=== PATIENT | female | born 1975 | race Caucasian/White ===

== ENCOUNTER 2017-07-04 18:04 | Observation (INO) | payer OTHER ==
[2017-07-04] MEDS ORDERED: PROVENTIL 2.5 MG/3 ML NEB IH ONE (20:15)
[2017-07-04] MEDS: PROVENTIL 2.5 MG/3 ML NEB IH SCH ×2 (20:20→23:04)
[2017-07-04] MEDS ORDERED: PROVENTIL 2.5 MG/3 ML NEB IH PRN (20:22)
[2017-07-04] MEDS ORDERED: PROVENTIL COMMON CANISTER IH PRN (20:22)
[2017-07-04 20:28] LABS: BASOPHIL % 0.4 % (0.0-0.4); Eosinophil % 2.8 % (0.00-5.0); Granulocytes % 70.2 % (36.0-66.0); Mean Cell Volume 81.5 fl (78-100); Mean Platelet Volume 10.8 fl (6-9.5); Monocytes % 8.6 % (0.0-12.0); Platelet Count 205 K/mm3 (150-450); Red Blood Count 3.62 M/mm3 (4.1-5.4); Red Cell Distribution Width 15.2 % (11.5-14.0)
[2017-07-04 20:33] LABS: Mean Corpuscular Hemoglobin 24.8 pg (26-32)
[2017-07-04] MEDS ORDERED: Lasix 40 MG/4 ML ONE (21:06)
[2017-07-04 21:16] LABS: ALBUMIN 2.9 g/dL (3.4-5.0); ANION GAP 14.6 MEQ/L (5-15); BILIRUBIN,TOTAL 0.2 mg/dL (0.2-1.0); Carbon Dioxide 24.9 mEq/L (21-32); Potassium 4.5 mEq/L (3.5-5.1); Total Protein 7.3 gm/dL (6.4-8.2)
[2017-07-04 21:59] LABS: Bilirubin NEGATIVE (NEGATIVE); Blood 250 Ery/ul (0-5); Collection Type CLEAN CATCH; Glucose NEGATIVE (NEGATIVE); Leukocyte Esterase TRACE (NEGATIVE)
[2017-07-04 22:00] LABS: Bacteria MODERATE /HPF (NEGATIVE); COMPLETE URINE MICROSCOPIC? YES; Epithelial Cells MANY /HPF (FEW); Mucus SLIGHT /HPF (NEGATIVE)
[2017-07-04] MEDS ORDERED: NORCO 7.5/325 MG TAB PO PRN (23:13)
[2017-07-04] MEDS ORDERED: DESYREL 50 MG PO PRN (23:20)
[2017-07-04] MEDS ORDERED: Zestril 20 MG PO ONE (23:30)
[2017-07-04] MEDS ORDERED: Pepcid 20 MG PO ONE (23:30)
[2017-07-04] MEDS ORDERED: LYRICA 100MG PO ONE (23:30)
[2017-07-04] MEDS ORDERED: Singulair 10 MG PO ONE (23:30)
[2017-07-04] MEDS ORDERED: Zocor 10MG PO ONE (23:30)
[2017-07-04] MEDS: Lantus Insulin SQ SCH (23:57)
[2017-07-05] MEDS: PHENERGAN 25 MG PO PRN ×3 (00:02→18:56)
[2017-07-05] MEDS: PROVENTIL 2.5 MG/3 ML NEB IH SCH ×6 (02:52→23:15)
[2017-07-05] MEDS ORDERED: Sodium Chloride 0.9% 10 ML FLUSH Syringe IV PRN (07:28)
--- NOTE | 2017-07-05 07:56 | XRAY ---
Indication: Short of breath. Comparison: November 12, 2016. Portable chest demonstrates small focus of right base infiltrate/atelectasis/effusion. Heart is not enlarged for AP portable technique. Bony thorax intact.
[2017-07-05] MEDS ORDERED: Lantus Insulin SQ SCH (08:00)
[2017-07-05] MEDS: Furosemide 100mg/10 ml Vial IV SCH (08:27)
[2017-07-05] MEDS: Sodium Chloride 0.9% 10 ML FLUSH Syringe IV SCH ×2 (08:35→22:12)
[2017-07-05] MEDS: NovoLOG Insulin SQ PRN ×2 (12:36→22:13)
[2017-07-05] MEDS: NORCO 7.5/325 MG TAB PO PRN ×2 (13:03→19:00)
[2017-07-05] MEDS ORDERED: NON-FORMULARY ITEM (Ranitidine Hcl [Zantac] 150 MG) PO SCH (15:00)
[2017-07-05] MEDS: Zestril 20 MG PO SCH ×2 (15:26→22:12)
[2017-07-05] MEDS: COREG 12.5 MG PO SCH ×2 (15:27→22:10)
[2017-07-05] MEDS: NORVASC 5 MG PO SCH (15:27)
[2017-07-05] MEDS: Zocor 10MG PO SCH ×2 (15:27→22:12)
[2017-07-05] MEDS: LYRICA 100MG PO SCH ×2 (15:27→22:11)
[2017-07-05] MEDS: Pepcid 20 MG PO SCH ×2 (15:27→22:11)
[2017-07-05] MEDS: CLARITIN 10 MG PO SCH (15:28)
[2017-07-05] MEDS: Lantus Insulin SQ SCH ×2 (15:28→22:10)
--- NOTE | 2017-07-05 16:20 | HP ---
HISTORY OF PRESENT ILLNESS: This is a 41 year-old woman who presented to the clinic yesterday to see Dr. Brooks. She has had a 25 pound weight gain since June 19, 2017. She reports a history of congestive heart failure, had started feeling like she was feeling up. A week ago Dr. Brooks had increased her Lasix to 80 mg p.o. daily for the past week but the patient was still having dyspnea and unable to lay down to sleep at night. She was even dyspneic when she would get up to walk to the bathroom. She reports that after getting 80 mg of Lasix last night and this morning that she has had good urine output. They have recorded 1740 mL, and that she is feeling much better today and that she is not as dyspneic. She reports her top screw is Dr. Sellers in [place] and that she has had an echocardiogram, stress test there. She reports she is watching her diet and trying not to eat too much salt. REVIEW OF SYSTEMS: She denies cough, no rhinorrhea, no abdominal pain, no rashes, no headaches. She has had swelling in the abdomen and her lower legs, otherwise review of systems is negative. ALLERGIES: Codeine, diphenhydramine, morphine, Doxycycline, Benadryl. MEDICATIONS: Please see her home medication list. PAST MEDICAL HISTORY: The patient reports a history of myocardial infarction November 12, 2016, here at [facility] and then being transferred to [facility] where she had to stay for 3 weeks. She has a history of gastroesophageal reflux, arthritis, depression, diabetes type 2, congestive heart failure, hypertension, kidney problems, chronic pancreatitis, diverticulitis, gastritis, hypoxia requiring home oxygen at 2 liters. SURGICAL HISTORY: She had a bone taken out of her big toe because of a diabetic ulcer, a D&C. SOCIAL HISTORY: She quit smoking October 2016, no alcohol use. She is and lives with her . FAMILY HISTORY: Her mother is and had arthritis of her hip, coronary artery disease and congestive heart failure. Her father is and had a history of [place], COPD, and black lungs. PHYSICAL EXAMINATION: VITALS: T-Current 98.2, T-Max 98.6, heart rate 86 to 102, respiratory rate 18 to 21, oxygen saturation 94 to 97% on 2 L nasal cannula. Blood pressure 130 to 159 over 77 to 88. GENERAL: The patient is a pleasant lady lying in bed, no acute distress. CARDIOVASCULAR: She has regular rate and rhythm, no murmurs, gallops or rubs. CHEST: Clear to auscultation bilaterally, no crackles or wheezes. ABDOMEN: Soft, nontender, nondistended, with normal bowel sounds. EXTREMITIES: She has +2 pitting edema to her knees bilaterally. SKIN: Warm, dry and intact. LABS: Hemoglobin 9.0, creatinine 1.73, NT Pro BNP 271, UA with moderate bacteria. Hemoglobin A1c 14.1. ASSESSMENT AND PLAN Congestive heart failure exacerbation. Will continue with Lasix 80 mg IV daily. We will recheck her NT Pro BNP in the morning. Continue with accurate In's and Out's and daily weights. * Diabetes mellitus type 2, out of control. She reports Dr. Brooks recently adjusted her insulin, we will continue with accu-cheks q.a.m., q.h.s., as well as low dose sliding scale and restart the current doses of her insulin on her home medication list that were recently increased by Dr. Brooks.
[2017-07-05] MEDS: NovoLOG Insulin SQ SCH (16:47)
[2017-07-05] MEDS ORDERED: Lasix 40 MG/4 ML IV ONE (20:01)
[2017-07-05] MEDS ORDERED: NON-FORMULARY ITEM (Atorvastatin Calcium [Atorvastatin Calcium] 10 MG) PO SCH (22:00)
[2017-07-05] MEDS: Singulair 10 MG PO SCH (22:12)
[2017-07-06] MEDS: PROVENTIL 2.5 MG/3 ML NEB IH SCH ×6 (03:11→22:57)
[2017-07-06] MEDS: NORCO 7.5/325 MG TAB PO PRN ×4 (03:24→23:52)
[2017-07-06] MEDS: PHENERGAN 25 MG PO PRN ×4 (03:28→23:55)
[2017-07-06] MEDS: Sodium Chloride 0.9% 10 ML FLUSH Syringe IV SCH ×3 (04:07→21:33)
[2017-07-06 06:20] LABS: ANION GAP 12.1 MEQ/L (5-15); Carbon Dioxide 30.1 mEq/L (21-32); Potassium 4.3 mEq/L (3.5-5.1)
[2017-07-06] MEDS: NovoLOG Insulin SQ SCH ×3 (07:55→16:48)
[2017-07-06] MEDS: Lantus Insulin SQ SCH ×2 (07:56→21:33)
[2017-07-06] MEDS: COREG 12.5 MG PO SCH ×2 (09:34→21:22)
[2017-07-06] MEDS: Zestril 20 MG PO SCH ×2 (09:34→21:23)
[2017-07-06] MEDS: Zocor 10MG PO SCH ×2 (09:34→21:23)
[2017-07-06] MEDS: CLARITIN 10 MG PO SCH (09:35)
[2017-07-06] MEDS: LYRICA 100MG PO SCH ×3 (09:37→21:22)
[2017-07-06] MEDS: NORVASC 5 MG PO SCH (09:37)
[2017-07-06] MEDS: Furosemide 100mg/10 ml Vial IV SCH (09:38)
--- NOTE | 2017-07-06 09:47 | PCM.NOTE ---
Date and Time: 07/06/17937 Subjective Assessment: She reports that she continues to feel better with less swelling in her abdomen , hands and legs. She reports her hgb A1C was 16 so having it at 14.1 is an improvement for her. She reports she plans to see Dr. Newman about her diabetes but she has not heard when this appointment is yet. - Review of Systems Constitutional: No Symptoms Eyes: No Symptoms Ears, Nose, & Throat: No Symptoms Respiratory: No Symptoms Cardiac: No Symptoms Abdominal/Gastrointestinal: No Symptoms Genitourinary Symptoms: No Symptoms Musculoskeletal: No Symptoms Skin: Other (mild swelling of right hand (chronic) and lower extremities.) Objective Exam General Appearance: no apparent distress, alert, obese Neurologic Exam: alert, cooperative, normal mood/affect Skin Exam: normal color, warm, dry, No rash Respiratory Exam: normal breath sounds, lungs clear, No respiratory distress, No crackles/rales, No rhonchi, No wheezing Cardiovascular Exam: regular rate/rhythm, normal heart sounds, No murmur, No friction rub, No gallop Gastrointestinal/Abdomen Exam: soft, normal bowel sounds, No tenderness, No distention, No mass Extremity Exam: other (+1 edema to knees bilat, slight swelling in right hand) OBJECTIVE DATA Vital Signs: Vital Signs - 24 hr Temp Pulse Resp BP Pulse Ox 07/06/17 07:15 87 18 94 L 07/06/17 07:00 98.1 F 93 H 18 151/74 93 L 07/06/17 03:11 82 20 93 L 07/06/17 03:00 97.6 F 82 20 128/75 93 L 07/05/17 23:15 97 H 20 94 L 07/05/17 23:00 98.0 F 87 22 132/80 93 L 07/05/17 19:55 97.9 F 94 H 20 144/77 96 07/05/17 18:45 94 H 19 96 07/05/17 17:01 97.6 F 92 H 18 128/65 97 07/05/17 16:00 98.2 F 86 18 130/79 97 07/05/17 11:40 98.2 F 86 18 130/79 97 07/05/17 10:50 84 18 98 Oxygen-Last 24 hours O2 Percentage 2 Liters = 28% O2 Percentage 2 Liters = 28% O2 Percentage 2 Liters = 28% O2 Percentage 2 Liters = 28% O2 Percentage 2 Liters = 28% O2 Percentage 2 Liters = 28% O2 Percentage 2 Liters = 28% O2 Percentage 2 Liters = 28% Pain Assessment - Last Documented Pain Intensity 7 Pain Scale Used [facility] Intake and Output: Intake & Output 07/04/17 07/05/17 07/06/17 07/07/17 06:59 06:59 06:59 06:59 Intake Total 1020 2630 Output Total 1740 4250 Balance -720 -1620 Weight 148.189 kg 147.327 kg Lab Results: Accuchecks Date 07/06/17 Date 07/05/17 Date 07/05/17 Date 07/05/17 Time 08:00 Time 22:00 Time 16:54 Time 11:30 Accucheck Value: 253 Accucheck Value: 354 Lab Results-Last 24 Hours 07/06/17 Range/Units 05:40 Sodium 137 (136-145) mEq/L Potassium 4.3 (3.5-5.1) mEq/L Chloride 99 (98-107) mEq/L Carbon Dioxide 30.1 (21-32) mEq/L Anion Gap 12.1 (5-15) MEQ/L BUN 28 H (9-20) mg/dL Creatinine 1.73 H (0.55-1.30) mg/dl Estimated GFR 34 ML/MIN Glucose 267 H (70-110) MG/DL Calcium 8.7 (8.5-10.1) mg/dL Radiology Exams: Radiology Procedures Category Date Time Status CHEST 1 VIEW (PORTABLE) Stat Exams 07/04/17 20:10 Completed Assessment/Plan (1) Acute exacerbation of CHF (congestive heart failure) Current Visit: Yes Status: Acute Assessment & Plan: Continue lasix 80 mg IV daily. Her creatinine has been stable. Continue to monitor daily ins and outs and daily weights. Her weight is down to 147.3 kg from 148 kg yesterday. She had 4250 mL of urine out in the last 24 hours. Code(s): I50.9 - HEART FAILURE, UNSPECIFIED (2) Diabetes type 2, uncontrolled Current Visit: Yes Status: Chronic Qualifiers: Diabetes mellitus complication status: with hyperglycemia Diabetes mellitus alf insulin use: with mold changer use Qualified Code(s): E11.65 - Type 2 diabetes mellitus with hyperglycemia; Z79.4 - detention (current) use of insulin Assessment & Plan: Continue current dose of lantus (increased by Dr. Brooks in the clinic on ). Increase novolog form 15 units with meals to 25 units with meals. She received a total of 182 units of insulin yesterday (125 lantus and 57 units of short acting insulin with her meal sand sliding scale) and her glucoses still ran in the 200's or higher. She did not have any low blood glucoses. Code(s): E11.65 - TYPE 2 DIABETES MELLITUS WITH HYPERGLYCEMIA
[2017-07-06] MEDS ORDERED: INSULIN GLARGINE HUM REC ANLOG 50 UNIT SQ SCH (10:00)
[2017-07-06] MEDS ORDERED: NON-FORMULARY ITEM (Amlodipine Besylate 10 Mg [Norvasc 10 Mg] 10 MG) PO SCH (10:00)
[2017-07-06] MEDS: Pepcid 20 MG PO SCH ×3 (11:46→21:22)
[2017-07-06] MEDS: Singulair 10 MG PO SCH (21:22)
[2017-07-06] MEDS: NovoLOG Insulin SQ PRN (21:33)
[2017-07-07] MEDS: PROVENTIL 2.5 MG/3 ML NEB IH SCH ×3 (03:18→10:47)
[2017-07-07] MEDS: Sodium Chloride 0.9% 10 ML FLUSH Syringe IV SCH (06:37)
[2017-07-07 07:38] VITALS: BP 123/76
[2017-07-07] MEDS: NovoLOG Insulin SQ SCH ×2 (07:50→11:49)
[2017-07-07] MEDS: Lantus Insulin SQ SCH (07:50)
[2017-07-07] MEDS: NORCO 7.5/325 MG TAB PO PRN (08:07)
[2017-07-07] MEDS: PHENERGAN 25 MG PO PRN (08:07)
--- NOTE | 2017-07-07 09:07 | PCM.DS ---
Discharge Summary Date of Admission: 07/04/17 19:39 Admitting Physician: VILMA KEEN Primary Care Provider: VILMA KEEN Allergies Allergies codeine [Codeine] Allergy (Severe, Verified 02/06/16 06:18) swelling throat diphenhydramine HCl [From Benadryl] Allergy (Severe, Verified 02/06/16 06:18) swelling to eyes and throat morphine Allergy (Severe, Verified 02/06/16 06:18) swelling throat doxycycline calcium [From Vibramycin] Allergy (Mild, Verified 02/06/16 06:18) Rash doxycycline hyclate [From Vibramycin] Allergy (Mild, Verified 02/06/16 06:18) Rash doxycycline monohydrate [From Vibramycin] Allergy (Mild, Verified 02/06/16 06:18 ) Rash acetaminophen [From Darvocet-N] Allergy (Verified 02/06/16 06:18) Penicillins Allergy (Verified 02/06/16 06:18) propoxyphene napsylate [From Darvocet-N] Allergy (Verified 02/06/16 06:18) Sulfa (Sulfonamide Antibiotics) Allergy (Verified 02/06/16 06:18) Rash Hospital Summary - Hospital Course Hospital Course: Pt admitted with acute exacerbation of CHF and overall edema. She has had very good urine output on 80mg IV lasix daily. Tolerating po well. Feeling better, decreased edema. Her diabetes has been uncontrolled; she has slowly been increasing her lantus at home with BS over 400. She is to follow up with Dr. Newman. Her lantus here was increased to 50 units in a.m. (from 30 units) and 75 units in p.m. with lowest bs 118. - Vitals & Intake/Output Vital Signs: Vital Signs Temperature 98.1 F 07/07/17 07:37 Pulse Rate 88 07/07/17 07:37 Respiratory Rate 20 07/07/17 07:37 Blood Pressure 123/76 07/07/17 07:37 O2 Sat by Pulse Oximetry 95 07/07/17 07:37 Oxygen-Last Documented O2 Percentage 2 Liters = 28% Intake & Output: Intake & Output 07/04/17 07/05/17 07/06/17 07/07/17 11:59 11:59 11:59 11:59 Intake Total 1020 2630 730 Output Total 1740 4250 2250 Balance -097 -2510 -8728 Weight 148.189 kg 147.327 kg 148.381 kg - Lab Result Diagrams: 07/04/17 20:15 07/06/17 05:40 Lab Results-Last 24 Hrs: Accuchecks Date 07/07/17 Date 07/06/17 Date 07/06/17 Date 07/06/17 Time 07:30 Time 20:34 Time 16:30 Time 11:35 Accucheck Value: 167 Accucheck Value: 299 Micro Results-Entire Visit: Accuchecks Date 07/07/17 Date 07/06/17 Date 07/06/17 Date 07/06/17 Time 07:30 Time 20:34 Time 16:30 Time 11:35 Accucheck Value: 167 Accucheck Value: 299 - Procedures and Test Procedures and Tests throughout Hospitalization: Therapy Orders & Screens 07/04/17 19:00 Respiratory Nebulizer Q4H Comment: ALBUTEROL Q4 HOURS 07/04/17 20:20 Respiratory Therapy Consult ROUTINE Comment: Reason For Exam: 07/04/17 20:21 Oxygen NASAL CANNULA 2 lpm Comment: TO KEEP SPO2 >92% PER R.T. PROTOCOL Respiratory Nebulizer PRN Comment: ALBUTEROL Q2PRN FOR SOB/WHEEZING 07/04/17 20:22 Respiratory MDI PRN Comment: ALBUTEROL 2 PUFFS Q4HPRN FOR SOB/WHEEZING Discharge Exam General Appearance: no apparent distress Neurologic Exam: alert, oriented x 3, cooperative Skin Exam: normal color, warm, dry Respiratory Exam: normal breath sounds, lungs clear, No crackles/rales, No rhonchi, No wheezing Cardiovascular Exam: regular rate/rhythm, normal heart sounds, No murmur, No gallop Gastrointestinal/Abdomen Exam: soft, normal bowel sounds, No tenderness Extremity Exam: swelling (trace LE edema bilat) Final Diagnosis/Problem List - Final Discharge Diagnosis/Problem (1) Acute exacerbation of CHF (congestive heart failure) Current Visit: Yes Status: Acute Assessment & Plan: Much improved. Will check labs today, as long as she is stable ok to d/c home on home lasix dose. (2) Diabetes type 2, uncontrolled Current Visit: Yes Status: Chronic Assessment & Plan: Home on lantus 50 units in a.m., 75 units in p.m. She is supposed to get an appointemnt wicaleb Newman. I will have my office staff call in the larger dose of insulin to the pharmacy. - Discharge Disposition: Home, Self-Care Condition: Stable Prescriptions: Continue Lisinopril 20 mg [Zestril 20 MG] 20 mg PO BID Ranitidine HCl [Zantac] 150 mg PO TID Pregabalin [Lyrica 100Mg] 100 mg PO TID Ergocalciferol (Vitamin D2) [Vitamin D] 1.25 mg PO .TUES/TH Atorvastatin Calcium 10 mg PO BID Trazodone HCl 50 mg [Desyrel 50 mg] 1 - 2 tab PO HS PRN PRN PRN Reason: sleep Amlodipine Besylate 10 mg [Norvasc 10 MG] 10 mg PO DAILY Promethazine HCl 25 mg [Phenergan 25 mg] 12.5 mg PO Q6H PRN PRN #30 tablet PRN Reason: Nausea Insulin Aspart [NovoLOG Insulin] 15 unit SQ AC Loratadine 10 mg [Claritin 10 mg] 10 mg PO DAILY AMITRIPTYLINE HCL 50 mg Tab [AMITRIPTYLINE HCL 50 mg Tablet] 50 mg PO QID Albuterol Sulfate [Proventil Hfa] 6.7 gm IH QID PRN Albuterol 2.5 mg/3 ml Neb [Proventil 2.5 mg/3 ml Neb] 2.5 mg NEB Q4HPRN PRN PRN Reason: Shortness Of Breath Montelukast Sodium 10 mg [Singulair 10 MG] 10 mg PO HS Hydrocodone Bit/Acetaminophen [[place] 7.5-325 Tablet] 1 each PO Q6H PRN PRN PRN Reason: Pain Carvedilol 12.5 mg [Coreg 12.5 mg] 12.5 mg PO BID Insulin Glargine,Hum.rec.anlog [Basaglar Kwikpen U-100] 50 unit SQ QAM Insulin Glargine,Hum.rec.anlog [Basaglar Kwikpen U-100] 75 unit SQ QPM Furosemide 80 mg [Lasix 80 mg] 80 mg PO DAILY Follow up with: VILMA KEEN [Primary Care Provider] - 1 Week
[2017-07-07 09:51] LABS: Mean Cell Volume 82.6 fl (78-100); Mean Platelet Volume 10.4 fl (6-9.5); Platelet Count 259 K/mm3 (150-450); Red Blood Count 4.07 M/mm3 (4.1-5.4); Red Cell Distribution Width 15.7 % (11.5-14.0); White Blood Count 11.5 K/mm3 (4.0-10.5)
[2017-07-07 10:02] LABS: Mean Corpuscular Hemoglobin 24.5 pg (26-32)
[2017-07-07] MEDS: LYRICA 100MG PO SCH (10:21)
[2017-07-07] MEDS: Pepcid 20 MG PO SCH (10:21)
[2017-07-07] MEDS: Zestril 20 MG PO SCH (10:21)
[2017-07-07] MEDS: NORVASC 5 MG PO SCH (10:21)
[2017-07-07] MEDS: CLARITIN 10 MG PO SCH (10:21)
[2017-07-07] MEDS: COREG 12.5 MG PO SCH (10:21)
[2017-07-07] MEDS: Zocor 10MG PO SCH (10:22)
[2017-07-07] MEDS: Furosemide 100mg/10 ml Vial IV SCH (10:22)
[2017-07-07 10:23] LABS: ANION GAP 13.1 MEQ/L (5-15); Carbon Dioxide 29.1 mEq/L (21-32); Potassium 4.2 mEq/L (3.5-5.1)
[2017-07-07 10:50] VITALS: PULSE 97; O2SAT 96
[2017-07-08] MEDS ORDERED: VITAMIN D2 PO SCH (10:00)
== END 2017-07-07 12:45 | disposition home or self-care (01) ==
LOC: MED SURG 19:39
PROVIDERS: ADMIT Family Medicine; ATTEND Family Medicine
DX: I50.23 Acute on chronic systolic (congestive) heart failure (principal); E09.65 Drug or chemical induced diabetes mellitus with hyperglycemia; Z79.899 Other long term (current) drug therapy; I25.2 Old myocardial infarction; K21.9 Gastro-esophageal reflux disease without esophagitis; M19.90 Unspecified osteoarthritis, unspecified site; F32.9 Major depressive disorder, single episode, unspecified; I10 Essential (primary) hypertension; K86.1 Other chronic pancreatitis
CPT/HCPCS: 36415; 71010; 80048; 80053; 81000; 82962; 83036; 83880; 85025; 85027; 94640; 94760; G0378; J1940; A9270-GY

== ENCOUNTER 2017-07-29 11:58 | Emergency (ER) | payer OTHER ==
[2017-07-29 13:02] VITALS: O2SAT 96
[2017-07-29 13:08] LABS: BASOPHIL % 0.3 % (0.0-0.4); Eosinophil % 2.2 % (0.00-5.0); Granulocytes % 72.6 % (36.0-66.0); Lymphocytes % 16.3 % (24.0-44.0); Mean Cell Volume 77.4 fl (78-100); Mean Platelet Volume 11.5 fl (6-9.5); Monocytes % 8.6 % (0.0-12.0); Platelet Count 295 K/mm3 (150-450); Red Blood Count 4.52 M/mm3 (4.1-5.4); White Blood Count 11.6 K/mm3 (4.0-10.5)
[2017-07-29 13:09] LABS: Mean Corpuscular Hemoglobin 23.8 pg (26-32)
--- NOTE | 2017-07-29 13:11 | ERPHSYRPT ---
- History of Present Illness Time Seen by Provider: 07/29/17 12:31 Source: patient Exam Limitations: no limitations Patient Subjective Stated Complaint: has had abnormal labs on friday. unable to states whuich ones but she thinks kidney functions. was suppose to be admitted on Friday but was unable Triage Nursing Assessment: alert and oriented. states feeling tired. states the MD said she was dehydrated and wanted her to come into ER for repet labs.. Lips sry and states dry mouth. lungs clear. states cough but no worse that usual heavy feeling in legs but no swelling noted. low back pain and decreased urine output for the past few days. Physician History: 41 year old female who reports she was directed by Dr Brooks's staff to come to the emergency department today for lab evaluation. She states she was told she was dehydrated and had multiple lab abnormalities. She reports some dyspnea, denies chest pain, palpitations or syncope. No numbness, tingling, weakness or paresthesias are present. She reports a history of myocardial infarction in the past and recently congestive heart failure evaluation. Her desktop administrator is Dr Nolasco in [place]. Allergies/Adverse Reactions: codeine [Codeine] Allergy (Severe, Verified 02/06/16 06:18) swelling throat diphenhydramine HCl [From Benadryl] Allergy (Severe, Verified 02/06/16 06:18) swelling to eyes and throat morphine Allergy (Severe, Verified 02/06/16 06:18) swelling throat doxycycline calcium [From Vibramycin] Allergy (Mild, Verified 02/06/16 06:18) Rash doxycycline hyclate [From Vibramycin] Allergy (Mild, Verified 02/06/16 06:18) Rash doxycycline monohydrate [From Vibramycin] Allergy (Mild, Verified 02/06/16 06:18 ) Rash acetaminophen [From Darvocet-N] Allergy (Verified 02/06/16 06:18) Penicillins Allergy (Verified 02/06/16 06:18) propoxyphene napsylate [From Darvocet-N] Allergy (Verified 02/06/16 06:18) Sulfa (Sulfonamide Antibiotics) Allergy (Verified 02/06/16 06:18) Rash Home Medications: Lisinopril 20 mg [Zestril 20 MG] 20 mg PO BID 05/04/13 [History] Pregabalin [Lyrica 100Mg] 100 mg PO TID 10/19/13 [History] Ranitidine HCl [Zantac] 150 mg PO TID 10/19/13 [History] Amlodipine Besylate 10 mg [Norvasc 10 MG] 10 mg PO DAILY 01/05/16 [History] Atorvastatin Calcium 10 mg PO BID 01/05/16 [History] Ergocalciferol (Vitamin D2) [Vitamin D] 1.25 mg PO .TUES/THURS 01/05/16 [History ] Trazodone HCl 50 mg [Desyrel 50 mg] 1 - 2 tab PO HS PRN PRN 01/05/16 [ History] AMITRIPTYLINE HCL 50 mg Tab [AMITRIPTYLINE HCL 50 mg Tablet] 50 mg PO QID [History] Albuterol 2.5 mg/3 ml Neb [Proventil 2.5 mg/3 ml Neb] 2.5 mg NEB Q4HPRN PRN 11/08/16 [History] Albuterol Sulfate [Proventil Hfa] 6.7 gm IH QID PRN 11/08/16 [History] Insulin Aspart [NovoLOG Insulin] 15 unit SQ AC 11/08/16 [History] Loratadine 10 mg [Claritin 10 mg] 10 mg PO DAILY 11/08/16 [History] Hydrocodone Bit/Acetaminophen [[place] 7.5-325 Tablet] 1 each PO Q6H PRN PRN 07/04 [History] Montelukast Sodium 10 mg [Singulair 10 MG] 10 mg PO HS 07/04/17 [History] Carvedilol 12.5 mg [Coreg 12.5 mg] 12.5 mg PO BID 07/05/17 [History] Furosemide 80 mg [Lasix 80 mg] 80 mg PO DAILY 07/05/17 [History] Insulin Glargine,Hum.rec.anlog [Basaglar Kwikpen U-100] 50 unit SQ QAM 07/05/17 [History] Insulin Glargine,Hum.rec.anlog [Basaglar Kwikpen U-100] 75 unit SQ QPM 07/05/17 [History] Hx Tetanus, Diphtheria Vaccination/Date Given: Yes Hx Influenza Vaccination/Date Given: No Hx Pneumococcal Vaccination/Date Given: No - Review of Systems Constitutional: No Fever, No Chills Respiratory: Dyspnea, No Cough Cardiac: Edema (chronic), No Chest Pain, No Palpitations, No Syncope Abdominal/Gastrointestinal: No Abdominal Pain, No Nausea, No Vomiting, No Diarrhea Genitourinary Symptoms: No Dysuria Skin: No Rash All Other Systems: Reviewed and Negative - Past Medical History Pertinent Past Medical History: Yes Neurological History: Migraines, Peripheral Neuropathy ENT History: No Pertinent History Cardiac History: High Cholesterol, Hypertension Respiratory History: Asthma Endocrine Medical History: Diabetes Type II Musculoskeletal History: Fibromyalgia, Fractures, Osteoarthritis GI Medical History: Diverticulitis, GERD, Pancreatitis History: Other Psycho-Social History: Anxiety, Depression Female Reproductive Disorders: No Pertinent History Other Medical History: L knee deterioration. l1 fracture. hx kidney failure- L kidney not fully functioning - Past Surgical History Past Surgical History: Yes Neuro Surgical History: No Pertinent History Cardiac: No Pertinent History Respiratory: No Pertinent History Gastrointestinal: No Pertinent History Genitourinary: No Pertinent History Musculoskeletal: Other Female Surgical History: Tubal Ligation, Other Other Surgical History: D&C,childbirth x two; bone removed in left big toe - Social History Smoking Status: Never smoker How long have you smoked: 22 yrs Exposure to second hand smoke: No Drug Use: none Patient Lives Alone: No - Female History Hx Last Menstrual Period: july 04 - Nursing Vital Signs Nursing Vital Signs: Initial Vital Signs Temperature 98.5 F 07/29/17 12:08 Pulse Rate 96 H 07/29/17 12:08 Blood Pressure 133/102 07/29/17 12:08 O2 Sat by Pulse Oximetry 100 07/29/17 12:08 Pain Scale Pain Intensity 3 - Physical Exam General Appearance: no apparent distress, obese Eye Exam: PERRL/EOMI, eyes nml inspection Ears, Nose, Throat Exam: pharynx normal Neck Exam: normal inspection, non-tender, supple, full range of motion Respiratory Exam: normal breath sounds, lungs clear, No respiratory distress Cardiovascular Exam: regular rate/rhythm, normal heart sounds, normal peripheral pulses Gastrointestinal/Abdomen Exam: soft, normal bowel sounds, No tenderness, No mass Extremity Exam: pedal edema (trace) Skin Exam: normal color, warm, dry, No rash SpO2 Interpretation: normal SpO2: 96 Oxygen Delivery: Room Air - Course Nursing assessment & vital signs reviewed: Yes EKG Interpreted by Me: RATE (96), Sinus Rhythm, Left [place] Deviation, Left Bundle Branch Block (unchanged from prior comparison 11/12/16) Ordered Tests: Active Orders 24 hr Category Date Time Status Mandarin Speaking Nanny STAT Care 07/29/17 12:36 Active EKG-ER Only STAT Care 07/29/17 12:36 Active IV Insertion STAT Care 07/29/17 12:36 Active CHEST 1 VIEW (PORTABLE) Stat Exams 07/29/17 12:36 Completed CBC W DIFF Stat Lab 07/29/17 12:50 Completed CMP Stat Lab 07/29/17 12:50 Completed MAGNESIUM Stat Lab 07/29/17 12:50 Completed NT PRO BNP Stat Lab 07/29/17 12:50 Completed TROPONIN Q3H Lab 07/29/17 12:50 Completed TROPONIN Q3H Lab 07/29/17 15:45 Ordered TROPONIN Q3H Lab 07/29/17 18:45 Ordered TROPONIN Q3H Lab 07/29/17 21:45 Ordered TROPONIN Q3H Lab 07/30/17 00:45 Ordered Lab/Rad Data: Laboratory Result Diagrams 07/29/17 12:50 07/29/17 12:50 Laboratory Results 07/29/17 07/29/17 07/29/17 Range/Units 12:50 12:50 12:50 WBC 11.6 H (4.0-10.5) K/mm3 RBC 4.52 (4.1-5.4) M/mm3 Hgb 10.8 L (12.0-16.0) gm/dl Hct 35.0 (35-47) % MCV 77.4 L (78-100) fl MCH 23.8 L (26-32) pg MCHC 30.9 L (32-36) g/dl RDW 15.0 H (11.5-14.0) % Plt Count 295 (150-450) K/mm3 MPV 11.5 H (6-9.5) fl Gran % 72.6 H (36.0-66.0) % Lymphocytes % 16.3 L (24.0-44.0) % Monocytes % 8.6 (0.0-12.0) % Eosinophils % 2.2 (0.00-5.0) % Basophils % 0.3 (0.0-0.4) % Basophils # 0.04 (0-0.4) Sodium 132 L (136-145) mEq/L Potassium 5.2 H (3.5-5.1) mEq/L Chloride 97 L (98-107) mEq/L Carbon Dioxide 23.1 (21-32) mEq/L Anion Gap 17.2 H (5-15) MEQ/L BUN 49 H (9-20) mg/dL Creatinine 1.90 H (0.55-1.30) mg/dl Estimated GFR 31 ML/MIN Glucose 452 H (70-110) MG/DL Calcium 9.8 (8.5-10.1) mg/dL Magnesium 1.8 (1.8-2.4) mg/dL Total Bilirubin 0.20 (0.2-1.0) mg/dL AST 11 L (15-37) U/L ALT 17 (12-78) U/L Alkaline Phosphatase 163 H (46-116) U/L Troponin I < 0.017 (0.000-0.056) ng/ml NT-Pro-B Natriuret Pep 226 H (0-125) pg/ml Serum Total Protein 7.9 (6.4-8.2) gm/dL Albumin 3.2 L (3.4-5.0) g/dL - Progress Progress Note: 07/29/17 14:[address] Brooks about improvement in labs since 07/17, she would like for patient to be discharged to home with order for repeat labs and f/u in offcie with her on Friday. discussed with patient, she feels well at this time and would like to go home. of note she has her lasix on hold at this time, seeing Dr Lawson net programmer analyst and he stopped her lasix and started her on zaroxylyn recently. she will continue to hold lasix and we will repeat BMP on Friday per Dr Brooks's request. I discussed labs and xray findings with patient, all questions were answered and she agrees with my outlined plan of care at this time. - Departure Time of Disposition: 14:18 Departure Disposition: Home Clinical Impression: Chronic renal disease, Hyperglycemia due to type 2 diabetes mellitus Condition: Stable Critical Care Time: No Referrals: VILMA BROOKS [Primary Care Provider] - Additional Instructions: continue to hold your lasix as directed by Dr Lawson, increase clear fluid intake and rest. have BMP checked on Friday morning prior to appointment with Dr Brooks. you have a followup appointment scheduled with Dr Brooks on FridayAugust 04 at 11:15am, please have your bloodwork done early Friday before your appointment so Dr Brooks will have them to review when you are in the office.
--- NOTE | 2017-07-29 13:19 | XRAY ---
Exam: AP portable chest film from 1244 hrs. on 07/29/2017. Comparison: AP upright portable chest film from 07/04/2017. Indication: Shortness of breath, history of CHF. Findings: The heart size and contour are normal. The kanika and mediastinal structures appear unremarkable. Inflation of the lungs is average. Prior mild right basilar airspace disease has resolved as compared to 07/04/2017. Currently, the lung ortega appear essentially clear. No vascular congestion, pneumothorax, or pleural effusion is seen. I believe there is a tiny calcified granuloma at the medial right lung apex. No acute osseous process is seen. Impression: 1. Prior focal airspace disease at the right lung base has resolved representing improvement from 07/04/2017. 2. Currently, no acute cardiopulmonary disease is seen.
[2017-07-29 13:53] LABS: ALBUMIN 3.2 g/dL (3.4-5.0); ANION GAP 17.2 MEQ/L (5-15); BILIRUBIN,TOTAL 0.2 mg/dL (0.2-1.0); Carbon Dioxide 23.1 mEq/L (21-32); MAGNESIUM 1.8 mg/dL (1.8-2.4); Potassium 5.2 mEq/L (3.5-5.1); Total Protein 7.9 gm/dL (6.4-8.2)
[2017-07-29 14:20] VITALS: BP 115/88; PULSE 87
== END 2017-07-29 14:35 | disposition home or self-care (01) ==
LOC: ED 11:58
DX: N18.9 Chronic kidney disease, unspecified (principal); E11.65 Type 2 diabetes mellitus with hyperglycemia; R06.00 Dyspnea, unspecified; R60.9 Edema, unspecified; E78.00 Pure hypercholesterolemia, unspecified; I10 Essential (primary) hypertension; Z79.4 Long term (current) use of insulin; Z79.899 Other long term (current) drug therapy
CPT/HCPCS: 36000; 36415; 71010; 80053; 83036; 83735; 83880; 84484; 85025; 93005; 93041; 99284

== ENCOUNTER 2018-01-28 07:46 | Inpatient (IN) | payer OTHER ==
--- NOTE | 2018-01-28 14:47 | XRAY ---
Indication: Asthma. COPD. Comparison: September 26, 2017. PA/lateral chest demonstrates new subtle right lower lobe infiltrate versus atelectasis. Remaining heart, left lung, and bony thorax normal.
--- NOTE | 2018-01-28 14:49 | XRAY ---
Indication: Pain following fall. Comparison: None 3 views of the right shoulder obtained. No bony, articular, or soft tissue abnormalities. Chest reported separately.
--- NOTE | 2018-01-28 14:51 | XRAY ---
Indication: Pain following fall. Comparison: None 3 views of the left wrist obtained. No bony, articular, or soft tissue abnormalities.
--- NOTE | 2018-01-28 14:54 | XRAY ---
Indication: Low back pain following fall. Comparison: January 14, 2014. 5 views of the lumbar spine unchanged again demonstrating normal alignment with bilateral L4-S1 degenerative facet arthropathy, lower thoracic endplate spurring, old left L1 transverse process fracture, minimal vascular calcifications, and chronic pancreatitis calcifications. Again no acute fracture, subluxation, or pars interarticularis defect.
[2018-01-28 15:38] LABS: Lactic Acid 2.1 (0.4-2.0)
[2018-01-28 15:42] LABS: BASOPHIL % 0.5 % (0.0-0.4); Basophil (Absolute #) 0.05 (0-0.4); Eosinophil % 2.6 % (0.00-5.0); Eosinophil (Absolute #) 0.25 (0-0.5); Granulocyte Absolute (ANC) 7.03 (1.4-6.9); Granulocytes % 71.9 % (36.0-66.0); Hematocrit 34.2 % (35-47); Hemoglobin 10.8 gm/dl (12.0-16.0); Lymphocyte (Absolute #) 1.64 (1.0-4.6); Lymphocytes % 16.8 % (24.0-44.0); Mean Cell Volume 77.2 fl (78-100); Mean Corpuscular Hgb Concent. 31.6 g/dl (32-36); Mean Platelet Volume 11.1 fl (6-9.5); Monocytes % 8.2 % (0.0-12.0); Platelet Count 253 K/mm3 (150-450); Red Blood Count 4.43 M/mm3 (4.1-5.4); Red Cell Distribution Width 14.9 % (11.5-14.0); White Blood Count 9.8 K/mm3 (4.0-10.5)
[2018-01-28 15:52] LABS: Mean Corpuscular Hemoglobin 24.3 pg (26-32)
[2018-01-28 15:55] LABS: ALBUMIN 3.6 g/dl (3.5-5.0); ALKALINE PHOSPHATASE 152 U/L (38-126); ANION GAP 16.2 MEQ/L (5-15); BLOOD UREA NITROGEN 31 mg/dl (7-17); CHLORIDE 97 mEq/L (98-107); Calcium 8.7 mg/dL (8.4-10.2); Carbon Dioxide 25 mmol/L (22-30); Creatinine 1 1.62 mg/dl (0.52-1.04); Glucose 367 mg/dL (74-106); Potassium 4.1 mmol/L (3.5-5.1); SGOT/AST 15 U/L (14-36); SGPT/ALT 17 U/L (0-35); SODIUM 134 mmol/L (137-145); Total Protein 6.9 mg/dl (6.3-8.2)
[2018-01-28 16:07] LABS: TROPONIN < 0.012 ng/ml (0.000-0.034)
[2018-01-28 16:08] LABS: INFLUENZA A NEGATIVE (NEGATIVE); INFLUENZA B NEGATIVE (NEGATIVE); RESPIRATORY SYNCTIAL VIRUS NEGATIVE (Negative)
[2018-01-28] MEDS: Lactated Ringers 1,000 ML IV SCH (16:20)
[2018-01-28] MEDS: ROCEPHIN 1 Gm-D5w 50 ml Bag** 1 G/50 ML IVPB IV SCH (16:20)
[2018-01-28] MEDS: NovoLOG Insulin SQ PRN ×2 (16:21→21:48)
[2018-01-28] MEDS ORDERED: NON-FORMULARY ITEM (Cyclobenzaprine Hcl [Cyclobenzaprine Hcl] 5 MG) PO PRN (16:40)
[2018-01-28] MEDS ORDERED: INSULIN GLULISINE 10 UNIT SQ SCH (17:00)
[2018-01-28] MEDS: ENOXAPARIN SODIUM SQ SCH (17:27)
[2018-01-28] MEDS: NORCO 7.5/325 MG TAB PO PRN ×2 (17:28→23:27)
[2018-01-28] MEDS: NovoLOG Insulin SQ SCH (17:29)
[2018-01-28 17:49] LABS: Lactic Acid 2.1 (0.4-2.0)
[2018-01-28 18:21] LABS: Appearance HAZY (CLEAR)
[2018-01-28 18:22] LABS: Bacteria RARE /HPF (NEGATIVE); Bilirubin NEGATIVE (NEGATIVE); Blood 50 Ery/ul (0-5); Epithelial Cells FEW /HPF (FEW); Glucose 1000 mg/dL (NEGATIVE); Ketones NEGATIVE (NEGATIVE); Leukocyte Esterase NEGATIVE (NEGATIVE); Nitrite NEGATIVE (NEGATIVE); Protein,Urine Dip 500 (Negative); Urobilinogen NORMAL mg/dL (0-1); WBC 0-2 /HPF (0-5)
[2018-01-28] MEDS: PROVENTIL 2.5 MG/3 ML NEB IH PRN ×2 (19:24→23:36)
[2018-01-28] MEDS: Singulair 10 MG PO SCH (21:47)
[2018-01-28] MEDS: LYRICA 100MG PO SCH (21:47)
[2018-01-28] MEDS: COREG 12.5 MG PO SCH (21:47)
[2018-01-28] MEDS: Protonix 40MG Tablet PO SCH (21:47)
[2018-01-28] MEDS: Lantus Insulin SQ SCH (21:48)
[2018-01-28] MEDS: DESYREL 50 MG PO PRN ×2 (21:52→23:27)
[2018-01-28] MEDS: Cyclobenzaprine 10 MG PO PRN (21:52)
[2018-01-28] MEDS ORDERED: INSULIN GLARGINE HUM REC ANLOG 75 UNIT SQ SCH (22:00)
[2018-01-28] MEDS ORDERED: NON-FORMULARY ITEM (Omeprazole 20 Mg [Prilosec 20 Mg] 20 MG) PO SCH (22:00)
[2018-01-28] MEDS: KENALOG 0.1% CREAM 15 GM TP SCH (22:26)
[2018-01-28] MEDS: PHENERGAN 25 MG PO PRN (23:40)
[2018-01-29] MEDS: Lactated Ringers 1,000 ML IV SCH ×2 (05:30→20:43)
[2018-01-29] MEDS: NORCO 7.5/325 MG TAB PO PRN ×2 (05:31→16:55)
[2018-01-29] MEDS: PHENERGAN 25 MG PO PRN ×2 (05:38→16:55)
[2018-01-29] MEDS: PROVENTIL 2.5 MG/3 ML NEB IH PRN ×2 (06:55→13:57)
[2018-01-29] MEDS: NovoLOG Insulin SQ PRN ×4 (06:58→21:39)
[2018-01-29] MEDS: NovoLOG Insulin SQ SCH ×3 (06:59→16:56)
[2018-01-29 07:54] LABS: Lactic Acid 2.1 (0.4-2.0)
[2018-01-29 07:54] LABS: BASOPHIL % 0.7 % (0.0-0.4); Basophil (Absolute #) 0.06 (0-0.4); Eosinophil % 3.2 % (0.00-5.0); Eosinophil (Absolute #) 0.28 (0-0.5); Granulocyte Absolute (ANC) 6.36 (1.4-6.9); Granulocytes % 71.5 % (36.0-66.0); Hematocrit 35.4 % (35-47); Lymphocytes % 16.9 % (24.0-44.0); Mean Cell Volume 78.5 fl (78-100); Mean Corpuscular Hgb Concent. 31.1 g/dl (32-36); Mean Platelet Volume 10.6 fl (6-9.5); Monocyte (Absolute #) 0.68 (0.0-1.3); Monocytes % 7.7 % (0.0-12.0); Platelet Count 245 K/mm3 (150-450); Red Blood Count 4.51 M/mm3 (4.1-5.4); White Blood Count 8.9 K/mm3 (4.0-10.5)
--- NOTE | 2018-01-29 07:56 | PCM.NOTE ---
Date and Time: 01/29/18745 Subjective Assessment: She is c/o R ankle pain, anterior ankle. Was found to have PNA in the ER yesterday. Hard to get the phlegm up; she notes it's brown (was clear until a week ago). She is tolerating po. Had one soft BM this morning - was having diarrhea prior to admission. Objective Exam General Appearance: no apparent distress, alert, obese Neurologic Exam: oriented x 3, cooperative Skin Exam: normal color, warm, dry, No rash Ears, Nose, Throat Exam: moist mucous membranes Respiratory Exam: lungs clear, diminished breath sounds, No crackles/rales, No rhonchi, No wheezing Cardiovascular Exam: regular rate/rhythm, normal heart sounds, No murmur Extremity Exam: normal inspection, other (R ankle no edema, no lesions, mildly ttp anteriorly.), No pedal edema, No swelling OBJECTIVE DATA Vital Signs: Vital Signs - 24 hr Temp Pulse Resp BP Pulse Ox 01/29/18 07:11 90 18 95 01/29/18 07:01 98.4 F 87 20 127/69 95 01/29/18 04:20 98.8 F 94 H 20 116/57 96 01/29/18 00:03 98.0 F 92 H 20 127/60 94 L 01/28/18 23:36 90 22 96 01/28/18 20:10 98.2 F 96 H 22 142/79 96 01/28/18 19:25 94 H 18 96 01/28/18 16:00 98.4 F 90 18 123/65 98 01/28/18 14:32 93 H 20 94 L 01/28/18 13:40 98.2 F 90 20 121/63 96 01/28/18 13:33 98.2 F 90 20 121/63 96 Oxygen-Last 24 hours O2 Percentage 2 Liters = 28% O2 Percentage 2 Liters = 28% O2 Percentage 2 Liters = 28% O2 Percentage 2 Liters = 28% Pain Assessment - Last Documented Pain Intensity 9 Pain Scale Used 0-10 Pain Scale Intake and Output: Intake & Output 01/26/18 01/27/18 01/28/18 01/29/18 11:59 11:59 11:59 11:59 Intake Total 2826 Output Total 1600 Balance 1226 Weight 144.3 kg Lab Results: Accuchecks Date 01/28/18 Date 01/28/18 Time 21:40 Time 16:30 Accucheck Value: 480 Accucheck Value: 477 Lab Results-Last 24 Hours 01/28/18 01/28/18 01/28/18 Range/Units 15:11 15:11 15:11 WBC 9.8 (4.0-10.5) K/mm3 RBC 4.43 (4.1-5.4) M/mm3 Hgb 10.8 L (12.0-16.0) gm/dl Hct 34.2 L (35-47) % MCV 77.2 L (78-100) fl MCH 24.3 L (26-32) pg MCHC 31.6 L (32-36) g/dl RDW 14.9 H (11.5-14.0) % Plt Count 253 (150-450) K/mm3 MPV 11.1 H (6-9.5) fl Gran % 71.9 H (36.0-66.0) % Lymphocytes % 16.8 L (24.0-44.0) % Monocytes % 8.2 (0.0-12.0) % Eosinophils % 2.6 (0.00-5.0) % Basophils % 0.5 (0.0-0.4) % Basophils # 0.05 (0-0.4) Sodium 134 L (137-145) mmol/L Potassium 4.1 (3.5-5.1) mmol/L Chloride 97 L (98-107) mEq/L Carbon Dioxide 25 (22-30) mmol/L Anion Gap 16.2 H (5-15) MEQ/L BUN 31 H (7-17) mg/dl Creatinine 1.62 H (0.52-1.04) mg/dl Estimated GFR 37 ML/MIN Glucose 367 H (74-106) mg/dL Hemoglobin A1c (4.5-6.0) Lactic Acid (0.4-2.0) Calcium 8.7 (8.4-10.2) mg/dL Magnesium 2.0 (1.6-2.3) mg/dL Total Bilirubin 0.10 L (0.2-1.3) mg/d? AST 15 (14-36) U/L ALT 17 (0-35) U/L Alkaline Phosphatase 152 H (38-126) U/L Troponin I < 0.012 (0.000-0.034) ng/ml Serum Total Protein 6.9 (6.3-8.2) mg/dl Albumin 3.6 (3.5-5.0) g/dl Ur Collection Type Urine Color (YELLOW) Urine Appearance (CLEAR) Urine pH (5-6) Ur Specific [place] (1.005-1.025) Urine Protein (Negative) Urine Ketones (NEGATIVE) Urine Blood (0-5) Jaren/ul Urine Nitrite (NEGATIVE) Urine Bilirubin (NEGATIVE) Urine Urobilinogen (0-1) mg/dL Ur Leukocyte Esterase (NEGATIVE) Urine Microscopic WBC (0-5) /HPF Ur Epithelial Cells (FEW) /HPF Urine Bacteria (NEGATIVE) /HPF Urine Yeast (NEGATIVE) /HPF Urine Glucose (NEGATIVE) mg/dL Influenza Type A Ag NEGATIVE (NEGATIVE) Influenza Type B Ag NEGATIVE (NEGATIVE) RSV (PCR) NEGATIVE (Negative) Specimen Received 01/28/18 01/28/18 01/28/18 Range/Units 15:32 15:45 16:00 WBC (4.0-10.5) K/mm3 RBC (4.1-5.4) M/mm3 Hgb (12.0-16.0) gm/dl Hct (35-47) % MCV (78-100) fl MCH (26-32) pg MCHC (32-36) g/dl RDW (11.5-14.0) % Plt Count (150-450) K/mm3 MPV (6-9.5) fl Gran % (36.0-66.0) % Lymphocytes % (24.0-44.0) % Monocytes % (0.0-12.0) % Eosinophils % (0.00-5.0) % Basophils % (0.0-0.4) % Basophils # (0-0.4) Sodium (137-145) mmol/L Potassium (3.5-5.1) mmol/L Chloride (98-107) mEq/L Carbon Dioxide (22-30) mmol/L Anion Gap (5-15) MEQ/L BUN (7-17) mg/dl Creatinine (0.52-1.04) mg/dl Estimated GFR ML/MIN Glucose (74-106) mg/dL Hemoglobin A1c > 14.00 H (4.5-6.0) Lactic Acid 2.1 H (0.4-2.0) Calcium (8.4-10.2) mg/dL Magnesium (1.6-2.3) mg/dL Total Bilirubin (0.2-1.3) mg/d? AST (14-36) U/L ALT (0-35) U/L Alkaline Phosphatase (38-126) U/L Troponin I (0.000-0.034) ng/ml Serum Total Protein (6.3-8.2) mg/dl Albumin (3.5-5.0) g/dl Ur Collection Type CLEAN CATCH Urine Color YELLOW (YELLOW) Urine Appearance HAZY (CLEAR) Urine pH 5.0 (5-6) Ur Specific [place] 1.020 (1.005-1.025) Urine Protein 500 (Negative) Urine Ketones NEGATIVE (NEGATIVE) Urine Blood 50 (0-5) Jaren/ul Urine Nitrite NEGATIVE (NEGATIVE) Urine Bilirubin NEGATIVE (NEGATIVE) Urine Urobilinogen NORMAL (0-1) mg/dL Ur Leukocyte Esterase NEGATIVE (NEGATIVE) Urine Microscopic WBC 0-2 (0-5) /HPF Ur Epithelial Cells FEW (FEW) /HPF Urine Bacteria RARE (NEGATIVE) /HPF Urine Yeast FEW (NEGATIVE) /HPF Urine Glucose 1000 (NEGATIVE) mg/dL Influenza Type A Ag (NEGATIVE) Influenza Type B Ag (NEGATIVE) RSV (PCR) (Negative) Specimen Received 01/28/18 1545 01/28/18 Range/Units 17:46 WBC (4.0-10.5) K/mm3 RBC (4.1-5.4) M/mm3 Hgb (12.0-16.0) gm/dl Hct (35-47) % MCV (78-100) fl MCH (26-32) pg MCHC (32-36) g/dl RDW (11.5-14.0) % Plt Count (150-450) K/mm3 MPV (6-9.5) fl Gran % (36.0-66.0) % Lymphocytes % (24.0-44.0) % Monocytes % (0.0-12.0) % Eosinophils % (0.00-5.0) % Basophils % (0.0-0.4) % Basophils # (0-0.4) Sodium (137-145) mmol/L Potassium (3.5-5.1) mmol/L Chloride (98-107) mEq/L Carbon Dioxide (22-30) mmol/L Anion Gap (5-15) MEQ/L BUN (7-17) mg/dl Creatinine (0.52-1.04) mg/dl Estimated GFR ML/MIN Glucose (74-106) mg/dL Hemoglobin A1c (4.5-6.0) Lactic Acid 2.1 H (0.4-2.0) Calcium (8.4-10.2) mg/dL Magnesium (1.6-2.3) mg/dL Total Bilirubin (0.2-1.3) mg/d? AST (14-36) U/L ALT (0-35) U/L Alkaline Phosphatase (38-126) U/L Troponin I (0.000-0.034) ng/ml Serum Total Protein (6.3-8.2) mg/dl Albumin (3.5-5.0) g/dl Ur Collection Type Urine Color (YELLOW) Urine Appearance (CLEAR) Urine pH (5-6) Ur Specific [place] (1.005-1.025) Urine Protein (Negative) Urine Ketones (NEGATIVE) Urine Blood (0-5) Jaren/ul Urine Nitrite (NEGATIVE) Urine Bilirubin (NEGATIVE) Urine Urobilinogen (0-1) mg/dL Ur Leukocyte Esterase (NEGATIVE) Urine Microscopic WBC (0-5) /HPF Ur Epithelial Cells (FEW) /HPF Urine Bacteria (NEGATIVE) /HPF Urine Yeast (NEGATIVE) /HPF Urine Glucose (NEGATIVE) mg/dL Influenza Type A Ag (NEGATIVE) Influenza Type B Ag (NEGATIVE) RSV (PCR) (Negative) Specimen Received Radiology Exams: Radiology Procedures Category Date Time Status CHEST 2 VIEWS (PA AND LAT) Routine Exams 01/28/18 13:40 Completed LUMBAR COMPLETE (MIN 4 VIEWS) Routine Exams 01/28/18 13:40 Completed SHOULDER Routine Exams 01/28/18 13:40 Completed WRIST (MIN 3 VIEWS) Routine Exams 01/28/18 13:40 Completed Multi-Disciplinary Progress Notes: Multi-Disciplinary Progress Notes 01/28/18 16:03 Respiratory Note by Amber Umanzor MESSAGE LEFT WITH PHONE NURSE AT [facility] FOR DR. CHAPARRO (EMS MANAGER FOR DR. KEEN) REGARDING LACTIC ACID OF 2.1. Initialized on 01/28/18 16:03 - END OF NOTE Assessment/Plan (1) Pneumonia Current Visit: Yes Status: Acute Qualifiers: Pneumonia type: due to unspecified organism Laterality: unspecified laterality Lung location: unspecified part of lung Qualified Code(s): J18.9 - Pneumonia, unspecified organism Code(s): J18.9 - PNEUMONIA, UNSPECIFIED ORGANISM (2) COPD (chronic obstructive pulmonary disease) Current Visit: Yes Status: Acute Qualifiers: COPD type: chronic bronchitis Chronic bronchitis type: unspecified Qualified Code(s): J42 - Unspecified chronic bronchitis (3) Diarrhea Current Visit: Yes Status: Acute Qualifiers: Diarrhea type: unspecified type Qualified Code(s): R19.7 - Diarrhea, unspecified Assessment & Plan: improving Code(s): R19.7 - DIARRHEA, UNSPECIFIED (4) Ankle pain Current Visit: Yes Status: Acute Qualifiers: Chronicity: acute Laterality: right Qualified Code(s): M25.571 - Pain in right ankle and joints of right foot Assessment & Plan: xr Code(s): M25.579 - PAIN IN UNSPECIFIED ANKLE AND JOINTS OF UNSPECIFIED FOOT (5) Diabetes type 2, uncontrolled Current Visit: No Status: Chronic Qualifiers: Diabetes mellitus complication status: with neurologic complications Diabetes mellitus complication detail: with polyneuropathy Diabetes mellitus correction insulin use: with marine oil terminal superintendent use Qualified Code(s): E11.42 - Type 2 diabetes mellitus with diabetic polyneuropathy; E11.65 - Type 2 diabetes mellitus with hyperglycemia; E11.65 - Type 2 diabetes mellitus with hyperglycemia; E11.65 - Type 2 diabetes mellitus with hyperglycemia; E11.65 - Type 2 diabetes mellitus with hyperglycemia; Z79.4 - MCFP (current) use of insulin; Z79.4 - petroleum terminal plant operator (current) use of insulin; Z79.4 - [facility]FP (current ) use of insulin; Z79.4 - MCFP (current) use of insulin Assessment & Plan: A1c > 14. She is supposed to be seeing an pre k teacher, unsure if she is seeing them. Code(s): E11.65 - TYPE 2 DIABETES MELLITUS WITH HYPERGLYCEMIA
[2018-01-29 08:03] LABS: Mean Corpuscular Hemoglobin 24.3 pg (26-32)
[2018-01-29 08:14] LABS: 027 TOX PROD PRESUMPTIVE NEGATIVE (NEGATIVE); TOXIGENIC C. DIFF ORG NEGATIVE (NEGATIVE)
--- NOTE | 2018-01-29 08:31 | XRAY ---
Indication: Pain following fall. Comparison: None 3 views of the right ankle demonstrates minimal anterior lateral soft tissue swelling. No other bony, articular, or soft tissue abnormalities.
[2018-01-29] MEDS: ENOXAPARIN SODIUM SQ SCH (09:53)
[2018-01-29] MEDS: Lantus Insulin SQ SCH ×2 (09:54→21:39)
[2018-01-29] MEDS: ROCEPHIN 1 Gm-D5w 50 ml Bag** 1 G/50 ML IVPB IV SCH (09:55)
[2018-01-29] MEDS: KENALOG 0.1% CREAM 15 GM TP SCH ×2 (09:58→21:40)
[2018-01-29] MEDS: Lasix 40 MG PO SCH (10:00)
[2018-01-29] MEDS: LYRICA 100MG PO SCH ×3 (10:00→21:39)
[2018-01-29] MEDS: CLARITIN 10 MG PO SCH (10:00)
[2018-01-29] MEDS: NORVASC 5 MG PO SCH (10:00)
[2018-01-29] MEDS: COREG 12.5 MG PO SCH ×2 (10:00→21:38)
[2018-01-29] MEDS: Mucinex 600MG ER Tabs PO SCH ×2 (10:00→21:39)
[2018-01-29] MEDS ORDERED: NON-FORMULARY ITEM (Amlodipine Besylate 10 Mg [Norvasc 10 Mg] 10 MG) PO SCH (10:00)
[2018-01-29] MEDS ORDERED: INSULIN GLARGINE HUM REC ANLOG 50 UNIT SQ SCH (10:00)
[2018-01-29] MEDS: Protonix 40MG Tablet PO SCH ×2 (10:01→21:38)
[2018-01-29 10:41] LABS: ANION GAP 16.8 MEQ/L (5-15); Calcium 8.8 mg/dL (8.4-10.2); Creatinine 1 1.63 mg/dl (0.52-1.04); Potassium 4.5 mmol/L (3.5-5.1)
[2018-01-29] MEDS: Zithromax 500 MG/ 250 ML NaCl Premix 500 MG/250 ML IVPB IV SCH (16:52)
[2018-01-29] MEDS: Singulair 10 MG PO SCH (21:38)
[2018-01-29] MEDS: Cyclobenzaprine 10 MG PO PRN (21:38)
[2018-01-29] MEDS: DESYREL 50 MG PO PRN (21:39)
[2018-01-30] MEDS: PROVENTIL 2.5 MG/3 ML NEB IH PRN ×3 (04:50→17:47)
[2018-01-30] MEDS: NovoLOG Insulin SQ PRN ×4 (07:01→21:23)
[2018-01-30] MEDS: NovoLOG Insulin SQ SCH ×3 (07:01→17:06)
[2018-01-30] MEDS: NORCO 7.5/325 MG TAB PO PRN ×3 (07:04→21:19)
[2018-01-30] MEDS: PHENERGAN 25 MG PO PRN ×3 (07:07→21:19)
--- NOTE | 2018-01-30 08:42 | PCM.NOTE ---
Date and Time: 01/30/18 0837 Subjective Assessment: Still having cough. Was up and walked last night and O2 sat decreased into the mid 80s, and increased the oxygen. No more diarrhea. Deshawn po well. Objective Exam General Appearance: no apparent distress, obese, other Neurologic Exam: oriented x 3, cooperative, normal mood/affect Skin Exam: normal color, warm, dry, No rash Respiratory Exam: diminished breath sounds, wheezing (scattered), No crackles/ rales, No rhonchi Cardiovascular Exam: regular rate/rhythm, normal heart sounds, No murmur Gastrointestinal/Abdomen Exam: soft, normal bowel sounds, No tenderness Extremity Exam: No pedal edema, No swelling OBJECTIVE DATA Vital Signs: Vital Signs - 24 hr Temp Pulse Resp BP Pulse Ox 01/30/18 07:36 88 20 94 L 01/30/18 07:24 97.9 F 95 H 20 123/65 93 L 01/30/18 04:52 94 H 22 93 L 01/30/18 04:00 97.8 F 92 H 24 122/62 90 L 01/30/18 00:16 98.0 F 104 H 22 137/67 93 L 01/29/18 22:30 99 H 20 93 L 01/29/18 19:51 98.4 F 101 H 20 117/63 94 L 01/29/18 16:03 97.8 F 98 H 22 151/56 96 01/29/18 13:58 90 20 94 L 01/29/18 11:07 97.3 F 93 H 20 116/59 95 Oxygen-Last 24 hours O2 Percentage 3 Liters = 32% O2 Percentage 2 Liters = 28% O2 Percentage 2 Liters = 28% O2 Percentage 2 Liters = 28% O2 Percentage 2 Liters = 28% Pain Assessment - Last Documented Pain Intensity 0 Pain Scale Used 0-10 Pain Scale Intake and Output: Intake & Output 01/27/18 01/28/18 01/29/18 01/30/18 11:59 11:59 11:59 11:59 Intake Total 3186 4809 Output Total 1600 3515 Balance 1586 2284 Weight 144.3 kg 144.8 kg Lab Results: Accuchecks Date 01/29/18 Date 01/29/18 Date 01/29/18 Time 16:30 Time 11:30 Accucheck Value: 283 Accucheck Value: 398 Accucheck Value: 351 Lab Results-Last 24 Hours 01/29/18 Range/Units 07:52 Sodium 133 L (137-145) mmol/L Potassium 4.5 (3.5-5.1) mmol/L Chloride 96 L (98-107) mEq/L Carbon Dioxide 24 (22-30) mmol/L Anion Gap 16.8 H (5-15) MEQ/L BUN 36 H (7-17) mg/dl Creatinine 1.63 H (0.52-1.04) mg/dl Estimated GFR 37 ML/MIN Glucose 332 H (74-106) mg/dL Calcium 8.8 (8.4-10.2) mg/dL Radiology Exams: Radiology Procedures Category Date Time Status ANKLE (3 VIEWS) Routine Exams 01/29/18 08:20 Completed CHEST 2 VIEWS (PA AND LAT) Routine Exams 01/28/18 13:40 Completed LUMBAR COMPLETE (MIN 4 VIEWS) Routine Exams 01/28/18 13:40 Completed SHOULDER Routine Exams 01/28/18 13:40 Completed WRIST (MIN 3 VIEWS) Routine Exams 01/28/18 13:40 Completed Assessment/Plan (1) Pneumonia Current Visit: Yes Status: Acute Qualifiers: Pneumonia type: due to unspecified organism Laterality: unspecified laterality Lung location: unspecified part of lung Qualified Code(s): J18.9 - Pneumonia, unspecified organism Assessment & Plan: On Day #3 of Rocephin and zithromax, IV. Has improved somewhat; she still had a desaturation while walking, which is likely due to the pneumonia. She has a history of severe respiratory distress (on ventilator, transferred emergently) with a pneumonia episode about a year ago. Code(s): J18.9 - PNEUMONIA, UNSPECIFIED ORGANISM (2) Fall Current Visit: Yes Status: Acute Qualifiers: Encounter type: subsequent encounter Qualified Code(s): W19.XXXD - Unspecified fall, subsequent encounter Assessment & Plan: She fell just prior to admission; XR have been negative. Uses a walker at baseline due to peripheral diabetic neuropathy. Code(s): W19.XXXA - UNSPECIFIED FALL, INITIAL ENCOUNTER (3) COPD (chronic obstructive pulmonary disease) Current Visit: Yes Status: Chronic Qualifiers: COPD type: chronic bronchitis Chronic bronchitis type: unspecified Qualified Code(s): J42 - Unspecified chronic bronchitis (4) Diarrhea Current Visit: Yes Status: Resolved Qualifiers: Diarrhea type: unspecified type Qualified Code(s): R19.7 - Diarrhea, unspecified Code(s): R19.7 - DIARRHEA, UNSPECIFIED (5) Ankle pain Current Visit: Yes Status: Resolved Qualifiers: Chronicity: acute Laterality: right Qualified Code(s): M25.571 - Pain in right ankle and joints of right foot Assessment & Plan: Just hurts when she crosses her ankles. XR negative. Code(s): M25.579 - PAIN IN UNSPECIFIED ANKLE AND JOINTS OF UNSPECIFIED FOOT (6) Diabetes type 2, uncontrolled Current Visit: No Status: Chronic Qualifiers: Diabetes mellitus complication status: with neurologic complications Diabetes mellitus complication detail: with polyneuropathy Diabetes mellitus intermediate insulin use: with lobsterman use Qualified Code(s): E11.42 - Type 2 diabetes mellitus with diabetic polyneuropathy; E11.65 - Type 2 diabetes mellitus with hyperglycemia; E11.65 - Type 2 diabetes mellitus with hyperglycemia; E11.65 - Type 2 diabetes mellitus with hyperglycemia; E11.65 - Type 2 diabetes mellitus with hyperglycemia; Z79.4 - halfway (current) use of insulin; Z79.4 - halfway (current) use of insulin; Z79.4 - lobsterman (current ) use of insulin; Z79.4 - lobsterman (current) use of insulin Assessment & Plan: A1c > 14. Code(s): E11.65 - TYPE 2 DIABETES MELLITUS WITH HYPERGLYCEMIA (7) Peripheral neuropathy Current Visit: Yes Status: Chronic Code(s): G62.9 - POLYNEUROPATHY, UNSPECIFIED
[2018-01-30] MEDS: Lactated Ringers 1,000 ML IV SCH (09:17)
[2018-01-30] MEDS: Lasix 40 MG PO SCH (09:50)
[2018-01-30] MEDS: COREG 12.5 MG PO SCH ×2 (09:51→21:21)
[2018-01-30] MEDS: Mucinex 600MG ER Tabs PO SCH ×2 (09:51→21:22)
[2018-01-30] MEDS: Protonix 40MG Tablet PO SCH ×2 (09:51→21:22)
[2018-01-30] MEDS: NORVASC 5 MG PO SCH (09:51)
[2018-01-30] MEDS: CLARITIN 10 MG PO SCH (09:52)
[2018-01-30] MEDS: LYRICA 100MG PO SCH ×3 (09:52→21:22)
[2018-01-30] MEDS: Lantus Insulin SQ SCH ×2 (09:54→21:21)
[2018-01-30] MEDS: ENOXAPARIN SODIUM SQ SCH (09:56)
[2018-01-30] MEDS: KENALOG 0.1% CREAM 15 GM TP SCH ×2 (09:57→21:21)
[2018-01-30] MEDS ORDERED: Zaroxolyn 2.5 MG PO SCH (10:00)
[2018-01-30] MEDS: ROCEPHIN 1 Gm-D5w 50 ml Bag** 1 G/50 ML IVPB IV SCH (10:00)
[2018-01-30] MEDS: Zithromax 500 MG/ 250 ML NaCl Premix 500 MG/250 ML IVPB IV SCH (11:18)
[2018-01-30] MEDS: Singulair 10 MG PO SCH (21:23)
[2018-01-30] MEDS: Cyclobenzaprine 10 MG PO PRN (21:30)
[2018-01-30] MEDS: DESYREL 50 MG PO PRN (21:30)
[2018-01-31] MEDS: Lactated Ringers 1,000 ML IV SCH (00:02)
[2018-01-31] MEDS: NORCO 7.5/325 MG TAB PO PRN (06:48)
[2018-01-31] MEDS: PROVENTIL 2.5 MG/3 ML NEB IH PRN ×2 (06:48→11:47)
[2018-01-31] MEDS: PHENERGAN 25 MG PO PRN (06:48)
--- NOTE | 2018-01-31 08:29 | PCM.DS ---
Discharge Summary Date of Admission: 01/29/18 07:46 Admitting Physician: VILMA BROOKS Primary Care Provider: VILMA BROOKS Allergies Allergies codeine [Codeine] Allergy (Severe, Verified 09/26/17 10:38) swelling throat diphenhydramine HCl [From Benadryl] Allergy (Severe, Verified 09/26/17 10:38) swelling to eyes and throat morphine Allergy (Severe, Verified 09/26/17 10:38) swelling throat doxycycline calcium [From Vibramycin] Allergy (Mild, Verified 09/26/17 10:38) Rash doxycycline hyclate [From Vibramycin] Allergy (Mild, Verified 09/26/17 10:38) Rash doxycycline monohydrate [From Vibramycin] Allergy (Mild, Verified 09/26/17 10:38 ) Rash acetaminophen [From Darvocet-N] Allergy (Verified 09/26/17 10:38) Penicillins Allergy (Verified 09/26/17 10:38) propoxyphene napsylate [From Darvocet-N] Allergy (Verified 09/26/17 10:38) Sulfa (Sulfonamide Antibiotics) Allergy (Verified 09/26/17 10:38) Rash Hospital Summary - Hospital Course Hospital Course: patient was admitted and cared for by Dr Brooks, hx of recurrent pneumonia. on oxygen at home 2L continuous, she is maintaining her saturation on 2L and feels well today. no fever, wants to go home. - Vitals & Intake/Output Vital Signs: Vital Signs Temperature 97.6 F 01/31/18 07:18 Pulse Rate 96 H 01/31/18 07:18 Respiratory Rate 20 01/31/18 07:18 Blood Pressure 134/91 01/31/18 07:18 O2 Sat by Pulse Oximetry 94 L 01/31/18 07:18 Oxygen-Last Documented O2 Percentage 2 Liters = 28% Intake & Output: Intake & Output 01/28/18 01/29/18 01/30/18 01/31/18 11:59 11:59 11:59 11:59 Intake Total 3186 5277 5353 Output Total 1600 7065 Balance 1586 3691 5353 Weight 144.3 kg 144.8 kg 151.6 kg - Lab Result Diagrams: 01/29/18 07:52 01/29/18 07:52 Lab Results-Last 24 Hrs: Accuchecks Date 01/30/18 Time 22:00 Accucheck Value: 259 Accucheck Value: 332 Accucheck Value: 385 Micro Results-Entire Visit: Microbiology 01/28/18 15:45 Urine Culture - Final Urine, Void MIXED KAYLENE; 3 OR MORE TYPES. NO PREDOMINANT ORGANISM. NO FURTHER WORKUP. PLEASE RESUBMIT IF CLINICALLY INDICATED. Accuchecks Date 01/30/18 Time 22:00 Accucheck Value: 259 Accucheck Value: 332 Accucheck Value: 385 - Radiology Exams Ordered Rad Exams-Entire Visit: Radiology Procedures Category Date Time Status ANKLE (3 VIEWS) Routine Exams 01/29/18 08:20 Completed - Procedures and Test Procedures and Tests throughout Hospitalization: Therapy Orders & Screens 01/28/18 13:40 PT Eval & Treat (MD Order) ROUTINE Reason for Eval:: frequent falls Diagnosis: frequent falls,wrist pain,shoulder pain le edema,dm,diarrhea EKG ROUTINE Comment: Diagnosis: le edema,frequent falls,dm,diarrhea ST Eval & Treat (MD Order) .as ordered Comment: Physician Instructions: Reason For Exam: Evaluate: Yes Treat: Yes Reason for Eval: bedside swallow eval Diagnosis: frequent falls,diarrhea,wrist pain,shoulder pain,dm,le edema 01/28/18 13:58 OT Screen per Nursing Assess Comment: Protocol Order Physician Instructions: Greater than 3 points order OT Admission Screening Reason For Exam: Triggered on Admission Diagnosis: Frequent Falls Open Wound/Cellutlitis/Pressure Ulcers: No Acute Fx/ORIF/Change in wt bearing status: No Severe MUSCULOSKELETAL pain: Yes ADL Dysfunction: No Acute CVA w/Hemiparesis/Hemiplegia: No Decreased Functional Mobility/Strength: Yes Sprain/Strain: No Acute Post-op Mobility Dysfunction: No Total Points: 6 PT Screen per Nursing Assess ONCE Comment: Protocol Order Physician Instructions: Greater than 3 points order PT Admission Screenin Reason For Exam: Triggered on Admission Diagnosis: Frequent Falls Open Wound/Cellutlitis/Pressure Ulcers: No Acute Fx/ORIF/Change in wt bearing status: No Severe MUSCULOSKELETAL pain: Yes ADL Dysfunction: No Acute CVA w/Hemiparesis/Hemiplegia: No Decreased Functional Mobility/Strength: Yes Sprain/Strain: No Acute Post-op Mobility Dysfunction: No Total Points: 6 RT Screen per Nursing Assess ONCE Comment: Protocol Order Physician Instructions: Greater than 3 points order RT Admission Screen Reason For Exam: Triggered on Admission Diagnosis: Frequent Falls Diagnosis: Frequent Falls Pneumonia: No Home O2: Yes Asthma: No CHF: No Home CPAP/BIPAP: No Home Nebs/MDI: Yes Total Points: 10 01/28/18 14:29 Oxygen NASAL CANNULA 2 lpm Comment: Diagnosis: Frequent Falls Respiratory Nebulizer UD Comment: ALBUTEROL QIDPRN Diagnosis: Frequent Falls 01/30/18 13:17 Flutter Therapy UD Comment: Diagnosis: PNEUMONIA, FAILED OUTPATIENT, EXACERBATION COPD Discharge Exam General Appearance: no apparent distress, alert, obese Skin Exam: normal color, warm, dry Respiratory Exam: normal breath sounds, lungs clear, No respiratory distress Cardiovascular Exam: regular rate/rhythm, normal heart sounds Gastrointestinal/Abdomen Exam: soft, No tenderness, No mass Extremity Exam: normal inspection, normal range of motion Final Diagnosis/Problem List - Final Discharge Diagnosis/Problem (1) Pneumonia Current Visit: Yes Status: Acute (2) Fall Current Visit: Yes Status: Acute (3) COPD (chronic obstructive pulmonary disease) Current Visit: Yes Status: Chronic (4) Diabetes type 2, uncontrolled Current Visit: No Status: Chronic - Discharge Disposition: Home, Self-Care Condition: Stable Prescriptions: New Levofloxacin [Levaquin] 500 mg PO DAILY #5 tablet Continue Pregabalin [Lyrica 100Mg] 100 mg PO TID Ergocalciferol (Vitamin D2) [Vitamin D] 1.25 mg PO .TUES/THURS Trazodone HCl 50 mg [Desyrel 50 mg] 1 - 2 tab PO HS PRN PRN PRN Reason: sleep Amlodipine Besylate 10 mg [Norvasc 10 MG] 10 mg PO DAILY Promethazine HCl 25 mg [Phenergan 25 mg] 12.5 mg PO Q6H PRN PRN #30 tablet PRN Reason: Nausea Loratadine 10 mg [Claritin 10 mg] 10 mg PO DAILY AMITRIPTYLINE HCL 50 mg Tab [AMITRIPTYLINE HCL 50 mg Tablet] 50 mg PO QID Albuterol Sulfate [Proventil Hfa] 6.7 gm IH QID PRN Albuterol 2.5 mg/3 ml Neb [Proventil 2.5 mg/3 ml Neb] 2.5 mg NEB Q4HPRN PRN PRN Reason: Shortness Of Breath Montelukast Sodium 10 mg [Singulair 10 MG] 10 mg PO HS Hydrocodone Bit/Acetaminophen [[place] 7.5-325 Tablet] 1 each PO Q6H PRN PRN PRN Reason: Pain Carvedilol 12.5 mg [Coreg 12.5 mg] 12.5 mg PO BID Insulin Glargine,Hum.rec.anlog [Basaglar Kwikpen U-100] 50 unit SQ QAM Insulin Glargine,Hum.rec.anlog [Basaglar Kwikpen U-100] 75 unit SQ QPM Omeprazole 20 MG [Prilosec 20 mg] 20 mg PO BID Furosemide 40 mg [Lasix 40 MG] 40 mg PO DAILY Metolazone 2.5 mg [Zaroxolyn 2.5 MG] 2.5 mg PO UD Cyclobenzaprine HCl 5 mg PO BID PRN #15 tablet PRN Reason: Pain Insulin Glulisine [Apidra Solostar] 10 unit SQ TIDWMEALS Triamcinolone 0.1% Cream [Kenalog 0.1% Cream 15 gm] 0.1 gm TP BID Follow up with: VILMA BROOKS [Primary Care Provider] - 1 Week
[2018-01-31] MEDS: NovoLOG Insulin SQ SCH ×2 (08:56→11:22)
[2018-01-31] MEDS: NovoLOG Insulin SQ PRN (08:57)
[2018-01-31] MEDS: ROCEPHIN 1 Gm-D5w 50 ml Bag** 1 G/50 ML IVPB IV SCH (09:02)
[2018-01-31] MEDS: ENOXAPARIN SODIUM SQ SCH (09:07)
[2018-01-31] MEDS: COREG 12.5 MG PO SCH (09:07)
[2018-01-31] MEDS: CLARITIN 10 MG PO SCH (09:07)
[2018-01-31] MEDS: KENALOG 0.1% CREAM 15 GM TP SCH (09:07)
[2018-01-31] MEDS: Lasix 40 MG PO SCH (09:08)
[2018-01-31] MEDS: Lantus Insulin SQ SCH (09:08)
[2018-01-31] MEDS: LYRICA 100MG PO SCH (09:09)
[2018-01-31] MEDS: NORVASC 5 MG PO SCH (09:09)
[2018-01-31] MEDS: Mucinex 600MG ER Tabs PO SCH (09:09)
[2018-01-31] MEDS: Protonix 40MG Tablet PO SCH (09:10)
[2018-01-31] MEDS: Zithromax 500 MG/ 250 ML NaCl Premix 500 MG/250 ML IVPB IV SCH (10:23)
[2018-01-31 11:19] VITALS: BP 122/58; O2SAT 96
[2018-01-31 11:51] VITALS: PULSE 89
== END 2018-01-31 13:00 | disposition home or self-care (01) | DRG 195 ==
LOC: MED SURG 07:46 → OBSVTOIN 01-29 07:46
PROVIDERS: ADMIT Family Medicine; ATTEND Family Medicine
DX: J18.9 Pneumonia, unspecified organism (principal); J44.9 Chronic obstructive pulmonary disease, unspecified; E11.42 Type 2 diabetes mellitus with diabetic polyneuropathy; E11.65 Type 2 diabetes mellitus with hyperglycemia; Z79.4 Long term (current) use of insulin; Z99.81 Dependence on supplemental oxygen; M25.571 Pain in right ankle and joints of right foot; W19.XXXD Unspecified fall, subsequent encounter; R19.7 Diarrhea, unspecified; Z79.899 Other long term (current) drug therapy
CPT/HCPCS: 36415; 71046; 72110; 73030; 73110; 73610; 80048; 80053; 81000; 82962; 83036; 83605; 83735; 84484; 85025; 87086; 87493; 87631; 93005; 94150; 94640; 94760; G0378; J0456; J0696; J1650; A9270-GY

== ENCOUNTER 2018-02-28 21:40 | Emergency (ER) | payer OTHER ==
[2018-02-28] MEDS ORDERED: Vancomycin 1GM/ Ns 250ML*** 1 GM/250 ML IVPB IV ONE (22:00)
[2018-02-28] MEDS ORDERED: Hydromorphone 1 mg/ml Ampule IV ONE (22:06)
--- NOTE | 2018-02-28 22:06 | ERPHSYRPT ---
- History of Present Illness Time Seen by Provider: 02/28/18 21:50 Source: patient Exam Limitations: no limitations Patient Subjective Stated Complaint: Right 4th toe wound x2 weeks. Seen by PCP for complaint. Triage Nursing Assessment: Pt presents to the ED with complaints of right 4th toe wound. Pt states onset x2+ weeks, seen by PCP for complaint and prescribed Keflex. Pt states wound began to worsen tonight and states she saw a black on the medial portion of toe. Pt states she contacted PCP who told her to come to ED. No distress noted. Physician History: 42 y/o female comes to the ER with complaints of right 2nd toe pain, swelling and drainage for the past 2 weeks. 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 Pt says the wound started as a blister and it popped. Pt has been having blood glucose in the 200-300 range. Pt describes the pain as sharp, constant, 6/10, and not relieved by norco. Method of Injury: unknown Occurred: days ago Quality: constant, sharpness Severity of Pain-Max: severe Severity of Pain-Current: moderate Lower Extremities Pain: foot: right, 2nd toe: right Modifying Factors: Improves With: nothing Allergies/Adverse Reactions: codeine [Codeine] Allergy (Severe, Verified 09/26/17 10:38) swelling throat diphenhydramine HCl [From Benadryl] Allergy (Severe, Verified 09/26/17 10:38) swelling to eyes and throat morphine Allergy (Severe, Verified 09/26/17 10:38) swelling throat doxycycline calcium [From Vibramycin] Allergy (Mild, Verified 09/26/17 10:38) Rash doxycycline hyclate [From Vibramycin] Allergy (Mild, Verified 09/26/17 10:38) Rash doxycycline monohydrate [From Vibramycin] Allergy (Mild, Verified 09/26/17 10:38 ) Rash acetaminophen [From Darvocet-N] Allergy (Verified 09/26/17 10:38) Penicillins Allergy (Verified 09/26/17 10:38) propoxyphene napsylate [From Darvocet-N] Allergy (Verified 09/26/17 10:38) Sulfa (Sulfonamide Antibiotics) Allergy (Verified 09/26/17 10:38) Rash Home Medications: Pregabalin [Lyrica 100Mg] 100 mg PO TID 10/19/13 [History] Amlodipine Besylate 10 mg [Norvasc 10 MG] 10 mg PO DAILY 01/05/16 [History] Ergocalciferol (Vitamin D2) [Vitamin D] 1.25 mg PO .TUES/THURS 01/05/16 [History ] Trazodone HCl 50 mg [Desyrel 50 mg] 1 - 2 tab PO HS PRN PRN 01/05/16 [ History] AMITRIPTYLINE HCL 50 mg Tab [AMITRIPTYLINE HCL 50 mg Tablet] 50 mg PO QID [History] Albuterol 2.5 mg/3 ml Neb [Proventil 2.5 mg/3 ml Neb] 2.5 mg NEB Q4HPRN PRN 11/08/16 [History] Albuterol Sulfate [Proventil Hfa] 6.7 gm IH QID PRN 11/08/16 [History] Loratadine 10 mg [Claritin 10 mg] 10 mg PO DAILY 11/08/16 [History] Hydrocodone Bit/Acetaminophen [[place] 7.5-325 Tablet] 1 each PO Q6H PRN PRN 07/04 [History] Montelukast Sodium 10 mg [Singulair 10 MG] 10 mg PO HS 07/04/17 [History] Carvedilol 12.5 mg [Coreg 12.5 mg] 12.5 mg PO BID 07/05/17 [History] Insulin Glargine,Hum.rec.anlog [Basaglar Kwikpen U-100] 50 unit SQ QAM 07/05/17 [History] Insulin Glargine,Hum.rec.anlog [Basaglar Kwikpen U-100] 75 unit SQ QPM 07/05/17 [History] Furosemide 40 mg [Lasix 40 MG] 40 mg PO DAILY 09/26/17 [History] Metolazone 2.5 mg [Zaroxolyn 2.5 MG] 2.5 mg PO UD 09/26/17 [History] Omeprazole 20 MG [Prilosec 20 mg] 20 mg PO BID 09/26/17 [History] Insulin Glulisine [Apidra Solostar] 10 unit SQ TIDWMEALS 01/28/18 [History] Triamcinolone 0.1% Cream [Kenalog 0.1% Cream 15 gm] 0.1 gm TP BID [History] Clindamycin HCl [Clindamycin HCl] 300 mg PO QID 02/28/18 [History] Hx Tetanus, Diphtheria Vaccination/Date Given: Yes Hx Influenza Vaccination/Date Given: Yes Hx Pneumococcal Vaccination/Date Given: Yes Immunizations Up to Date: Yes - Review of Systems Constitutional: No Fever, No Chills Eyes: No Symptoms Ears, Nose, & Throat: No Symptoms Respiratory: No Cough, No Dyspnea Cardiac: No Chest Pain, No Edema, No Syncope Abdominal/Gastrointestinal: No Abdominal Pain, No Nausea, No Vomiting, No Diarrhea Genitourinary Symptoms: No Dysuria Musculoskeletal: Joint Redness, Joint Pain, Joint Swelling, No Back Pain, No Neck Pain Skin: Cellulitis, No Rash Neurological: No Dizziness, No Focal Weakness, No Sensory Changes Psychological: No Symptoms Endocrine: No Symptoms All Other Systems: Reviewed and Negative - Past Medical History Pertinent Past Medical History: Yes Neurological History: Migraines, Peripheral Neuropathy, Seizures ENT History: No Pertinent History Cardiac History: Angina, Congestive Heart Failure, Hypertension, Peripheral Vascular Disease Respiratory History: Bronchitis, CHF, COPD Endocrine Medical History: Diabetes Type II Musculoskeletal History: Arthritis, Fractures, Other GI Medical History: Diverticulitis, GERD, Pancreatitis History: Other Psycho-Social History: Anxiety, Depression Female Reproductive Disorders: No Pertinent History Other Medical History: OSTEOMYELITIS. CHRONIC KIDNEY DISEASE. RESPIRATORY FAILURE. SKIN WOUNDS. GOUT. GERD - Past Surgical History Past Surgical History: Yes Neuro Surgical History: No Pertinent History Cardiac: No Pertinent History Respiratory: No Pertinent History Gastrointestinal: No Pertinent History Genitourinary: No Pertinent History Musculoskeletal: Other Female Surgical History: Tubal Ligation, Other Other Surgical History: D&C,childbirth x two; bone removed in left big toe - Social History Smoking Status: Former smoker How long have you smoked: 22 yrs Exposure to second hand smoke: Yes Drug Use: none Patient Lives Alone: No - Female History Hx Now: No - Nursing Vital Signs Nursing Vital Signs: Initial Vital Signs Temperature 98.4 F 02/28/18 21:47 Pulse Rate 110 H 02/28/18 21:47 Respiratory Rate 16 04/07/18 21:47 Blood Pressure 144/96 02/28/18 21:47 O2 Sat by Pulse Oximetry 97 02/28/18 21:47 Pain Scale Pain Intensity 4 - Physical Exam General Appearance: alert Eyes, Ears, Nose, Throat Exam: moist mucous membranes Neck Exam: non-tender, supple Cardiovascular/Respiratory Exam: chest non-tender, normal breath sounds, regular rate/rhythm, no respiratory distress Gastrointestinal/Abdominal Exam: non-tender, guarding Back Exam: normal inspection, No vertebral tenderness Hips Exam: bilateral: non-tender, normal inspection, normal range of motion Legs Exam: bilateral leg: non-tender, normal inspection, normal range of motion Knees Exam: bilateral knee: non-tender, normal inspection, normal range of motion Ankle Exam: bilateral ankle: non-tender, normal inspection, normal range of motion Foot Exam: right foot: ecchymosis, infection, pain, soft tissue tenderness, swelling Neuro/Tendon Exam: normal motor functions, sensory deficit, no response to pain Mental Status Exam: alert, oriented x 3, cooperative Skin Exam: normal color, warm, dry SpO2: 97 Oxygen Delivery: Room Air - Course Nursing assessment & vital signs reviewed: Yes Ordered Tests: Active Orders 24 hr Category Date Time Status ACCUCHECK [Accucheck] STAT Care 03/01/18 00:54 Active IV Insertion STAT Care 02/28/18 22:00 Active BLOOD CULTURE Stat Lab 02/28/18 22:42 Received CBC W DIFF Stat Lab 02/28/18 22:41 Completed CMP Stat Lab 02/28/18 22:41 Completed ESR [Erythrocyte Sedimentation Rate] Stat Lab 02/28/18 22:41 Completed Lactic Acid Stat Lab 02/28/18 22:10 Completed Lactic Acid Stat Lab 03/01/18 00:15 Ordered Medication Summary Discontinued Medications Generic Name Dose Route Start Last Admin Trade Name Freq PRN Reason Stop Dose Admin Hydromorphone HCl 1 mg 02/28/18 22:06 02/28/18 22:17 Hydromorphone 1 Mg/Ml Ampule IV 02/28/18 22:07 1 mg STAT ONE Administration Hydromorphone HCl Confirm 02/28/18 22:14 Dilaudid 2 Mg Injection Administered 02/28/18 22:15 Dose 2 mg .ROUTE .STK-MED ONE Vancomycin HCl 1 gm in 250 mls @ 167 mls/hr 02/28/18 22:00 02/28/18 22:17 Vancomycin 1gm/ Ns 250ml IV 02/28/18 23:29 167 mls/hr STAT ONE Administration Vancomycin HCl Confirm 02/28/18 22:15 Vancomycin 1gm/ Ns 250ml Administered 02/28/18 22:16 Dose 250 mls @ ud IV .STK-MED ONE Sodium Chloride 1,000 mls @ 999 mls/hr 02/28/18 23:10 02/28/18 23:20 Sodium Chloride 0.9% 1000 Ml IV 03/01/18 00:10 999 mls/hr .Q1H1M STA Administration Sodium Chloride Confirm 02/28/18 23:12 Sodium Chloride 0.9% 1000 Ml Administered 02/28/18 23:13 Dose 1,000 mls @ ud .ROUTE .STK-MED ONE Insulin Human Regular 10 unit 02/28/18 23:10 02/28/18 23:29 Novolin R IV 02/28/18 23:11 10 unit STAT ONE Administration Insulin Human Regular Confirm 02/28/18 23:30 Novolin R Administered 02/28/18 23:31 Dose 10 unit .ROUTE .STK-MED ONE Insulin Human Regular 5 unit 03/01/18 01:03 Novolin R IV 03/01/18 01:04 STAT ONE Ondansetron HCl 4 mg 02/28/18 22:23 02/28/18 22:27 Zofran 4 Mg/2 Ml Vial IV 02/28/18 22:24 4 mg STAT ONE Administration Ondansetron HCl Confirm 02/28/18 22:25 Zofran 4 Mg/2 Ml Vial Administered 02/28/18 22:26 Dose 4 mg .ROUTE .STK-MED ONE Lab/Rad Data: Laboratory Result Diagrams 02/28/18 22:41 02/28/18 22:41 Laboratory Results 02/28/18 02/28/18 02/28/18 Range/Units 22:41 22:41 22:41 WBC 9.5 (4.0-10.5) K/mm3 RBC 5.10 (4.1-5.4) M/mm3 Hgb 12.4 (12.0-16.0) gm/dl Hct 38.9 (35-47) % MCV 76.3 L (78-100) fl MCH 24.3 L (26-32) pg MCHC 31.9 L (32-36) g/dl RDW 14.8 H (11.5-14.0) % Plt Count 272 (150-450) K/mm3 MPV 11.4 H (6-9.5) fl Gran % 67.7 H (36.0-66.0) % Eos # (Auto) 0.33 (0-0.5) Absolute Lymphs (auto) 1.93 (1.0-4.6) Absolute Monos (auto) 0.75 (0.0-1.3) Lymphocytes % 20.4 L (24.0-44.0) % Monocytes % 7.9 (0.0-12.0) % Eosinophils % 3.5 (0.00-5.0) % Basophils % 0.5 (0.0-0.4) % Absolute Granulocytes 6.40 (1.4-6.9) Basophils # 0.05 (0-0.4) ESR 15 (0-20) mm/hr Sodium 129 L (137-145) mmol/L Potassium 4.8 (3.5-5.1) mmol/L Chloride 93 L (98-107) mmol/L Carbon Dioxide 20 L (22-30) mmol/L Anion Gap 20.1 H (5-15) MEQ/L BUN 38 H (7-17) mg/dL Creatinine 1.67 H (0.52-1.04) mg/dL Estimated GFR 35.8 ML/MIN Glucose 592 H* (74-106) mg/dL Lactic Acid (0.4-2.0) Calcium 9.0 (8.4-10.2) mg/dL Total Bilirubin 0.30 (0.2-1.3) mg/dL AST 20 (14-36) U/L ALT 16 (0-35) U/L Alkaline Phosphatase 219 H (38-126) U/L Serum Total Protein 8.1 (6.3-8.2) g/dL Albumin 4.2 (3.5-5.0) g/dL 02/28/18 Range/Units 22:10 WBC (4.0-10.5) K/mm3 RBC (4.1-5.4) M/mm3 Hgb (12.0-16.0) gm/dl Hct (35-47) % MCV (78-100) fl MCH (26-32) pg MCHC (32-36) g/dl RDW (11.5-14.0) % Plt Count (150-450) K/mm3 MPV (6-9.5) fl Gran % (36.0-66.0) % Eos # (Auto) (0-0.5) Absolute Lymphs (auto) (1.0-4.6) Absolute Monos (auto) (0.0-1.3) Lymphocytes % (24.0-44.0) % Monocytes % (0.0-12.0) % Eosinophils % (0.00-5.0) % Basophils % (0.0-0.4) % Absolute Granulocytes (1.4-6.9) Basophils # (0-0.4) ESR (0-20) mm/hr Sodium (137-145) mmol/L Potassium (3.5-5.1) mmol/L Chloride (98-107) mmol/L Carbon Dioxide (22-30) mmol/L Anion Gap (5-15) MEQ/L BUN (7-17) mg/dL Creatinine (0.52-1.04) mg/dL Estimated GFR ML/MIN Glucose (74-106) mg/dL Lactic Acid 2.5 H (0.4-2.0) Calcium (8.4-10.2) mg/dL Total Bilirubin (0.2-1.3) mg/dL AST (14-36) U/L ALT (0-35) U/L Alkaline Phosphatase (38-126) U/L Serum Total Protein (6.3-8.2) g/dL Albumin (3.5-5.0) g/dL - Progress Progress: improved Progress Note: 03/01/18 01:15 The x ray of the foot does not show any acute abnormality. The blood glucose is 592 but no anion gap. The patient was given a dose of 10 units of regular insulin and 1 liter of NS fluids. Repeat FS is in the 300's. Pt states that she usually has blood glucose in the 200-300 range. The patient will be given an additional dose of insulin 5 units. The patient has F/U with Dr Brooks on Friday for further evaluation of foot pain. The patient was advised to continue on clindamycin. 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 insulin use: with sulfonator operator use Diabetes mellitus complication status: with hyperglycemia Qualified Code(s): E11.65 - Type 2 diabetes mellitus with hyperglycemia; Z79.4 - shoulder pad molder (current) use of insulin; Z79.4 - MCC (current) use of insulin ; Z79.4 - shoulder pad molder (current) use of insulin; Z79.4 - MCC (current) use of insulin Foot pain Qualifiers: Laterality: right Qualified Code(s): M79.671 - Pain in right foot Condition: Stable Critical Care Time: No Referrals: VILMA BROOKS [Primary Care Provider] - Instructions: Cellulitis (Skin Infection), Adult (DC), Hyperglycemia, Adult (DC ) Additional Instructions: Follow up with Dr Brooks on Friday for further evaluation of foot pain. Continue on Clindamycin as instructed.
[2018-02-28] MEDS ORDERED: DILAUDID 2 MG INJECTION ONE (22:14)
[2018-02-28] MEDS ORDERED: Vancomycin 1GM/ Ns 250ML*** 250 ML IV ONE (22:15)
[2018-02-28 22:16] LABS: Lactic Acid 2.5 (0.4-2.0)
[2018-02-28] MEDS ORDERED: Zofran 4 MG/2 ML VIAL IV ONE (22:23)
[2018-02-28] MEDS ORDERED: Zofran 4 MG/2 ML VIAL ONE (22:25)
[2018-02-28 22:46] LABS: BASOPHIL % 0.5 % (0.0-0.4); Basophil (Absolute #) 0.05 (0-0.4); Eosinophil % 3.5 % (0.00-5.0); Eosinophil (Absolute #) 0.33 (0-0.5); Granulocytes % 67.7 % (36.0-66.0); Hematocrit 38.9 % (35-47); Hemoglobin 12.4 gm/dl (12.0-16.0); Lymphocyte (Absolute #) 1.93 (1.0-4.6); Lymphocytes % 20.4 % (24.0-44.0); Mean Cell Volume 76.3 fl (78-100); Mean Corpuscular Hemoglobin 24.3 pg (26-32); Mean Corpuscular Hgb Concent. 31.9 g/dl (32-36); Mean Platelet Volume 11.4 fl (6-9.5); Monocyte (Absolute #) 0.75 (0.0-1.3); Monocytes % 7.9 % (0.0-12.0); Platelet Count 272 K/mm3 (150-450); Red Cell Distribution Width 14.8 % (11.5-14.0); White Blood Count 9.5 K/mm3 (4.0-10.5)
[2018-02-28 23:05] LABS: ALBUMIN 4.2 g/dL (3.5-5.0); ANION GAP 20.1 MEQ/L (5-15); BILIRUBIN,TOTAL 0.3 mg/dL (0.2-1.3); Creatinine 1 1.67 mg/dL (0.52-1.04); Potassium 4.8 mmol/L (3.5-5.1); Total Protein 8.1 g/dL (6.3-8.2)
[2018-02-28] MEDS ORDERED: NovoLIN R IV ONE (23:10)
[2018-02-28] MEDS ORDERED: Sodium Chloride 0.9% 1000 ML 1,000 ML IV STA (23:10)
[2018-02-28] MEDS ORDERED: Sodium Chloride 0.9% 1000 ML 1,000 ML ONE (23:12)
[2018-02-28] MEDS ORDERED: NovoLIN R ONE (23:30)
[2018-03-01 00:56] VITALS: BP 150/61; PULSE 100
[2018-03-01] MEDS ORDERED: NovoLIN R IV ONE (01:03)
[2018-03-01 01:20] VITALS: O2SAT 97
[2018-03-01] MEDS ORDERED: NovoLIN R ONE (01:24)
--- NOTE | 2018-03-01 08:36 | XRAY ---
Indication: Second toe osteomyelitis. Comparison: None 3 nonweightbearing views of the right foot demonstrates tiny metallic wire foreign body in the mid plantar soft tissues. No other bony, articular, or soft tissue abnormalities. Comment: Preliminary interpretation was made by [facility]. Foreign body not reported.
== END 2018-03-01 01:36 | disposition home or self-care (01) ==
LOC: ED 21:40
DX: E11.65 Type 2 diabetes mellitus with hyperglycemia (principal); Z79.4 Long term (current) use of insulin; M79.671 Pain in right foot; S91.104A Unspecified open wound of right lesser toe(s) without damage to nail, initial encounter; G62.9 Polyneuropathy, unspecified; I12.9 Hypertensive chronic kidney disease with stage 1 through stage 4 chronic kidney disease, or unspecified chronic kidney disease; N18.9 Chronic kidney disease, unspecified; I50.9 Heart failure, unspecified; G40.909 Epilepsy, unspecified, not intractable, without status epilepticus; I73.9 Peripheral vascular disease, unspecified; J44.9 Chronic obstructive pulmonary disease, unspecified; K21.9 Gastro-esophageal reflux disease without esophagitis; F41.8 Other specified anxiety disorders; M10.9 Gout, unspecified; Z87.891 Personal history of nicotine dependence; Z79.899 Other long term (current) drug therapy
CPT/HCPCS: 36000; 36415; 73630; 80053; 82962; 83605; 85025; 85652; 87040; 96360; 96365; 96374; 96375; 96376; 99283; 99284; J1170; J2405; J3370; A9270-GY

== ENCOUNTER 2018-05-19 18:30 | Observation (INO) | payer OTHER ==
[2018-05-19] MEDS ORDERED: Sodium Chloride 0.9% 500 ML 500 ML IV ONE ×2 (19:13→19:15)
--- NOTE | 2018-05-19 19:18 | ERPHSYRPT ---
- History of Present Illness Time Seen by Provider: 05/19/18 19:06 Source: patient Exam Limitations: no limitations Patient Subjective Stated Complaint: pt here for high blood sugar over 600 today , pt had blood work today, she is a known diabetic, has recent edwards to both feet Triage Nursing Assessment: pt arrived per ambulance, resp easy, skin w/d/p, has dressing,and post op shoes to both feet, she states it is 1st and second degree edwards that are healing, bs here read high Physician History: Pt was sent by her doctor from home, she underwent routine blood work this morning, her blood sugar returned very high (> 600), she was called, ambulance was sent and taken here. She denies any complaints. She sustained 2 nd degree edwards to her feet 3 weeks ago, and currently under the care of a wound clinic, she denies fever, chills, chest pain, cough, SOB, nausea, other complaints, denies recent changes on her diabetic medications or recent diet changes. Timing/Duration: today Severity: mild, moderate Modifying Factors: Improves With: nothing Associated Symptoms: denies symptoms Allergies/Adverse Reactions: codeine [Codeine] Allergy (Severe, Verified 05/19/18 18:48) swelling throat diphenhydramine HCl [From Benadryl] Allergy (Severe, Verified 05/19/18 18:48) swelling to eyes and throat morphine Allergy (Severe, Verified 05/19/18 18:48) swelling throat doxycycline calcium [From Vibramycin] Allergy (Mild, Verified 05/19/18 18:48) Rash doxycycline hyclate [From Vibramycin] Allergy (Mild, Verified 05/19/18 18:48) Rash doxycycline monohydrate [From Vibramycin] Allergy (Mild, Verified 05/19/18 18:48 ) Rash acetaminophen [From Darvocet-N] Allergy (Verified 05/19/18 18:48) Penicillins Allergy (Verified 05/19/18 18:48) propoxyphene napsylate [From Darvocet-N] Allergy (Verified 05/19/18 18:48) Sulfa (Sulfonamide Antibiotics) Allergy (Verified 05/19/18 18:48) Rash Home Medications: Pregabalin [Lyrica 100Mg] 100 mg PO TID 10/19/13 [History] Amlodipine Besylate 10 mg [Norvasc 10 MG] 10 mg PO DAILY 01/05/16 [History] Ergocalciferol (Vitamin D2) [Vitamin D] 1.25 mg PO .TUES/THURS 01/05/16 [History ] Trazodone HCl 50 mg [Desyrel 50 mg] 1 - 2 tab PO HS PRN PRN 01/05/16 [ History] AMITRIPTYLINE HCL 50 mg Tab [AMITRIPTYLINE HCL 50 mg Tablet] 50 mg PO QID [History] Albuterol 2.5 mg/3 ml Neb [Proventil 2.5 mg/3 ml Neb] 2.5 mg NEB Q4HPRN PRN 11/08/16 [History] Albuterol Sulfate [Proventil Hfa] 6.7 gm IH QID PRN 11/08/16 [History] Loratadine 10 mg [Claritin 10 mg] 10 mg PO DAILY 11/08/16 [History] Hydrocodone Bit/Acetaminophen [[place] 7.5-325 Tablet] 1 each PO Q6H PRN PRN 07/04 [History] Montelukast Sodium 10 mg [Singulair 10 MG] 10 mg PO HS 07/04/17 [History] Carvedilol 12.5 mg [Coreg 12.5 mg] 12.5 mg PO BID 07/05/17 [History] Insulin Glargine,Hum.rec.anlog [Basaglar Kwikpen U-100] 50 unit SQ QAM 07/05/17 [History] Insulin Glargine,Hum.rec.anlog [Basaglar Kwikpen U-100] 75 unit SQ QPM 07/05/17 [History] Furosemide 40 mg [Lasix 40 MG] 40 mg PO DAILY 09/26/17 [History] Metolazone 2.5 mg [Zaroxolyn 2.5 MG] 2.5 mg PO UD 09/26/17 [History] Omeprazole 20 MG [Prilosec 20 mg] 20 mg PO BID 09/26/17 [History] Insulin Glulisine [Apidra Solostar] 10 unit SQ TIDWMEALS 01/28/18 [History] Triamcinolone 0.1% Cream [Kenalog 0.1% Cream 15 gm] 0.1 gm TP BID [History] Hx Tetanus, Diphtheria Vaccination/Date Given: Yes Hx Influenza Vaccination/Date Given: No Hx Pneumococcal Vaccination/Date Given: Yes Immunizations Up to Date: Yes - Review of Systems Constitutional: No Symptoms All Other Systems: Reviewed and Negative - Past Medical History Pertinent Past Medical History: Yes Neurological History: Peripheral Neuropathy ENT History: No Pertinent History Cardiac History: Congestive Heart Failure, Peripheral Vascular Disease Respiratory History: CHF, COPD Endocrine Medical History: Diabetes Type II Musculoskeletal History: Degenerative Disk Disease GI Medical History: Diverticulitis, GERD, Pancreatitis History: Other Psycho-Social History: Anxiety, Depression Female Reproductive Disorders: No Pertinent History Other Medical History: LONG STANDING DM WITH MULTIPLE SECONDARY COMPLICATIONS;. HX OF FOOT WOUNDS AND OM. - Past Surgical History Past Surgical History: Yes Neuro Surgical History: No Pertinent History Cardiac: No Pertinent History Respiratory: No Pertinent History Gastrointestinal: No Pertinent History Genitourinary: No Pertinent History Musculoskeletal: Other Female Surgical History: Tubal Ligation, Other Other Surgical History: D&C,childbirth x two; bone removed in left big toe - Social History Smoking Status: Former smoker How long have you smoked: 22 yrs Exposure to second hand smoke: Yes Drug Use: none Patient Lives Alone: No - Female History Hx Last Menstrual Period: april Hx Now: No - Nursing Vital Signs Nursing Vital Signs: Initial Vital Signs Temperature 98.3 F 05/19/18 18:43 Pulse Rate 101 H 05/19/18 18:43 Respiratory Rate 18 05/19/18 18:43 Blood Pressure 130/98 05/19/18 18:43 O2 Sat by Pulse Oximetry 94 L 05/19/18 18:43 Pain Scale Pain Intensity 7 - Physical Exam General Appearance: no apparent distress Eye Exam: eyes nml inspection Ears, Nose, Throat Exam: normal ENT inspection, pharynx normal, moist mucous membranes Neck Exam: normal inspection, non-tender, supple, No JVD Respiratory Exam: normal breath sounds, lungs clear, airway intact Cardiovascular Exam: regular rate/rhythm, normal heart sounds, normal peripheral pulses, No murmur Gastrointestinal/Abdomen Exam: soft, normal bowel sounds, No tenderness Back Exam: normal inspection, No CVA tenderness Extremity Exam: other (both feet in dressing due to 2nd degree edwards, she was seen at the wound clinic today.) Neurologic Exam: alert, oriented x 3, normal mood/affect, No motor deficits Skin Exam: normal color, warm, dry, No rash Lymphatic Exam: No adenopathy SpO2 Interpretation: normal SpO2: 94 Oxygen Delivery: Room Air - Course Nursing assessment & vital signs reviewed: Yes EKG Interpreted by Me: RATE (100/min), Left Alzada Deviation, Left Bundle Branch Block, Non-specific ST Changes, Other (unchanged since 01/28/18) Ordered Tests: Active Orders 24 hr Category Date Time Status Chalker Soles STAT Care 05/19/18 19:12 Active EKG-ER Only STAT Care 05/19/18 19:11 Active IV Insertion STAT Care 05/19/18 19:11 Active ARTERIAL BLOOD GASES Stat Lab 05/19/18 19:35 Completed CBC W DIFF Stat Lab 05/19/18 19:00 Completed CMP Stat Lab 05/19/18 19:00 Completed Glucose,Critical Care Stat Lab 05/19/18 19:35 Completed Lactic Acid Urgent Lab 05/19/18 19:35 Completed MAGNESIUM Stat Lab 05/19/18 19:00 Completed NT PRO BNP Stat Lab 05/19/18 19:00 Completed TROPONIN Q3H Lab 05/19/18 19:15 Completed TROPONIN Q3H Lab 05/19/18 22:15 Ordered TROPONIN Q3H Lab 05/20/18 01:15 Ordered TROPONIN Q3H Lab 05/20/18 04:15 Ordered TROPONIN Q3H Lab 05/20/18 07:15 Ordered UA W/ MICROSCOPIC Stat Lab 05/19/18 19:48 Completed Medication Summary Discontinued Medications Generic Name Dose Route Start Last Admin Trade Name Freq PRN Reason Stop Dose Admin Hydrocodone Bitart/Acetaminophen 1 tab 05/19/18 19:55 05/19/18 20:15 [place] 7.5/325 Mg Tab PO 05/19/18 19:56 1 tab STAT ONE Administration Sodium Chloride 500 mls @ 500 mls/hr 05/19/18 19:13 05/19/18 20:55 Sodium Chloride 0.9% 500 Ml IV 05/19/18 20:12 Infused .Q1H ONE Infusion Sodium Chloride Confirm 05/19/18 19:15 Sodium Chloride 0.9% 500 Ml Administered 05/19/18 19:16 Dose 500 mls @ ud IV .STK-MED ONE Insulin Human Regular 10 unit 05/19/18 20:28 05/19/18 20:48 Novolin R IV 05/19/18 20:29 10 unit STAT ONE Administration Insulin Human Regular Confirm 05/19/18 20:44 Novolin R Administered 05/19/18 20:45 Dose 10 unit .ROUTE .STK-MED ONE Promethazine HCl 25 mg 05/19/18 19:56 05/19/18 20:15 Phenergan 25 Mg PO 05/19/18 19:57 25 mg STAT ONE Administration Promethazine HCl Confirm 05/19/18 19:58 Phenergan 25 Mg Administered 05/19/18 19:59 Dose 25 mg .ROUTE .STK-MED ONE Lab/Rad Data: Laboratory Result Diagrams 05/19/18 19:00 05/19/18 19:00 Laboratory Results 05/19/18 05/19/18 05/19/18 Range/Units 19:48 19:35 19:35 WBC (4.0-10.5) K/mm3 RBC (4.1-5.4) M/mm3 Hgb (12.0-16.0) gm/dl Hct (35-47) % MCV (78-100) fl MCH (26-32) pg MCHC (32-36) g/dl RDW (11.5-14.0) % Plt Count (150-450) K/mm3 MPV (6-9.5) fl Gran % (36.0-66.0) % Eos # (Auto) (0-0.5) Absolute Lymphs (auto) (1.0-4.6) Absolute Monos (auto) (0.0-1.3) Lymphocytes % (24.0-44.0) % Monocytes % (0.0-12.0) % Eosinophils % (0.00-5.0) % Basophils % (0.0-0.4) % Absolute Granulocytes (1.4-6.9) Basophils # (0-0.4) Puncture Site LEFT RADIAL pCO2 40 (35-45) mmHg pO2 70 L (75-100) mmHg Base Excess 2.0 (-2.0-2.0) O2 Saturation 93.2 L (94-100) g/dF ABG pH 7.43 (7.35-7.45) ABG HCO3 26.5 (22-28) ABG O2 Sat (Measured) 95.8 (95-100) % Raj Test YES A-a Gradient 30 a/A Ratio 0.70 Hemoglobin 11.9 Carboxyhemoglobin 1.7 (0.0-6.9) % THgb Methemoglobin 1.0 L (1.4-1.5) % Temperature 37.0 C POC O2 Flow Rate 21 % Sodium (137-145) mmol/L Potassium 5.3 H (3.5-5.1) mmol/L Chloride (98-107) mmol/L Carbon Dioxide (22-30) mmol/L Anion Gap (5-15) MEQ/L BUN (7-17) mg/dL Creatinine (0.52-1.04) mg/dL Estimated GFR ML/MIN Glucose > 750 H* (74-106) mg/dL Lactic Acid (0.4-2.0) Calcium (8.4-10.2) mg/dL Magnesium (1.6-2.3) mg/dL Total Bilirubin (0.2-1.3) mg/dL AST (14-36) U/L ALT (0-35) U/L Alkaline Phosphatase (38-126) U/L Troponin I (0.000-0.034) ng/mL NT-Pro-B Natriuret Pep (0-450) pg/mL Serum Total Protein (6.3-8.2) g/dL Albumin (3.5-5.0) g/dL Ur Collection Type VOID Urine Color LT.YELLOW (YELLOW) Urine Appearance CLEAR (CLEAR) Urine pH 6.0 (5-6) Ur Specific Armstrong 1.010 (1.005-1.025) Urine Protein 30 (Negative) Urine Ketones SMALL (NEGATIVE) Urine Blood 50 (0-5) Jaren/ul Urine Nitrite NEGATIVE (NEGATIVE) Urine Bilirubin NEGATIVE (NEGATIVE) Urine Urobilinogen NORMAL (0-1) mg/dL Ur Leukocyte Esterase NEGATIVE (NEGATIVE) Urine Microscopic RBC 2-5 (0-2) /HPF Ur Epithelial Cells RARE (FEW) /HPF Urine Culture Reflexed YES (NO) Urine Glucose 1000 (NEGATIVE) mg/dL Specimen Received 05/19/18 05/19/18 05/19/18 05/19/18 Range/Units 19:35 19:15 19:00 WBC (4.0-10.5) K/mm3 RBC (4.1-5.4) M/mm3 Hgb (12.0-16.0) gm/dl Hct (35-47) % MCV (78-100) fl MCH (26-32) pg MCHC (32-36) g/dl RDW (11.5-14.0) % Plt Count (150-450) K/mm3 MPV (6-9.5) fl Gran % (36.0-66.0) % Eos # (Auto) (0-0.5) Absolute Lymphs (auto) (1.0-4.6) Absolute Monos (auto) (0.0-1.3) Lymphocytes % (24.0-44.0) % Monocytes % (0.0-12.0) % Eosinophils % (0.00-5.0) % Basophils % (0.0-0.4) % Absolute Granulocytes (1.4-6.9) Basophils # (0-0.4) Puncture Site pCO2 (35-45) mmHg pO2 (75-100) mmHg Base Excess (-2.0-2.0) O2 Saturation (94-100) g/dF ABG pH (7.35-7.45) ABG HCO3 (22-28) ABG O2 Sat (Measured) (95-100) % Raj Test A-a Gradient a/A Ratio Hemoglobin Carboxyhemoglobin (0.0-6.9) % THgb Methemoglobin (1.4-1.5) % Temperature C POC O2 Flow Rate % Sodium (137-145) mmol/L Potassium (3.5-5.1) mmol/L Chloride (98-107) mmol/L Carbon Dioxide (22-30) mmol/L Anion Gap (5-15) MEQ/L BUN (7-17) mg/dL Creatinine (0.52-1.04) mg/dL Estimated GFR ML/MIN Glucose (74-106) mg/dL Lactic Acid 1.1 (0.4-2.0) Calcium (8.4-10.2) mg/dL Magnesium (1.6-2.3) mg/dL Total Bilirubin (0.2-1.3) mg/dL AST (14-36) U/L ALT (0-35) U/L Alkaline Phosphatase (38-126) U/L Troponin I < 0.012 (0.000-0.034) ng/mL NT-Pro-B Natriuret Pep 116 (0-450) pg/mL Serum Total Protein (6.3-8.2) g/dL Albumin (3.5-5.0) g/dL Ur Collection Type Urine Color (YELLOW) Urine Appearance (CLEAR) Urine pH (5-6) Ur Specific Armstrong (1.005-1.025) Urine Protein (Negative) Urine Ketones (NEGATIVE) Urine Blood (0-5) Jaren/ul Urine Nitrite (NEGATIVE) Urine Bilirubin (NEGATIVE) Urine Urobilinogen (0-1) mg/dL Ur Leukocyte Esterase (NEGATIVE) Urine Microscopic RBC (0-2) /HPF Ur Epithelial Cells (FEW) /HPF Urine Culture Reflexed (NO) Urine Glucose (NEGATIVE) mg/dL Specimen Received 05/19/18 05/19/18 Range/Units 19:00 19:00 WBC 10.8 H (4.0-10.5) K/mm3 RBC 5.01 (4.1-5.4) M/mm3 Hgb 12.1 (12.0-16.0) gm/dl Hct 37.9 (35-47) % MCV 75.6 L (78-100) fl MCH 24.2 L (26-32) pg MCHC 31.9 L (32-36) g/dl RDW 14.9 H (11.5-14.0) % Plt Count 361 (150-450) K/mm3 MPV 11.2 H (6-9.5) fl Gran % 76.2 H (36.0-66.0) % Eos # (Auto) 0.35 (0-0.5) Absolute Lymphs (auto) 1.36 (1.0-4.6) Absolute Monos (auto) 0.80 (0.0-1.3) Lymphocytes % 12.6 L (24.0-44.0) % Monocytes % 7.4 (0.0-12.0) % Eosinophils % 3.2 (0.00-5.0) % Basophils % 0.6 (0.0-0.4) % Absolute Granulocytes 8.20 H (1.4-6.9) Basophils # 0.06 (0-0.4) Puncture Site pCO2 (35-45) mmHg pO2 (75-100) mmHg Base Excess (-2.0-2.0) O2 Saturation (94-100) g/dF ABG pH (7.35-7.45) ABG HCO3 (22-28) ABG O2 Sat (Measured) (95-100) % Raj Test A-a Gradient a/A Ratio Hemoglobin Carboxyhemoglobin (0.0-6.9) % THgb Methemoglobin (1.4-1.5) % Temperature C POC O2 Flow Rate % Sodium 126 L (137-145) mmol/L Potassium 4.8 (3.5-5.1) mmol/L Chloride 87 L (98-107) mmol/L Carbon Dioxide 27 (22-30) mmol/L Anion Gap 17.5 H (5-15) MEQ/L BUN 42 H (7-17) mg/dL Creatinine 1.86 H (0.52-1.04) mg/dL Estimated GFR 31.6 ML/MIN Glucose 722 H* (74-106) mg/dL Lactic Acid (0.4-2.0) Calcium 9.2 (8.4-10.2) mg/dL Magnesium 2.2 (1.6-2.3) mg/dL Total Bilirubin 0.30 (0.2-1.3) mg/dL AST 13 L (14-36) U/L ALT 11 (0-35) U/L Alkaline Phosphatase 222 H (38-126) U/L Troponin I (0.000-0.034) ng/mL NT-Pro-B Natriuret Pep (0-450) pg/mL Serum Total Protein 7.8 (6.3-8.2) g/dL Albumin 4.1 (3.5-5.0) g/dL Ur Collection Type Urine Color (YELLOW) Urine Appearance (CLEAR) Urine pH (5-6) Ur Specific Armstrong (1.005-1.025) Urine Protein (Negative) Urine Ketones (NEGATIVE) Urine Blood (0-5) Jaren/ul Urine Nitrite (NEGATIVE) Urine Bilirubin (NEGATIVE) Urine Urobilinogen (0-1) mg/dL Ur Leukocyte Esterase (NEGATIVE) Urine Microscopic RBC (0-2) /HPF Ur Epithelial Cells (FEW) /HPF Urine Culture Reflexed (NO) Urine Glucose (NEGATIVE) mg/dL Specimen Received - Progress Progress: improved Progress Note: 05/19/18 21:07 Pt was started on iv saline, and 10 units regular insulin iv was given, she denies any complaints, except chronic neuropathic pain, no fever. She states, she was started on PO antibiotics for her edwards, but they were stopped because they do not seem to be infected, she was seen by wound clinic this morning. 05/19/18 21:[address] Brooks, discussed her results and current condition, she agreed to admit her for observation, pt informed about this, she agreed. Discussed with .: Cecilia Will see patient in: hospital (observation) Counseled pt/family regarding: lab results, diagnosis - Departure Time of Disposition: 21:10 Departure Disposition: Observation Clinical Impression: Hyperglycemia Condition: Stable Critical Care Time: No Referrals: VILMA BROOKS [Primary Care Provider] - Instructions: Hyperglycemia, Adult (DC)
[2018-05-19 19:43] LABS: BASOPHIL % 0.6 % (0.0-0.4); Basophil (Absolute #) 0.06 (0-0.4); Eosinophil % 3.2 % (0.00-5.0); Eosinophil (Absolute #) 0.35 (0-0.5); Granulocytes % 76.2 % (36.0-66.0); Hematocrit 37.9 % (35-47); Hemoglobin 12.1 gm/dl (12.0-16.0); Lymphocyte (Absolute #) 1.36 (1.0-4.6); Lymphocytes % 12.6 % (24.0-44.0); Mean Cell Volume 75.6 fl (78-100); Mean Corpuscular Hemoglobin 24.2 pg (26-32); Mean Corpuscular Hgb Concent. 31.9 g/dl (32-36); Mean Platelet Volume 11.2 fl (6-9.5); Monocytes % 7.4 % (0.0-12.0); Platelet Count 361 K/mm3 (150-450); Red Blood Count 5.01 M/mm3 (4.1-5.4); Red Cell Distribution Width 14.9 % (11.5-14.0); White Blood Count 10.8 K/mm3 (4.0-10.5)
[2018-05-19 19:45] LABS: ALBUMIN 4.1 g/dL (3.5-5.0); ANION GAP 17.5 MEQ/L (5-15); BILIRUBIN,TOTAL 0.3 mg/dL (0.2-1.3); Calcium 9.2 mg/dL (8.4-10.2); Creatinine 1 1.86 mg/dL (0.52-1.04); Potassium 4.8 mmol/L (3.5-5.1); Total Protein 7.8 g/dL (6.3-8.2)
[2018-05-19 19:46] LABS: A-aADO2 30; ABG HEMOGLOBIN 11.9; ABG POTASSIUM 5.3 (3.5-5.1); ABG SITE LEFT RADIAL; ALLEN TEST OK? YES; ARTERIAL BLD GAS O2 SATURATION 95.8 % (95-100); ARTERIAL BLOOD GAS FIO2 21 %; ARTERIAL BLOOD GAS PCO2 40 mmHg (35-45); ARTERIAL BLOOD GAS PO2 70 mmHg (75-100); ARTERIAL BLOOD GAS pH 7.43 (7.35-7.45); CARBOXYHEMOGLOBIN 1.7 % THgb (0.0-6.9); HCO3- 26.5 (22-28); HGB O2 SAT 93.2 g/dF (94-100)
[2018-05-19] MEDS ORDERED: NORCO 7.5/325 MG TAB PO ONE (19:55)
[2018-05-19] MEDS ORDERED: PHENERGAN 25 MG PO ONE (19:56)
[2018-05-19] MEDS ORDERED: PHENERGAN 25 MG ONE (19:58)
[2018-05-19] MEDS ORDERED: NovoLIN R IV ONE (20:28)
[2018-05-19] MEDS ORDERED: NovoLIN R ONE (20:44)
[2018-05-19 20:48] LABS: Appearance CLEAR (CLEAR); Glucose 1000 mg/dL (NEGATIVE); Leukocyte Esterase NEGATIVE (NEGATIVE); Nitrite NEGATIVE (NEGATIVE); Protein,Urine Dip 30 (Negative)
[2018-05-19 20:49] LABS: Bilirubin NEGATIVE (NEGATIVE); Blood 50 Ery/ul (0-5); Ketones SMALL (NEGATIVE); Urobilinogen NORMAL mg/dL (0-1)
[2018-05-19 20:53] LABS: Epithelial Cells RARE /HPF (FEW)
[2018-05-19] MEDS ORDERED: Zofran 4 MG/2 ML VIAL IV PRN (21:10)
[2018-05-19] MEDS ORDERED: TYLENOL 325 MG PO PRN (21:10)
[2018-05-20] MEDS ORDERED: PROVENTIL 2.5 MG/3 ML NEB IH PRN (00:03)
[2018-05-20] MEDS ORDERED: PROVENTIL COMMON CANISTER IH PRN (00:03)
[2018-05-20] MEDS: Sodium Chloride 0.9% 1000 ML 1,000 ML IV SCH ×3 (00:28→20:20)
[2018-05-20] MEDS ORDERED: PHENERGAN 25 MG PO PRN (02:12)
[2018-05-20] MEDS: NORCO 7.5/325 MG TAB PO PRN ×4 (02:29→23:47)
[2018-05-20] MEDS ORDERED: Protonix 40MG Tablet PO ONE (02:30)
[2018-05-20] MEDS ORDERED: Singulair 10 MG PO ONE (02:30)
[2018-05-20] MEDS ORDERED: COREG 12.5 MG PO ONE (02:30)
[2018-05-20] MEDS: NovoLOG Insulin SQ PRN ×6 (02:30→23:43)
[2018-05-20] MEDS ORDERED: DESYREL 50 MG PO ONE (02:30)
[2018-05-20] MEDS ORDERED: LYRICA 100MG PO ONE (02:30)
[2018-05-20] MEDS ORDERED: Cyclobenzaprine 10 MG PO ONE (02:30)
[2018-05-20] MEDS ORDERED: BUMEX 1 MG PO ONE (02:30)
[2018-05-20 04:30] LABS: BASOPHIL % 0.8 % (0.0-0.4); Basophil (Absolute #) 0.07 (0-0.4); Eosinophil % 4.9 % (0.00-5.0); Eosinophil (Absolute #) 0.42 (0-0.5); Granulocyte Absolute (ANC) 5.88 (1.4-6.9); Hematocrit 34.3 % (35-47); Hemoglobin 10.8 gm/dl (12.0-16.0); Lymphocyte (Absolute #) 1.69 (1.0-4.6); Lymphocytes % 19.6 % (24.0-44.0); Mean Cell Volume 76.4 fl (78-100); Mean Corpuscular Hgb Concent. 31.5 g/dl (32-36); Mean Platelet Volume 10.6 fl (6-9.5); Monocyte (Absolute #) 0.58 (0.0-1.3); Monocytes % 6.7 % (0.0-12.0); Platelet Count 309 K/mm3 (150-450); Red Blood Count 4.49 M/mm3 (4.1-5.4); Red Cell Distribution Width 14.7 % (11.5-14.0); White Blood Count 8.6 K/mm3 (4.0-10.5)
[2018-05-20 04:46] LABS: Calcium 8.5 mg/dL (8.4-10.2); Creatinine 1 1.75 mg/dL (0.52-1.04); Potassium 4.5 mmol/L (3.5-5.1)
[2018-05-20] MEDS ORDERED: Sodium Chloride 0.9% 1000 ML 1,000 ML IV STA (05:13)
[2018-05-20] MEDS: Lantus Insulin SQ SCH ×2 (05:28→21:59)
--- NOTE | 2018-05-20 08:29 | PCM.HP ---
History of Present Illness - Chief Complaint Chief Complaint: Hyperglycemia History of Present Illness: is a 42 year old female pt of mine from [facility] with diabetes, COPD, peripheral neuropathy, and diabetic foot wounds who was admitted through ER for hyperglycemia. She has been having BS in 200s-400s at home, but after her appt yesterday her BMP revealed BS of 626. I tried to call the pt and couldn't reach her so I asked the police department to do a welfare check. They found her sleeping (pt states she was just napping) and she was brought to [facility] ER where her BS was 720. She was given regular insulin overnight several times and her BS this morning is 490. She was also given NS in the ER and again this morning. She has her breakfast tray this morning but hasn't eaten yet. - Review of Systems Constitutional: Fatigue Respiratory: No Cough, No Short Of Breath Musculoskeletal: Back Pain (chronic) Skin: Other (wounds bilat feet s/p edwards) Neurological: Parasthesia (extremities, as usual) Psychological: Anxiety All Other Systems: Reviewed and Negative Medications & Allergies Home Medications: Home Medication List Pregabalin [Lyrica 100Mg] 100 mg PO TID 10/19/13 [History Confirmed 05/19/18] Amlodipine Besylate 10 mg [Norvasc 10 MG] 10 mg PO DAILY 01/05/16 [History Confirmed 05/19/18] Ergocalciferol (Vitamin D2) [Vitamin D] 1.25 mg PO .TUES/THURS 01/05/16 [ History Confirmed 05/19/18] Trazodone HCl 50 mg [Desyrel 50 mg] 100 mg PO HS 01/05/16 [History Confirmed 05/20/18] Promethazine HCl 25 mg [Phenergan 25 mg] 12.5 mg PO Q6H PRN PRN #30 tablet 03/21/16 [Rx Confirmed 05/19/18] AMITRIPTYLINE HCL 50 mg Tab [AMITRIPTYLINE HCL 50 mg Tablet] 50 mg PO QID [History Confirmed 05/19/18] Albuterol 2.5 mg/3 ml Neb [Proventil 2.5 mg/3 ml Neb] 2.5 mg NEB Q4HPRN PRN 11/08/16 [History Confirmed 05/19/18] Albuterol Sulfate [Proventil Hfa] 6.7 gm IH QID PRN 11/08/16 [History Confirmed 05/19/18] Loratadine 10 mg [Claritin 10 mg] 10 mg PO DAILY 11/08/16 [History Confirmed 05/19/18] Hydrocodone Bit/Acetaminophen [Gem 7.5-325 Tablet] 1 each PO Q6H PRN PRN 07/04 [History Confirmed 05/19/18] Montelukast Sodium 10 mg [Singulair 10 MG] 10 mg PO HS 07/04/17 [History Confirmed 05/19/18] Carvedilol 12.5 mg [Coreg 12.5 mg] 12.5 mg PO BID 07/05/17 [History Confirmed 05/19/18] Insulin Glargine,Hum.rec.anlog [[place] U-100] 55 unit SQ BID 07/05/17 [History Confirmed 05/20/18] Furosemide 40 mg [Lasix 40 MG] 40 mg PO DAILY PRN 09/26/17 [History Confirmed 05/19/18] Metolazone 2.5 mg [Zaroxolyn 2.5 MG] 2.5 mg PO UD 09/26/17 [History Confirmed 05/19/18] Omeprazole 20 MG [Prilosec 20 mg] 20 mg PO BID 09/26/17 [History Confirmed 05/19] Insulin Glulisine [Apidra Solostar] 18 unit SQ TIDWMEALS 01/28/18 [History Confirmed 05/20/18] Atorvastatin Calcium 10 mg PO DAILY 05/20/18 [History Confirmed 05/20/18] Bumetanide 1 mg [Bumex 1 mg] 4 mg PO BID 05/20/18 [History Confirmed 05/20] Buspirone HCl 1 tablet PO BID 05/20/18 [History Confirmed 05/20/18] Cyclobenzaprine HCl 5 mg PO HS 05/20/18 [History Confirmed 05/20/18] Fluticasone Propionate [Allergy Relief] 1 spray IH DAILY 05/20/18 [History Confirmed 05/20/18] Hydrocortisone 1% Cream [Cortisone 1% Cream] 1 gm TP BID 05/20/18 [ History Confirmed 05/20/18] Lisinopril 20 mg PO BID 05/20/18 [History Confirmed 05/20/18] Allergies/Adverse Reactions: Allergies Allergy/AdvReac Type Severity Reaction Status Date / Time codeine [Codeine] Allergy Severe swelling Verified 05/19/18 18:48 throat diphenhydramine HCl Allergy Severe swelling Verified 05/19/18 18:48 [From Benadryl] to eyes and throat morphine Allergy Severe swelling Verified 05/19/18 18:48 throat doxycycline calcium Allergy Mild Rash Verified 05/19/18 18:48 [From Vibramycin] doxycycline hyclate Allergy Mild Rash Verified 05/19/18 18:48 [From Vibramycin] doxycycline monohydrate Allergy Mild Rash Verified 05/19/18 18:48 [From Vibramycin] acetaminophen Allergy Verified 05/19/18 18:48 [From Darvocet-N] Penicillins Allergy Verified 05/19/18 18:48 propoxyphene napsylate Allergy Verified 05/19/18 18:48 [From Darvocet-N] Sulfa (Sulfonamide Allergy Rash Verified 05/19/18 18:48 Antibiotics) - Past Medical History Past Medical History: Yes Neurological History: Peripheral Neuropathy ENT History: No Pertinent History Cardiac History: Congestive Heart Failure, Hypertension, Peripheral Vascular Disease, Other Respiratory History: CHF, COPD Endocrine Medical History: Diabetes Type II Musculoskelatal History: Degenerative Disk Disease GI Medical History: Diverticulitis, GERD, Pancreatitis History: Renal Disease, Other Pyscho-Social History: Anxiety, Depression Reproductive Disorders: No Pertinent History Comment: LONG STANDING DM WITH MULTIPLE SECONDARY COMPLICATIONS;. HX OF FOOT WOUNDS AND OM. Heart murmer, ARBS (hardening of lungs), Chronic Renal Failure, Chronic hypoxemic respiratory failure - Female History Hx Last Menstrual Period: april Are you now?: No - Past Surgical History Past Surgical History: Yes Neuro Surgical History: No Pertinent History Cardiac History: No Pertinent History Respiratory Surgery: No Pertinent History GI Surgical History: No Pertinent History Genitourinary Surgical Hx: No Pertinent History Musculskeletal Surgical Hx: Other Female Surgical History: Tubal Ligation, Other Other Surgical History: D&C,childbirth x two; bone removed in left big toe - Social History Smoking Status: Former smoker How long have you smoked: 22 yrs Exposure to second hand smoke: Yes Alcohol: None Drug Use: none - Physical Exam Vital Signs: Vital Signs - 24 hr Temp Pulse Resp BP Pulse Ox 05/20/18 07:36 97.9 F 81 18 124/72 95 05/20/18 07:23 82 18 95 05/20/18 04:20 97.7 F 91 H 20 126/60 96 05/20/18 00:34 98.0 F 91 H 20 125/69 97 05/19/18 23:55 92 H 17 92 L 05/19/18 23:34 89 18 129/62 92 L 05/19/18 21:10 94 L 05/19/18 20:53 96 H 18 155/95 97 05/19/18 18:43 98.3 F 101 H 18 130/98 94 L Oxygen-Last 24 hours O2 Percentage 2 Liters = 28% O2 Percentage 3 Liters = 32% Oxygen Flowrate (L/min)-RT 2 General Appearance: no apparent distress, alert, obese Neurologic Exam: oriented x 3, cooperative Eye Exam: eyes nml inspection Ears, Nose, Throat Exam: moist mucous membranes Neck Exam: normal inspection, non-tender, No lymphadenopathy Respiratory Exam: normal breath sounds, lungs clear, No crackles/rales, No rhonchi, No wheezing Cardiovascular Exam: regular rate/rhythm, normal heart sounds, No murmur Gastrointestinal/Abdomen Exam: soft, normal bowel sounds, No tenderness, No distention, No mass, No guarding, No rebound Back Exam: normal inspection, No rash Extremity Exam: other (feet wrapped bilat) Skin Exam: warm, dry Results - Labs Lab/Micro Results: Accuchecks Accucheck Value: 576 Lab Results-Last 24 Hours 05/19/18 05/19/18 05/19/18 Range/Units 19:00 19:00 19:00 WBC 10.8 H (4.0-10.5) K/mm3 RBC 5.01 (4.1-5.4) M/mm3 Hgb 12.1 (12.0-16.0) gm/dl Hct 37.9 (35-47) % MCV 75.6 L (78-100) fl MCH 24.2 L (26-32) pg MCHC 31.9 L (32-36) g/dl RDW 14.9 H (11.5-14.0) % Plt Count 361 (150-450) K/mm3 MPV 11.2 H (6-9.5) fl Gran % 76.2 H (36.0-66.0) % Eos # (Auto) 0.35 (0-0.5) Absolute Lymphs (auto) 1.36 (1.0-4.6) Absolute Monos (auto) 0.80 (0.0-1.3) Lymphocytes % 12.6 L (24.0-44.0) % Monocytes % 7.4 (0.0-12.0) % Eosinophils % 3.2 (0.00-5.0) % Basophils % 0.6 (0.0-0.4) % Absolute Granulocytes 8.20 H (1.4-6.9) Basophils # 0.06 (0-0.4) Puncture Site pCO2 (35-45) mmHg pO2 (75-100) mmHg Base Excess (-2.0-2.0) O2 Saturation (94-100) g/dF ABG pH (7.35-7.45) ABG HCO3 (22-28) ABG O2 Sat (Measured) (95-100) % Raj Test A-a Gradient a/A Ratio Hemoglobin Carboxyhemoglobin (0.0-6.9) % THgb Methemoglobin (1.4-1.5) % Temperature C POC O2 Flow Rate % Sodium 126 L (137-145) mmol/L Potassium 4.8 (3.5-5.1) mmol/L Chloride 87 L (98-107) mmol/L Carbon Dioxide 27 (22-30) mmol/L Anion Gap 17.5 H (5-15) MEQ/L BUN 42 H (7-17) mg/dL Creatinine 1.86 H (0.52-1.04) mg/dL Estimated GFR 31.6 ML/MIN Glucose 722 H* (74-106) mg/dL Lactic Acid (0.4-2.0) Calcium 9.2 (8.4-10.2) mg/dL Magnesium 2.2 (1.6-2.3) mg/dL Total Bilirubin 0.30 (0.2-1.3) mg/dL AST 13 L (14-36) U/L ALT 11 (0-35) U/L Alkaline Phosphatase 222 H (38-126) U/L Troponin I (0.000-0.034) ng/mL NT-Pro-B Natriuret Pep 116 (0-450) pg/mL Serum Total Protein 7.8 (6.3-8.2) g/dL Albumin 4.1 (3.5-5.0) g/dL Ur Collection Type Urine Color (YELLOW) Urine Appearance (CLEAR) Urine pH (5-6) Ur Specific [place] (1.005-1.025) Urine Protein (Negative) Urine Ketones (NEGATIVE) Urine Blood (0-5) Jaren/ul Urine Nitrite (NEGATIVE) Urine Bilirubin (NEGATIVE) Urine Urobilinogen (0-1) mg/dL Ur Leukocyte Esterase (NEGATIVE) Urine Microscopic RBC (0-2) /HPF Ur Epithelial Cells (FEW) /HPF Urine Culture Reflexed (NO) Urine Glucose (NEGATIVE) mg/dL Specimen Received 05/19/18 05/19/18 05/19/18 Range/Units 19:15 19:35 19:35 WBC (4.0-10.5) K/mm3 RBC (4.1-5.4) M/mm3 Hgb (12.0-16.0) gm/dl Hct (35-47) % MCV (78-100) fl MCH (26-32) pg MCHC (32-36) g/dl RDW (11.5-14.0) % Plt Count (150-450) K/mm3 MPV (6-9.5) fl Gran % (36.0-66.0) % Eos # (Auto) (0-0.5) Absolute Lymphs (auto) (1.0-4.6) Absolute Monos (auto) (0.0-1.3) Lymphocytes % (24.0-44.0) % Monocytes % (0.0-12.0) % Eosinophils % (0.00-5.0) % Basophils % (0.0-0.4) % Absolute Granulocytes (1.4-6.9) Basophils # (0-0.4) Puncture Site LEFT RADIAL pCO2 40 (35-45) mmHg pO2 70 L (75-100) mmHg Base Excess 2.0 (-2.0-2.0) O2 Saturation 93.2 L (94-100) g/dF ABG pH 7.43 (7.35-7.45) ABG HCO3 26.5 (22-28) ABG O2 Sat (Measured) 95.8 (95-100) % Raj Test YES A-a Gradient 30 a/A Ratio 0.70 Hemoglobin 11.9 Carboxyhemoglobin 1.7 (0.0-6.9) % THgb Methemoglobin 1.0 L (1.4-1.5) % Temperature 37.0 C POC O2 Flow Rate 21 % Sodium (137-145) mmol/L Potassium 5.3 H (3.5-5.1) mmol/L Chloride (98-107) mmol/L Carbon Dioxide (22-30) mmol/L Anion Gap (5-15) MEQ/L BUN (7-17) mg/dL Creatinine (0.52-1.04) mg/dL Estimated GFR ML/MIN Glucose (74-106) mg/dL Lactic Acid 1.1 (0.4-2.0) Calcium (8.4-10.2) mg/dL Magnesium (1.6-2.3) mg/dL Total Bilirubin (0.2-1.3) mg/dL AST (14-36) U/L ALT (0-35) U/L Alkaline Phosphatase (38-126) U/L Troponin I < 0.012 (0.000-0.034) ng/mL NT-Pro-B Natriuret Pep (0-450) pg/mL Serum Total Protein (6.3-8.2) g/dL Albumin (3.5-5.0) g/dL Ur Collection Type Urine Color (YELLOW) Urine Appearance (CLEAR) Urine pH (5-6) Ur Specific [place] (1.005-1.025) Urine Protein (Negative) Urine Ketones (NEGATIVE) Urine Blood (0-5) Jaren/ul Urine Nitrite (NEGATIVE) Urine Bilirubin (NEGATIVE) Urine Urobilinogen (0-1) mg/dL Ur Leukocyte Esterase (NEGATIVE) Urine Microscopic RBC (0-2) /HPF Ur Epithelial Cells (FEW) /HPF Urine Culture Reflexed (NO) Urine Glucose (NEGATIVE) mg/dL Specimen Received 05/19/18 05/19/1805/19/18 Range/Units 19:35 19:48 22:15 WBC (4.0-10.5) K/mm3 RBC (4.1-5.4) M/mm3 Hgb (12.0-16.0) gm/dl Hct (35-47) % MCV (78-100) fl MCH (26-32) pg MCHC (32-36) g/dl RDW (11.5-14.0) % Plt Count (150-450) K/mm3 MPV (6-9.5) fl Gran % (36.0-66.0) % Eos # (Auto) (0-0.5) Absolute Lymphs (auto) (1.0-4.6) Absolute Monos (auto) (0.0-1.3) Lymphocytes % (24.0-44.0) % Monocytes % (0.0-12.0) % Eosinophils % (0.00-5.0) % Basophils % (0.0-0.4) % Absolute Granulocytes (1.4-6.9) Basophils # (0-0.4) Puncture Site pCO2 (35-45) mmHg pO2 (75-100) mmHg Base Excess (-2.0-2.0) O2 Saturation (94-100) g/dF ABG pH (7.35-7.45) ABG HCO3 (22-28) ABG O2 Sat (Measured) (95-100) % Raj Test A-a Gradient a/A Ratio Hemoglobin Carboxyhemoglobin (0.0-6.9) % THgb Methemoglobin (1.4-1.5) % Temperature C POC O2 Flow Rate % Sodium (137-145) mmol/L Potassium (3.5-5.1) mmol/L Chloride (98-107) mmol/L Carbon Dioxide (22-30) mmol/L Anion Gap (5-15) MEQ/L BUN (7-17) mg/dL Creatinine (0.52-1.04) mg/dL Estimated GFR ML/MIN Glucose > 750 H* (74-106) mg/dL Lactic Acid (0.4-2.0) Calcium (8.4-10.2) mg/dL Magnesium (1.6-2.3) mg/dL Total Bilirubin (0.2-1.3) mg/dL AST (14-36) U/L ALT (0-35) U/L Alkaline Phosphatase (38-126) U/L Troponin I < 0.012 (0.000-0.034) ng/mL NT-Pro-B Natriuret Pep (0-450) pg/mL Serum Total Protein (6.3-8.2) g/dL Albumin (3.5-5.0) g/dL Ur Collection Type VOID Urine Color LT.YELLOW (YELLOW) Urine Appearance CLEAR (CLEAR) Urine pH 6.0 (5-6) Ur Specific [place] 1.010 (1.005-1.025) Urine Protein 30 (Negative) Urine Ketones SMALL (NEGATIVE) Urine Blood 50 (0-5) Jaren/ul Urine Nitrite NEGATIVE (NEGATIVE) Urine Bilirubin NEGATIVE (NEGATIVE) Urine Urobilinogen NORMAL (0-1) mg/dL Ur Leukocyte Esterase NEGATIVE (NEGATIVE) Urine Microscopic RBC 2-5 (0-2) /HPF Ur Epithelial Cells RARE (FEW) /HPF Urine Culture Reflexed YES (NO) Urine Glucose 1000 (NEGATIVE) mg/dL Specimen Received 05/19/18 05/20/18 05/20/18 05/20/18 Range/Units 01:15 04:10 04:10 WBC 8.6 (4.0-10.5) K/mm3 RBC 4.49 (4.1-5.4) M/mm3 Hgb 10.8 L (12.0-16.0) gm/dl Hct 34.3 L (35-47) % MCV 76.4 L (78-100) fl MCH 24.0 L (26-32) pg MCHC 31.5 L (32-36) g/dl RDW 14.7 H (11.5-14.0) % Plt Count 309 (150-450) K/mm3 MPV 10.6 H (6-9.5) fl Gran % 68.0 H (36.0-66.0) % Eos # (Auto) 0.42 (0-0.5) Absolute Lymphs (auto) 1.69 (1.0-4.6) Absolute Monos (auto) 0.58 (0.0-1.3) Lymphocytes % 19.6 L (24.0-44.0) % Monocytes % 6.7 (0.0-12.0) % Eosinophils % 4.9 (0.00-5.0) % Basophils % 0.8 (0.0-0.4) % Absolute Granulocytes 5.88 (1.4-6.9) Basophils # 0.07 (0-0.4) Puncture Site pCO2 (35-45) mmHg pO2 (75-100) mmHg Base Excess (-2.0-2.0) O2 Saturation (94-100) g/dF ABG pH (7.35-7.45) ABG HCO3 (22-28) ABG O2 Sat (Measured) (95-100) % Raj Test A-a Gradient a/A Ratio Hemoglobin Carboxyhemoglobin (0.0-6.9) % THgb Methemoglobin (1.4-1.5) % Temperature C POC O2 Flow Rate % Sodium (137-145) mmol/L Potassium (3.5-5.1) mmol/L Chloride (98-107) mmol/L Carbon Dioxide (22-30) mmol/L Anion Gap (5-15) MEQ/L BUN (7-17) mg/dL Creatinine (0.52-1.04) mg/dL Estimated GFR ML/MIN Glucose (74-106) mg/dL Lactic Acid (0.4-2.0) Calcium (8.4-10.2) mg/dL Magnesium (1.6-2.3) mg/dL Total Bilirubin (0.2-1.3) mg/dL AST (14-36) U/L ALT (0-35) U/L Alkaline Phosphatase (38-126) U/L Troponin I < 0.012 < 0.012 (0.000-0.034) ng/mL NT-Pro-B Natriuret Pep (0-450) pg/mL Serum Total Protein (6.3-8.2) g/dL Albumin (3.5-5.0) g/dL Ur Collection Type Urine Color (YELLOW) Urine Appearance (CLEAR) Urine pH (5-6) Ur Specific [place] (1.005-1.025) Urine Protein (Negative) Urine Ketones (NEGATIVE) Urine Blood (0-5) Jaren/ul Urine Nitrite (NEGATIVE) Urine Bilirubin (NEGATIVE) Urine Urobilinogen (0-1) mg/dL Ur Leukocyte Esterase (NEGATIVE) Urine Microscopic RBC (0-2) /HPF Ur Epithelial Cells (FEW) /HPF Urine Culture Reflexed (NO) Urine Glucose (NEGATIVE) mg/dL Specimen Received 05/20/18 Range/Units 04:10 WBC (4.0-10.5) K/mm3 RBC (4.1-5.4) M/mm3 Hgb (12.0-16.0) gm/dl Hct (35-47) % MCV (78-100) fl MCH (26-32) pg MCHC (32-36) g/dl RDW (11.5-14.0) % Plt Count (150-450) K/mm3 MPV (6-9.5) fl Gran % (36.0-66.0) % Eos # (Auto) (0-0.5) Absolute Lymphs (auto) (1.0-4.6) Absolute Monos (auto) (0.0-1.3) Lymphocytes % (24.0-44.0) % Monocytes % (0.0-12.0) % Eosinophils % (0.00-5.0) % Basophils % (0.0-0.4) % Absolute Granulocytes (1.4-6.9) Basophils # (0-0.4) Puncture Site pCO2 (35-45) mmHg pO2 (75-100) mmHg Base Excess (-2.0-2.0) O2 Saturation (94-100) g/dF ABG pH (7.35-7.45) ABG HCO3 (22-28) ABG O2 Sat (Measured) (95-100) % Rja Test A-a Gradient a/A Ratio Hemoglobin Carboxyhemoglobin (0.0-6.9) % THgb Methemoglobin (1.4-1.5) % Temperature C POC O2 Flow Rate % Sodium 128 L (137-145) mmol/L Potassium 4.5 (3.5-5.1) mmol/L Chloride 92 L (98-107) mmol/L Carbon Dioxide 27 (22-30) mmol/L Anion Gap 13.0 (5-15) MEQ/L BUN 37 H (7-17) mg/dL Creatinine 1.75 H (0.52-1.04) mg/dL Estimated GFR 33.9 ML/MIN Glucose 609 H* (74-106) mg/dL Lactic Acid (0.4-2.0) Calcium 8.5 (8.4-10.2) mg/dL Magnesium (1.6-2.3) mg/dL Total Bilirubin (0.2-1.3) mg/dL AST (14-36) U/L ALT (0-35) U/L Alkaline Phosphatase (38-126) U/L Troponin I (0.000-0.034) ng/mL NT-Pro-B Natriuret Pep (0-450) pg/mL Serum Total Protein (6.3-8.2) g/dL Albumin (3.5-5.0) g/dL Ur Collection Type Urine Color (YELLOW) Urine Appearance (CLEAR) Urine pH (5-6) Ur Specific [place] (1.005-1.025) Urine Protein (Negative) Urine Ketones (NEGATIVE) Urine Blood (0-5) Jaren/ul Urine Nitrite (NEGATIVE) Urine Bilirubin (NEGATIVE) Urine Urobilinogen (0-1) mg/dL Ur Leukocyte Esterase (NEGATIVE) Urine Microscopic RBC (0-2) /HPF Ur Epithelial Cells (FEW) /HPF Urine Culture Reflexed (NO) Urine Glucose (NEGATIVE) mg/dL Specimen Received Microbiology 05/19/18 19:48 Urine Culture - Preliminary Urine, Void NO GROWTH TO DATE Accuchecks Accucheck Value: 576 - Other Procedures and Tests Respiratory Therapy 05/20/18 00:03 Respiratory MDI PRN Respiratory Nebulizer PRN 05/20/18 00:04 Oxygen NASAL CANNULA 2 lpm Respiratory Therapy Consult ROUTINE Assessment/Plan (1) Hyperglycemia Current Visit: Yes Status: Acute Onset Date: ~05/20/18 Assessment & Plan: Is improving; restart previous dose of lantus (55 units BID; pt had decreased this) and 18 units regular with meals. High dose ss as needed. After 24h can re-assess the need for increased insulin. Pt would like to be discharged by Friday (2d ) due to other appointments upcoming. Code(s): R73.9 - HYPERGLYCEMIA, UNSPECIFIED (2) Wound, open, foot Current Visit: Yes Status: Acute Qualifiers: Encounter type: subsequent encounter Laterality: unspecified laterality Qualified Code(s): S91.309D - Unspecified open wound, unspecified foot, subsequent encounter Assessment & Plan: bilat feet; PT has been changing dressings/debriding, thank you. They actually looked much better in office yesterday. Code(s): S91.309A - UNSPECIFIED OPEN WOUND, UNSPECIFIED FOOT, INITIAL ENCOUNTER (3) COPD (chronic obstructive pulmonary disease) Current Visit: No Status: Chronic Qualifiers: COPD type: chronic bronchitis Chronic bronchitis type: unspecified Qualified Code(s): J42 - Unspecified chronic bronchitis Assessment & Plan: stable (4) Diabetes type 2, uncontrolled Current Visit: No Status: Chronic Qualifiers: Diabetes mellitus group home insulin use: with group home use Diabetes mellitus complication status: with neurologic complications Diabetes mellitus complication detail: with polyneuropathy Qualified Code(s): E11.42 - Type 2 diabetes mellitus with diabetic polyneuropathy; E11.65 - Type 2 diabetes mellitus with hyperglycemia; E11.65 - Type 2 diabetes mellitus with hyperglycemia; E11.65 - Type 2 diabetes mellitus with hyperglycemia; E11.65 - Type 2 diabetes mellitus with hyperglycemia; Z79.4 - longterm (current) use of insulin; Z79.4 - longterm (current) use of insulin; Z79.4 - glass cutting machine feeder (current ) use of insulin; Z79.4 - glass cutting machine feeder (current) use of insulin Code(s): E11.65 - TYPE 2 DIABETES MELLITUS WITH HYPERGLYCEMIA (5) Peripheral neuropathy Current Visit: No Status: Chronic Qualifiers: Peripheral neuropathy type: polyneuropathy, unspecified Qualified Code(s): G62.9 - Polyneuropathy, unspecified Assessment & Plan: likely due to diabetes Code(s): G62.9 - POLYNEUROPATHY, UNSPECIFIED
[2018-05-20] MEDS: BUMEX 1 MG PO SCH ×2 (09:34→17:27)
[2018-05-20] MEDS: NORVASC 5 MG PO SCH (09:34)
[2018-05-20] MEDS: Protonix 40MG Tablet PO SCH ×2 (09:34→22:00)
[2018-05-20] MEDS: ENOXAPARIN SODIUM SQ SCH (09:35)
[2018-05-20] MEDS: Zaroxolyn 2.5 MG PO SCH (09:35)
[2018-05-20] MEDS: CLARITIN 10 MG PO SCH (09:35)
[2018-05-20] MEDS: COREG 12.5 MG PO SCH ×2 (09:35→21:56)
[2018-05-20] MEDS: LYRICA 100MG PO SCH ×3 (09:35→22:00)
[2018-05-20] MEDS: Zestril 20 MG PO SCH ×2 (09:35→21:59)
[2018-05-20] MEDS: Flonase NASAL NS SCH (09:36)
[2018-05-20] MEDS: PHENERGAN 25 MG PO PRN ×3 (09:46→23:48)
[2018-05-20] MEDS ORDERED: [UNRECOGNIZED DRUG - REMARK] IH SCH (10:00)
[2018-05-20] MEDS ORDERED: NON-FORMULARY ITEM (Atorvastatin Calcium [Atorvastatin Calcium] 10 MG) PO SCH (10:00)
[2018-05-20] MEDS ORDERED: NON-FORMULARY ITEM (Omeprazole 20 Mg [Prilosec 20 Mg] 20 MG) PO SCH (10:00)
[2018-05-20] MEDS ORDERED: NON-FORMULARY ITEM (Amlodipine Besylate 10 Mg [Norvasc 10 Mg] 10 MG) PO SCH (10:00)
[2018-05-20] MEDS: CORTISONE 1% CREAM TP SCH ×2 (10:08→21:57)
[2018-05-20] MEDS ORDERED: INSULIN GLULISINE SQ SCH (12:00)
[2018-05-20] MEDS: NovoLOG Insulin SQ SCH ×2 (12:05→17:28)
[2018-05-20] MEDS: Cyclobenzaprine 10 MG PO SCH (21:57)
[2018-05-20] MEDS: Singulair 10 MG PO SCH (21:59)
[2018-05-20] MEDS: Zocor 10MG PO SCH (22:00)
[2018-05-20] MEDS: DESYREL 50 MG PO SCH (22:00)
[2018-05-20] MEDS ORDERED: NON-FORMULARY ITEM (Cyclobenzaprine Hcl [Cyclobenzaprine Hcl] 5 MG) PO SCH (22:00)
[2018-05-21] MEDS: NovoLOG Insulin SQ PRN ×3 (04:32→20:47)
[2018-05-21] MEDS: Sodium Chloride 0.9% 1000 ML 1,000 ML IV SCH ×3 (04:41→22:40)
[2018-05-21] MEDS: NORCO 7.5/325 MG TAB PO PRN ×3 (05:43→21:47)
[2018-05-21] MEDS: PHENERGAN 25 MG PO PRN ×3 (05:43→21:48)
[2018-05-21] MEDS ORDERED: Lantus Insulin SQ SCH ×2 (07:53→22:00)
[2018-05-21] MEDS: NovoLOG Insulin SQ SCH ×3 (07:56→15:59)
--- NOTE | 2018-05-21 09:26 | PCM.NOTE ---
Date and Time: 05/21/18923 Subjective Assessment: She received 48 units of insulin yesterday; however, her lantus had been held on admission. She received 55 units yesterday morning, then had a BS down to 135 so only received 20 units last night. She is tolerating po. Did have sx with the BS of 135. - Review of Systems Constitutional: Weakness, No Fever Objective Exam General Appearance: no apparent distress, alert, obese Neurologic Exam: oriented x 3, cooperative Skin Exam: normal color, warm, dry, No rash Respiratory Exam: normal breath sounds, lungs clear, No crackles/rales, No rhonchi, No wheezing Cardiovascular Exam: regular rate/rhythm, normal heart sounds, No murmur Extremity Exam: other (wrapped bilaterally by PT) OBJECTIVE DATA Vital Signs: Vital Signs - 24 hr Temp Pulse Resp BP Pulse Ox 05/21/18 07:08 98 F 76 20 142/78 97 05/21/18 04:02 98.2 F 79 20 148/85 98 05/20/18 23:52 98.3 F 93 H 20 119/59 98 05/20/18 20:41 85 20 98 05/20/18 19:55 98.1 F 88 20 103/59 97 05/20/18 16:00 98.5 F 85 18 128/72 99 05/20/18 11:37 98.5 F 86 18 123/75 99 Oxygen-Last 24 hours O2 Percentage 2 Liters = 28% O2 Percentage 2 Liters = 28% O2 Percentage 3 Liters = 32% O2 Percentage 2 Liters = 28% O2 Percentage 3 Liters = 32% Pain Assessment - Last Documented Pain Intensity 0 Pain Scale Used 0-10 Pain Scale Intake and Output: Intake & Output 05/18/18 05/19/18 05/20/18 05/21/18 11:59 11:59 11:59 11:59 Intake Total 2173 5542 Output Total 500 4900 Balance 1673 642 Weight 130.5 kg Lab Results: Accuchecks Date 05/20/18 Date 05/20/18 Time 16:12 Time 12:07 Accucheck Value: 274 Accucheck Value: 223 Accucheck Value: 219 Accucheck Value: 183 Accucheck Value: 135 Accucheck Value: 349 Lab Results-Last 24 Hours 05/20/18 05/20/18 Range/Units 07:10 07:10 Hemoglobin A1c > 14.00 H (4.5-6.0) % Troponin I < 0.012 (0.000-0.034) ng/mL Assessment/Plan (1) Hyperglycemia Current Visit: Yes Status: Acute Onset Date: ~05/20/18 Assessment & Plan: Doing much better; will try 50 units lantus in a.m. and 20 in p.m. At home she 's been taking 40 units BID, she thinks pretty consistently. Code(s): R73.9 - HYPERGLYCEMIA, UNSPECIFIED (2) Wound, open, foot Current Visit: Yes Status: Acute Qualifiers: Encounter type: subsequent encounter Laterality: unspecified laterality Qualified Code(s): S91.309D - Unspecified open wound, unspecified foot, subsequent encounter Code(s): S91.309A - UNSPECIFIED OPEN WOUND, UNSPECIFIED FOOT, INITIAL ENCOUNTER (3) COPD (chronic obstructive pulmonary disease) Current Visit: No Status: Chronic Qualifiers: COPD type: chronic bronchitis Chronic bronchitis type: unspecified Qualified Code(s): J42 - Unspecified chronic bronchitis (4) Diabetes type 2, uncontrolled Current Visit: No Status: Chronic Qualifiers: Diabetes mellitus mcc insulin use: with mcc use Diabetes mellitus complication status: with neurologic complications Diabetes mellitus complication detail: with polyneuropathy Qualified Code(s): E11.42 - Type 2 diabetes mellitus with diabetic polyneuropathy; E11.65 - Type 2 diabetes mellitus with hyperglycemia; E11.65 - Type 2 diabetes mellitus with hyperglycemia; E11.65 - Type 2 diabetes mellitus with hyperglycemia; E11.65 - Type 2 diabetes mellitus with hyperglycemia; Z79.4 - correction (current) use of insulin; 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 She is very hard to control. Has some issues wiht compliance and low resources. We have referred her to endocrinology. Code(s): E11.65 - TYPE 2 DIABETES MELLITUS WITH HYPERGLYCEMIA (5) Peripheral neuropathy Current Visit: No Status: Chronic Qualifiers: Peripheral neuropathy type: polyneuropathy, unspecified Qualified Code(s): G62.9 - Polyneuropathy, unspecified Code(s): G62.9 - POLYNEUROPATHY, UNSPECIFIED
[2018-05-21] MEDS: BUMEX 1 MG PO SCH ×2 (09:48→17:15)
[2018-05-21] MEDS: Zestril 20 MG PO SCH ×2 (09:49→21:47)
[2018-05-21] MEDS: LYRICA 100MG PO SCH ×3 (09:49→21:45)
[2018-05-21] MEDS: NORVASC 5 MG PO SCH (09:49)
[2018-05-21] MEDS: ENOXAPARIN SODIUM SQ SCH (09:49)
[2018-05-21] MEDS: COREG 12.5 MG PO SCH ×2 (09:49→21:44)
[2018-05-21] MEDS: Protonix 40MG Tablet PO SCH ×2 (09:49→21:46)
[2018-05-21] MEDS: Flonase NASAL NS SCH (09:49)
[2018-05-21] MEDS: CLARITIN 10 MG PO SCH (09:49)
[2018-05-21] MEDS: Lantus Insulin SQ SCH (09:50)
[2018-05-21] MEDS: CORTISONE 1% CREAM TP SCH ×2 (11:17→21:44)
[2018-05-21] MEDS ORDERED: NovoLOG Insulin SQ ONE ×2 (15:53→16:55)
[2018-05-21 16:42] LABS: ANION GAP 15.1 MEQ/L (5-15); Calcium 8.4 mg/dL (8.4-10.2); Creatinine 1 2.14 mg/dL (0.52-1.04); Potassium 4.8 mmol/L (3.5-5.1)
[2018-05-21] MEDS ORDERED: Sodium Chloride 0.9% 500 ML 500 ML IV ONE (19:40)
[2018-05-21] MEDS: Cyclobenzaprine 10 MG PO SCH (21:45)
[2018-05-21] MEDS: DESYREL 50 MG PO SCH (21:45)
[2018-05-21] MEDS: Zocor 10MG PO SCH (21:47)
[2018-05-21] MEDS: Singulair 10 MG PO SCH (21:47)
[2018-05-22] MEDS: NovoLOG Insulin SQ PRN ×3 (00:31→07:52)
[2018-05-22] MEDS: NORCO 7.5/325 MG TAB PO PRN (03:57)
[2018-05-22] MEDS: PHENERGAN 25 MG PO PRN (03:57)
[2018-05-22 04:57] VITALS: O2SAT 97
[2018-05-22 05:58] LABS: ANION GAP 12.7 MEQ/L (5-15); Calcium 8.1 mg/dL (8.4-10.2); Creatinine 1 2.1 mg/dL (0.52-1.04); Potassium 4.7 mmol/L (3.5-5.1)
[2018-05-22] MEDS: Sodium Chloride 0.9% 1000 ML 1,000 ML IV SCH (06:57)
[2018-05-22 07:17] VITALS: BP 104/68; PULSE 80
[2018-05-22] MEDS: NovoLOG Insulin SQ SCH (07:51)
--- NOTE | 2018-05-22 09:11 | PCM.DS ---
Discharge Summary Date of Admission: 05/19/18 23:59 Admitting Physician: VILMA KEEN Primary Care Provider: VILMA KEEN Allergies Allergies codeine [Codeine] Allergy (Severe, Verified 05/19/18 18:48) swelling throat diphenhydramine HCl [From Benadryl] Allergy (Severe, Verified 05/19/18 18:48) swelling to eyes and throat morphine Allergy (Severe, Verified 05/19/18 18:48) swelling throat doxycycline calcium [From Vibramycin] Allergy (Mild, Verified 05/19/18 18:48) Rash doxycycline hyclate [From Vibramycin] Allergy (Mild, Verified 05/19/18 18:48) Rash doxycycline monohydrate [From Vibramycin] Allergy (Mild, Verified 05/19/18 18:48 ) Rash acetaminophen [From Darvocet-N] Allergy (Verified 05/19/18 18:48) Penicillins Allergy (Verified 05/19/18 18:48) propoxyphene napsylate [From Darvocet-N] Allergy (Verified 05/19/18 18:48) Sulfa (Sulfonamide Antibiotics) Allergy (Verified 05/19/18 18:48) Rash Hospital Summary - Hospital Course Hospital Course: Pt admitted from home wiht BS >700. non ketotic. She has an a1c > 14 and is supposed to see an stock broker. Her creatinine was elevated on admission; did get somewhat better but then worsened (was 1.86, then 1.75, then 2.14, and today is 2.10). She has been taking bumex 4mg 1 po BID but will decrease it to to 2mg po BID and recheck BMP in 3d (Friday). She is tolerating po, breathing is fine. BS yesterday up to 500 after having had only 20 units of lantus the night before. No more lows into the 130s. - Vitals & Intake/Output Vital Signs: Vital Signs Temperature 97.8 F 05/22/18 07:17 Pulse Rate 80 05/22/18 07:17 Respiratory Rate 20 05/22/18 07:17 Blood Pressure 104/68 05/22/18 07:17 O2 Sat by Pulse Oximetry 97 05/22/18 07:17 Oxygen-Last Documented O2 Percentage 2 Liters = 28% Intake & Output: Intake & Output 05/19/18 05/20/18 05/21/18 05/22/18 11:59 11:59 11:59 11:59 Intake Total 2173 5542 6096 Output Total 500 4900 2800 Balance 0241 087 0807 Weight 130.5 kg - Lab Result Diagrams: 05/20/18 04:10 05/22/18 05:35 Lab Results-Last 24 Hrs: Accuchecks Date 05/22/18 Date 05/22/18 Date 05/22/18 Date 05/21/18 Time 07:15 Time 04:00 Time 00:00 Time 20:00 Accucheck Value: 271 Accucheck Value: 291 Accucheck Value: 307 Accucheck Value: 432 Accucheck Value: 522 Accucheck Value: 418 Lab Results-Last 24 Hours 05/21/18 05/22/18 Range/Units 16:05 05:35 Sodium 130 L 130 L (137-145) mmol/L Potassium 4.8 4.7 (3.5-5.1) mmol/L Chloride 94 L 95 L (98-107) mmol/L Carbon Dioxide 26 27 (22-30) mmol/L Anion Gap 15.1 H 12.7 (5-15) MEQ/L BUN 48 H 53 H (7-17) mg/dL Creatinine 2.14 H 2.10 H (0.52-1.04) mg/dL Estimated GFR 26.9 27.5 ML/MIN Glucose 501 H* 280 H (74-106) mg/dL Calcium 8.4 8.1 L (8.4-10.2) mg/dL Micro Results-Entire Visit: Microbiology 05/19/18 19:48 Urine Culture - Final Urine, Void <10K NORMAL SKIN KAYLENE PROBABLE SKIN CONTAMINANT Accuchecks Date 05/22/18 Date 05/22/18 Date 05/22/18 Date 05/21/18 Time 07:15 Time 04:00 Time 00:00 Time 20:00 Accucheck Value: 271 Accucheck Value: 291 Accucheck Value: 307 Accucheck Value: 432 Accucheck Value: 522 Accucheck Value: 418 - Procedures and Test Procedures and Tests throughout Hospitalization: Therapy Orders & Screens 05/20/18 00:03 Respiratory MDI PRN Comment: ALBUTEROL 2 PUFFS Q4HPRN FOR SOB/WHEEZING Diagnosis: Hyperglycemia Respiratory Nebulizer PRN Comment: ALBUTEROL Q4PRN FOR SOB/WHEEZING Diagnosis: Hyperglycemia 05/20/18 00:04 Oxygen NASAL CANNULA 2 lpm Comment: Diagnosis: Hyperglycemia Respiratory Therapy Consult ROUTINE Comment: Reason For Exam: Diagnosis: Hyperglycemia Discharge Exam General Appearance: no apparent distress, alert, obese Neurologic Exam: oriented x 3, cooperative Skin Exam: normal color, warm, dry, No rash Respiratory Exam: normal breath sounds, lungs clear, No crackles/rales, No rhonchi, No wheezing Cardiovascular Exam: regular rate/rhythm, normal heart sounds, No murmur Extremity Exam: other (feet wrapped by PT; legs without pretibial edema bilat) Back Exam: normal inspection, No rash Final Diagnosis/Problem List - Final Discharge Diagnosis/Problem (1) Hyperglycemia Current Visit: Yes Status: Acute Onset Date: ~05/20/18 Assessment & Plan: improved; will send home on 50 units lantus in a.m. and 30 units in p.m. F/u with me in 1 wk and see endocrinology (2) Wound, open, foot Current Visit: Yes Status: Acute Assessment & Plan: per PT. It has been healing well. (3) COPD (chronic obstructive pulmonary disease) Current Visit: No Status: Chronic (4) Diabetes type 2, uncontrolled Current Visit: No Status: Chronic (5) Peripheral neuropathy Current Visit: No Status: Chronic - Discharge Disposition: Home, Self-Care Condition: Stable Prescriptions: Continue Pregabalin [Lyrica 100Mg] 100 mg PO TID Ergocalciferol (Vitamin D2) [Vitamin D] 1.25 mg PO .TUES/THURS Trazodone HCl 50 mg [Desyrel 50 mg] 100 mg PO HS Amlodipine Besylate 10 mg [Norvasc 10 MG] 10 mg PO DAILY Promethazine HCl 25 mg [Phenergan 25 mg] 12.5 mg PO Q6H PRN PRN #30 tablet PRN Reason: Nausea Loratadine 10 mg [Claritin 10 mg] 10 mg PO DAILY AMITRIPTYLINE HCL 50 mg Tab [AMITRIPTYLINE HCL 50 mg Tablet] 50 mg PO QID Albuterol Sulfate [Proventil Hfa] 6.7 gm IH QID PRN Albuterol 2.5 mg/3 ml Neb [Proventil 2.5 mg/3 ml Neb] 2.5 mg NEB Q4HPRN PRN PRN Reason: Shortness Of Breath Montelukast Sodium 10 mg [Singulair 10 MG] 10 mg PO HS Hydrocodone Bit/Acetaminophen [[place] 7.5-325 Tablet] 1 each PO Q6H PRN PRN PRN Reason: Pain Carvedilol 12.5 mg [Coreg 12.5 mg] 12.5 mg PO BID Omeprazole 20 MG [Prilosec 20 mg] 20 mg PO BID Furosemide 40 mg [Lasix 40 MG] 40 mg PO DAILY PRN PRN Reason: swelling Metolazone 2.5 mg [Zaroxolyn 2.5 MG] 2.5 mg PO UD Insulin Glulisine [Apidra Solostar] 18 unit SQ TIDWMEALS Buspirone HCl 1 tablet PO BID Hydrocortisone 1% Cream [Cortisone 1% Cream] 1 gm TP BID Cyclobenzaprine HCl 5 mg PO HS Lisinopril 20 mg PO BID Fluticasone Propionate [Allergy Relief] 1 spray IH DAILY Atorvastatin Calcium 10 mg PO DAILY Changed Insulin Glargine,Hum.rec.anlog [Basaglvidhi [place] U-100] 40 unit SQ BID 30 Days insuln.pen Bumetanide 1 mg [Bumex 1 mg] 2 mg PO BID 30 Days #120 tablet Follow up with: VILMA KEEN [Primary Care Provider] - 06/01/18 10:30 am
[2018-05-22] MEDS: COREG 12.5 MG PO SCH (09:36)
[2018-05-22] MEDS: Zaroxolyn 2.5 MG PO SCH (09:36)
[2018-05-22] MEDS: CLARITIN 10 MG PO SCH (09:36)
[2018-05-22] MEDS: NORVASC 5 MG PO SCH (09:36)
[2018-05-22] MEDS: Zestril 20 MG PO SCH (09:37)
[2018-05-22] MEDS: Flonase NASAL NS SCH (09:37)
[2018-05-22] MEDS: Protonix 40MG Tablet PO SCH (09:37)
[2018-05-22] MEDS: Lantus Insulin SQ SCH (09:37)
[2018-05-22] MEDS: LYRICA 100MG PO SCH (09:37)
[2018-05-22] MEDS ORDERED: BUMEX 1 MG PO SCH (10:00)
== END 2018-05-22 09:50 | disposition home or self-care (01) ==
LOC: ED 18:30 → MED SURG 23:59
PROVIDERS: ADMIT Family Medicine; ATTEND Family Medicine
DX: E11.65 Type 2 diabetes mellitus with hyperglycemia (principal); S91.309D Unspecified open wound, unspecified foot, subsequent encounter; S91.309A Unspecified open wound, unspecified foot, initial encounter; J44.9 Chronic obstructive pulmonary disease, unspecified; E11.42 Type 2 diabetes mellitus with diabetic polyneuropathy; Z79.4 Long term (current) use of insulin; I50.9 Heart failure, unspecified; I73.9 Peripheral vascular disease, unspecified; K21.9 Gastro-esophageal reflux disease without esophagitis; F41.8 Other specified anxiety disorders; I12.9 Hypertensive chronic kidney disease with stage 1 through stage 4 chronic kidney disease, or unspecified chronic kidney disease; N18.9 Chronic kidney disease, unspecified; R01.1 Cardiac murmur, unspecified; J96.11 Chronic respiratory failure with hypoxia
CPT/HCPCS: 36000; 36415; 36600; 80048; 80053; 81000; 82375; 82803; 82947; 82962; 83036; 83605; 83735; 83880; 84484; 85025; 87086; 93005; 93041; 93268; 94640; 94760; 96360; 96361; 96374; 96375; 99285; J7609; J1650; A9270-GY; G0378

== ENCOUNTER 2018-05-29 13:09 | Inpatient (IN) | payer OTHER ==
[2018-05-29] MEDS ORDERED: Sodium Chloride 0.9% 1000 ML 1,000 ML IV SCH (13:30)
[2018-05-29 13:33] LABS: A-aADO2 168; ABG HEMOGLOBIN 10.5; ABG POTASSIUM 5.4 (3.5-5.1); ARTERIAL BLD GAS O2 SATURATION 84.6 % (95-100); ARTERIAL BLOOD GAS BASE EXCESS 2.4 (-2.0-2.0); ARTERIAL BLOOD GAS FIO2 36 %; ARTERIAL BLOOD GAS PCO2 37 mmHg (35-45); ARTERIAL BLOOD GAS PO2 42 mmHg (75-100); ARTERIAL BLOOD GAS pH 7.46 (7.35-7.45); CARBOXYHEMOGLOBIN 2.5 % THgb (0.0-6.9); HCO3- 26.3 (22-28); HGB O2 SAT 81.8 g/dF (94-100); Methhemoglobin 0.8 % (1.4-1.5)
[2018-05-29 13:34] LABS: ABG SITE LEFT RADIAL; ALLEN TEST OK? YES
--- NOTE | 2018-05-29 13:34 | ERPHSYRPT ---
- History of Present Illness Time Seen by Provider: 05/29/18 13:20 Source: patient Exam Limitations: no limitations Patient Subjective Stated Complaint: patient having extreme pain in back and trouble urinating Triage Nursing Assessment: pt is having difficulty breathing, orietned but weak , has wounds on both feet being treated by wound center at [facility], edema bialteral lower extremities, pupils perrla2, no swellign or injuries to back , patient able to urinate but painful and not able to go very much. Physician History: 42-year-old white female with history of peripheral neuropathy, CHF, peripheral vascular disease, congestive heart failure, COPD, diabetes, degenerative disc disease. Arrives with complaint of a bilateral lower back pain and problems urinating since yesterday. Patient states she hurts all over . Patient with O2 sats of 78 on room air on arrival. Patient noted to have edema lower extremities. Past medical history includes peripheral neuropathy, congestive heart failure, peripheral vascular disease, congestive heart failure, COPD, diabetes type 2, degenerative disc disease, diverticulitis, GERD, pancreatitis, anxiety, depression. Patient with first and second-degree edwards on her feet for a month. Past surgical history includes tubal ligation, pulmonary removed in her left great toe. Timing/Duration: yesterday Severity: moderate Modifying Factors: Improves With: other Associated Symptoms: shortness of breath, malaise, No nausea, No vomiting, No abdominal pain, No heartburn, No diaphoresis, No cough, No chills, No chest pain , No fever, No headaches, No loss of appetite, No rash, No syncope, No seizure, No weakness Allergies/Adverse Reactions: codeine [Codeine] Allergy (Severe, Verified 05/19/18 18:48) swelling throat diphenhydramine HCl [From Benadryl] Allergy (Severe, Verified 05/19/18 18:48) swelling to eyes and throat morphine Allergy (Severe, Verified 05/19/18 18:48) swelling throat doxycycline calcium [From Vibramycin] Allergy (Mild, Verified 05/19/18 18:48) Rash doxycycline hyclate [From Vibramycin] Allergy (Mild, Verified 05/19/18 18:48) Rash doxycycline monohydrate [From Vibramycin] Allergy (Mild, Verified 05/19/18 18:48 ) Rash acetaminophen [From Darvocet-N] Allergy (Verified 05/19/18 18:48) Penicillins Allergy (Verified 05/19/18 18:48) propoxyphene napsylate [From Darvot-N] Allergy (Verified 05/19/18 18:48) Sulfa (Sulfonamide Antibiotics) Allergy (Verified 05/19/18 18:48) Rash Home Medications: Pregabalin [Lyrica 100Mg] 100 mg PO TID 10/19/13 [History] Amlodipine Besylate 10 mg [Norvasc 10 MG] 10 mg PO DAILY 01/05/16 [History] Ergocalciferol (Vitamin D2) [Vitamin D] 1.25 mg PO .TUES/THURS 01/05/16 [History ] Trazodone HCl 50 mg [Desyrel 50 mg] 100 mg PO HS 01/05/16 [History] AMITRIPTYLINE HCL 50 mg Tab [AMITRIPTYLINE HCL 50 mg Tablet] 50 mg PO QID [History] Albuterol 2.5 mg/3 ml Neb [Proventil 2.5 mg/3 ml Neb] 2.5 mg NEB Q4HPRN PRN 11/08/16 [History] Albuterol Sulfate [Proventil Hfa] 6.7 gm IH QID PRN 11/08/16 [History] Loratadine 10 mg [Claritin 10 mg] 10 mg PO DAILY 11/08/16 [History] Hydrocodone Bit/Acetaminophen [[place] 7.5-325 Tablet] 1 each PO Q6H PRN PRN 07/04 [History] Montelukast Sodium 10 mg [Singulair 10 MG] 10 mg PO HS 07/04/17 [History] Carvedilol 12.5 mg [Coreg 12.5 mg] 12.5 mg PO BID 07/05/17 [History] Furosemide 40 mg [Lasix 40 MG] 40 mg PO DAILY PRN 09/26/17 [History] Metolazone 2.5 mg [Zaroxolyn 2.5 MG] 2.5 mg PO UD 09/26/17 [History] Omeprazole 20 MG [Prilosec 20 mg] 20 mg PO BID 09/26/17 [History] Insulin Glulisine [Apidra Solostar] 18 unit SQ TIDWMEALS 01/28/18 [History] Atorvastatin Calcium 10 mg PO DAILY 05/20/18 [History] Buspirone HCl 1 tablet PO BID 05/20/18 [History] Cyclobenzaprine HCl 5 mg PO HS 05/20/18 [History] Fluticasone Propionate [Allergy Relief] 1 spray IH DAILY 05/20/18 [History] Hydrocortisone 1% Cream [Cortisone 1% Cream] 1 gm TP BID 05/20/18 [History ] Lisinopril 20 mg PO BID 05/20/18 [History] Hx Tetanus, Diphtheria Vaccination/Date Given: Yes Hx Influenza Vaccination/Date Given: Yes Hx Pneumococcal Vaccination/Date Given: Yes Immunizations Up to Date: Yes - Review of Systems Constitutional: Malaise, No Fever, No Chills Eyes: No Symptoms Ears, Nose, & Throat: No Symptoms Respiratory: Dyspnea Cardiac: No Chest Pain, No Edema, No Syncope Abdominal/Gastrointestinal: Nausea, No Abdominal Pain, No Vomiting, No Diarrhea Genitourinary Symptoms: Dysuria, Flank Pain (bilateral flank pain) Musculoskeletal: Back Pain Skin: Other (chronic edwards on bilateral feet) Neurological: No Dizziness, No Focal Weakness, No Sensory Changes Psychological: No Symptoms Endocrine: No Symptoms All Other Systems: Reviewed and Negative - Past Medical History Pertinent Past Medical History: Yes Neurological History: Peripheral Neuropathy ENT History: No Pertinent History Cardiac History: Congestive Heart Failure, Hypertension, Peripheral Vascular Disease, Other Respiratory History: CHF, COPD Endocrine Medical History: Diabetes Type II Musculoskeletal History: Degenerative Disk Disease GI Medical History: Diverticulitis, GERD, Pancreatitis History: Renal Disease, Other Psycho-Social History: Anxiety, Depression Female Reproductive Disorders: No Pertinent History Other Medical History: LONG STANDING DM WITH MULTIPLE SECONDARY COMPLICATIONS;. HX OF FOOT WOUNDS AND OM. Heart murmer, ARBS (hardening of lungs), Chronic Renal Failure, Chronic hypoxemic respiratory failure - Past Surgical History Past Surgical History: Yes Neuro Surgical History: No Pertinent History Cardiac: No Pertinent History Respiratory: No Pertinent History Gastrointestinal: No Pertinent History Genitourinary: No Pertinent History Musculoskeletal: Other Female Surgical History: Tubal Ligation, Other Other Surgical History: D&C,childbirth x two; bone removed in left big toe - Social History Smoking Status: Former smoker How long have you smoked: 22 yrs Exposure to second hand smoke: Yes Drug Use: none Patient Lives Alone: No - Female History Hx Now: No - Nursing Vital Signs Nursing Vital Signs: Initial Vital Signs Temperature 102 F 05/29/18 13:10 Pulse Rate 111 H 05/29/18 13:10 Respiratory Rate 20 05/29/18 13:10 Blood Pressure 146/80 05/29/18 13:10 O2 Sat by Pulse Oximetry 86 L 05/29/18 13:10 Pain Scale Pain Intensity [] 10 Pain Intensity 10 - Physical Exam SpO2: 86 Oxygen Delivery: Room Air - Course Nursing assessment & vital signs reviewed: Yes EKG Interpreted by Me: RATE (108 bpm), Sinus Rhythm, NORMAL AXIS, Other (EKG sinus rhythm 108 beats per minute,, normal axis,, complete right bundle branch block No acute changes as compared to May 19, 2018) - Radiology Exams Chest X-ray Interpretation: Discussed w/ radiologist (chest x-ray: Diffuse right lung airspace disease with tiny effusion. Left lung clear, heart is not enlarged, bony thorax intact) Ordered Tests: Active Orders 24 hr Category Date Time Status Accucheck STAT Care 05/29/18 13:27 Active Machine Gun Mechanic STAT Care 05/29/18 13:25 Active Machine Gun Mechanic STAT Care 05/29/18 13:28 Active IV Insertion STAT Care 05/29/18 13:25 Active Pulse Oximetry (ED) STAT Care 05/29/18 13:25 Active CHEST 1 VIEW (PORTABLE) Stat Exams 05/29/18 13:25 Completed ARTERIAL BLOOD GASES Stat Lab 05/29/18 13:30 Completed BLOOD CULTURE Stat Lab 05/29/18 13:50 Received CBC W DIFF Stat Lab 05/29/18 13:30 Completed CMP Routine Lab 05/29/18 13:30 Completed CULTURE,URINE Stat Lab 05/29/18 13:30 Received D-DIMER QUANTITATION Stat Lab 05/29/18 13:30 Completed Lactic Acid Stat Lab 05/29/18 13:30 Completed NT PRO BNP Routine Lab 05/29/18 13:30 Completed PROTIME WITH INR Stat Lab 05/29/18 13:30 Completed PTT Stat Lab 05/29/18 13:30 Completed TROPONIN Q3H Lab 05/29/18 13:30 Completed TROPONIN Q3H Lab 05/29/18 16:45 Ordered TROPONIN Q3H Lab 05/29/18 19:45 Ordered TROPONIN Q3H Lab 05/29/18 22:45 Ordered TROPONIN Q3H Lab 05/30/18 01:45 Ordered UA W/ MICROSCOPIC Stat Lab 05/29/18 13:30 Completed Medication Summary Generic Name Dose Route Start Last Admin Trade Name Samir PRN Reason Stop Dose Admin Sodium Chloride 1,000 mls @ 100 mls/hr 05/29/18 13:30 05/29/18 13:48 Sodium Chloride 0.9% 1000 Ml IV 06/28/18 13:29 100 mls/hr .Q10H KINDRA Administration Discontinued Medications Generic Name Dose Route Start Last Admin Trade Name Robq PRN Reason Stop Dose Admin Acetaminophen 650 mg 05/29/18 14:31 05/29/18 14:40 Tylenol 325 Mg PO 05/29/18 14:32 650 mg STAT ONE Administration Acetaminophen Confirm 05/29/18 14:38 Tylenol 325 Mg Administered 05/29/18 14:39 Dose 650 mg .ROUTE .STK-MED ONE Furosemide 40 mg 05/29/18 14:20 05/29/18 14:28 Lasix 40 Mg/4 Ml IV 05/29/18 14:21 40 mg STAT ONE Administration Furosemide Confirm 05/29/18 14:26 Lasix 40 Mg/4 Ml Administered 05/29/18 14:27 Dose 40 mg .ROUTE .STK-MED ONE Ceftriaxone Sodium/Dextrose 1 g in 50 mls @ 100 mls/hr 05/29/18 13:58 14:35 Rocephin 1 Gm-D5w 50 Ml Bag IV 05/29/18 14:27 Infused STAT STA Infusion Ceftriaxone Sodium/Dextrose Confirm 05/29/18 14:00 Rocephin 1 Gm-D5w 50 Ml Bag Administered 05/29/18 14:01 Dose 1 g in 50 mls @ ud IV .STK-MED ONE Insulin Human Regular 7 unit 05/29/18 14:19 05/29/18 14:29 Novolin R IV 05/29/18 14:20 7 unit STAT ONE Administration Insulin Human Regular Confirm 05/29/18 14:26 Novolin R Administered 05/29/18 14:27 Dose 7 unit .ROUTE .STK-MED ONE Lab/Rad Data: Laboratory Result Diagrams 05/29/18 13:30 05/29/18 13:30 Laboratory Results 05/29/18 05/29/18 05/29/18 Range/Units 13:30 13:30 13:30 WBC (4.0-10.5) K/mm3 RBC (4.1-5.4) M/mm3 Hgb (12.0-16.0) gm/dl Hct (35-47) % MCV (78-100) fl MCH (26-32) pg MCHC (32-36) g/dl RDW (11.5-14.0) % Plt Count (150-450) K/mm3 MPV (6-9.5) fl Gran % (36.0-66.0) % Eos # (Auto) (0-0.5) Absolute Lymphs (auto) (1.0-4.6) Absolute Monos (auto) (0.0-1.3) Lymphocytes % (24.0-44.0) % Monocytes % (0.0-12.0) % Eosinophils % (0.00-5.0) % Basophils % (0.0-0.4) % Absolute Granulocytes (1.4-6.9) Basophils # (0-0.4) PT (9.95-12.35) SECONDS INR (0.8-3.0) APTT (25.3-37.0) SECONDS D-Dimer (215-500) ng/mL Puncture Site LEFT RADIAL pCO2 37 (35-45) mmHg pO2 42 L* (75-100) mmHg Base Excess 2.4 H (-2.0-2.0) O2 Saturation 81.8 L (94-100) g/dF ABG pH 7.46 H (7.35-7.45) ABG HCO3 26.3 (22-28) ABG O2 Sat (Measured) 84.6 L (95-100) % Raj Test YES A-a Gradient 168 a/A Ratio 0.20 Hemoglobin 10.5 Carboxyhemoglobin 2.5 (0.0-6.9) % THgb Methemoglobin 0.8 L (1.4-1.5) % Potassium 5.5 H 5.4 H (3.5-5.1) Temperature 37.0 C POC O2 Flow Rate 36 % Sodium 133 L (137-145) mmol/L Chloride 93 L (98-107) mmol/L Carbon Dioxide 27 (22-30) mmol/L Anion Gap 19.0 H (5-15) MEQ/L BUN 40 H (7-17) mg/dL Creatinine 1.58 H (0.52-1.04) mg/dL Estimated GFR 38.1 ML/MIN Glucose 439 H (74-106) mg/dL Lactic Acid (0.4-2.0) Calcium 9.3 (8.4-10.2) mg/dL Total Bilirubin 0.70 (0.2-1.3) mg/dL AST 17 (14-36) U/L ALT 21 (0-35) U/L Alkaline Phosphatase 186 H (38-126) U/L Troponin I < 0.012 (0.000-0.034) ng/mL NT-Pro-B Natriuret Pep 893 H (0-450) pg/mL Serum Total Protein 8.3 H (6.3-8.2) g/dL Albumin 4.3 (3.5-5.0) g/dL Ur Collection Type CLEAN CATCH Urine Color LT.YELLOW (YELLOW) Urine Appearance HAZY (CLEAR) Urine pH 5.0 (5-6) Ur Specific [place] 1.010 (1.005-1.025) Urine Protein 100 (Negative) Urine Ketones SMALL-15 (NEGATIVE) Urine Blood 50 (0-5) Jaren/ul Urine Nitrite NEGATIVE (NEGATIVE) Urine Bilirubin NEGATIVE (NEGATIVE) Urine Urobilinogen NORMAL (0-1) mg/dL Ur Leukocyte Esterase NEGATIVE (NEGATIVE) Urine Microscopic RBC 0-2 (0-2) /HPF Urine Microscopic WBC 0-2 (0-5) /HPF Ur Epithelial Cells MANY (FEW) /HPF Urine Bacteria MODERATE (NEGATIVE) /HPF Urine Glucose 1000 (NEGATIVE) mg/dL Specimen Received 05/29/18 1345 05/29/18 05/29/18 05/29/18 Range/Units 13:30 13:30 13:30 WBC 13.3 H (4.0-10.5) K/mm3 RBC 4.67 (4.1-5.4) M/mm3 Hgb 11.1 L (12.0-16.0) gm/dl Hct 36.1 (35-47) % MCV 77.3 L (78-100) fl MCH 23.7 L (26-32) pg MCHC 30.7 L (32-36) g/dl RDW 15.8 H (11.5-14.0) % Plt Count 303 (150-450) K/mm3 MPV 11.1 H (6-9.5) fl Gran % 86.2 H (36.0-66.0) % Eos # (Auto) 0.10 (0-0.5) Absolute Lymphs (auto) 0.89 L (1.0-4.6) Absolute Monos (auto) 0.79 (0.0-1.3) Lymphocytes % 6.7 L (24.0-44.0) % Monocytes % 5.9 (0.0-12.0) % Eosinophils % 0.8 (0.00-5.0) % Basophils % 0.4 (0.0-0.4) % Absolute Granulocytes 11.48 H (1.4-6.9) Basophils # 0.05 (0-0.4) PT 12.1 (9.95-12.35) SECONDS INR 1.04 (0.8-3.0) APTT 38.8 H (25.3-37.0) SECONDS D-Dimer 1446 H* (215-500) ng/mL Puncture Site pCO2 (35-45) mmHg pO2 (75-100) mmHg Base Excess (-2.0-2.0) O2 Saturation (94-100) g/dF ABG pH (7.35-7.45) ABG HCO3 (22-28) ABG O2 Sat (Measured) (95-100) % Raj Test A-a Gradient a/A Ratio Hemoglobin Carboxyhemoglobin (0.0-6.9) % THgb Methemoglobin (1.4-1.5) % Potassium (3.5-5.1) Temperature C POC O2 Flow Rate % Sodium (137-145) mmol/L Chloride (98-107) mmol/L Carbon Dioxide (22-30) mmol/L Anion Gap (5-15) MEQ/L BUN (7-17) mg/dL Creatinine (0.52-1.04) mg/dL Estimated GFR ML/MIN Glucose (74-106) mg/dL Lactic Acid 1.7 (0.4-2.0) Calcium (8.4-10.2) mg/dL Total Bilirubin (0.2-1.3) mg/dL AST (14-36) U/L ALT (0-35) U/L Alkaline Phosphatase (38-126) U/L Troponin I (0.000-0.034) ng/mL NT-Pro-B Natriuret Pep (0-450) pg/mL Serum Total Protein (6.3-8.2) g/dL Albumin (3.5-5.0) g/dL Ur Collection Type Urine Color (YELLOW) Urine Appearance (CLEAR) Urine pH (5-6) Ur Specific [place] (1.005-1.025) Urine Protein (Negative) Urine Ketones (NEGATIVE) Urine Blood (0-5) Jaren/ul Urine Nitrite (NEGATIVE) Urine Bilirubin (NEGATIVE) Urine Urobilinogen (0-1) mg/dL Ur Leukocyte Esterase (NEGATIVE) Urine Microscopic RBC (0-2) /HPF Urine Microscopic WBC (0-5) /HPF Ur Epithelial Cells (FEW) /HPF Urine Bacteria (NEGATIVE) /HPF Urine Glucose (NEGATIVE) mg/dL Specimen Received - Progress Progress: improved Progress Note: 05/29/18 13:43 42-year-old white female with history of peripheral neuropathy, congestive heart failure, peripheral vascular disease, congestive heart failure, COPD, diabetes type 2, degenerative disc disease who has had first and second-degree edwards on her feet for approximately a month who is seeing wound care. She arrives with complaint of a problems urinating bilateral back pain since yesterday. On arrival patient has an increased temperature of 102 orally. She has oxygen saturation of 78%. IV normal saline is started at a rate of of 100 mL per hour patient does have a history of congestive heart failure and she has a lower extremity edema. Patient's lactate was obtained noted to be 1.7 Patient has an EKG that shows sinus tachycardia 108 bpm normal axis complete right bundle branch block there does not appear to be acute ST or T wave changes as compared to May 19, 2018. Respiratory has been contacted patient is placed on bipap 100%oxygen patient now with O2 sats of 100%. Patient is noted to have and Accu-Chek of greater than 400 Patient with a pH on ABGs of 7.46 PCO2 37 PO2 42 O2 sat on FiO2 of 36 is 84.6. Awaiting labs chest x-ray 05/29/18 15:09 Patient is noted to have increased right lung markings on chest x-ray she also has an increased BNP of 893 Patient's d-dimer was elevated at 1446 Patient with EKG as noted above Patient's glucose was over 400 patient with a lactate of 1.7 Patient that initially started on normal saline at 100 mL per hour this was decreased to keep open after chest x-ray and BNP was available Patient with 40 mg of Lasix IV she was also given Rocephin 1 g IV, she was placed on BiPAP by respiratory The patient states she wants to stay at this hospital. I discussed the case with Dr. Heredia who is public relations writer for Dr. Brooks. Will admit patient for pneumonia, CHF, hyperglycemia. Patient will be continued on O2 Will write for duo nebs treatments as needed continue Rocephin and Zithromax. The patient's does have bilateral foot ulcers her dressings were unwrapped and will have nurses rewrap using bacitracin and sterile gauze. Will write for patient's [place] 7.5/325 orally every 6 hours as needed for pain. - Departure Time of Disposition: 15:14 Departure Disposition: In-patient Admission Clinical Impression: Hypoxia, Hyperglycemia Pneumonia Qualifiers: Pneumonia type: due to unspecified organism Laterality: right Lung location: unspecified part of lung Qualified Code(s): J18.9 - Pneumonia, unspecified organism CHF (congestive heart failure) Qualifiers: Heart failure type: unspecified Heart failure chronicity: unspecified Qualified Code(s): I50.9 - Heart failure, unspecified Fever Qualifiers: Fever type: unspecified Qualified Code(s): R50.9 - Fever, unspecified Condition: Fair Critical Care Time: No Referrals: VILMA BROOKS [Primary Care Provider] - Instructions: Heart Failure
[2018-05-29 13:43] LABS: BASOPHIL % 0.4 % (0.0-0.4); Basophil (Absolute #) 0.05 (0-0.4); Eosinophil % 0.8 % (0.00-5.0); Granulocyte Absolute (ANC) 11.48 (1.4-6.9); Granulocytes % 86.2 % (36.0-66.0); Hematocrit 36.1 % (35-47); Hemoglobin 11.1 gm/dl (12.0-16.0); Lymphocyte (Absolute #) 0.89 (1.0-4.6); Lymphocytes % 6.7 % (24.0-44.0); Mean Cell Volume 77.3 fl (78-100); Mean Corpuscular Hemoglobin 23.7 pg (26-32); Mean Corpuscular Hgb Concent. 30.7 g/dl (32-36); Mean Platelet Volume 11.1 fl (6-9.5); Monocyte (Absolute #) 0.79 (0.0-1.3); Monocytes % 5.9 % (0.0-12.0); Platelet Count 303 K/mm3 (150-450); Red Blood Count 4.67 M/mm3 (4.1-5.4); Red Cell Distribution Width 15.8 % (11.5-14.0); White Blood Count 13.3 K/mm3 (4.0-10.5)
[2018-05-29 13:50] LABS: Appearance HAZY (CLEAR); Bilirubin NEGATIVE (NEGATIVE); Blood 50 Ery/ul (0-5); Glucose 1000 mg/dL (NEGATIVE); Ketones SMALL-15 (NEGATIVE); Leukocyte Esterase NEGATIVE (NEGATIVE); Nitrite NEGATIVE (NEGATIVE); Protein,Urine Dip 100 (Negative); RBC 0-2 /HPF (0-2); Urobilinogen NORMAL mg/dL (0-1); WBC 0-2 /HPF (0-5)
[2018-05-29 13:51] LABS: Bacteria MODERATE /HPF (NEGATIVE); Epithelial Cells MANY /HPF (FEW)
[2018-05-29 13:54] LABS: INR 1.04 (0.8-3.0)
[2018-05-29 13:56] LABS: PTT 38.8 SECONDS (25.3-37.0)
[2018-05-29] MEDS ORDERED: ROCEPHIN 1 Gm-D5w 50 ml Bag** 1 G/50 ML IVPB IV STA (13:58)
[2018-05-29 13:59] LABS: ALBUMIN 4.3 g/dL (3.5-5.0); ALKALINE PHOSPHATASE 186 U/L (38-126); BLOOD UREA NITROGEN 40 mg/dL (7-17); CHLORIDE 93 mmol/L (98-107); Calcium 9.3 mg/dL (8.4-10.2); Carbon Dioxide 27 mmol/L (22-30); Creatinine 1 1.58 mg/dL (0.52-1.04); Glucose 439 mg/dL (74-106); Potassium 5.5 mmol/L (3.5-5.1); SGOT/AST 17 U/L (14-36); SGPT/ALT 21 U/L (0-35); SODIUM 133 mmol/L (137-145); Total Protein 8.3 g/dL (6.3-8.2)
[2018-05-29] MEDS ORDERED: ROCEPHIN 1 Gm-D5w 50 ml Bag** 1 G/50 ML IVPB IV ONE (14:00)
--- NOTE | 2018-05-29 14:00 | XRAY ---
Indication: Possible sepsis. Elevated blood sugar. Comparison: January 28, 2018. Portable chest now demonstrates diffuse right lung airspace disease with tiny effusion. Left lung clear. Heart is not enlarged. Bony thorax intact.
[2018-05-29 14:11] LABS: NT PRO BNP 893 pg/mL (0-450); TROPONIN < 0.012 ng/mL (0.000-0.034)
[2018-05-29] MEDS ORDERED: NovoLIN R IV ONE (14:19)
[2018-05-29] MEDS ORDERED: Lasix 40 MG/4 ML IV ONE (14:20)
[2018-05-29] MEDS ORDERED: NovoLIN R ONE (14:26)
[2018-05-29] MEDS ORDERED: Lasix 40 MG/4 ML ONE (14:26)
[2018-05-29] MEDS ORDERED: TYLENOL 325 MG PO ONE (14:31)
[2018-05-29] MEDS ORDERED: TYLENOL 325 MG ONE (14:38)
[2018-05-29] MEDS ORDERED: ENOXAPARIN SODIUM SQ ONE ×2 (15:08→15:18)
[2018-05-29 15:45] LABS: A-aADO2 483; ABG HEMOGLOBIN 10.3; ABG SITE RIGHT RADIAL; ALLEN TEST OK? YES; ARTERIAL BLD GAS O2 SATURATION 98.6 % (95-100); ARTERIAL BLOOD GAS BASE EXCESS 4.1 (-2.0-2.0); ARTERIAL BLOOD GAS FIO2 100 %; ARTERIAL BLOOD GAS PCO2 34 mmHg (35-45); ARTERIAL BLOOD GAS PO2 188 mmHg (75-100); ARTERIAL BLOOD GAS VENT MODE BiPAP; ARTERIAL BLOOD GAS pH 7.51 (7.35-7.45); CARBOXYHEMOGLOBIN 1.2 % THgb (0.0-6.9); HCO3- 27.1 (22-28); HGB O2 SAT 96.7 g/dF (94-100); Methhemoglobin 0.7 % (1.4-1.5); paO2 pAO1 0.28
[2018-05-29] MEDS ORDERED: NovoLOG Insulin SQ PRN (16:10)
[2018-05-29] MEDS ORDERED: DUONEB 0.5-3 MG/3 ml Neb IH PRN (16:10)
[2018-05-29] MEDS ORDERED: Zofran 4 MG/2 ML VIAL IV PRN ×2 (16:10→16:24)
[2018-05-29] MEDS ORDERED: TYLENOL 325 MG PO PRN (16:10)
[2018-05-29] MEDS: PROVENTIL 2.5 MG/3 ML NEB IH SCH ×3 (16:30→23:27)
[2018-05-29] MEDS ORDERED: PROVENTIL 2.5 MG/3 ML NEB IH ONE (16:32)
[2018-05-29] MEDS: NORCO 7.5/325 MG TAB PO PRN ×2 (17:18→23:53)
[2018-05-29] MEDS ORDERED: PROVENTIL 2.5 MG/3 ML NEB IH PRN (17:34)
[2018-05-29] MEDS: NovoLOG Insulin SQ PRN ×3 (18:16→22:30)
[2018-05-29] MEDS: Zithromax 500 MG/ 250 ML NaCl Premix 500 MG/250 ML IVPB IV SCH (18:17)
[2018-05-29] MEDS: Lantus Insulin SQ SCH (20:40)
[2018-05-29] MEDS ORDERED: NON-FORMULARY ITEM (Insulin Glargine,Hum.Rec.Anlog [Basaglar Kwikpen U-100] 40 UNIT) SQ SCH (22:00)
--- NOTE | 2018-05-29 23:50 | PCM.HP ---
History of Present Illness - Chief Complaint Chief Complaint: PNEUMONIA History of Present Illness: is a 42 year old female pt of mine from [facility] with uncontrolled DM, CAD, CHF, COPD, and peripheral neuropathy with active foot wounds who came in to ER today c/o fever. She started feeling poorly yesterday afternoon and had fever to 102 at home. She also c/o swelling in hands and feet recently. Fever was 102 F in the ER. Her BS have been elevated into the 300s. In the ER she was found to have pneumonia and was started on rocephin and zithromax IV. She was also noted to have an elevated BNP so was given IV lasix. Her initial O2 sat was 78% on arrival - currently on 80% oximizer. - Review of Systems Constitutional: Fever, Chills, Fatigue, Weakness Respiratory: Short Of Breath, No Cough Cardiac: Edema Musculoskeletal: Arthralgias (chronic), Fall (6d ago) Skin: Other (foot wounds; PT dressed today and stated were looking better) Psychological: No Anxiety, No Depression, No Suicidal Ideations, No Homicidal Ideations Endocrine: Polydipsia All Other Systems: Reviewed and Negative Medications & Allergies Home Medications: Home Medication List Pregabalin [Lyrica 100Mg] 100 mg PO TID 10/19/13 [History Confirmed 05/29/18] Amlodipine Besylate 10 mg [Norvasc 10 MG] 10 mg PO DAILY 01/05/16 [History Confirmed 05/29/18] Ergocalciferol (Vitamin D2) [Vitamin D] 1.25 mg PO .TUES/THURS 01/05/16 [ History Confirmed 05/29/18] Trazodone HCl 50 mg [Desyrel 50 mg] 100 mg PO HS 01/05/16 [History Confirmed 05/29/18] Promethazine HCl 25 mg [Phenergan 25 mg] 12.5 mg PO Q6H PRN PRN #30 tablet 03/21/16 [Rx Confirmed 05/29/18] AMITRIPTYLINE HCL 50 mg Tab [AMITRIPTYLINE HCL 50 mg Tablet] 50 mg PO QID [History Confirmed 05/29/18] Albuterol 2.5 mg/3 ml Neb [Proventil 2.5 mg/3 ml Neb] 2.5 mg NEB Q4HPRN PRN 11/08/16 [History Confirmed 05/29/18] Albuterol Sulfate [Proventil Hfa] 6.7 gm IH QID PRN 11/08/16 [History Confirmed 05/29/18] Loratadine 10 mg [Claritin 10 mg] 10 mg PO DAILY 11/08/16 [History Confirmed 05/29/18] Hydrocodone Bit/Acetaminophen [[place] 7.5-325 Tablet] 1 each PO Q6H PRN PRN 07/04 [History Confirmed 05/29/18] Montelukast Sodium 10 mg [Singulair 10 MG] 10 mg PO HS 07/04/17 [History Confirmed 05/29/18] Carvedilol 12.5 mg [Coreg 12.5 mg] 12.5 mg PO BID 07/05/17 [History Confirmed 05/29/18] Furosemide 40 mg [Lasix 40 MG] 40 mg PO DAILY PRN PRN 09/26/17 [History Confirmed 05/29/18] Metolazone 2.5 mg [Zaroxolyn 2.5 MG] 2.5 mg PO MOWEFR 09/26/17 [History Confirmed 05/29/18] Omeprazole 20 MG [Prilosec 20 mg] 20 mg PO BID 09/26/17 [History Confirmed 05/29] Insulin Glulisine [Apidra Solostar] 18 unit SQ TIDWMEALS 01/28/18 [History Confirmed 05/29/18] Atorvastatin Calcium 10 mg PO DAILY 05/20/18 [History Confirmed 05/29/18] Buspirone HCl 1 tablet PO BID 05/20/18 [History Confirmed 05/29/18] Cyclobenzaprine HCl 5 mg PO HS 05/20/18 [History Confirmed 05/29/18] Fluticasone Propionate [Allergy Relief] 1 spray IH DAILY 05/20/18 [History Confirmed 05/29/18] Hydrocortisone 1% Cream [Cortisone 1% Cream] 1 gm TP BID 05/20/18 [ History Confirmed 05/29/18] Lisinopril 20 mg PO BID 05/20/18 [History Confirmed 05/29/18] Bumetanide 1 mg [Bumex 1 mg] 2 mg PO BID 30 Days #120 tablet 05/22/18 [Rx Confirmed 05/29/18] Insulin Glargine,Hum.rec.anlog [Basaglar Kwikpen U-100] 40 unit SQ BID 30 Days insuln.pen 05/22/18 [Rx Confirmed 05/29/18] Allergies/Adverse Reactions: Allergies Allergy/AdvReac Type Severity Reaction Status Date / Time codeine [Codeine] Allergy Severe swelling Verified 05/19/18 18:48 throat diphenhydramine HCl Allergy Severe swelling Verified 05/19/18 18:48 [From Benadryl] to eyes and throat morphine Allergy Severe swelling Verified 05/19/18 18:48 throat doxycycline calcium Allergy Mild Rash Verified 05/19/18 18:48 [From Vibramycin] doxycycline hyclate Allergy Mild Rash Verified 05/19/18 18:48 [From Vibramycin] doxycycline monohydrate Allergy Mild Rash Verified 05/19/18 18:48 [From Vibramycin] acetaminophen Allergy Verified 05/19/18 18:48 [From Darvocet-N] Penicillins Allergy Verified 05/19/18 18:48 propoxyphene napsylate Allergy Verified 05/19/18 18:48 [From Darvocet-N] Sulfa (Sulfonamide Allergy Rash Verified 05/19/18 18:48 Antibiotics) - Past Medical History Past Medical History: Yes Neurological History: Peripheral Neuropathy ENT History: No Pertinent History Cardiac History: Congestive Heart Failure, Hypertension, Peripheral Vascular Disease, Other Respiratory History: Asthma, CHF, COPD, Pneumonia Endocrine Medical History: Diabetes Type II Musculoskelatal History: Degenerative Disk Disease GI Medical History: Diverticulitis, GERD, Pancreatitis History: Renal Disease, Other Pyscho-Social History: Anxiety, Depression Reproductive Disorders: No Pertinent History Comment: LONG STANDING DM WITH MULTIPLE SECONDARY COMPLICATIONS;. HX OF FOOT WOUNDS AND OM. Heart murmer, ARDS (hardening of lungs), Chronic Renal Failure, Chronic hypoxemic respiratory failure - Female History Are you now?: No - Past Surgical History Past Surgical History: Yes Neuro Surgical History: No Pertinent History Cardiac History: No Pertinent History Respiratory Surgery: No Pertinent History GI Surgical History: No Pertinent History Genitourinary Surgical Hx: No Pertinent History Musculskeletal Surgical Hx: Other Female Surgical History: Tubal Ligation, Other Other Surgical History: D&C,childbirth x two; bone removed in left big toe - Social History Smoking Status: Former smoker How long have you smoked: 22 yrs Exposure to second hand smoke: Yes Alcohol: None Drug Use: none - Physical Exam Vital Signs: Vital Signs - 24 hr Temp Pulse Resp BP Pulse Ox 05/29/18 23:27 77 18 95 05/29/18 20:00 98.7 F 82 21 100/68 94 L 05/29/18 18:49 92 H 18 93 L 05/29/18 18:00 93 L 05/29/18 17:32 94 L 05/29/18 16:45 102 F 98 H 17 139/83 98 05/29/18 16:26 96 H 18 99 05/29/18 15:34 101 H 20 100 05/29/18 15:16 86 L 05/29/18 13:25 78 L 05/29/18 13:10 102 F 111 H 20 146/80 86 L Oxygen-Last 24 hours O2 Percentage 80% O2 Percentage 80% General Appearance: mild distress (on O2 oximizer), alert, obese Neurologic Exam: oriented x 3, cooperative Eye Exam: eyes nml inspection Ears, Nose, Throat Exam: dry mucous membranes Neck Exam: normal inspection, non-tender, No lymphadenopathy Respiratory Exam: lungs clear, diminished breath sounds, No crackles/rales, No rhonchi, No wheezing Cardiovascular Exam: regular rate/rhythm, normal heart sounds, No murmur Gastrointestinal/Abdomen Exam: soft, normal bowel sounds, No tenderness, No distention, No mass, No guarding, No rebound Extremity Exam: other (feet wrapped bilat), No swelling (no pretibial edema bilat) Skin Exam: normal color, warm, dry Results - Labs Lab/Micro Results: Accuchecks Date 05/29/18 Date 05/29/18 Time 22:10 Accucheck Value: 476 Accucheck Value: 582 Accucheck Value: 360 Accucheck Value: 412 Lab Results-Last 24 Hours 05/29/18 05/29/18 05/29/18 Range/Units 13:30 13:30 13:30 WBC 13.3 H (4.0-10.5) K/mm3 RBC 4.67 (4.1-5.4) M/mm3 Hgb 11.1 L (12.0-16.0) gm/dl Hct 36.1 (35-47) % MCV 77.3 L (78-100) fl MCH 23.7 L (26-32) pg MCHC 30.7 L (32-36) g/dl RDW 15.8 H (11.5-14.0) % Plt Count 303 (150-450) K/mm3 MPV 11.1 H (6-9.5) fl Gran % 86.2 H (36.0-66.0) % Eos # (Auto) 0.10 (0-0.5) Absolute Lymphs (auto) 0.89 L (1.0-4.6) Absolute Monos (auto) 0.79 (0.0-1.3) Lymphocytes % 6.7 L (24.0-44.0) % Monocytes % 5.9 (0.0-12.0) % Eosinophils % 0.8 (0.00-5.0) % Basophils % 0.4 (0.0-0.4) % Absolute Granulocytes 11.48 H (1.4-6.9) Basophils # 0.05 (0-0.4) PT 12.1 (9.95-12.35) SECONDS INR 1.04 (0.8-3.0) APTT 38.8 H (25.3-37.0) SECONDS D-Dimer 1446 H* (215-500) ng/mL Puncture Site pCO2 (35-45) mmHg pO2 (75-100) mmHg Base Excess (-2.0-2.0) O2 Saturation (94-100) g/dF ABG pH (7.35-7.45) ABG HCO3 (22-28) ABG O2 Sat (Measured) (95-100) % Raj Test A-a Gradient a/A Ratio Hemoglobin Carboxyhemoglobin (0.0-6.9) % THgb Methemoglobin (1.4-1.5) % Potassium (3.5-5.1) Temperature C POC O2 Flow Rate % Vent Mode Inspiratory BiPAP Expiratory BiPAP Sodium (137-145) mmol/L Chloride (98-107) mmol/L Carbon Dioxide (22-30) mmol/L Anion Gap (5-15) MEQ/L BUN (7-17) mg/dL Creatinine (0.52-1.04) mg/dL Estimated GFR ML/MIN Glucose (74-106) mg/dL Lactic Acid 1.7 (0.4-2.0) Calcium (8.4-10.2) mg/dL Total Bilirubin (0.2-1.3) mg/dL AST (14-36) U/L ALT (0-35) U/L Alkaline Phosphatase (38-126) U/L Troponin I (0.000-0.034) ng/mL NT-Pro-B Natriuret Pep (0-450) pg/mL Serum Total Protein (6.3-8.2) g/dL Albumin (3.5-5.0) g/dL Ur Collection Type Urine Color (YELLOW) Urine Appearance (CLEAR) Urine pH (5-6) Ur Specific [place] (1.005-1.025) Urine Protein (Negative) Urine Ketones (NEGATIVE) Urine Blood (0-5) Jaren/ul Urine Nitrite (NEGATIVE) Urine Bilirubin (NEGATIVE) Urine Urobilinogen (0-1) mg/dL Ur Leukocyte Esterase (NEGATIVE) Urine Microscopic RBC (0-2) /HPF Urine Microscopic WBC (0-5) /HPF Ur Epithelial Cells (FEW) /HPF Urine Bacteria (NEGATIVE) /HPF Urine Glucose (NEGATIVE) mg/dL Specimen Received 05/29/18 05/29/18 05/29/18 Range/Units 13:30 13:30 13:30 WBC (4.0-10.5) K/mm3 RBC (4.1-5.4) M/mm3 Hgb (12.0-16.0) gm/dl Hct (35-47) % MCV (78-100) fl MCH (26-32) pg MCHC (32-36) g/dl RDW (11.5-14.0) % Plt Count (150-450) K/mm3 MPV (6-9.5) fl Gran % (36.0-66.0) % Eos # (Auto) (0-0.5) Absolute Lymphs (auto) (1.0-4.6) Absolute Monos (auto) (0.0-1.3) Lymphocytes % (24.0-44.0) % Monocytes % (0.0-12.0) % Eosinophils % (0.00-5.0) % Basophils % (0.0-0.4) % Absolute Granulocytes (1.4-6.9) Basophils # (0-0.4) PT (9.95-12.35) SECONDS INR (0.8-3.0) APTT (25.3-37.0) SECONDS D-Dimer (215-500) ng/mL Puncture Site LEFT RADIAL pCO2 37 (35-45) mmHg pO2 42 L* (75-100) mmHg Base Excess 2.4 H (-2.0-2.0) O2 Saturation 81.8 L (94-100) g/dF ABG pH 7.46 H (7.35-7.45) ABG HCO3 26.3 (22-28) ABG O2 Sat (Measured) 84.6 L (95-100) % Raj Test YES A-a Gradient 168 a/A Ratio 0.20 Hemoglobin 10.5 Carboxyhemoglobin 2.5 (0.0-6.9) % THgb Methemoglobin 0.8 L (1.4-1.5) % Potassium 5.4 H 5.5 H (3.5-5.1) Temperature 37.0 C POC O2 Flow Rate 36 % Vent Mode Inspiratory BiPAP Expiratory BiPAP Sodium 133 L (137-145) mmol/L Chloride 93 L (98-107) mmol/L Carbon Dioxide 27 (22-30) mmol/L Anion Gap 19.0 H (5-15) MEQ/L BUN 40 H (7-17) mg/dL Creatinine 1.58 H (0.52-1.04) mg/dL Estimated GFR 38.1 ML/MIN Glucose 439 H (74-106) mg/dL Lactic Acid (0.4-2.0) Calcium 9.3 (8.4-10.2) mg/dL Total Bilirubin 0.70 (0.2-1.3) mg/dL AST 17 (14-36) U/L ALT 21 (0-35) U/L Alkaline Phosphatase 186 H (38-126) U/L Troponin I < 0.012 (0.000-0.034) ng/mL NT-Pro-B Natriuret Pep 893 H (0-450) pg/mL Serum Total Protein 8.3 H (6.3-8.2) g/dL Albumin 4.3 (3.5-5.0) g/dL Ur Collection Type CLEAN CATCH Urine Color LT.YELLOW (YELLOW) Urine Appearance HAZY (CLEAR) Urine pH 5.0 (5-6) Ur Specific [place] 1.010 (1.005-1.025) Urine Protein 100 (Negative) Urine Ketones SMALL-15 (NEGATIVE) Urine Blood 50 (0-5) Jaren/ul Urine Nitrite NEGATIVE (NEGATIVE) Urine Bilirubin NEGATIVE (NEGATIVE) Urine Urobilinogen NORMAL (0-1) mg/dL Ur Leukocyte Esterase NEGATIVE (NEGATIVE) Urine Microscopic RBC 0-2 (0-2) /HPF Urine Microscopic WBC 0-2 (0-5) /HPF Ur Epithelial Cells MANY (FEW) /HPF Urine Bacteria MODERATE (NEGATIVE) /HPF Urine Glucose 1000 (NEGATIVE) mg/dL Specimen Received 05/29/18 1345 05/29/18 05/29/18 05/29/18 Range/Units 15:30 16:45 19:45 WBC (4.0-10.5) K/mm3 RBC (4.1-5.4) M/mm3 Hgb (12.0-16.0) gm/dl Hct (35-47) % MCV (78-100) fl MCH (26-32) pg MCHC (32-36) g/dl RDW (11.5-14.0) % Plt Count (150-450) K/mm3 MPV (6-9.5) fl Gran % (36.0-66.0) % Eos # (Auto) (0-0.5) Absolute Lymphs (auto) (1.0-4.6) Absolute Monos (auto) (0.0-1.3) Lymphocytes % (24.0-44.0) % Monocytes % (0.0-12.0) % Eosinophils % (0.00-5.0) % Basophils % (0.0-0.4) % Absolute Granulocytes (1.4-6.9) Basophils # (0-0.4) PT (9.95-12.35) SECONDS INR (0.8-3.0) APTT (25.3-37.0) SECONDS D-Dimer (215-500) ng/mL Puncture Site RIGHT RADIAL pCO2 34 L (35-45) mmHg pO2 188 H* (75-100) mmHg Base Excess 4.1 H (-2.0-2.0) O2 Saturation 96.7 (94-100) g/dF ABG pH 7.51 H (7.35-7.45) ABG HCO3 27.1 (22-28) ABG O2 Sat (Measured) 98.6 (95-100) % Raj Test YES A-a Gradient 483 a/A Ratio 0.28 Hemoglobin 10.3 Carboxyhemoglobin 1.2 (0.0-6.9) % THgb Methemoglobin 0.7 L (1.4-1.5) % Potassium 5.0 (3.5-5.1) Temperature 37.0 C POC O2 Flow Rate 100 % Vent Mode BiPAP Inspiratory BiPAP 14 Expiratory BiPAP 6 Sodium (137-145) mmol/L Chloride (98-107) mmol/L Carbon Dioxide (22-30) mmol/L Anion Gap (5-15) MEQ/L BUN (7-17) mg/dL Creatinine (0.52-1.04) mg/dL Estimated GFR ML/MIN Glucose (74-106) mg/dL Lactic Acid (0.4-2.0) Calcium (8.4-10.2) mg/dL Total Bilirubin (0.2-1.3) mg/dL AST (14-36) U/L ALT (0-35) U/L Alkaline Phosphatase (38-126) U/L Troponin I < 0.012 < 0.012 (0.000-0.034) ng/mL NT-Pro-B Natriuret Pep (0-450) pg/mL Serum Total Protein (6.3-8.2) g/dL Albumin (3.5-5.0) g/dL Ur Collection Type Urine Color (YELLOW) Urine Appearance (CLEAR) Urine pH (5-6) Ur Specific [place] (1.005-1.025) Urine Protein (Negative) Urine Ketones (NEGATIVE) Urine Blood (0-5) Jaren/ul Urine Nitrite (NEGATIVE) Urine Bilirubin (NEGATIVE) Urine Urobilinogen (0-1) mg/dL Ur Leukocyte Esterase (NEGATIVE) Urine Microscopic RBC (0-2) /HPF Urine Microscopic WBC (0-5) /HPF Ur Epithelial Cells (FEW) /HPF Urine Bacteria (NEGATIVE) /HPF Urine Glucose (NEGATIVE) mg/dL Specimen Received 05/29/18 05/29/18 Range/Units 20:30 22:45 WBC (4.0-10.5) K/mm3 RBC (4.1-5.4) M/mm3 Hgb (12.0-16.0) gm/dl Hct (35-47) % MCV (78-100) fl MCH (26-32) pg MCHC (32-36) g/dl RDW (11.5-14.0) % Plt Count (150-450) K/mm3 MPV (6-9.5) fl Gran % (36.0-66.0) % Eos # (Auto) (0-0.5) Absolute Lymphs (auto) (1.0-4.6) Absolute Monos (auto) (0.0-1.3) Lymphocytes % (24.0-44.0) % Monocytes % (0.0-12.0) % Eosinophils % (0.00-5.0) % Basophils % (0.0-0.4) % Absolute Granulocytes (1.4-6.9) Basophils # (0-0.4) PT (9.95-12.35) SECONDS INR (0.8-3.0) APTT (25.3-37.0) SECONDS D-Dimer (215-500) ng/mL Puncture Site pCO2 (35-45) mmHg pO2 (75-100) mmHg Base Excess (-2.0-2.0) O2 Saturation (94-100) g/dF ABG pH (7.35-7.45) ABG HCO3 (22-28) ABG O2 Sat (Measured) (95-100) % Raj Test A-a Gradient a/A Ratio Hemoglobin Carboxyhemoglobin (0.0-6.9) % THgb Methemoglobin (1.4-1.5) % Potassium (3.5-5.1) Temperature C POC O2 Flow Rate % Vent Mode Inspiratory BiPAP Expiratory BiPAP Sodium (137-145) mmol/L Chloride (98-107) mmol/L Carbon Dioxide (22-30) mmol/L Anion Gap (5-15) MEQ/L BUN (7-17) mg/dL Creatinine (0.52-1.04) mg/dL Estimated GFR ML/MIN Glucose 571 H* (74-106) mg/dL Lactic Acid (0.4-2.0) Calcium (8.4-10.2) mg/dL Total Bilirubin (0.2-1.3) mg/dL AST (14-36) U/L ALT (0-35) U/L Alkaline Phosphatase (38-126) U/L Troponin I < 0.012 (0.000-0.034) ng/mL NT-Pro-B Natriuret Pep (0-450) pg/mL Serum Total Protein (6.3-8.2) g/dL Albumin (3.5-5.0) g/dL Ur Collection Type Urine Color (YELLOW) Urine Appearance (CLEAR) Urine pH (5-6) Ur Specific [place] (1.005-1.025) Urine Protein (Negative) Urine Ketones (NEGATIVE) Urine Blood (0-5) Jaren/ul Urine Nitrite (NEGATIVE) Urine Bilirubin (NEGATIVE) Urine Urobilinogen (0-1) mg/dL Ur Leukocyte Esterase (NEGATIVE) Urine Microscopic RBC (0-2) /HPF Urine Microscopic WBC (0-5) /HPF Ur Epithelial Cells (FEW) /HPF Urine Bacteria (NEGATIVE) /HPF Urine Glucose (NEGATIVE) mg/dL Specimen Received Accuchecks Date 05/29/18 Date 05/29/18 Time 22:10 Accucheck Value: 476 Accucheck Value: 582 Accucheck Value: 360 Accucheck Value: 412 - Radiology Impressions Radiology Exams & Impressions: Radiology Procedures Category Date Time Status CHEST 1 VIEW (PORTABLE) Stat Exams 05/29/18 13:25 Completed - Other Procedures and Tests Respiratory Therapy 05/29/18 16:26 BiPap/CPAP ROUTINE Respiratory Nebulizer UD 05/29/18 17:31 Oxygen OXYMIZER-LPM 12% 05/29/18 19:00 Respiratory Nebulizer Q4H Assessment/Plan (1) Hypoxia Current Visit: Yes Status: Acute Onset Date: ~05/29/18 Assessment & Plan: Likely due to pneumonia, superimposed on COPD and CHF exacerbation. Adding a small dose of IV steroids. Code(s): R09.02 - HYPOXEMIA (2) Pneumonia Current Visit: Yes Status: Acute Onset Date: ~05/29/18 Qualifiers: Pneumonia type: due to unspecified organism Laterality: right Lung location: unspecified part of lung Qualified Code(s): J18.9 - Pneumonia, unspecified organism Assessment & Plan: On rocephin and zithromax IV, day #1 for each. Code(s): J18.9 - PNEUMONIA, UNSPECIFIED ORGANISM (3) CHF (congestive heart failure) Current Visit: Yes Status: Acute Onset Date: ~05/29/18 Qualifiers: Heart failure type: unspecified Heart failure chronicity: unspecified Qualified Code(s): I50.9 - Heart failure, unspecified Assessment & Plan: IV lasix daily. Continue the po bumex. Will have to keep an eye on renal function. 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 supervisor use Diabetes mellitus complication status: with neurologic complications Diabetes mellitus complication detail: with polyneuropathy Qualified Code(s): E11.42 - Type 2 diabetes mellitus with diabetic polyneuropathy; E11.65 - Type 2 diabetes mellitus with hyperglycemia; E11.65 - Type 2 diabetes mellitus with hyperglycemia; E11.65 - Type 2 diabetes mellitus with hyperglycemia; E11.65 - Type 2 diabetes mellitus with hyperglycemia; Z79.4 - manager long term care (current) use of insulin; Z79.4 - manager long term care (current) use of insulin; Z79.4 - penitentiary (current ) use of insulin; Z79.4 - penitentiary (current) use of insulin Code(s): E11.65 - TYPE 2 DIABETES MELLITUS WITH HYPERGLYCEMIA (6) Peripheral neuropathy Current Visit: No Status: Chronic Qualifiers: Peripheral neuropathy type: polyneuropathy, unspecified Qualified Code(s): G62.9 - Polyneuropathy, unspecified Code(s): G62.9 - POLYNEUROPATHY, UNSPECIFIED (7) Wound, open, foot Current Visit: No Status: Chronic Qualifiers: Encounter type: subsequent encounter Laterality: unspecified laterality Qualified Code(s): S91.309D - Unspecified open wound, unspecified foot, subsequent encounter Assessment & Plan: Per PT, has been looking better wiht debridements. Code(s): S91.309A - UNSPECIFIED OPEN WOUND, UNSPECIFIED FOOT, INITIAL ENCOUNTER (8) Chronic renal insufficiency Current Visit: Yes Status: Acute Assessment & Plan: sees nephrology. Renal function was decreased during last hospital visit. Code(s): N18.9 - CHRONIC KIDNEY DISEASE, UNSPECIFIED
[2018-05-29] MEDS: COREG 12.5 MG PO SCH (23:51)
[2018-05-29] MEDS: LYRICA 100MG PO SCH (23:51)
[2018-05-29] MEDS: Singulair 10 MG PO SCH (23:51)
[2018-05-29] MEDS: BUMEX 1 MG PO SCH (23:51)
[2018-05-29] MEDS: BUSPAR 5 MG PO SCH (23:52)
[2018-05-29] MEDS: Cyclobenzaprine 10 MG PO SCH (23:52)
[2018-05-29] MEDS: Protonix 40MG Tablet PO SCH (23:53)
[2018-05-29] MEDS: DESYREL 50 MG PO SCH (23:53)
[2018-05-30] MEDS: PHENERGAN 25 MG PO PRN ×4 (00:06→21:15)
[2018-05-30] MEDS: Lasix 40 MG/4 ML IV SCH ×2 (00:08→10:42)
[2018-05-30] MEDS: solu-MEDROL 40 MG IV SCH ×5 (00:15→21:10)
[2018-05-30] MEDS: NovoLOG Insulin SQ PRN ×9 (00:19→21:11)
[2018-05-30] MEDS: PROVENTIL 2.5 MG/3 ML NEB IH SCH ×6 (03:07→23:10)
[2018-05-30 06:11] LABS: BASOPHIL % 0.4 % (0.0-0.4); Basophil (Absolute #) 0.04 (0-0.4); Eosinophil % 0.3 % (0.00-5.0); Eosinophil (Absolute #) 0.03 (0-0.5); Granulocyte Absolute (ANC) 8.55 (1.4-6.9); Granulocytes % 88.7 % (36.0-66.0); Hematocrit 31.6 % (35-47); Hemoglobin 9.7 gm/dl (12.0-16.0); Lymphocyte (Absolute #) 0.75 (1.0-4.6); Lymphocytes % 7.8 % (24.0-44.0); Mean Cell Volume 78.2 fl (78-100); Mean Corpuscular Hgb Concent. 30.7 g/dl (32-36); Mean Platelet Volume 11.2 fl (6-9.5); Monocyte (Absolute #) 0.27 (0.0-1.3); Monocytes % 2.8 % (0.0-12.0); Platelet Count 245 K/mm3 (150-450); Red Blood Count 4.04 M/mm3 (4.1-5.4); Red Cell Distribution Width 15.5 % (11.5-14.0); White Blood Count 9.6 K/mm3 (4.0-10.5)
[2018-05-30 06:14] LABS: ALBUMIN 3.9 g/dL (3.5-5.0); ANION GAP 15.2 MEQ/L (5-15); BILIRUBIN,TOTAL 0.4 mg/dL (0.2-1.3); Calcium 8.9 mg/dL (8.4-10.2); Creatinine 1 1.9 mg/dL (0.52-1.04); Potassium 4.9 mmol/L (3.5-5.1); Total Protein 7.5 g/dL (6.3-8.2)
[2018-05-30] MEDS: NORCO 7.5/325 MG TAB PO PRN ×3 (08:01→21:07)
[2018-05-30] MEDS ORDERED: NON-FORMULARY ITEM (Atorvastatin Calcium [Atorvastatin Calcium] 10 MG) PO SCH (10:00)
[2018-05-30] MEDS ORDERED: [UNRECOGNIZED DRUG - REMARK] IH SCH (10:00)
[2018-05-30] MEDS ORDERED: NON-FORMULARY ITEM (Amlodipine Besylate 10 Mg [Norvasc 10 Mg] 10 MG) PO SCH (10:00)
[2018-05-30] MEDS: BUSPAR 5 MG PO SCH ×2 (10:41→21:07)
[2018-05-30] MEDS: BUMEX 1 MG PO SCH ×2 (10:41→16:57)
[2018-05-30] MEDS: COREG 12.5 MG PO SCH ×2 (10:42→21:06)
[2018-05-30] MEDS: CLARITIN 10 MG PO SCH (10:42)
[2018-05-30] MEDS: ENOXAPARIN SODIUM SQ SCH (10:42)
[2018-05-30] MEDS: LYRICA 100MG PO SCH ×3 (10:42→21:06)
[2018-05-30] MEDS: NORVASC 5 MG PO SCH (10:43)
[2018-05-30] MEDS: Protonix 40MG Tablet PO SCH ×2 (10:43→21:06)
[2018-05-30] MEDS: Lantus Insulin SQ SCH ×2 (10:44→21:10)
[2018-05-30] MEDS: ROCEPHIN 1 Gm-D5w 50 ml Bag** 1 G/50 ML IVPB IV SCH (10:44)
[2018-05-30] MEDS: Zestril 20 MG PO SCH ×2 (10:44→21:06)
[2018-05-30] MEDS: Flonase NASAL NS SCH (10:45)
[2018-05-30] MEDS: CORTISONE 1% CREAM TP SCH ×2 (10:46→21:08)
[2018-05-30] MEDS: Zithromax 500 MG/ 250 ML NaCl Premix 500 MG/250 ML IVPB IV SCH (11:38)
[2018-05-30] MEDS: NovoLOG Insulin SQ SCH ×2 (11:48→16:57)
[2018-05-30] MEDS ORDERED: INSULIN GLULISINE SQ SCH (12:00)
[2018-05-30] MEDS ORDERED: DIFLUCAN PO ONE (12:06)
--- NOTE | 2018-05-30 12:09 | PCM.NOTE ---
Date and Time: 05/30/18 1203 Subjective Assessment: Pt did not sleep well overnight. She was on bipap, and is currently on 10L oximizer, down from 15L oximizer yesterday. O2 sats are good. She states she feels better and is starting to have some productive cough. Deshawn po. Has been drinking lots of fluids. Had almost 4L in yesterday. This morning has had 200cc out in the past 4 h. Subjectively last night she had a fever with sweats ; elevated temp not captured objectively. - Review of Systems Respiratory: Cough, Short Of Breath Objective Exam General Appearance: no apparent distress, obese Neurologic Exam: alert, oriented x 3, cooperative Skin Exam: normal color, warm, dry, No rash Ears, Nose, Throat Exam: moist mucous membranes Neck Exam: normal inspection Respiratory Exam: diminished breath sounds, No crackles/rales, No rhonchi, No wheezing Cardiovascular Exam: regular rate/rhythm, normal heart sounds, No murmur Gastrointestinal/Abdomen Exam: No tenderness, No distention, No mass, No guarding, No rebound Extremity Exam: other (feet wrapped bilat), No swelling OBJECTIVE DATA Vital Signs: Vital Signs - 24 hr Temp Pulse Resp BP Pulse Ox 05/30/18 11:25 72 20 98 05/30/18 09:29 16 05/30/18 07:55 97.6 F 69 16 123/81 97 05/30/18 06:53 72 18 100 05/30/18 04:50 97.5 F 68 20 119/76 88 L 05/30/18 04:00 68 05/30/18 03:07 66 18 92 L 05/30/18 00:20 95 05/30/18 00:01 76 05/30/18 00:00 97.8 F 73 19 119/77 97 05/29/18 23:27 77 18 95 05/29/18 20:00 98.7 F 82 21 100/68 94 L 05/29/18 18:49 92 H 18 93 L 05/29/18 18:00 93 L 05/29/18 17:32 94 L 05/29/18 16:45 102 F 98 H 17 139/83 98 05/29/18 16:26 96 H 18 99 05/29/18 15:34 101 H 20 100 05/29/18 15:16 86 L 05/29/18 13:25 78 L 05/29/18 13:10 102 F 111 H 20 146/80 86 L Oxygen-Last 24 hours O2 Percentage 70% O2 Percentage 70% O2 Percentage 80% O2 Percentage 80% Pain Assessment - Last Documented Pain Intensity [Anterior/ 10 Posterior Back] Pain Intensity 7 Pain Scale Used 0-10 Pain Scale Intake and Output: Intake & Output 05/28/18 05/29/18 05/30/18 05/31/18 11:59 11:59 11:59 11:59 Intake Total 4267 Output Total 1175 Balance 3092 Weight 137.4 kg Lab Results: Accuchecks Date 05/30/18 Date 05/30/18 Date 05/30/18 Date 05/30/18 Date 05/29/18 Date 05/29/18 Date 05/29/18 Time 08:10 Time 06:05 Time 02:10 Time 00:12 Time 22:00 Time 22:10 Accucheck Value: 328 Accucheck Value: 290 Accucheck Value: 255 Accucheck Value: 328 Accucheck Value: 503 Accucheck Value: 476 Accucheck Value: 582 Accucheck Value: 360 Accucheck Value: 412 Lab Results-Last 24 Hours 05/29/18 05/29/18 05/29/18 Range/Units 13:30 13:30 13:30 WBC 13.3 H (4.0-10.5) K/mm3 RBC 4.67 (4.1-5.4) M/mm3 Hgb 11.1 L (12.0-16.0) gm/dl Hct 36.1 (35-47) % MCV 77.3 L (78-100) fl MCH 23.7 L (26-32) pg MCHC 30.7 L (32-36) g/dl RDW 15.8 H (11.5-14.0) % Plt Count 303 (150-450) K/mm3 MPV 11.1 H (6-9.5) fl Gran % 86.2 H (36.0-66.0) % Eos # (Auto) 0.10 (0-0.5) Absolute Lymphs (auto) 0.89 L (1.0-4.6) Absolute Monos (auto) 0.79 (0.0-1.3) Lymphocytes % 6.7 L (24.0-44.0) % Monocytes % 5.9 (0.0-12.0) % Eosinophils % 0.8 (0.00-5.0) % Basophils % 0.4 (0.0-0.4) % Absolute Granulocytes 11.48 H (1.4-6.9) Basophils # 0.05 (0-0.4) PT 12.1 (9.95-12.35) SECONDS INR 1.04 (0.8-3.0) APTT 38.8 H (25.3-37.0) SECONDS D-Dimer 1446 H* (215-500) ng/mL Puncture Site pCO2 (35-45) mmHg pO2 (75-100) mmHg Base Excess (-2.0-2.0) O2 Saturation (94-100) g/dF ABG pH (7.35-7.45) ABG HCO3 (22-28) ABG O2 Sat (Measured) (95-100) % Raj Test A-a Gradient a/A Ratio Hemoglobin Carboxyhemoglobin (0.0-6.9) % THgb Methemoglobin (1.4-1.5) % Potassium (3.5-5.1) Temperature C POC O2 Flow Rate % Vent Mode Inspiratory BiPAP Expiratory BiPAP Sodium (137-145) mmol/L Chloride (98-107) mmol/L Carbon Dioxide (22-30) mmol/L Anion Gap (5-15) MEQ/L BUN (7-17) mg/dL Creatinine (0.52-1.04) mg/dL Estimated GFR ML/MIN Glucose (74-106) mg/dL Lactic Acid 1.7 (0.4-2.0) Calcium (8.4-10.2) mg/dL Total Bilirubin (0.2-1.3) mg/dL AST (14-36) U/L ALT (0-35) U/L Alkaline Phosphatase (38-126) U/L Troponin I (0.000-0.034) ng/mL NT-Pro-B Natriuret Pep (0-450) pg/mL Serum Total Protein (6.3-8.2) g/dL Albumin (3.5-5.0) g/dL Ur Collection Type Urine Color (YELLOW) Urine Appearance (CLEAR) Urine pH (5-6) Ur Specific [place] (1.005-1.025) Urine Protein (Negative) Urine Ketones (NEGATIVE) Urine Blood (0-5) Jaren/ul Urine Nitrite (NEGATIVE) Urine Bilirubin (NEGATIVE) Urine Urobilinogen (0-1) mg/dL Ur Leukocyte Esterase (NEGATIVE) Urine Microscopic RBC (0-2) /HPF Urine Microscopic WBC (0-5) /HPF Ur Epithelial Cells (FEW) /HPF Urine Bacteria (NEGATIVE) /HPF Urine Glucose (NEGATIVE) mg/dL Specimen Received 05/29/18 05/29/18 05/29/18 Range/Units 13:30 13:30 13:30 WBC (4.0-10.5) K/mm3 RBC (4.1-5.4) M/mm3 Hgb (12.0-16.0) gm/dl Hct (35-47) % MCV (78-100) fl MCH (26-32) pg MCHC (32-36) g/dl RDW (11.5-14.0) % Plt Count (150-450) K/mm3 MPV (6-9.5) fl Gran % (36.0-66.0) % Eos # (Auto) (0-0.5) Absolute Lymphs (auto) (1.0-4.6) Absolute Monos (auto) (0.0-1.3) Lymphocytes % (24.0-44.0) % Monocytes % (0.0-12.0) % Eosinophils % (0.00-5.0) % Basophils % (0.0-0.4) % Absolute Granulocytes (1.4-6.9) Basophils # (0-0.4) PT (9.95-12.35) SECONDS INR (0.8-3.0) APTT (25.3-37.0) SECONDS D-Dimer (215-500) ng/mL Puncture Site LEFT RADIAL pCO2 37 (35-45) mmHg pO2 42 L* (75-100) mmHg Base Excess 2.4 H (-2.0-2.0) O2 Saturation 81.8 L (94-100) g/dF ABG pH 7.46 H (7.35-7.45) ABG HCO3 26.3 (22-28) ABG O2 Sat (Measured) 84.6 L (95-100) % Raj Test YES A-a Gradient 168 a/A Ratio 0.20 Hemoglobin 10.5 Carboxyhemoglobin 2.5 (0.0-6.9) % THgb Methemoglobin 0.8 L (1.4-1.5) % Potassium 5.4 H 5.5 H (3.5-5.1) Temperature 37.0 C POC O2 Flow Rate 36 % Vent Mode Inspiratory BiPAP Expiratory BiPAP Sodium 133 L (137-145) mmol/L Chloride 93 L (98-107) mmol/L Carbon Dioxide 27 (22-30) mmol/L Anion Gap 19.0 H (5-15) MEQ/L BUN 40 H (7-17) mg/dL Creatinine 1.58 H (0.52-1.04) mg/dL Estimated GFR 38.1 ML/MIN Glucose 439 H (74-106) mg/dL Lactic Acid (0.4-2.0) Calcium 9.3 (8.4-10.2) mg/dL Total Bilirubin 0.70 (0.2-1.3) mg/dL AST 17 (14-36) U/L ALT 21 (0-35) U/L Alkaline Phosphatase 186 H (38-126) U/L Troponin I < 0.012 (0.000-0.034) ng/mL NT-Pro-B Natriuret Pep 893 H (0-450) pg/mL Serum Total Protein 8.3 H (6.3-8.2) g/dL Albumin 4.3 (3.5-5.0) g/dL Ur Collection Type CLEAN CATCH Urine Color LT.YELLOW (YELLOW) Urine Appearance HAZY (CLEAR) Urine pH 5.0 (5-6) Ur Specific [place] 1.010 (1.005-1.025) Urine Protein 100 (Negative) Urine Ketones SMALL-15 (NEGATIVE) Urine Blood 50 (0-5) Jaren/ul Urine Nitrite NEGATIVE (NEGATIVE) Urine Bilirubin NEGATIVE (NEGATIVE) Urine Urobilinogen NORMAL (0-1) mg/dL Ur Leukocyte Esterase NEGATIVE (NEGATIVE) Urine Microscopic RBC 0-2 (0-2) /HPF Urine Microscopic WBC 0-2 (0-5) /HPF Ur Epithelial Cells MANY (FEW) /HPF Urine Bacteria MODERATE (NEGATIVE) /HPF Urine Glucose 1000 (NEGATIVE) mg/dL Specimen Received 05/29/18 1345 05/29/18 05/29/18 05/29/18 Range/Units 15:30 16:45 19:45 WBC (4.0-10.5) K/mm3 RBC (4.1-5.4) M/mm3 Hgb (12.0-16.0) gm/dl Hct (35-47) % MCV (78-100) fl MCH (26-32) pg MCHC (32-36) g/dl RDW (11.5-14.0) % Plt Count (150-450) K/mm3 MPV (6-9.5) fl Gran % (36.0-66.0) % Eos # (Auto) (0-0.5) Absolute Lymphs (auto) (1.0-4.6) Absolute Monos (auto) (0.0-1.3) Lymphocytes % (24.0-44.0) % Monocytes % (0.0-12.0) % Eosinophils % (0.00-5.0) % Basophils % (0.0-0.4) % Absolute Granulocytes (1.4-6.9) Basophils # (0-0.4) PT (9.95-12.35) SECONDS INR (0.8-3.0) APTT (25.3-37.0) SECONDS D-Dimer (215-500) ng/mL Puncture Site RIGHT RADIAL pCO2 34 L (35-45) mmHg pO2 188 H* (75-100) mmHg Base Excess 4.1 H (-2.0-2.0) O2 Saturation 96.7 (94-100) g/dF ABG pH 7.51 H (7.35-7.45) ABG HCO3 27.1 (22-28) ABG O2 Sat (Measured) 98.6 (95-100) % Raj Test YES A-a Gradient 483 a/A Ratio 0.28 Hemoglobin 10.3 Carboxyhemoglobin 1.2 (0.0-6.9) % THgb Methemoglobin 0.7 L (1.4-1.5) % Potassium 5.0 (3.5-5.1) Temperature 37.0 C POC O2 Flow Rate 100 % Vent Mode BiPAP Inspiratory BiPAP 14 Expiratory BiPAP 6 Sodium (137-145) mmol/L Chloride (98-107) mmol/L Carbon Dioxide (22-30) mmol/L Anion Gap (5-15) MEQ/L BUN (7-17) mg/dL Creatinine (0.52-1.04) mg/dL Estimated GFR ML/MIN Glucose (74-106) mg/dL Lactic Acid (0.4-2.0) Calcium (8.4-10.2) mg/dL Total Bilirubin (0.2-1.3) mg/dL AST (14-36) U/L ALT (0-35) U/L Alkaline Phosphatase (38-126) U/L Troponin I < 0.012 < 0.012 (0.000-0.034) ng/mL NT-Pro-B Natriuret Pep (0-450) pg/mL Serum Total Protein (6.3-8.2) g/dL Albumin (3.5-5.0) g/dL Ur Collection Type Urine Color (YELLOW) Urine Appearance (CLEAR) Urine pH (5-6) Ur Specific [place] (1.005-1.025) Urine Protein (Negative) Urine Ketones (NEGATIVE) Urine Blood (0-5) Jaren/ul Urine Nitrite (NEGATIVE) Urine Bilirubin (NEGATIVE) Urine Urobilinogen (0-1) mg/dL Ur Leukocyte Esterase (NEGATIVE) Urine Microscopic RBC (0-2) /HPF Urine Microscopic WBC (0-5) /HPF Ur Epithelial Cells (FEW) /HPF Urine Bacteria (NEGATIVE) /HPF Urine Glucose (NEGATIVE) mg/dL Specimen Received 05/29/18 05/29/18 05/30/18 Range/Units 20:30 22:45 01:55 WBC (4.0-10.5) K/mm3 RBC (4.1-5.4) M/mm3 Hgb (12.0-16.0) gm/dl Hct (35-47) % MCV (78-100) fl MCH (26-32) pg MCHC (32-36) g/dl RDW (11.5-14.0) % Plt Count (150-450) K/mm3 MPV (6-9.5) fl Gran % (36.0-66.0) % Eos # (Auto) (0-0.5) Absolute Lymphs (auto) (1.0-4.6) Absolute Monos (auto) (0.0-1.3) Lymphocytes % (24.0-44.0) % Monocytes % (0.0-12.0) % Eosinophils % (0.00-5.0) % Basophils % (0.0-0.4) % Absolute Granulocytes (1.4-6.9) Basophils # (0-0.4) PT (9.95-12.35) SECONDS INR (0.8-3.0) APTT (25.3-37.0) SECONDS D-Dimer (215-500) ng/mL Puncture Site pCO2 (35-45) mmHg pO2 (75-100) mmHg Base Excess (-2.0-2.0) O2 Saturation (94-100) g/dF ABG pH (7.35-7.45) ABG HCO3 (22-28) ABG O2 Sat (Measured) (95-100) % Raj Test A-a Gradient a/A Ratio Hemoglobin Carboxyhemoglobin (0.0-6.9) % THgb Methemoglobin (1.4-1.5) % Potassium (3.5-5.1) Temperature C POC O2 Flow Rate % Vent Mode Inspiratory BiPAP Expiratory BiPAP Sodium (137-145) mmol/L Chloride (98-107) mmol/L Carbon Dioxide (22-30) mmol/L Anion Gap (5-15) MEQ/L BUN (7-17) mg/dL Creatinine (0.52-1.04) mg/dL Estimated GFR ML/MIN Glucose 571 H* (74-106) mg/dL Lactic Acid (0.4-2.0) Calcium (8.4-10.2) mg/dL Total Bilirubin (0.2-1.3) mg/dL AST (14-36) U/L ALT (0-35) U/L Alkaline Phosphatase (38-126) U/L Troponin I < 0.012 < 0.012 (0.000-0.034) ng/mL NT-Pro-B Natriuret Pep (0-450) pg/mL Serum Total Protein (6.3-8.2) g/dL Albumin (3.5-5.0) g/dL Ur Collection Type Urine Color (YELLOW) Urine Appearance (CLEAR) Urine pH (5-6) Ur Specific [place] (1.005-1.025) Urine Protein (Negative) Urine Ketones (NEGATIVE) Urine Blood (0-5) Jaren/ul Urine Nitrite (NEGATIVE) Urine Bilirubin (NEGATIVE) Urine Urobilinogen (0-1) mg/dL Ur Leukocyte Esterase (NEGATIVE) Urine Microscopic RBC (0-2) /HPF Urine Microscopic WBC (0-5) /HPF Ur Epithelial Cells (FEW) /HPF Urine Bacteria (NEGATIVE) /HPF Urine Glucose (NEGATIVE) mg/dL Specimen Received 05/30/18 05/30/18 Range/Units 05:25 05:25 WBC 9.6 (4.0-10.5) K/mm3 RBC 4.04 L (4.1-5.4) M/mm3 Hgb 9.7 L (12.0-16.0) gm/dl Hct 31.6 L (35-47) % MCV 78.2 (78-100) fl MCH 24.0 L (26-32) pg MCHC 30.7 L (32-36) g/dl RDW 15.5 H (11.5-14.0) % Plt Count 245 (150-450) K/mm3 MPV 11.2 H (6-9.5) fl Gran % 88.7 H (36.0-66.0) % Eos # (Auto) 0.03 (0-0.5) Absolute Lymphs (auto) 0.75 L (1.0-4.6) Absolute Monos (auto) 0.27 (0.0-1.3) Lymphocytes % 7.8 L (24.0-44.0) % Monocytes % 2.8 (0.0-12.0) % Eosinophils % 0.3 (0.00-5.0) % Basophils % 0.4 (0.0-0.4) % Absolute Granulocytes 8.55 H (1.4-6.9) Basophils # 0.04 (0-0.4) PT (9.95-12.35) SECONDS INR (0.8-3.0) APTT (25.3-37.0) SECONDS D-Dimer (215-500) ng/mL Puncture Site pCO2 (35-45) mmHg pO2 (75-100) mmHg Base Excess (-2.0-2.0) O2 Saturation (94-100) g/dF ABG pH (7.35-7.45) ABG HCO3 (22-28) ABG O2 Sat (Measured) (95-100) % Raj Test A-a Gradient a/A Ratio Hemoglobin Carboxyhemoglobin (0.0-6.9) % THgb Methemoglobin (1.4-1.5) % Potassium 4.9 (3.5-5.1) Temperature C POC O2 Flow Rate % Vent Mode Inspiratory BiPAP Expiratory BiPAP Sodium 133 L (137-145) mmol/L Chloride 95 L (98-107) mmol/L Carbon Dioxide 28 (22-30) mmol/L Anion Gap 15.2 H (5-15) MEQ/L BUN 49 H (7-17) mg/dL Creatinine 1.90 H (0.52-1.04) mg/dL Estimated GFR 30.8 ML/MIN Glucose 236 H (74-106) mg/dL Lactic Acid (0.4-2.0) Calcium 8.9 (8.4-10.2) mg/dL Total Bilirubin 0.40 (0.2-1.3) mg/dL AST 29 (14-36) U/L ALT 20 (0-35) U/L Alkaline Phosphatase 161 H (38-126) U/L Troponin I (0.000-0.034) ng/mL NT-Pro-B Natriuret Pep (0-450) pg/mL Serum Total Protein 7.5 (6.3-8.2) g/dL Albumin 3.9 (3.5-5.0) g/dL Ur Collection Type Urine Color (YELLOW) Urine Appearance (CLEAR) Urine pH (5-6) Ur Specific [place] (1.005-1.025) Urine Protein (Negative) Urine Ketones (NEGATIVE) Urine Blood (0-5) Jaren/ul Urine Nitrite (NEGATIVE) Urine Bilirubin (NEGATIVE) Urine Urobilinogen (0-1) mg/dL Ur Leukocyte Esterase (NEGATIVE) Urine Microscopic RBC (0-2) /HPF Urine Microscopic WBC (0-5) /HPF Ur Epithelial Cells (FEW) /HPF Urine Bacteria (NEGATIVE) /HPF Urine Glucose (NEGATIVE) mg/dL Specimen Received Radiology Exams: Radiology Procedures Category Date Time Status CHEST 1 VIEW (PORTABLE) Stat Exams 05/29/18 13:25 Completed Assessment/Plan (1) Hypoxia Current Visit: Yes Status: Acute Onset Date: ~05/29/18 Assessment & Plan: improving. Likely due to pneumonia. Code(s): R09.02 - HYPOXEMIA (2) Pneumonia Current Visit: Yes Status: Acute Onset Date: ~05/29/18 Qualifiers: Pneumonia type: due to unspecified organism Laterality: right Lung location: unspecified part of lung Qualified Code(s): J18.9 - Pneumonia, unspecified organism Assessment & Plan: On IV rocephin and zithromax day #2. her O2 requirement is less. I did add steroids yesterday. Will transfer from ICU to med surg today. Code(s): J18.9 - PNEUMONIA, UNSPECIFIED ORGANISM (3) CHF (congestive heart failure) Current Visit: Yes Status: Acute Onset Date: ~05/29/18 Qualifiers: Heart failure type: unspecified Heart failure chronicity: unspecified Qualified Code(s): I50.9 - Heart failure, unspecified Assessment & Plan: Clinically edema is better and no crackles. In light of renal function, will decrease her lasix from 40mg IV BID to 20mg po daily and put her on fluid restriction. Recheck labs in a.m. Instead of checking BNP, will follow CHF clinically as her decreased renal function may confound results. Code(s): I50.9 - HEART FAILURE, UNSPECIFIED (4) COPD (chronic obstructive pulmonary disease) Current Visit: No Status: Chronic Qualifiers: COPD type: chronic bronchitis Chronic bronchitis type: unspecified Qualified Code(s): J42 - Unspecified chronic bronchitis (5) Diabetes type 2, uncontrolled Current Visit: No Status: Chronic Qualifiers: Diabetes mellitus mcfp insulin use: with mcfp use Diabetes mellitus complication status: with neurologic complications Diabetes mellitus complication detail: with polyneuropathy Qualified Code(s): E11.42 - Type 2 diabetes mellitus with diabetic polyneuropathy; E11.65 - Type 2 diabetes mellitus with hyperglycemia; E11.65 - Type 2 diabetes mellitus with hyperglycemia; E11.65 - Type 2 diabetes mellitus with hyperglycemia; E11.65 - Type 2 diabetes mellitus with hyperglycemia; Z79.4 - moth exterminator (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 Code(s): E11.65 - TYPE 2 DIABETES MELLITUS WITH HYPERGLYCEMIA (6) Peripheral neuropathy Current Visit: No Status: Chronic Qualifiers: Peripheral neuropathy type: polyneuropathy, unspecified Qualified Code(s): G62.9 - Polyneuropathy, unspecified Code(s): G62.9 - POLYNEUROPATHY, UNSPECIFIED (7) Wound, open, foot Current Visit: No Status: Chronic Qualifiers: Encounter type: subsequent encounter Laterality: unspecified laterality Qualified Code(s): S91.309D - Unspecified open wound, unspecified foot, subsequent encounter Code(s): S91.309A - UNSPECIFIED OPEN WOUND, UNSPECIFIED FOOT, INITIAL ENCOUNTER (8) Chronic renal insufficiency Current Visit: Yes Status: Acute Assessment & Plan: recheck in a.m. Cr from 1.5 yesterday to 1.9 today. Code(s): N18.9 - CHRONIC KIDNEY DISEASE, UNSPECIFIED
[2018-05-30] MEDS ORDERED: Lantus Insulin SQ SCH (13:30)
[2018-05-30] MEDS ORDERED: NovoLOG Insulin SQ ONE (14:29)
[2018-05-30] MEDS ORDERED: Novolin 70/30 SQ SCH (15:15)
[2018-05-30] MEDS: Zocor 10MG PO SCH (21:06)
[2018-05-30] MEDS: Singulair 10 MG PO SCH (21:06)
[2018-05-30] MEDS: DESYREL 50 MG PO SCH (21:07)
[2018-05-30] MEDS: Cyclobenzaprine 10 MG PO SCH (21:08)
[2018-05-31] MEDS: PROVENTIL 2.5 MG/3 ML NEB IH SCH ×3 (02:58→10:51)
[2018-05-31] MEDS: NORCO 7.5/325 MG TAB PO PRN ×4 (03:04→22:03)
[2018-05-31] MEDS: PHENERGAN 25 MG PO PRN ×4 (03:15→22:03)
[2018-05-31] MEDS: NovoLOG Insulin SQ PRN ×5 (03:24→22:08)
[2018-05-31 05:46] LABS: BASOPHIL % 0.1 % (0.0-0.4); Basophil (Absolute #) 0.01 (0-0.4); Eosinophil (Absolute #) 0 (0-0.5); Granulocyte Absolute (ANC) 12.13 (1.4-6.9); Granulocytes % 91.7 % (36.0-66.0); Hematocrit 29.9 % (35-47); Hemoglobin 9.3 gm/dl (12.0-16.0); Lymphocyte (Absolute #) 0.72 (1.0-4.6); Lymphocytes % 5.4 % (24.0-44.0); Mean Cell Volume 77.5 fl (78-100); Mean Corpuscular Hgb Concent. 31.1 g/dl (32-36); Mean Platelet Volume 11.5 fl (6-9.5); Monocyte (Absolute #) 0.37 (0.0-1.3); Monocytes % 2.8 % (0.0-12.0); Platelet Count 251 K/mm3 (150-450); Red Blood Count 3.86 M/mm3 (4.1-5.4); Red Cell Distribution Width 15.1 % (11.5-14.0); White Blood Count 13.2 K/mm3 (4.0-10.5)
[2018-05-31 06:00] LABS: ANION GAP 16.2 MEQ/L (5-15); Calcium 8.5 mg/dL (8.4-10.2); Creatinine 1 1.61 mg/dL (0.52-1.04); Potassium 4.3 mmol/L (3.5-5.1)
[2018-05-31] MEDS: solu-MEDROL 40 MG IV SCH (06:11)
[2018-05-31] MEDS: NovoLOG Insulin SQ SCH ×3 (08:11→16:57)
[2018-05-31] MEDS: NORVASC 5 MG PO SCH (09:34)
[2018-05-31] MEDS: Protonix 40MG Tablet PO SCH ×2 (09:36→22:07)
[2018-05-31] MEDS: ENOXAPARIN SODIUM SQ SCH (09:36)
[2018-05-31] MEDS: ROCEPHIN 1 Gm-D5w 50 ml Bag** 1 G/50 ML IVPB IV SCH (09:36)
[2018-05-31] MEDS: COREG 12.5 MG PO SCH ×2 (09:36→22:04)
[2018-05-31] MEDS: CLARITIN 10 MG PO SCH (09:36)
[2018-05-31] MEDS: Zestril 20 MG PO SCH ×2 (09:36→22:07)
[2018-05-31] MEDS: Lantus Insulin SQ SCH ×2 (09:36→22:06)
[2018-05-31] MEDS: BUSPAR 5 MG PO SCH ×2 (09:36→22:04)
[2018-05-31] MEDS: LASIX 20 MG PO SCH ×2 (09:36→10:44)
[2018-05-31] MEDS: CORTISONE 1% CREAM TP SCH ×2 (09:37→22:05)
[2018-05-31] MEDS: Flonase NASAL NS SCH (09:37)
[2018-05-31] MEDS: BUMEX 1 MG PO SCH ×2 (09:40→16:57)
[2018-05-31] MEDS: LYRICA 100MG PO SCH ×3 (09:40→22:07)
[2018-05-31] MEDS: Zithromax 500 MG/ 250 ML NaCl Premix 500 MG/250 ML IVPB IV SCH (10:42)
--- NOTE | 2018-05-31 11:39 | PCM.NOTE ---
Date and Time: 05/31/18 1136 Subjective Assessment: Breathing is better, she used NC all night and is now down to 5L NC. Yesterday her BS were in the 500s for some time in the afternoon despite numerous doses of regular insulin and 15 units of 70/30 as well. She is tolerating po. She states her mouth is less dry last night and today. - Review of Systems Constitutional: No Fever Respiratory: Cough Objective Exam General Appearance: no apparent distress, alert Neurologic Exam: oriented x 3, cooperative Skin Exam: normal color, warm, dry, No rash Respiratory Exam: lungs clear, diminished breath sounds (good AE), No crackles/ rales, No rhonchi, No wheezing Cardiovascular Exam: regular rate/rhythm, normal heart sounds, No murmur Extremity Exam: other (feet wrapped bilat) Back Exam: normal inspection, No rash OBJECTIVE DATA Vital Signs: Vital Signs - 24 hr Temp Pulse Resp BP Pulse Ox 05/31/18 10:51 88 18 96 05/31/18 09:00 22 05/31/18 08:00 97.4 F 76 18 140/80 96 05/31/18 07:40 75 18 95 05/31/18 04:48 15 05/31/18 04:00 98.1 F 67 20 132/79 92 L 05/31/18 03:00 79 19 96 05/31/18 01:00 17 05/30/18 23:43 80 05/30/18 23:40 97.6 F 80 21 136/83 96 05/30/18 23:00 77 19 96 05/30/18 21:00 20 05/30/18 19:52 97.7 F 74 18 126/73 97 05/30/18 18:45 72 13 96 05/30/18 17:46 99 05/30/18 17:00 20 05/30/18 16:00 97.5 F 72 20 123/78 93 L 05/30/18 15:00 71 16 96 05/30/18 13:29 20 05/30/18 12:00 97.9 F 80 20 118/77 96 Oxygen-Last 24 hours O2 Percentage 5 Liters = 40% O2 Percentage 5 Liters = 40% O2 Percentage 5 Liters = 40% O2 Percentage 5 Liters = 40% O2 Percentage 6 Liters = 44% Pain Assessment - Last Documented Pain Intensity [Anterior/ 10 Posterior Back] Pain Intensity 3 Pain Scale Used 0-10 Pain Scale Intake and Output: Intake & Output 05/28/18 05/29/18 05/30/18 05/31/18 11:59 11:59 11:59 11:59 Intake Total 4267 1960 Output Total 1178 3900 Balance 3092 -1940 Weight 137.4 kg 136.8 kg Lab Results: Accuchecks Date 05/31/18 Date 05/31/18 Date 05/30/18 Date 05/30/18 Date 05/30/18 Time 07:30 Time 03:00 Time 21:43 Time 16:57 Time 12:00 Accucheck Value: 339 Accucheck Value: 396 Accucheck Value: 428 Lab Results-Last 24 Hours 05/30/18 05/30/18 05/31/18 Range/Units 11:50 15:24 05:20 WBC 13.2 H (4.0-10.5) K/mm3 RBC 3.86 L (4.1-5.4) M/mm3 Hgb 9.3 L (12.0-16.0) gm/dl Hct 29.9 L (35-47) % MCV 77.5 L (78-100) fl MCH 24.0 L (26-32) pg MCHC 31.1 L (32-36) g/dl RDW 15.1 H (11.5-14.0) % Plt Count 251 (150-450) K/mm3 MPV 11.5 H (6-9.5) fl Gran % 91.7 H (36.0-66.0) % Eos # (Auto) 0 (0-0.5) Absolute Lymphs (auto) 0.72 L (1.0-4.6) Absolute Monos (auto) 0.37 (0.0-1.3) Lymphocytes % 5.4 L (24.0-44.0) % Monocytes % 2.8 (0.0-12.0) % Eosinophils % 0.0 (0.00-5.0) % Basophils % 0.1 (0.0-0.4) % Absolute Granulocytes 12.13 H (1.4-6.9) Basophils # 0.01 (0-0.4) Sodium (137-145) mmol/L Potassium (3.5-5.1) mmol/L Chloride (98-107) mmol/L Carbon Dioxide (22-30) mmol/L Anion Gap (5-15) MEQ/L BUN (7-17) mg/dL Creatinine (0.52-1.04) mg/dL Estimated GFR ML/MIN Glucose 536 H* 551 H* (74-106) mg/dL Calcium (8.4-10.2) mg/dL 05/31/18 Range/Units 05:20 WBC (4.0-10.5) K/mm3 RBC (4.1-5.4) M/mm3 Hgb (12.0-16.0) gm/dl Hct (35-47) % MCV (78-100) fl MCH (26-32) pg MCHC (32-36) g/dl RDW (11.5-14.0) % Plt Count (150-450) K/mm3 MPV (6-9.5) fl Gran % (36.0-66.0) % Eos # (Auto) (0-0.5) Absolute Lymphs (auto) (1.0-4.6) Absolute Monos (auto) (0.0-1.3) Lymphocytes % (24.0-44.0) % Monocytes % (0.0-12.0) % Eosinophils % (0.00-5.0) % Basophils % (0.0-0.4) % Absolute Granulocytes (1.4-6.9) Basophils # (0-0.4) Sodium 134 L (137-145) mmol/L Potassium 4.3 (3.5-5.1) mmol/L Chloride 95 L (98-107) mmol/L Carbon Dioxide 27 (22-30) mmol/L Anion Gap 16.2 H (5-15) MEQ/L BUN 50 H (7-17) mg/dL Creatinine 1.61 H (0.52-1.04) mg/dL Estimated GFR 37.3 ML/MIN Glucose 390 H (74-106) mg/dL Calcium 8.5 (8.4-10.2) mg/dL Radiology Exams: Radiology Procedures Category Date Time Status CHEST 1 VIEW (PORTABLE) Stat Exams 05/29/18 13:25 Completed Assessment/Plan (1) Hypoxia Current Visit: Yes Status: Acute Onset Date: ~05/29/18 Assessment & Plan: improved. now on 5L PA Code(s): R09.02 - HYPOXEMIA (2) Pneumonia Current Visit: Yes Status: Acute Onset Date: ~05/29/18 Qualifiers: Pneumonia type: due to unspecified organism Laterality: right Lung location: unspecified part of lung Qualified Code(s): J18.9 - Pneumonia, unspecified organism Assessment & Plan: On IV rocephin and zitrhomax, day #3. Improved, but not back to baseline. Changed steroid from IV to po, prednisone 60mg/d. Code(s): J18.9 - PNEUMONIA, UNSPECIFIED ORGANISM (3) CHF (congestive heart failure) Current Visit: Yes Status: Acute Onset Date: ~05/29/18 Qualifiers: Heart failure type: unspecified Heart failure chronicity: unspecified Qualified Code(s): I50.9 - Heart failure, unspecified Assessment & Plan: stopping the lasix, just continuing home bumex. Code(s): I50.9 - HEART FAILURE, UNSPECIFIED (4) COPD (chronic obstructive pulmonary disease) Current Visit: No Status: Chronic Qualifiers: COPD type: chronic bronchitis Chronic bronchitis type: unspecified Qualified Code(s): J42 - Unspecified chronic bronchitis (5) Diabetes type 2, uncontrolled Current Visit: No Status: Chronic Qualifiers: Diabetes mellitus residential insulin use: with residential use Diabetes mellitus complication status: with neurologic complications Diabetes mellitus complication detail: with polyneuropathy Qualified Code(s): E11.42 - Type 2 diabetes mellitus with diabetic polyneuropathy; E11.65 - Type 2 diabetes mellitus with hyperglycemia; E11.65 - Type 2 diabetes mellitus with hyperglycemia; E11.65 - Type 2 diabetes mellitus with hyperglycemia; E11.65 - Type 2 diabetes mellitus with hyperglycemia; Z79.4 - retirement (current) use of insulin; Z79.4 - core loader (current) 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 Code(s): E11.65 - TYPE 2 DIABETES MELLITUS WITH HYPERGLYCEMIA (6) Peripheral neuropathy Current Visit: No Status: Chronic Qualifiers: Peripheral neuropathy type: polyneuropathy, unspecified Qualified Code(s): G62.9 - Polyneuropathy, unspecified Code(s): G62.9 - POLYNEUROPATHY, UNSPECIFIED (7) Wound, open, foot Current Visit: No Status: Chronic Qualifiers: Encounter type: subsequent encounter Laterality: unspecified laterality Qualified Code(s): S91.309D - Unspecified open wound, unspecified foot, subsequent encounter Code(s): S91.309A - UNSPECIFIED OPEN WOUND, UNSPECIFIED FOOT, INITIAL ENCOUNTER (8) Chronic renal insufficiency Current Visit: Yes Status: Acute Assessment & Plan: Stopping the lasix, will recheck labs tomorrow. Could consult nephrology then if needed. Code(s): N18.9 - CHRONIC KIDNEY DISEASE, UNSPECIFIED
[2018-05-31] MEDS: DESYREL 50 MG PO SCH (22:06)
[2018-05-31] MEDS: Cyclobenzaprine 10 MG PO SCH (22:06)
[2018-05-31] MEDS: Zocor 10MG PO SCH (22:07)
[2018-05-31] MEDS: Singulair 10 MG PO SCH (22:07)
[2018-06-01] MEDS: PHENERGAN 25 MG PO PRN ×3 (05:41→17:45)
[2018-06-01] MEDS: NORCO 7.5/325 MG TAB PO PRN ×3 (05:42→17:45)
[2018-06-01] MEDS: PROVENTIL 2.5 MG/3 ML NEB IH SCH ×8 (05:56→22:50)
[2018-06-01 06:03] LABS: BASOPHIL % 0.1 % (0.0-0.4); Basophil (Absolute #) 0.01 (0-0.4); Eosinophil % 0.1 % (0.00-5.0); Eosinophil (Absolute #) 0.01 (0-0.5); Granulocytes % 85.5 % (36.0-66.0); Hematocrit 30.6 % (35-47); Hemoglobin 9.2 gm/dl (12.0-16.0); Lymphocyte (Absolute #) 1.17 (1.0-4.6); Lymphocytes % 8.7 % (24.0-44.0); Mean Cell Volume 79.5 fl (78-100); Mean Corpuscular Hgb Concent. 30.1 g/dl (32-36); Mean Platelet Volume 11.5 fl (6-9.5); Monocyte (Absolute #) 0.75 (0.0-1.3); Monocytes % 5.6 % (0.0-12.0); Platelet Count 293 K/mm3 (150-450); Red Blood Count 3.85 M/mm3 (4.1-5.4); Red Cell Distribution Width 15.6 % (11.5-14.0); White Blood Count 13.4 K/mm3 (4.0-10.5)
[2018-06-01 06:33] LABS: Mean Corpuscular Hemoglobin 23.8 pg (26-32)
[2018-06-01 06:46] LABS: ALBUMIN 3.4 g/dL (3.5-5.0); ANION GAP 15.2 MEQ/L (5-15); BILIRUBIN,TOTAL 0.2 mg/dL (0.2-1.3); Calcium 8.2 mg/dL (8.4-10.2); Creatinine 1 1.65 mg/dL (0.52-1.04); Potassium 4.3 mmol/L (3.5-5.1); Total Protein 6.7 g/dL (6.3-8.2)
[2018-06-01] MEDS: Sodium Chloride 0.9% 10 ML FLUSH Syringe IV SCH ×3 (06:51→22:31)
[2018-06-01] MEDS ORDERED: DUONEB 0.5-3 MG/3 ml Neb IH PRN (07:00)
[2018-06-01] MEDS: NovoLOG Insulin SQ PRN ×4 (07:57→22:31)
[2018-06-01] MEDS: NovoLOG Insulin SQ SCH ×3 (07:59→16:10)
--- NOTE | 2018-06-01 08:19 | PCM.NOTE ---
Date and Time: 06/01/18815 Subjective Assessment: Pt needed a nebulizer tx this morning but breathing was better after that. Down to 2L NC. Deshawn po well. no BS > 500. - Review of Systems Constitutional: No Fever Respiratory: Cough, Short Of Breath Objective Exam General Appearance: no apparent distress, alert, obese Neurologic Exam: oriented x 3, cooperative Skin Exam: normal color, warm, dry, No rash Eye Exam: eyes nml inspection Ears, Nose, Throat Exam: moist mucous membranes Neck Exam: normal inspection Respiratory Exam: normal breath sounds, lungs clear, No crackles/rales, No rhonchi, No wheezing Cardiovascular Exam: regular rate/rhythm, normal heart sounds, No murmur Gastrointestinal/Abdomen Exam: normal bowel sounds OBJECTIVE DATA Vital Signs: Vital Signs - 24 hr Temp Pulse Resp BP Pulse Ox 06/01/18 07:20 80 16 92 L 06/01/18 07:11 97.8 F 75 22 123/57 97 06/01/18 04:24 97.6 F 88 14 124/59 93 L 06/01/18 00:13 97.7 F 74 20 142/66 96 05/31/18 20:03 98.5 F 74 20 136/73 96 05/31/18 19:46 80 18 93 L 05/31/18 17:00 20 05/31/18 16:17 98 F 73 22 140/67 96 05/31/18 13:00 20 05/31/18 12:10 97.6 F 80 20 111/59 98 05/31/18 10:51 88 18 96 05/31/18 09:00 22 Oxygen-Last 24 hours O2 Percentage 2 Liters = 28% O2 Percentage 2 Liters = 28% O2 Percentage 2 Liters = 28% O2 Percentage 2 Liters = 28% O2 Percentage 2 Liters = 28% O2 Percentage 4 Liters = 36% Pain Assessment - Last Documented Pain Intensity [Anterior/ 10 Posterior Back] Pain Intensity 7 Pain Scale Used [facility] Intake and Output: Intake & Output 05/29/18 05/30/18 05/31/18 06/01/18 11:59 11:59 11:59 11:59 Intake Total 4237 2500 1640 Output Total 1177 4280 5050 Balance 6564 -3519 -2266 Weight 137.4 kg 136.8 kg 141.3 kg Lab Results: Accuchecks Date 05/31/18 Date 05/31/18 Time 16:30 Time 11:30 Accucheck Value: 360 Accucheck Value: 440 Accucheck Value: 456 Lab Results-Last 24 Hours 06/01/18 06/01/18 Range/Units 05:25 05:25 WBC 13.4 H (4.0-10.5) K/mm3 RBC 3.85 L (4.1-5.4) M/mm3 Hgb 9.2 L (12.0-16.0) gm/dl Hct 30.6 L (35-47) % MCV 79.5 (78-100) fl MCH 23.8 L (26-32) pg MCHC 30.1 L (32-36) g/dl RDW 15.6 H (11.5-14.0) % Plt Count 293 (150-450) K/mm3 MPV 11.5 H (6-9.5) fl Gran % 85.5 H (36.0-66.0) % Eos # (Auto) 0.01 (0-0.5) Absolute Lymphs (auto) 1.17 (1.0-4.6) Absolute Monos (auto) 0.75 (0.0-1.3) Lymphocytes % 8.7 L (24.0-44.0) % Monocytes % 5.6 (0.0-12.0) % Eosinophils % 0.1 (0.00-5.0) % Basophils % 0.1 (0.0-0.4) % Absolute Granulocytes 11.50 H (1.4-6.9) Basophils # 0.01 (0-0.4) Sodium 137 (137-145) mmol/L Potassium 4.3 (3.5-5.1) mmol/L Chloride 98 (98-107) mmol/L Carbon Dioxide 28 (22-30) mmol/L Anion Gap 15.2 H (5-15) MEQ/L BUN 58 H (7-17) mg/dL Creatinine 1.65 H (0.52-1.04) mg/dL Estimated GFR 36.3 ML/MIN Glucose 398 H (74-106) mg/dL Calcium 8.2 L (8.4-10.2) mg/dL Total Bilirubin 0.20 (0.2-1.3) mg/dL AST 15 (14-36) U/L ALT 19 (0-35) U/L Alkaline Phosphatase 158 H (38-126) U/L Serum Total Protein 6.7 (6.3-8.2) g/dL Albumin 3.4 L (3.5-5.0) g/dL Assessment/Plan (1) Hypoxia Current Visit: Yes Status: Resolved Onset Date: ~05/29/18 Code(s): R09.02 - HYPOXEMIA (2) Pneumonia Current Visit: Yes Status: Acute Onset Date: ~05/29/18 Qualifiers: Pneumonia type: due to unspecified organism Laterality: right Lung location: unspecified part of lung Qualified Code(s): J18.9 - Pneumonia, unspecified organism Assessment & Plan: Steadily improving. May be able to d/c home tomorrow on po antibiotics. Currently on rocephin and zithromax day #4 (will d/c zithromax). On prednisone 60mg po daily. Code(s): J18.9 - PNEUMONIA, UNSPECIFIED ORGANISM (3) CHF (congestive heart failure) Current Visit: Yes Status: Acute Onset Date: ~05/29/18 Qualifiers: Heart failure type: unspecified Heart failure chronicity: unspecified Qualified Code(s): I50.9 - Heart failure, unspecified Assessment & Plan: Doing well. on home bumex. Code(s): I50.9 - HEART FAILURE, UNSPECIFIED (4) COPD (chronic obstructive pulmonary disease) Current Visit: No Status: Chronic Qualifiers: COPD type: chronic bronchitis Chronic bronchitis type: unspecified Qualified Code(s): J42 - Unspecified chronic bronchitis (5) Diabetes type 2, uncontrolled Current Visit: No Status: Chronic Qualifiers: Diabetes mellitus buttermaker insulin use: with prison use Diabetes mellitus complication status: with neurologic complications Diabetes mellitus complication detail: with polyneuropathy Qualified Code(s): E11.42 - Type 2 diabetes mellitus with diabetic polyneuropathy; E11.65 - Type 2 diabetes mellitus with hyperglycemia; E11.65 - Type 2 diabetes mellitus with hyperglycemia; E11.65 - Type 2 diabetes mellitus with hyperglycemia; E11.65 - Type 2 diabetes mellitus with hyperglycemia; Z79.4 - penitentiary (current) use of insulin; Z79.4 - superintendent container terminal (current) use of insulin; Z79.4 - penitentiary (current ) use of insulin; Z79.4 - penitentiary (current) use of insulin Code(s): E11.65 - TYPE 2 DIABETES MELLITUS WITH HYPERGLYCEMIA (6) Peripheral neuropathy Current Visit: No Status: Chronic Qualifiers: Peripheral neuropathy type: polyneuropathy, unspecified Qualified Code(s): G62.9 - Polyneuropathy, unspecified Code(s): G62.9 - POLYNEUROPATHY, UNSPECIFIED (7) Wound, open, foot Current Visit: No Status: Chronic Qualifiers: Encounter type: subsequent encounter Laterality: unspecified laterality Qualified Code(s): S91.309D - Unspecified open wound, unspecified foot, subsequent encounter Assessment & Plan: PT to re-wrap (and debride) today. Code(s): S91.309A - UNSPECIFIED OPEN WOUND, UNSPECIFIED FOOT, INITIAL ENCOUNTER (8) Chronic renal insufficiency Current Visit: Yes Status: Acute Assessment & Plan: She is actually a little improved over her baseline - looking back to fall of 2017 she had several Cr around 1.7 and 1.8. Currently 1.65. Code(s): N18.9 - CHRONIC KIDNEY DISEASE, UNSPECIFIED
[2018-06-01] MEDS ORDERED: Zaroxolyn 2.5 MG PO SCH (09:00)
[2018-06-01] MEDS: LYRICA 100MG PO SCH ×3 (09:20→22:28)
[2018-06-01] MEDS: DELTASONE 20 MG PO SCH (09:21)
[2018-06-01] MEDS: NORVASC 5 MG PO SCH (09:23)
[2018-06-01] MEDS: Protonix 40MG Tablet PO SCH ×2 (09:25→22:28)
[2018-06-01] MEDS: Zestril 20 MG PO SCH ×2 (09:31→22:29)
[2018-06-01] MEDS: BUMEX 1 MG PO SCH ×2 (09:31→16:10)
[2018-06-01] MEDS: CLARITIN 10 MG PO SCH (09:31)
[2018-06-01] MEDS: COREG 12.5 MG PO SCH ×2 (09:32→22:28)
[2018-06-01] MEDS: Flonase NASAL NS SCH (09:33)
[2018-06-01] MEDS: ENOXAPARIN SODIUM SQ SCH (09:33)
[2018-06-01] MEDS: CORTISONE 1% CREAM TP SCH ×2 (09:33→22:31)
[2018-06-01] MEDS: Lantus Insulin SQ SCH ×2 (09:34→22:30)
[2018-06-01] MEDS: ROCEPHIN 1 Gm-D5w 50 ml Bag** 1 G/50 ML IVPB IV SCH (09:35)
[2018-06-01] MEDS: BUSPAR 5 MG PO SCH ×2 (10:03→22:29)
[2018-06-01] MEDS: Zocor 10MG PO SCH (22:28)
[2018-06-01] MEDS: Singulair 10 MG PO SCH (22:28)
[2018-06-01] MEDS: DESYREL 50 MG PO SCH (22:29)
[2018-06-01] MEDS: Cyclobenzaprine 10 MG PO SCH (22:29)
[2018-06-02] MEDS: PHENERGAN 25 MG PO PRN ×3 (00:17→12:31)
[2018-06-02] MEDS: NORCO 7.5/325 MG TAB PO PRN ×3 (00:17→12:29)
[2018-06-02] MEDS: PROVENTIL 2.5 MG/3 ML NEB IH SCH ×4 (05:14→14:42)
[2018-06-02] MEDS: Sodium Chloride 0.9% 10 ML FLUSH Syringe IV SCH (06:21)
[2018-06-02] MEDS: NovoLOG Insulin SQ SCH ×2 (08:04→11:35)
[2018-06-02] MEDS: NovoLOG Insulin SQ PRN ×2 (08:05→11:37)
[2018-06-02 08:56] LABS: BASOPHIL % 0.1 % (0.0-0.4); Basophil (Absolute #) 0.01 (0-0.4); Eosinophil % 0.1 % (0.00-5.0); Eosinophil (Absolute #) 0.01 (0-0.5); Granulocyte Absolute (ANC) 8.44 (1.4-6.9); Granulocytes % 78.9 % (36.0-66.0); Hematocrit 32.1 % (35-47); Hemoglobin 9.9 gm/dl (12.0-16.0); Lymphocyte (Absolute #) 1.73 (1.0-4.6); Lymphocytes % 16.2 % (24.0-44.0); Mean Cell Volume 78.9 fl (78-100); Mean Corpuscular Hemoglobin 24.3 pg (26-32); Mean Corpuscular Hgb Concent. 30.8 g/dl (32-36); Mean Platelet Volume 10.8 fl (6-9.5); Monocytes % 4.7 % (0.0-12.0); Platelet Count 254 K/mm3 (150-450); Red Blood Count 4.07 M/mm3 (4.1-5.4); Red Cell Distribution Width 15.8 % (11.5-14.0); White Blood Count 10.7 K/mm3 (4.0-10.5)
[2018-06-02] MEDS: Lantus Insulin SQ SCH (09:43)
[2018-06-02] MEDS: Zestril 20 MG PO SCH (09:45)
[2018-06-02] MEDS: BUSPAR 5 MG PO SCH (09:45)
[2018-06-02] MEDS: DELTASONE 20 MG PO SCH (09:45)
[2018-06-02] MEDS: BUMEX 1 MG PO SCH (09:46)
[2018-06-02] MEDS: CLARITIN 10 MG PO SCH (09:46)
[2018-06-02] MEDS: NORVASC 5 MG PO SCH (09:46)
[2018-06-02] MEDS: Protonix 40MG Tablet PO SCH (09:46)
[2018-06-02] MEDS: COREG 12.5 MG PO SCH (09:47)
[2018-06-02] MEDS: ENOXAPARIN SODIUM SQ SCH (09:47)
[2018-06-02] MEDS: Flonase NASAL NS SCH (09:48)
[2018-06-02] MEDS: CORTISONE 1% CREAM TP SCH (09:49)
[2018-06-02] MEDS: LYRICA 100MG PO SCH (09:50)
[2018-06-02] MEDS ORDERED: VITAMIN D2 PO SCH (10:00)
[2018-06-02 10:10] LABS: ANION GAP 15.2 MEQ/L (5-15); Calcium 8.7 mg/dL (8.4-10.2); Creatinine 1 1.41 mg/dL (0.52-1.04); Potassium 4.4 mmol/L (3.5-5.1)
[2018-06-02] MEDS: ROCEPHIN 1 Gm-D5w 50 ml Bag** 1 G/50 ML IVPB IV SCH (10:22)
[2018-06-02 12:16] VITALS: BP 140/94; O2SAT 99
--- NOTE | 2018-06-02 13:56 | PCM.DS ---
Discharge Summary Date of Admission: 05/29/18 16:04 Admitting Physician: KASSIDY REILLY Primary Care Provider: VILMA KEEN Allergies Allergies codeine [Codeine] Allergy (Severe, Verified 05/19/18 18:48) swelling throat diphenhydramine HCl [From Benadryl] Allergy (Severe, Verified 05/19/18 18:48) swelling to eyes and throat morphine Allergy (Severe, Verified 05/19/18 18:48) swelling throat doxycycline calcium [From Vibramycin] Allergy (Mild, Verified 05/19/18 18:48) Rash doxycycline hyclate [From Vibramycin] Allergy (Mild, Verified 05/19/18 18:48) Rash doxycycline monohydrate [From Vibramycin] Allergy (Mild, Verified 05/19/18 18:48 ) Rash acetaminophen [From Darvocet-N] Allergy (Verified 05/19/18 18:48) Penicillins Allergy (Verified 05/19/18 18:48) propoxyphene napsylate [From Darvocet-N] Allergy (Verified 05/19/18 18:48) Sulfa (Sulfonamide Antibiotics) Allergy (Verified 05/19/18 18:48) Rash Hospital Summary - Hospital Course Hospital Course: Pt admitted through ER with pneumonia and elevated BS. Placed on IV rocephin, zithromax, and solumedrol. Initially on Bipap but now on 2L NC and breathing well. Her BS were over 500 with the IV steroids so they were changed to po after 2 days. Her renal function is decreased but is actually a little improved over baseline. She was initially thought to have a CHF exacerbation and was on IV lasix 40mg BID but that was decreased to 20mg then discontinued ( pt takes it prn at home). She continued her 2mg bumex BID throughout her stay. She has tolerated po well. - Vitals & Intake/Output Vital Signs: Vital Signs Temperature 97.8 F 06/02/18 12:15 Pulse Rate 84 06/02/18 12:15 Respiratory Rate 20 06/02/18 13:00 Blood Pressure 140/94 06/02/18 12:15 O2 Sat by Pulse Oximetry 99 06/02/18 12:15 Oxygen-Last Documented O2 Percentage 2 Liters = 28% Intake & Output: Intake & Output 07/08/18 06/01/18 06/02/18 06/03/18 11:59 11:59 11:59 11:59 Intake Total 2500 1640 1020 100 Output Total 4280 5050 950 850 Balance -1780 -3410 70 -750 Weight 136.8 kg 141.3 kg 145.2 kg - Lab Result Diagrams: 06/02/18 08:45 06/02/18 08:45 Lab Results-Last 24 Hrs: Accuchecks Date 06/02/18 Date 06/02/18 Date 06/01/18 Date 06/01/18 Time 22:00 Time 16:13 Accucheck Value: 288 Accucheck Value: 257 Accucheck Value: 276 Accucheck Value: 250 Lab Results-Last 24 Hours 06/02/18 06/02/18 Range/Units 08:45 08:45 WBC 10.7 H (4.0-10.5) K/mm3 RBC 4.07 L (4.1-5.4) M/mm3 Hgb 9.9 L (12.0-16.0) gm/dl Hct 32.1 L (35-47) % MCV 78.9 (78-100) fl MCH 24.3 L (26-32) pg MCHC 30.8 L (32-36) g/dl RDW 15.8 H (11.5-14.0) % Plt Count 254 (150-450) K/mm3 MPV 10.8 H (6-9.5) fl Gran % 78.9 H (36.0-66.0) % Eos # (Auto) 0.01 (0-0.5) Absolute Lymphs (auto) 1.73 (1.0-4.6) Absolute Monos (auto) 0.50 (0.0-1.3) Lymphocytes % 16.2 L (24.0-44.0) % Monocytes % 4.7 (0.0-12.0) % Eosinophils % 0.1 (0.00-5.0) % Basophils % 0.1 (0.0-0.4) % Absolute Granulocytes 8.44 H (1.4-6.9) Basophils # 0.01 (0-0.4) Sodium 136 L (137-145) mmol/L Potassium 4.4 (3.5-5.1) mmol/L Chloride 96 L (98-107) mmol/L Carbon Dioxide 29 (22-30) mmol/L Anion Gap 15.2 H (5-15) MEQ/L BUN 63 H (7-17) mg/dL Creatinine 1.41 H (0.52-1.04) mg/dL Estimated GFR 43.5 ML/MIN Glucose 275 H (74-106) mg/dL Calcium 8.7 (8.4-10.2) mg/dL Micro Results-Entire Visit: Microbiology 05/29/18 13:30 Urine Culture - Final Catherized MIXED KAYLENE; 3 OR MORE TYPES. NO PREDOMINANT ORGANISM. NO FURTHER WORKUP. PLEASE RESUBMIT IF CLINICALLY INDICATED. 05/29/18 13:30 Blood Culture - Preliminary Blood NO GROWTH TO DATE 05/29/18 13:50 Blood Culture - Preliminary Blood NO GROWTH TO DATE Accuchecks Date 06/02/18 Date 06/02/18 Date 06/01/18 Date 06/01/18 Time 22:00 Time 16:13 Accucheck Value: 288 Accucheck Value: 257 Accucheck Value: 276 Accucheck Value: 250 - Procedures and Test Procedures and Tests throughout Hospitalization: Therapy Orders & Screens 05/29/18 16:10 Respiratory Therapy Consult ROUTINE Comment: Reason For Exam: 05/29/18 16:26 BiPap/CPAP ROUTINE Comment: Respiratory Nebulizer UD Comment: ALBUTEROL Q2PRN 05/29/18 17:31 Oxygen OXYMIZER-LPM 12% Comment: Diagnosis: HYPOXIA, PNEUMONIA, HYPERGLYCEMIA, EXAC COPD 05/29/18 18:12 PT Screen per Nursing Assess ONCE Comment: Protocol Order Physician Instructions: Greater than 3 points order PT Admission Screenin Reason For Exam: Triggered on Admission Diagnosis: PNEUMONIA Open Wound/Cellutlitis/Pressure Ulcers: Yes Acute Fx/ORIF/Change in wt bearing status: No Severe MUSCULOSKELETAL pain: Yes ADL Dysfunction: Yes Acute CVA w/Hemiparesis/Hemiplegia: No Decreased Functional Mobility/Strength: Yes Sprain/Strain: No Acute Post-op Mobility Dysfunction: No Total Points: 14 RT Screen per Nursing Assess ONCE Comment: Protocol Order Physician Instructions: Greater than 3 points order RT Admission Screen Reason For Exam: Triggered on Admission Diagnosis: PNEUMONIA Diagnosis: PNEUMONIA Pneumonia: Yes Home O2: Yes Asthma: Yes CHF: Yes Home CPAP/BIPAP: No Home Nebs/MDI: Yes Total Points: 20 ST Screen per Nursing Assess once Comment: Protocol Order Physician Instructions: Greater than [address] Admission Screening Reason For Exam: Triggered on Admission Diagnosis: PNEUMONIA CVA/Dyshpagia/Aphasia: No Cognitive Deficits: No Dehydration/Nutrition Deficit: No Reflux: Yes Oral-Motor Difficulties: No Pneumonia: Yes Prison Resident: No Total Points: 8 05/29/18 19:00 Respiratory Nebulizer Q4H Comment: ALBUTEROL Q4 05/31/18 19:00 Respiratory Nebulizer PRN Comment: Diagnosis: PNEUMONIA 06/01/18 07:23 Oxygen NASAL CANNULA 2 lpm Comment: Diagnosis: PNEUMONIA Discharge Exam General Appearance: no apparent distress, alert, obese Neurologic Exam: oriented x 3, cooperative Skin Exam: normal color, warm, dry, No rash Eye Exam: eyes nml inspection Respiratory Exam: lungs clear, diminished breath sounds, prolonged expirations, No crackles/rales, No rhonchi, No wheezing Cardiovascular Exam: regular rate/rhythm, normal heart sounds, No murmur Gastrointestinal/Abdomen Exam: normal bowel sounds Extremity Exam: other (feet wrapped bilat) Back Exam: normal inspection, No rash Final Diagnosis/Problem List - Final Discharge Diagnosis/Problem (1) Pneumonia Current Visit: Yes Status: Acute Onset Date: ~05/29/18 Assessment & Plan: much improved. Home on cefdinir x 7d. Prednisone x 5d. (2) CHF (congestive heart failure) Current Visit: Yes Status: Chronic Onset Date: ~05/29/18 (3) COPD (chronic obstructive pulmonary disease) Current Visit: No Status: Chronic (4) Diabetes type 2, uncontrolled Current Visit: No Status: Chronic Assessment & Plan: Home on basaglar 40 units BID and apidra 18 units TID. Will likely need to decrease the insulin when her steroid stops. (5) Peripheral neuropathy Current Visit: No Status: Chronic (6) Wound, open, foot Current Visit: No Status: Chronic Assessment & Plan: Continue with PT. Last pictures of the foot actually look much improved! (7) Chronic renal insufficiency Current Visit: Yes Status: Chronic Assessment & Plan: Cr 1.41 today, much improved. Home on bumex 2mg po BID. - Discharge Disposition: Home, Self-Care Condition: Stable Prescriptions: New Prednisone 20 mg [Deltasone 20 mg] 20 mg PO DAILY #9 tablet Cefdinir 300 mg [Omnicef 300 mg] 300 mg PO BID #20 capsule Continue Pregabalin [Lyrica 100Mg] 100 mg PO TID Ergocalciferol (Vitamin D2) [Vitamin D] 1.25 mg PO .TUES/THURS Trazodone HCl 50 mg [Desyrel 50 mg] 100 mg PO HS Amlodipine Besylate 10 mg [Norvasc 10 MG] 10 mg PO DAILY Promethazine HCl 25 mg [Phenergan 25 mg] 12.5 mg PO Q6H PRN PRN #30 tablet PRN Reason: Nausea Loratadine 10 mg [Claritin 10 mg] 10 mg PO DAILY AMITRIPTYLINE HCL 50 mg Tab [AMITRIPTYLINE HCL 50 mg Tablet] 50 mg PO QID Albuterol Sulfate [Proventil Hfa] 6.7 gm IH QID PRN Albuterol 2.5 mg/3 ml Neb [Proventil 2.5 mg/3 ml Neb] 2.5 mg NEB Q4HPRN PRN PRN Reason: Shortness Of Breath Montelukast Sodium 10 mg [Singulair 10 MG] 10 mg PO HS Hydrocodone Bit/Acetaminophen [[place] 7.5-325 Tablet] 1 each PO Q6H PRN PRN PRN Reason: Pain Carvedilol 12.5 mg [Coreg 12.5 mg] 12.5 mg PO BID Omeprazole 20 MG [Prilosec 20 mg] 20 mg PO BID Furosemide 40 mg [Lasix 40 MG] 40 mg PO DAILY PRN PRN PRN Reason: swelling Metolazone 2.5 mg [Zaroxolyn 2.5 MG] 2.5 mg PO MOWEFR Insulin Glulisine [Apidra Solostar] 18 unit SQ TIDWMEALS Buspirone HCl 1 tablet PO BID Hydrocortisone 1% Cream [Cortisone 1% Cream] 1 gm TP BID Cyclobenzaprine HCl 5 mg PO HS Lisinopril 20 mg PO BID Fluticasone Propionate [Allergy Relief] 1 spray IH DAILY Atorvastatin Calcium 10 mg PO DAILY Insulin Glargine,Hum.rec.anlog [Angieaglar Tompen U-100] 40 unit SQ BID 30 Days insuln.pen Bumetanide 1 mg [Bumex 1 mg] 2 mg PO BID 30 Days #120 tablet Instructions: Heart Failure, Adult (DC), Pneumonia, Adult (DC) Additional Instructions: CALL [facility] AT WHEN YOU GET HOME TO SCHEDULE AN APPOINTMENT FOR THE [facility] TO DO AN EQUIPMENT CHECK. Follow up with: VILMA KEEN [Primary Care Provider] - 06/10/18 10:30 am Forms: Discharge Instructions
[2018-06-02 14:44] VITALS: PULSE 80
== END 2018-06-02 15:15 | disposition home or self-care (01) | DRG 194 ==
LOC: ED 13:09 → ICU 16:04 → MED SURG 05-31 10:19
PROVIDERS: ADMIT Family Medicine; ATTEND Family Medicine
DX: J18.9 Pneumonia, unspecified organism (principal); J96.11 Chronic respiratory failure with hypoxia; I50.9 Heart failure, unspecified; J44.9 Chronic obstructive pulmonary disease, unspecified; E11.65 Type 2 diabetes mellitus with hyperglycemia; G62.9 Polyneuropathy, unspecified; S91.302A Unspecified open wound, left foot, initial encounter; S91.309D Unspecified open wound, unspecified foot, subsequent encounter; I12.9 Hypertensive chronic kidney disease with stage 1 through stage 4 chronic kidney disease, or unspecified chronic kidney disease; N18.9 Chronic kidney disease, unspecified; I73.9 Peripheral vascular disease, unspecified; F41.8 Other specified anxiety disorders; K21.9 Gastro-esophageal reflux disease without esophagitis; Z87.891 Personal history of nicotine dependence
CPT/HCPCS: 36000; 36415; 36600; 71045; 80048; 80053; 81000; 82375; 82803; 82947; 82962; 83605; 83880; 84484; 85025; 85379; 85610; 85730; 87040; 87086; 93041; 94002; 94003; 94150; 94640; 94760; 96365; 96372; 96374; 96375; 99285; J0456; J0696; J1650; J1815; J1940; J2920; J7609; A9270-GY

== ENCOUNTER 2018-06-14 14:06 | Inpatient (IN) | payer OTHER ==
[2018-06-14] MEDS ORDERED: FEVERALL 650 MG ONE (15:14)
[2018-06-14] MEDS ORDERED: Zofran 4 MG/2 ML VIAL IV ONE (15:16)
[2018-06-14] MEDS ORDERED: Sodium Chloride 0.9% 1000 ML 1,000 ML IV STA (15:16)
[2018-06-14] MEDS ORDERED: FEVERALL 650 MG PR STA (15:16)
[2018-06-14] MEDS ORDERED: FEVERALL 325 MG ONE (15:16)
--- NOTE | 2018-06-14 15:16 | ERPHSYRPT ---
- History of Present Illness Time Seen by Provider: 06/14/18 15:02 Source: patient, EMS Exam Limitations: no limitations Patient Subjective Stated Complaint: pt reports fever for several days-states that she has had pain-states that she has all over body aches-states that she has recently had a cough Triage Nursing Assessment: pt pale warm and [id number] in complete sentences with no increased work of breathing-no retractions noted-moist intermittant cough noted Physician History: The patient is a 42-year-old obese female brought in by ambulance from home where she complains of cough and fever for 3-4 days. She has recurrent pneumonia from time to time and think she has it again. She has not taken Tylenol or ibuprofen for the fever that has spiked to 104. Pt has also been vomiting for 4 days. She states that she fell earlier this week causing a fracture to her right lower leg. She was seen at [facility] for this. She has a little bit of a sore throat as well today. Her past medical history is significant for pneumonia, diabetes, hypertension, congestive heart failure, chronic respiratory failure, diabetic peripheral neuropathy, COPD, and chronic pain. Timing/Duration: day(s) (4) Fever Severity: severe Fever Therapy POLE MAKER: none Associated Symptoms: cough, nausea/vomiting Allergies/Adverse Reactions: codeine [Codeine] Allergy (Severe, Verified 06/14/18 14:13) swelling throat diphenhydramine HCl [From Benadryl] Allergy (Severe, Verified 06/14/18 14:13) swelling to eyes and throat morphine Allergy (Severe, Verified 06/14/18 14:13) swelling throat doxycycline calcium [From Vibramycin] Allergy (Mild, Verified 06/14/18 14:13) Rash doxycycline hyclate [From Vibramycin] Allergy (Mild, Verified 06/14/18 14:13) Rash doxycycline monohydrate [From Vibramycin] Allergy (Mild, Verified 06/14/18 14:13 ) Rash acetaminophen [From Darvocet-N] Allergy (Verified 06/14/18 14:13) Penicillins Allergy (Verified 06/14/18 14:13) propoxyphene napsylate [From Darvocet-N] Allergy (Verified 06/14/18 14:13) Sulfa (Sulfonamide Antibiotics) Allergy (Verified 07/22/18 14:13) Rash Home Medications: Pregabalin [Lyrica 100Mg] 100 mg PO TID 10/19/13 [History] Amlodipine Besylate 10 mg [Norvasc 10 MG] 10 mg PO DAILY 01/05/16 [History] Ergocalciferol (Vitamin D2) [Vitamin D] 1.25 mg PO .TUES/THURS 01/05/16 [History ] Trazodone HCl 50 mg [Desyrel 50 mg] 100 mg PO HS 01/05/16 [History] AMITRIPTYLINE HCL 50 mg Tab [AMITRIPTYLINE HCL 50 mg Tablet] 50 mg PO QID [History] Albuterol 2.5 mg/3 ml Neb [Proventil 2.5 mg/3 ml Neb] 2.5 mg NEB Q4HPRN PRN 11/08/16 [History] Albuterol Sulfate [Proventil Hfa] 6.7 gm IH QID PRN 11/08/16 [History] Loratadine 10 mg [Claritin 10 mg] 10 mg PO DAILY 11/08/16 [History] Hydrocodone Bit/Acetaminophen [[place] 7.5-325 Tablet] 1 each PO Q6H PRN PRN 07/04 [History] Montelukast Sodium 10 mg [Singulair 10 MG] 10 mg PO HS 07/04/17 [History] Carvedilol 12.5 mg [Coreg 12.5 mg] 12.5 mg PO BID 07/05/17 [History] Furosemide 40 mg [Lasix 40 MG] 40 mg PO DAILY PRN PRN 09/26/17 [History] Metolazone 2.5 mg [Zaroxolyn 2.5 MG] 2.5 mg PO MOWEFR 09/26/17 [History] Omeprazole 20 MG [Prilosec 20 mg] 20 mg PO BID 09/26/17 [History] Insulin Glulisine [Apidra Solostar] 18 unit SQ TIDWMEALS 01/28/18 [History] Atorvastatin Calcium 10 mg PO DAILY 05/20/18 [History] Buspirone HCl 1 tablet PO BID 05/20/18 [History] Cyclobenzaprine HCl 5 mg PO HS 05/20/18 [History] Fluticasone Propionate [Allergy Relief] 1 spray IH DAILY 05/20/18 [History] Hydrocortisone 1% Cream [Cortisone 1% Cream] 1 gm TP BID 05/20/18 [History ] Lisinopril 20 mg PO BID 05/20/18 [History] Hx Tetanus, Diphtheria Vaccination/Date Given: Yes Hx Influenza Vaccination/Date Given: No Hx Pneumococcal Vaccination/Date Given: Yes Immunizations Up to Date: Yes - Review of Systems Constitutional: Fever Eyes: No Symptoms Ears, Nose, & Throat: Throat Pain Respiratory: Cough Cardiac: No Chest Pain, No Edema, No Syncope Abdominal/Gastrointestinal: Nausea, Vomiting, No Diarrhea Genitourinary Symptoms: No Dysuria Musculoskeletal: Myalgias Skin: No Rash Neurological: No Dizziness, No Focal Weakness, No Sensory Changes Psychological: No Symptoms Endocrine: No Symptoms Hematologic/Lymphatic: No Symptoms Immunological/Allergic: No Symptoms All Other Systems: Reviewed and Negative - Past Medical History Pertinent Past Medical History: Yes Neurological History: Peripheral Neuropathy ENT History: No Pertinent History Cardiac History: Congestive Heart Failure, Hypertension, Peripheral Vascular Disease, Other Respiratory History: Asthma, CHF, COPD, Pneumonia Endocrine Medical History: Diabetes Type II Musculoskeletal History: Degenerative Disk Disease GI Medical History: Diverticulitis, GERD, Pancreatitis History: Renal Disease, Other Psycho-Social History: Anxiety, Depression Female Reproductive Disorders: No Pertinent History Other Medical History: LONG STANDING DM WITH MULTIPLE SECONDARY COMPLICATIONS;. HX OF FOOT WOUNDS AND OM. Heart murmer, ARDS (hardening of lungs), Chronic Renal Failure, Chronic hypoxemic respiratory failure - Past Surgical History Past Surgical History: Yes Neuro Surgical History: No Pertinent History Cardiac: No Pertinent History Respiratory: No Pertinent History Gastrointestinal: No Pertinent History Genitourinary: No Pertinent History Musculoskeletal: Other Female Surgical History: Tubal Ligation, Other Other Surgical History: D&C,childbirth x two; bone removed in left big toe - Social History Smoking Status: Former smoker How long have you smoked: 22 yrs Exposure to second hand smoke: Yes Drug Use: none Patient Lives Alone: No - Female History Hx Now: No - Nursing Vital Signs Nursing Vital Signs: Initial Vital Signs Temperature 103.2 F 06/14/18 14:09 Pulse Rate 125 H 06/14/18 14:09 Respiratory Rate 18 06/14/18 14:09 Blood Pressure 138/88 06/14/18 14:09 O2 Sat by Pulse Oximetry 98 06/14/18 14:09 Pain Scale Pain Intensity 6 - Physical Exam General Appearance: mild distress Eye Exam: PERRL/EOMI ENT Exam: normal ENT inspection, No pharyngeal erythema, No tonsillar exudate Neck Exam: supple, full range of motion, No meningismus Respiratory Exam: normal breath sounds, lungs clear, no respiratory distress Cardiovascular/Chest Exam: normal heart sounds, regular rate/rhythm, No murmur, No edema Gastrointestinal/Abdominal Exam: soft, non tender, no distention Pelvic Exam: not done Rectal Exam: not done Extremity Exam: normal capillary refill, inflammation (right foot and lower leg) , swelling (right foot and lower leg) Neurologic Exam: alert, oriented x 3, cooperative, in home 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 II-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 nml as tested, normal mood/affect, sensation nml, No motor deficits Skin Exam: normal color, warm, dry, No rash SpO2 Interpretation: normal SpO2: 98 Oxygen Delivery: Room Air - Radiology Exams Chest X-ray Interpretation: Interpreted by me, Negative (interval clearing of pneumonia from 1V cxr 05/29/18.) Abdomen X-ray Interpretation: Interpreted by me, Negative, Other (increased colonic fecal and colonic load.) Ordered Tests: Active Orders 24 hr Category Date Time Status IV Insertion STAT Care 06/14/18 15:16 Active CHEST 1 VIEW (PORTABLE) Stat Exams 06/14/18 16:33 Taken KUB Stat Exams 06/14/18 15:17 Taken BLOOD CULTURE Stat Lab 06/14/18 15:30 Received CBC W DIFF Stat Lab 06/14/18 15:30 Completed CMP Stat Lab 06/14/18 15:30 Completed LIPASE Stat Lab 06/14/18 15:30 Completed Lactic Acid Stat Lab 06/14/18 15:28 Completed TROPONIN Q3H Lab 06/14/18 15:30 Completed TROPONIN Q3H Lab 06/14/18 18:30 Ordered TROPONIN Q3H Lab 06/14/18 21:30 Ordered TROPONIN Q3H Lab 06/15/18 00:30 Ordered TROPONIN Q3H Lab 06/15/18 03:30 Ordered UA W/ MICROSCOPIC Stat Lab 06/14/18 17:34 Results Medication Summary Discontinued Medications Generic Name Dose Route Start Last Admin Trade Name Freq PRN Reason Stop Dose Admin Acetaminophen Confirm 06/14/18 15:14 Feverall 650 Mg Administered 06/14/18 15:15 Dose 650 mg .ROUTE .STK-MED ONE Acetaminophen Confirm 06/14/18 15:16 Feverall 325 Mg Administered 06/14/18 15:17 Dose 325 mg .ROUTE .STK-MED ONE Acetaminophen 975 mg 06/14/18 15:16 06/14/18 15:23 Feverall 650 Mg NV 06/14/18 15:17 975 mg STAT STA Administration Sodium Chloride 1,000 mls @ 999 mls/hr 06/14/18 15:16 06/14/18 15:34 Sodium Chloride 0.9% 1000 Ml IV 06/14/18 16:16 999 mls/hr .Q1H1M STA Administration Sodium Chloride Confirm 06/14/18 15:25 Sodium Chloride 0.9% 1000 Ml Administered 06/14/18 15:26 Dose 1,000 mls @ ud .ROUTE .STK-MED ONE Ondansetron HCl 4 mg 06/14/18 15:16 06/14/18 15:36 Zofran 4 Mg/2 Ml Vial IV 06/14/18 15:17 4 mg STAT ONE Administration Ondansetron HCl Confirm 06/14/18 15:25 Zofran 4 Mg/2 Ml Vial Administered 06/14/18 15:26 Dose 4 mg .ROUTE .STK-MED ONE Lab/Rad Data: Laboratory Result Diagrams 06/14/18 15:30 06/14/18 15:30 Laboratory Results 06/14/18 06/14/18 06/14/18 Range/Units 17:34 15:30 15:30 WBC (4.0-10.5) K/mm3 RBC (4.1-5.4) M/mm3 Hgb (12.0-16.0) gm/dl Hct (35-47) % MCV (78-100) fl MCH (26-32) pg MCHC (32-36) g/dl RDW (11.5-14.0) % Plt Count (150-450) K/mm3 MPV (6-9.5) fl Gran % (36.0-66.0) % Eos # (Auto) (0-0.5) Absolute Lymphs (auto) (1.0-4.6) Absolute Monos (auto) (0.0-1.3) Lymphocytes % (24.0-44.0) % Monocytes % (0.0-12.0) % Eosinophils % (0.00-5.0) % Basophils % (0.0-0.4) % Absolute Granulocytes (1.4-6.9) Basophils # (0-0.4) Sodium (137-145) mmol/L Potassium (3.5-5.1) mmol/L Chloride (98-107) mmol/L Carbon Dioxide (22-30) mmol/L Anion Gap (5-15) MEQ/L BUN (7-17) mg/dL Creatinine (0.52-1.04) mg/dL Estimated GFR ML/MIN Glucose (74-106) mg/dL Lactic Acid (0.4-2.0) Calcium (8.4-10.2) mg/dL Total Bilirubin (0.2-1.3) mg/dL AST (14-36) U/L ALT (0-35) U/L Alkaline Phosphatase (38-126) U/L Troponin I 0.014 (0.000-0.034) ng/mL Serum Total Protein (6.3-8.2) g/dL Albumin (3.5-5.0) g/dL Lipase (23-300) U/L Ur Collection Type VOID Urine Color YELLOW (YELLOW) Urine Appearance HAZY (CLEAR) Urine pH 5.0 (5-6) Ur Specific [place] 1.010 (1.005-1.025) Urine Protein 100 (Negative) Urine Ketones NEGATIVE (NEGATIVE) Urine Blood 50 (0-5) Jaren/ul Urine Nitrite NEGATIVE (NEGATIVE) Urine Bilirubin NEGATIVE (NEGATIVE) Urine Urobilinogen NORMAL (0-1) mg/dL Ur Leukocyte Esterase NEGATIVE (NEGATIVE) Urine Microscopic RBC 5-10 (0-2) /HPF Ur Epithelial Cells RARE (FEW) /HPF Urine Bacteria FEW (NEGATIVE) /HPF Urine Culture Reflexed YES (NO) Urine Glucose 1000 (NEGATIVE) mg/dL Group A Strep Antibody NEGATIVE (NEGATIVE) Specimen Received 06/14/18 1740 06/14/18 06/14/18 06/14/18 Range/Units 15:30 15:30 15:28 WBC 17.3 H (4.0-10.5) K/mm3 RBC 4.65 (4.1-5.4) M/mm3 Hgb 11.1 L (12.0-16.0) gm/dl Hct 34.7 L (35-47) % MCV 74.6 L (78-100) fl MCH 23.8 L (26-32) pg MCHC 32.0 (32-36) g/dl RDW 15.2 H (11.5-14.0) % Plt Count 314 (150-450) K/mm3 MPV 11.4 H (6-9.5) fl Gran % 86.5 H (36.0-66.0) % Eos # (Auto) 0.06 (0-0.5) Absolute Lymphs (auto) 1.05 (1.0-4.6) Absolute Monos (auto) 1.17 (0.0-1.3) Lymphocytes % 6.1 L (24.0-44.0) % Monocytes % 6.8 (0.0-12.0) % Eosinophils % 0.3 (0.00-5.0) % Basophils % 0.3 (0.0-0.4) % Absolute Granulocytes 15.00 H (1.4-6.9) Basophils # 0.05 (0-0.4) Sodium 129 L (137-145) mmol/L Potassium 4.0 (3.5-5.1) mmol/L Chloride 91 L (98-107) mmol/L Carbon Dioxide 28 (22-30) mmol/L Anion Gap 14.2 (5-15) MEQ/L BUN 38 H (7-17) mg/dL Creatinine 1.76 H (0.52-1.04) mg/dL Estimated GFR 33.7 ML/MIN Glucose 436 H (74-106) mg/dL Lactic Acid 1.3 (0.4-2.0) Calcium 9.5 (8.4-10.2) mg/dL Total Bilirubin 0.50 (0.2-1.3) mg/dL AST 12 L (14-36) U/L ALT 18 (0-35) U/L Alkaline Phosphatase 206 H (38-126) U/L Troponin I (0.000-0.034) ng/mL Serum Total Protein 7.8 (6.3-8.2) g/dL Albumin 4.0 (3.5-5.0) g/dL Lipase 193 (23-300) U/L Ur Collection Type Urine Color (YELLOW) Urine Appearance (CLEAR) Urine pH (5-6) Ur Specific [place] (1.005-1.025) Urine Protein (Negative) Urine Ketones (NEGATIVE) Urine Blood (0-5) Jaren/ul Urine Nitrite (NEGATIVE) Urine Bilirubin (NEGATIVE) Urine Urobilinogen (0-1) mg/dL Ur Leukocyte Esterase (NEGATIVE) Urine Microscopic RBC (0-2) /HPF Ur Epithelial Cells (FEW) /HPF Urine Bacteria (NEGATIVE) /HPF Urine Culture Reflexed (NO) Urine Glucose (NEGATIVE) mg/dL Group A Strep Antibody (NEGATIVE) Specimen Received - Progress Discussed with : Yan Will see patient in: hospital (observation) (Per Dr Heredia for Dr Brooks) Counseled pt/family regarding: lab results, diagnosis, rad results - Departure Time of Disposition: 18:08 Departure Disposition: Observation (per Dr Heredia for Dr Brooks.) Clinical Impression: Cellulitis Condition: Stable Critical Care Time: No Referrals: VILMA BROOKS [Primary Care Provider] -
[2018-06-14] MEDS ORDERED: Zofran 4 MG/2 ML VIAL ONE (15:25)
[2018-06-14] MEDS ORDERED: Sodium Chloride 0.9% 1000 ML 1,000 ML ONE (15:25)
[2018-06-14 15:40] LABS: BASOPHIL % 0.3 % (0.0-0.4); Basophil (Absolute #) 0.05 (0-0.4); Eosinophil % 0.3 % (0.00-5.0); Eosinophil (Absolute #) 0.06 (0-0.5); Granulocytes % 86.5 % (36.0-66.0); Hematocrit 34.7 % (35-47); Hemoglobin 11.1 gm/dl (12.0-16.0); Lymphocyte (Absolute #) 1.05 (1.0-4.6); Lymphocytes % 6.1 % (24.0-44.0); Mean Cell Volume 74.6 fl (78-100); Mean Platelet Volume 11.4 fl (6-9.5); Monocyte (Absolute #) 1.17 (0.0-1.3); Monocytes % 6.8 % (0.0-12.0); Platelet Count 314 K/mm3 (150-450); Red Blood Count 4.65 M/mm3 (4.1-5.4); Red Cell Distribution Width 15.2 % (11.5-14.0); White Blood Count 17.3 K/mm3 (4.0-10.5)
[2018-06-14 15:47] LABS: Mean Corpuscular Hemoglobin 23.8 pg (26-32)
[2018-06-14 15:58] LABS: ANION GAP 14.2 MEQ/L (5-15); BILIRUBIN,TOTAL 0.5 mg/dL (0.2-1.3); Calcium 9.5 mg/dL (8.4-10.2); Creatinine 1 1.76 mg/dL (0.52-1.04); Total Protein 7.8 g/dL (6.3-8.2)
[2018-06-14 17:52] LABS: Appearance HAZY (CLEAR); Glucose 1000 mg/dL (NEGATIVE); Leukocyte Esterase NEGATIVE (NEGATIVE); Nitrite NEGATIVE (NEGATIVE); Protein,Urine Dip 100 (Negative)
[2018-06-14 17:53] LABS: Bacteria FEW /HPF (NEGATIVE); Bilirubin NEGATIVE (NEGATIVE); Blood 50 Ery/ul (0-5); Epithelial Cells RARE /HPF (FEW); Ketones NEGATIVE (NEGATIVE); Urobilinogen NORMAL mg/dL (0-1)
[2018-06-14] MEDS ORDERED: PROVENTIL 2.5 MG/3 ML NEB IH ONE (18:49)
[2018-06-14] MEDS: PROVENTIL 2.5 MG/3 ML NEB IH SCH ×2 (18:53→23:01)
[2018-06-14] MEDS: Sodium Chloride 0.9% 1000 ML 1,000 ML IV SCH (20:07)
[2018-06-14] MEDS: CLINDAMYCIN-D5W 900 MG/50 ML*** 900 MG/50 ML BAG IV SCH (20:07)
--- NOTE | 2018-06-14 20:13 | XRAY ---
Indication: Fever. Comparison: May 29, 2018. Portable apical lordotic chest demonstrates interval right lung clearing with minimal residual right base infiltrate/atelectasis. Remaining heart, lungs, and bony thorax normal.
--- NOTE | 2018-06-14 20:15 | XRAY ---
Indication: Vomiting. Fever. Comparison: None KUB nonacute and nonobstructed with moderate right hemicolon fecal debris. A few right mid abdomen calcifications, possibly pancreatic calcifications as seen in chronic pancreatitis. Remaining solid organs and osseous structures unremarkable.
[2018-06-14] MEDS: NORCO 7.5/325 MG TAB PO PRN (21:48)
[2018-06-14] MEDS: COREG 12.5 MG PO SCH (21:48)
[2018-06-14] MEDS: LYRICA 100MG PO SCH (21:49)
[2018-06-14] MEDS: Zestril 20 MG PO SCH (21:49)
[2018-06-14] MEDS: Protonix 40MG Tablet PO SCH (21:49)
[2018-06-14] MEDS: BUSPAR 5 MG PO SCH (21:49)
[2018-06-14] MEDS: Cyclobenzaprine 10 MG PO SCH (21:50)
[2018-06-14] MEDS: DESYREL 50 MG PO SCH (21:50)
[2018-06-14] MEDS: Singulair 10 MG PO SCH (21:50)
[2018-06-14] MEDS: NovoLOG Insulin SQ PRN (21:51)
[2018-06-14] MEDS: PHENERGAN 25 MG PO PRN (21:56)
[2018-06-15] MEDS: NovoLOG Insulin SQ PRN ×6 (00:53→23:31)
[2018-06-15] MEDS: PROVENTIL 2.5 MG/3 ML NEB IH SCH ×6 (02:48→22:52)
[2018-06-15] MEDS: Sodium Chloride 0.9% 1000 ML 1,000 ML IV SCH ×3 (03:06→23:40)
[2018-06-15] MEDS: NORCO 7.5/325 MG TAB PO PRN ×4 (03:52→23:30)
[2018-06-15] MEDS: PHENERGAN 25 MG PO PRN ×4 (03:54→23:33)
[2018-06-15 04:26] LABS: ANION GAP 12.1 MEQ/L (5-15); Calcium 8.7 mg/dL (8.4-10.2); Creatinine 1 2.49 mg/dL (0.52-1.04); Potassium 4.2 mmol/L (3.5-5.1)
[2018-06-15 04:30] LABS: BASOPHIL % 0.3 % (0.0-0.4); Basophil (Absolute #) 0.05 (0-0.4); Eosinophil % 1.2 % (0.00-5.0); Granulocyte Absolute (ANC) 13.07 (1.4-6.9); Granulocytes % 80.2 % (36.0-66.0); Hematocrit 31.1 % (35-47); Hemoglobin 9.6 gm/dl (12.0-16.0); Lymphocyte (Absolute #) 1.67 (1.0-4.6); Lymphocytes % 10.2 % (24.0-44.0); Mean Cell Volume 77.2 fl (78-100); Mean Corpuscular Hemoglobin 23.8 pg (26-32); Mean Corpuscular Hgb Concent. 30.9 g/dl (32-36); Mean Platelet Volume 11.5 fl (6-9.5); Monocyte (Absolute #) 1.32 (0.0-1.3); Monocytes % 8.1 % (0.0-12.0); Platelet Count 277 K/mm3 (150-450); Red Blood Count 4.03 M/mm3 (4.1-5.4); Red Cell Distribution Width 15.3 % (11.5-14.0); White Blood Count 16.3 K/mm3 (4.0-10.5)
[2018-06-15] MEDS ORDERED: Ventolin Hfa MDI IH SCH (07:00)
[2018-06-15] MEDS: CLINDAMYCIN-D5W 900 MG/50 ML*** 900 MG/50 ML BAG IV SCH ×3 (07:08→17:38)
[2018-06-15] MEDS ORDERED: PROVENTIL COMMON CANISTER IH PRN ×2 (07:08→07:10)
[2018-06-15] MEDS ORDERED: INSULIN GLULISINE SQ SCH (08:00)
[2018-06-15] MEDS: NovoLOG Insulin SQ SCH ×3 (08:16→16:47)
--- NOTE | 2018-06-15 08:34 | PCM.HP ---
History of Present Illness - Chief Complaint Chief Complaint: cellulitis History of Present Illness: is a 42 year old female pt of mine with uncontrolled DM and peripheral neuropathy, renal insufficiency, and COPD from [facility] who came to ER with 4d of fever and foot pain. She was admitted with cellulitis on clindamycin. Four days ago she had been to ER at [place] and discharged to home with no antibiotics. She started running a fever that night up to 104. She also had decreased appetite and vomiting. She has recently been treated by PT at [facility] for second degree edwards of the feet but has missed the last 2 weeks of her therapy. Her BS have been in the 300s at home for the past several days. - Review of Systems Constitutional: Fever, Fatigue Respiratory: Cough Abdominal/Gastrointestinal: Nausea, Vomiting Psychological: No Suicidal Ideations, No Homicidal Ideations All Other Systems: Reviewed and Negative Medications & Allergies Home Medications: Home Medication List Pregabalin [Lyrica 100Mg] 100 mg PO TID 10/19/13 [History Confirmed 06/14/18] Amlodipine Besylate 10 mg [Norvasc 10 MG] 10 mg PO DAILY 01/05/16 [History Confirmed 06/14/18] Ergocalciferol (Vitamin D2) [Vitamin D] 1.25 mg PO .TUES/THURS 01/05/16 [ History Confirmed 06/14/18] Trazodone HCl 50 mg [Desyrel 50 mg] 100 mg PO HS 01/05/16 [History Confirmed 06/14/18] Promethazine HCl 25 mg [Phenergan 25 mg] 12.5 mg PO Q6H PRN PRN #30 tablet 03/21/16 [Rx Confirmed 06/14/18] AMITRIPTYLINE HCL 50 mg Tab [AMITRIPTYLINE HCL 50 mg Tablet] 50 mg PO QID [History Confirmed 06/14/18] Albuterol 2.5 mg/3 ml Neb [Proventil 2.5 mg/3 ml Neb] 2.5 mg NEB Q4HPRN PRN 11/08/16 [History Confirmed 06/14/18] Albuterol Sulfate [Proventil Hfa] 6.7 gm IH QID PRN 11/08/16 [History Confirmed 06/14/18] Loratadine 10 mg [Claritin 10 mg] 10 mg PO DAILY 11/08/16 [History Confirmed 06/14/18] Hydrocodone Bit/Acetaminophen [[place] 7.5-325 Tablet] 1 each PO Q6H PRN PRN 07/04 [History Confirmed 06/14/18] Montelukast Sodium 10 mg [Singulair 10 MG] 10 mg PO HS 07/04/17 [History Confirmed 06/14/18] Carvedilol 12.5 mg [Coreg 12.5 mg] 12.5 mg PO BID 07/05/17 [History Confirmed 06/14/18] Furosemide 40 mg [Lasix 40 MG] 40 mg PO DAILY PRN PRN 09/26/17 [History Confirmed 06/14/18] Metolazone 2.5 mg [Zaroxolyn 2.5 MG] 2.5 mg PO MOWEFR 09/26/17 [History Confirmed 06/14/18] Omeprazole 20 MG [Prilosec 20 mg] 20 mg PO BID 09/26/17 [History Confirmed 06/14] Insulin Glulisine [Apidra Solostar] 18 unit SQ TIDWMEALS 01/28/18 [History Confirmed 06/14/18] Atorvastatin Calcium 10 mg PO DAILY 05/20/18 [History Confirmed 06/14/18] Buspirone HCl 1 tablet PO BID 05/20/18 [History Confirmed 06/14/18] Cyclobenzaprine HCl 5 mg PO HS 05/20/18 [History Confirmed 06/14/18] Fluticasone Propionate [Allergy Relief] 1 spray IH DAILY 05/20/18 [History Confirmed 06/14/18] Hydrocortisone 1% Cream [Cortisone 1% Cream] 1 gm TP BID 05/20/18 [ History Confirmed 06/14/18] Lisinopril 20 mg PO BID 05/20/18 [History Confirmed 06/14/18] Bumetanide 1 mg [Bumex 1 mg] 2 mg PO BID 30 Days #120 tablet 05/22/18 [Rx Confirmed 06/14/18] Insulin Glargine,Hum.rec.anlog [Angieaglvidhi Santospen U-100] 40 unit SQ BID 30 Days insuln.pen 05/22/18 [Rx Confirmed 06/14/18] Cefdinir 300 mg [Omnicef 300 mg] 300 mg PO BID #20 capsule 06/02/18 [Rx Confirmed 06/14/18] Prednisone 20 mg [Deltasone 20 mg] 20 mg PO DAILY #9 tablet 06/02/18 [Rx Confirmed 06/14/18] Allergies/Adverse Reactions: Allergies Allergy/AdvReac Type Severity Reaction Status Date / Time codeine [Codeine] Allergy Severe swelling Verified 06/14/18 14:13 throat diphenhydramine HCl Allergy Severe swelling Verified 06/14/18 14:13 [From Benadryl] to eyes and throat morphine Allergy Severe swelling Verified 06/14/18 14:13 throat doxycycline calcium Allergy Mild Rash Verified 06/14/18 14:13 [From Vibramycin] doxycycline hyclate Allergy Mild Rash Verified 06/14/18 14:13 [From Vibramycin] doxycycline monohydrate Allergy Mild Rash Verified 06/14/18 14:13 [From Vibramycin] acetaminophen Allergy Verified 06/14/18 14:13 [From Darvocet-N] Penicillins Allergy Verified 06/14/18 14:13 propoxyphene napsylate Allergy Verified 06/14/18 14:13 [From Darvocet-N] Sulfa (Sulfonamide Allergy Rash Verified 06/14/18 14:13 Antibiotics) - Past Medical History Past Medical History: Yes Neurological History: Peripheral Neuropathy ENT History: No Pertinent History Cardiac History: Congestive Heart Failure, Hypertension, Peripheral Vascular Disease, Other Respiratory History: Asthma, CHF, COPD, Pneumonia Endocrine Medical History: Diabetes Type II Musculoskelatal History: Degenerative Disk Disease GI Medical History: Diverticulitis, GERD, Pancreatitis History: Renal Disease, Other Pyscho-Social History: Anxiety, Depression Reproductive Disorders: No Pertinent History Comment: LONG STANDING DM WITH MULTIPLE SECONDARY COMPLICATIONS;. HX OF FOOT WOUNDS AND OM. Heart murmer, ARDS (hardening of lungs), Chronic Renal Failure, Chronic hypoxemic respiratory failure - Female History Are you now?: No - Past Surgical History Past Surgical History: Yes Neuro Surgical History: No Pertinent History Cardiac History: No Pertinent History Respiratory Surgery: No Pertinent History GI Surgical History: No Pertinent History Genitourinary Surgical Hx: No Pertinent History Musculskeletal Surgical Hx: Other Female Surgical History: Tubal Ligation, Other Other Surgical History: D&C,childbirth x two; bone removed in left big toe - Social History Smoking Status: Former smoker How long have you smoked: 27 years Exposure to second hand smoke: Yes Alcohol: None Drug Use: none - Physical Exam Vital Signs: Vital Signs - 24 hr Temp Pulse Resp BP Pulse Ox 06/15/18 08:00 98.7 F 91 H 18 111/63 94 L 06/15/18 06:37 90 18 92 L 06/15/18 04:00 98.9 F 90 20 109/58 99 06/15/18 02:48 89 17 99 06/15/18 00:00 99.2 F 94 H 20 101/73 97 06/14/18 23:01 96 H 16 98 06/14/18 20:21 98.9 F 102 H 20 125/66 100 06/14/18 18:53 102 H 20 100 06/14/18 18:12 98 06/14/18 17:50 100 H 22 119/75 99 06/14/18 17:17 101.6 F 06/14/18 16:50 104 H 22 123/64 98 06/14/18 16:42 101.6 F 06/14/18 15:50 113 H 20 120/60 97 06/14/18 15:22 103.8 F 06/14/18 14:09 103.2 F 125 H 18 138/88 98 Oxygen-Last 24 hours O2 Percentage 2 Liters = 28% O2 Percentage 2 Liters = 28% O2 Percentage 2 Liters = 28% O2 Percentage 2 Liters = 28% O2 Percentage 2 Liters = 28% O2 Percentage 2 Liters = 28% General Appearance: no apparent distress, obese Neurologic Exam: alert, oriented x 3, cooperative Eye Exam: eyes nml inspection Ears, Nose, Throat Exam: moist mucous membranes Respiratory Exam: diminished breath sounds, No crackles/rales, No rhonchi, No wheezing Cardiovascular Exam: regular rate/rhythm, other (diminished heart sounds) Extremity Exam: other (R foot; dorsum with erythema; medially is healing. 4th digit with yellow exudate, moreso medially. edematous. plantar surface of 4th digit wiht yellow exudate. there is an odor. Pedal pulse is palpable. Warmth is present to mid lower leg. L foot with healed burn medial plantar surface. pedal pulse is palpable.) Results - Labs Lab/Micro Results: Accuchecks Date 06/15/18 Date 06/14/18 Time 00:50 Time 22:00 Accucheck Value: 349 Accucheck Value: 391 Accucheck Value: 369 Lab Results-Last 24 Hours 06/14/18 06/14/18 06/14/18 Range/Units 09:00 09:00 15:28 WBC (4.0-10.5) K/mm3 RBC (4.1-5.4) M/mm3 Hgb (12.0-16.0) gm/dl Hct (35-47) % MCV (78-100) fl MCH (26-32) pg MCHC (32-36) g/dl RDW (11.5-14.0) % Plt Count (150-450) K/mm3 MPV (6-9.5) fl Gran % (36.0-66.0) % Eos # (Auto) (0-0.5) Absolute Lymphs (auto) (1.0-4.6) Absolute Monos (auto) (0.0-1.3) Lymphocytes % (24.0-44.0) % Monocytes % (0.0-12.0) % Eosinophils % (0.00-5.0) % Basophils % (0.0-0.4) % Absolute Granulocytes (1.4-6.9) Basophils # (0-0.4) Sodium (137-145) mmol/L Potassium (3.5-5.1) mmol/L Chloride (98-107) mmol/L Carbon Dioxide (22-30) mmol/L Anion Gap (5-15) MEQ/L BUN (7-17) mg/dL Creatinine (0.52-1.04) mg/dL Estimated GFR ML/MIN Glucose (74-106) mg/dL Lactic Acid 1.3 (0.4-2.0) Calcium (8.4-10.2) mg/dL Total Bilirubin (0.2-1.3) mg/dL AST (14-36) U/L ALT (0-35) U/L Alkaline Phosphatase (38-126) U/L Troponin I 0.015 (0.000-0.034) ng/mL Serum Total Protein (6.3-8.2) g/dL Albumin (3.5-5.0) g/dL Prealbumin 9.25 L (17.6-36.0) mg/dL Lipase (23-300) U/L Ur Collection Type Urine Color (YELLOW) Urine Appearance (CLEAR) Urine pH (5-6) Ur Specific [place] (1.005-1.025) Urine Protein (Negative) Urine Ketones (NEGATIVE) Urine Blood (0-5) Jaren/ul Urine Nitrite (NEGATIVE) Urine Bilirubin (NEGATIVE) Urine Urobilinogen (0-1) mg/dL Ur Leukocyte Esterase (NEGATIVE) Urine Microscopic RBC (0-2) /HPF Ur Epithelial Cells (FEW) /HPF Urine Bacteria (NEGATIVE) /HPF Urine Culture Reflexed (NO) Urine Glucose (NEGATIVE) mg/dL Group A Strep Antibody (NEGATIVE) Specimen Received 06/14/18 06/14/18 06/14/18 Range/Units 15:30 15:30 15:30 WBC 17.3 H (4.0-10.5) K/mm3 RBC 4.65 (4.1-5.4) M/mm3 Hgb 11.1 L (12.0-16.0) gm/dl Hct 34.7 L (35-47) % MCV 74.6 L (78-100) fl MCH 23.8 L (26-32) pg MCHC 32.0 (32-36) g/dl RDW 15.2 H (11.5-14.0) % Plt Count 314 (150-450) K/mm3 MPV 11.4 H (6-9.5) fl Gran % 86.5 H (36.0-66.0) % Eos # (Auto) 0.06 (0-0.5) Absolute Lymphs (auto) 1.05 (1.0-4.6) Absolute Monos (auto) 1.17 (0.0-1.3) Lymphocytes % 6.1 L (24.0-44.0) % Monocytes % 6.8 (0.0-12.0) % Eosinophils % 0.3 (0.00-5.0) % Basophils % 0.3 (0.0-0.4) % Absolute Granulocytes 15.00 H (1.4-6.9) Basophils # 0.05 (0-0.4) Sodium 129 L (137-145) mmol/L Potassium 4.0 (3.5-5.1) mmol/L Chloride 91 L (98-107) mmol/L Carbon Dioxide 28 (22-30) mmol/L Anion Gap 14.2 (5-15) MEQ/L BUN 38 H (7-17) mg/dL Creatinine 1.76 H (0.52-1.04) mg/dL Estimated GFR 33.7 ML/MIN Glucose 436 H (74-106) mg/dL Lactic Acid (0.4-2.0) Calcium 9.5 (8.4-10.2) mg/dL Total Bilirubin 0.50 (0.2-1.3) mg/dL AST 12 L (14-36) U/L ALT 18 (0-35) U/L Alkaline Phosphatase 206 H (38-126) U/L Troponin I 0.014 (0.000-0.034) ng/mL Serum Total Protein 7.8 (6.3-8.2) g/dL Albumin 4.0 (3.5-5.0) g/dL Prealbumin (17.6-36.0) mg/dL Lipase 193 (23-300) U/L Ur Collection Type Urine Color (YELLOW) Urine Appearance (CLEAR) Urine pH (5-6) Ur Specific [place] (1.005-1.025) Urine Protein (Negative) Urine Ketones (NEGATIVE) Urine Blood (0-5) Jaren/ul Urine Nitrite (NEGATIVE) Urine Bilirubin (NEGATIVE) Urine Urobilinogen (0-1) mg/dL Ur Leukocyte Esterase (NEGATIVE) Urine Microscopic RBC (0-2) /HPF Ur Epithelial Cells (FEW) /HPF Urine Bacteria (NEGATIVE) /HPF Urine Culture Reflexed (NO) Urine Glucose (NEGATIVE) mg/dL Group A Strep Antibody (NEGATIVE) Specimen Received 06/14/18 06/14/18 06/14/18 Range/Units 15:30 17:34 18:30 WBC (4.0-10.5) K/mm3 RBC (4.1-5.4) M/mm3 Hgb (12.0-16.0) gm/dl Hct (35-47) % MCV (78-100) fl MCH (26-32) pg MCHC (32-36) g/dl RDW (11.5-14.0) % Plt Count (150-450) K/mm3 MPV (6-9.5) fl Gran % (36.0-66.0) % Eos # (Auto) (0-0.5) Absolute Lymphs (auto) (1.0-4.6) Absolute Monos (auto) (0.0-1.3) Lymphocytes % (24.0-44.0) % Monocytes % (0.0-12.0) % Eosinophils % (0.00-5.0) % Basophils % (0.0-0.4) % Absolute Granulocytes (1.4-6.9) Basophils # (0-0.4) Sodium (137-145) mmol/L Potassium (3.5-5.1) mmol/L Chloride (98-107) mmol/L Carbon Dioxide (22-30) mmol/L Anion Gap (5-15) MEQ/L BUN (7-17) mg/dL Creatinine (0.52-1.04) mg/dL Estimated GFR ML/MIN Glucose (74-106) mg/dL Lactic Acid (0.4-2.0) Calcium (8.4-10.2) mg/dL Total Bilirubin (0.2-1.3) mg/dL AST (14-36) U/L ALT (0-35) U/L Alkaline Phosphatase (38-126) U/L Troponin I 0.014 (0.000-0.034) ng/mL Serum Total Protein (6.3-8.2) g/dL Albumin (3.5-5.0) g/dL Prealbumin (17.6-36.0) mg/dL Lipase (23-300) U/L Ur Collection Type VOID Urine Color YELLOW (YELLOW) Urine Appearance HAZY (CLEAR) Urine pH 5.0 (5-6) Ur Specific [place] 1.010 (1.005-1.025) Urine Protein 100 (Negative) Urine Ketones NEGATIVE (NEGATIVE) Urine Blood 50 (0-5) Jaren/ul Urine Nitrite NEGATIVE (NEGATIVE) Urine Bilirubin NEGATIVE (NEGATIVE) Urine Urobilinogen NORMAL (0-1) mg/dL Ur Leukocyte Esterase NEGATIVE (NEGATIVE) Urine Microscopic RBC 5-10 (0-2) /HPF Ur Epithelial Cells RARE (FEW) /HPF Urine Bacteria FEW (NEGATIVE) /HPF Urine Culture Reflexed YES (NO) Urine Glucose 1000 (NEGATIVE) mg/dL Group A Strep Antibody NEGATIVE (NEGATIVE) Specimen Received 06/14/18 1740 06/15/18 06/15/18 06/15/18 Range/Units 00:30 03:30 03:30 WBC 16.3 H (4.0-10.5) K/mm3 RBC 4.03 L (4.1-5.4) M/mm3 Hgb 9.6 L (12.0-16.0) gm/dl Hct 31.1 L (35-47) % MCV 77.2 L (78-100) fl MCH 23.8 L (26-32) pg MCHC 30.9 L (32-36) g/dl RDW 15.3 H (11.5-14.0) % Plt Count 277 (150-450) K/mm3 MPV 11.5 H (6-9.5) fl Gran % 80.2 H (36.0-66.0) % Eos # (Auto) 0.20 (0-0.5) Absolute Lymphs (auto) 1.67 (1.0-4.6) Absolute Monos (auto) 1.32 H (0.0-1.3) Lymphocytes % 10.2 L (24.0-44.0) % Monocytes % 8.1 (0.0-12.0) % Eosinophils % 1.2 (0.00-5.0) % Basophils % 0.3 (0.0-0.4) % Absolute Granulocytes 13.07 H (1.4-6.9) Basophils # 0.05 (0-0.4) Sodium (137-145) mmol/L Potassium (3.5-5.1) mmol/L Chloride (98-107) mmol/L Carbon Dioxide (22-30) mmol/L Anion Gap (5-15) MEQ/L BUN (7-17) mg/dL Creatinine (0.52-1.04) mg/dL Estimated GFR ML/MIN Glucose (74-106) mg/dL Lactic Acid (0.4-2.0) Calcium (8.4-10.2) mg/dL Total Bilirubin (0.2-1.3) mg/dL AST (14-36) U/L ALT (0-35) U/L Alkaline Phosphatase (38-126) U/L Troponin I < 0.012 0.012 (0.000-0.034) ng/mL Serum Total Protein (6.3-8.2) g/dL Albumin (3.5-5.0) g/dL Prealbumin (17.6-36.0) mg/dL Lipase (23-300) U/L Ur Collection Type Urine Color (YELLOW) Urine Appearance (CLEAR) Urine pH (5-6) Ur Specific [place] (1.005-1.025) Urine Protein (Negative) Urine Ketones (NEGATIVE) Urine Blood (0-5) Jaren/ul Urine Nitrite (NEGATIVE) Urine Bilirubin (NEGATIVE) Urine Urobilinogen (0-1) mg/dL Ur Leukocyte Esterase (NEGATIVE) Urine Microscopic RBC (0-2) /HPF Ur Epithelial Cells (FEW) /HPF Urine Bacteria (NEGATIVE) /HPF Urine Culture Reflexed (NO) Urine Glucose (NEGATIVE) mg/dL Group A Strep Antibody (NEGATIVE) Specimen Received 06/15/18 06/15/18 Range/Units 03:30 03:30 WBC (4.0-10.5) K/mm3 RBC (4.1-5.4) M/mm3 Hgb (12.0-16.0) gm/dl Hct (35-47) % MCV (78-100) fl MCH (26-32) pg MCHC (32-36) g/dl RDW (11.5-14.0) % Plt Count (150-450) K/mm3 MPV (6-9.5) fl Gran % (36.0-66.0) % Eos # (Auto) (0-0.5) Absolute Lymphs (auto) (1.0-4.6) Absolute Monos (auto) (0.0-1.3) Lymphocytes % (24.0-44.0) % Monocytes % (0.0-12.0) % Eosinophils % (0.00-5.0) % Basophils % (0.0-0.4) % Absolute Granulocytes (1.4-6.9) Basophils # (0-0.4) Sodium 130 L (137-145) mmol/L Potassium 4.2 (3.5-5.1) mmol/L Chloride 94 L (98-107) mmol/L Carbon Dioxide 28 (22-30) mmol/L Anion Gap 12.1 (5-15) MEQ/L BUN 38 H (7-17) mg/dL Creatinine 2.49 H (0.52-1.04) mg/dL Estimated GFR 22.6 ML/MIN Glucose 341 H (74-106) mg/dL Lactic Acid 1.1 (0.4-2.0) Calcium 8.7 (8.4-10.2) mg/dL Total Bilirubin (0.2-1.3) mg/dL AST (14-36) U/L ALT (0-35) U/L Alkaline Phosphatase (38-126) U/L Troponin I (0.000-0.034) ng/mL Serum Total Protein (6.3-8.2) g/dL Albumin (3.5-5.0) g/dL Prealbumin (17.6-36.0) mg/dL Lipase (23-300) U/L Ur Collection Type Urine Color (YELLOW) Urine Appearance (CLEAR) Urine pH (5-6) Ur Specific [place] (1.005-1.025) Urine Protein (Negative) Urine Ketones (NEGATIVE) Urine Blood (0-5) Jaren/ul Urine Nitrite (NEGATIVE) Urine Bilirubin (NEGATIVE) Urine Urobilinogen (0-1) mg/dL Ur Leukocyte Esterase (NEGATIVE) Urine Microscopic RBC (0-2) /HPF Ur Epithelial Cells (FEW) /HPF Urine Bacteria (NEGATIVE) /HPF Urine Culture Reflexed (NO) Urine Glucose (NEGATIVE) mg/dL Group A Strep Antibody (NEGATIVE) Specimen Received Microbiology 06/14/18 17:34 Urine Culture - Preliminary Urine, Void NO GROWTH TO DATE Accuchecks Date 06/15/18 Date 06/14/18 Time 00:50 Time 22:00 Accucheck Value: 349 Accucheck Value: 391 Accucheck Value: 369 - Radiology Impressions Radiology Exams & Impressions: Radiology Procedures Category Date Time Status CHEST 1 VIEW (PORTABLE) Stat Exams 06/14/18 16:33 Completed KUB Stat Exams 06/14/18 15:17 Completed - Other Procedures and Tests Respiratory Therapy 06/14/18 18:54 Oxygen NASAL CANNULA 2 lpm 06/14/18 19:00 Respiratory Nebulizer Q4H 06/15/18 07:15 Respiratory MDI UD Assessment/Plan (1) Cellulitis Current Visit: Yes Status: Acute Qualifiers: Site of cellulitis: extremity Site of cellulitis of extremity: toe Laterality: right Qualified Code(s): L03.031 - Cellulitis of right toe Assessment & Plan: On Clindamycin. She does feel better, constitutionally, this morning. Will check the foot for osteomyelitis, beginning with XR of the foot. Code(s): L03.90 - CELLULITIS, UNSPECIFIED (2) Fever Current Visit: No Status: Acute Onset Date: ~05/29/18 Qualifiers: Fever type: unspecified Qualified Code(s): R50.9 - Fever, unspecified Assessment & Plan: I anticipate she may have some fever but less, progressively. Code(s): R50.9 - FEVER, UNSPECIFIED (3) Wound, open, foot Current Visit: No Status: Chronic Qualifiers: Encounter type: subsequent encounter Laterality: unspecified laterality Qualified Code(s): S91.309D - Unspecified open wound, unspecified foot, subsequent encounter Assessment & Plan: Wound culture taken this morning. PT to consult. Code(s): S91.309A - UNSPECIFIED OPEN WOUND, UNSPECIFIED FOOT, INITIAL ENCOUNTER (4) COPD (chronic obstructive pulmonary disease) Current Visit: No Status: Chronic Qualifiers: COPD type: chronic bronchitis Chronic bronchitis type: unspecified Qualified Code(s): J42 - Unspecified chronic bronchitis Assessment & Plan: Stable currently. CXR was improved from previous (recently here with pneumonia) . (5) Chronic renal insufficiency Current Visit: No Status: Chronic Qualifiers: Chronic kidney disease stage: stage 3 (moderate) Qualified Code(s): N18.3 - Chronic kidney disease, stage 3 (moderate) Assessment & Plan: acute on chronic renal injury with increased creatinine this morning. Code(s): N18.9 - CHRONIC KIDNEY DISEASE, UNSPECIFIED (6) Diabetes type 2, uncontrolled Current Visit: No Status: Chronic Qualifiers: Diabetes mellitus group home insulin use: with group home use Diabetes mellitus complication status: with neurologic complications Diabetes mellitus complication detail: with polyneuropathy Qualified Code(s): E11.42 - Type 2 diabetes mellitus with diabetic polyneuropathy; E11.65 - Type 2 diabetes mellitus with hyperglycemia; E11.65 - Type 2 diabetes mellitus with hyperglycemia; E11.65 - Type 2 diabetes mellitus with hyperglycemia; E11.65 - Type 2 diabetes mellitus with hyperglycemia; Z79.4 - FPC (current) use of insulin; Z79.4 - FPC (current) use of insulin; Z79.4 - emt intermediate (current ) use of insulin; Z79.4 - emt intermediate (current) use of insulin Assessment & Plan: restart home insulin. pt has been eating well last night and has an appetite this morning. Code(s): E11.65 - TYPE 2 DIABETES MELLITUS WITH HYPERGLYCEMIA (7) Peripheral neuropathy Current Visit: No Status: Chronic Qualifiers: Peripheral neuropathy type: polyneuropathy, unspecified Qualified Code(s): G62.9 - Polyneuropathy, unspecified Code(s): G62.9 - POLYNEUROPATHY, UNSPECIFIED
--- NOTE | 2018-06-15 09:21 | XRAY ---
Indication: Cellulitis. Comparison: April 24, 2018. 3 portable nonweightbearing views of the right foot demonstrates progressive worsening forefoot soft tissue swelling, especially 2nd-5th toes worrisome for cellulitis. Minimal 4th toe subcutaneous emphysema. 4th mid/distal phalanges and lesser degree 5th phalanges demonstrates new cortical thinning/radiolucency worrisome for osteomyelitis. Also new 4th PIP dislocation. Stable tiny metallic wire in the mid plantar soft tissues. Impression: Worsening cellulitis with new 4th/5th toe osteomyelitis and 4th PIP dislocation.
[2018-06-15] MEDS: Zestril 20 MG PO SCH ×2 (09:26→22:12)
[2018-06-15] MEDS: Protonix 40MG Tablet PO SCH ×2 (09:26→22:12)
[2018-06-15] MEDS: BUSPAR 5 MG PO SCH ×2 (09:27→22:12)
[2018-06-15] MEDS: COREG 12.5 MG PO SCH ×2 (09:27→22:12)
[2018-06-15] MEDS: LYRICA 100MG PO SCH ×3 (09:28→22:12)
[2018-06-15] MEDS ORDERED: NON-FORMULARY ITEM (Atorvastatin Calcium [Atorvastatin Calcium] 10 MG) PO SCH (10:00)
[2018-06-15] MEDS ORDERED: [UNRECOGNIZED DRUG - REMARK] IH SCH (10:00)
[2018-06-15] MEDS ORDERED: Zaroxolyn 2.5 MG PO SCH (10:00)
[2018-06-15] MEDS ORDERED: DELTASONE 20 MG PO SCH ×2 (10:00→10:15)
[2018-06-15] MEDS ORDERED: NON-FORMULARY ITEM (Amlodipine Besylate 10 Mg [Norvasc 10 Mg] 10 MG) PO SCH (10:00)
[2018-06-15] MEDS: NORVASC 5 MG PO SCH (10:08)
[2018-06-15] MEDS: Zocor 10MG PO SCH (10:09)
[2018-06-15] MEDS: BUMEX 1 MG PO SCH ×2 (10:09→16:46)
[2018-06-15] MEDS: Flonase NASAL NS SCH (10:10)
--- NOTE | 2018-06-15 13:55 | XRAY ---
Indication: Nonhealing right foot wound. Two-dimensional sonogram and color Doppler imaging of the major arteries of the left and right leg was performed. Comparison: None Examination of the right leg demonstrates very minimal arteriosclerotic calcifications in the common femoral artery without critical stenosis/obstruction. Remaining superficial femoral, popliteal, posterior tibial, and dorsal pedal arteries patent. Arterial waveforms are monophasic throughout the right leg. Right arm brachial pressure is 94. Right ankle pressure is 70. Ankle brachial index is 0.71 favoring moderate ischemic disease. Examination of the left leg demonstrates minimal arteriosclerotic disease in the mid superficial femoral, posterior tibial, and dorsal pedal arteries without critical stenosis/obstruction. Remaining common femoral, superficial femoral, and popliteal arteries widely patent. Arterial waveforms are multiphasic. Left arm brachial pressure is 98. Left ankle pressure is 80. Ankle brachial index is 0.82 favoring mild ischemic disease. Impression: 1. Right leg demonstrates very minimal arteriosclerotic disease without critical stenosis/obstruction. Abnormal ankle-brachial index 0.71 favors moderate ischemic disease. Stenosis of the inflow pelvic vessels suggested. CTA abdominal aorta with bilateral runoff may yield further information. 2. Left leg also demonstrates minimal disease without critical stenosis/obstruction. Ankle-brachial index 0.82 favors mild ischemic disease.
[2018-06-15] MEDS ORDERED: PHARMACY DOSING REQUEST MC ONE (14:16)
[2018-06-15] MEDS: Invanz 1 GM*** 1 G in Sodium Chloride 100ML MINI-BAG PLUS 100 ML IV SCH (14:52)
[2018-06-15] MEDS: TYLENOL 325 MG PO PRN (15:44)
[2018-06-15] MEDS: Singulair 10 MG PO SCH (22:12)
[2018-06-15] MEDS: DESYREL 50 MG PO SCH (22:14)
[2018-06-15] MEDS: Cyclobenzaprine 10 MG PO SCH (22:14)
[2018-06-16] MEDS: CLINDAMYCIN-D5W 900 MG/50 ML*** 900 MG/50 ML BAG IV SCH ×3 (01:34→17:05)
[2018-06-16] MEDS: PROVENTIL 2.5 MG/3 ML NEB IH SCH ×6 (02:59→23:33)
[2018-06-16] MEDS: TYLENOL 325 MG PO PRN (03:29)
[2018-06-16] MEDS: NORCO 7.5/325 MG TAB PO PRN ×4 (05:53→22:46)
[2018-06-16] MEDS: PHENERGAN 25 MG PO PRN (05:54)
[2018-06-16 06:14] LABS: BASOPHIL % 0.1 % (0.0-0.4); Basophil (Absolute #) 0.02 (0-0.4); Eosinophil (Absolute #) 0 (0-0.5); Granulocyte Absolute (ANC) 16.45 (1.4-6.9); Hematocrit 28.3 % (35-47); Hemoglobin 8.7 gm/dl (12.0-16.0); Lymphocyte (Absolute #) 0.73 (1.0-4.6); Mean Cell Volume 77.3 fl (78-100); Mean Corpuscular Hgb Concent. 30.7 g/dl (32-36); Mean Platelet Volume 11.7 fl (6-9.5); Monocyte (Absolute #) 0.89 (0.0-1.3); Monocytes % 4.9 % (0.0-12.0); Platelet Count 284 K/mm3 (150-450); Red Blood Count 3.66 M/mm3 (4.1-5.4); Red Cell Distribution Width 15.2 % (11.5-14.0); White Blood Count 18.1 K/mm3 (4.0-10.5)
[2018-06-16 06:15] LABS: Mean Corpuscular Hemoglobin 23.7 pg (26-32)
[2018-06-16 06:27] LABS: ALBUMIN 3.5 g/dL (3.5-5.0); ANION GAP 16.6 MEQ/L (5-15); BILIRUBIN,TOTAL 0.1 mg/dL (0.2-1.3); Calcium 8.5 mg/dL (8.4-10.2); Creatinine 1 2.89 mg/dL (0.52-1.04); Total Protein 6.9 g/dL (6.3-8.2)
[2018-06-16] MEDS ORDERED: NovoLOG Insulin SQ ONE (07:09)
[2018-06-16] MEDS ORDERED: Sodium Chloride 0.9% 1000 ML 1,000 ML IV STA ×2 (08:05→14:59)
--- NOTE | 2018-06-16 08:26 | PCM.NOTE ---
Date and Time: 06/16/18819 Subjective Assessment: She was found to have osteomyelitis in the L 4th digit and was seen by surgery yesterday. Arterial doppler with ANTONINA favoring moderate ischemic disease on the L and mild ischemic disease on the R. I spoke with her programming specialist, Dr. Sellers, and the cardiovascular surgeon, Dr. Evans, regarding the need for CTA or angiogram. However pt cannot have either right now due to renal function , so nephrology has been consulted. Per Dr. Evans, if pt is able to have a CTA it may be worthwhile for her to have it at [facility] (would discuss transfer with hospitalist at that time). Last night and this morning she had elevated blood sugars over 500. She states that at home they were elevated until she stopped taking the prednisone last week. Pt complaining of numbness of posterior proximal thigh since 5d ago; constant, waxes and wanes. - Review of Systems Constitutional: No Fever (Tm 99.9 - pt took tylenol) Abdominal/Gastrointestinal: No Vomiting Musculoskeletal: Other (numbness L posterior proximal thigh) Skin: Cellulitis Objective Exam General Appearance: no apparent distress, alert, obese Neurologic Exam: oriented x 3, cooperative, other (patellar reflexes negligible bilat) Skin Exam: other (feet wrapped bilaterally) Respiratory Exam: lungs clear, diminished breath sounds, No crackles/rales, No rhonchi, No wheezing Cardiovascular Exam: regular rate/rhythm, normal heart sounds, No murmur OBJECTIVE DATA Vital Signs: Vital Signs - 24 hr Temp Pulse Resp BP Pulse Ox 06/16/18 07:00 98.3 F 75 18 132/90 95 06/16/18 03:00 97.7 F 77 20 125/65 97 06/15/18 23:00 97.6 F 79 22 135/93 94 L 06/15/18 22:54 80 18 93 L 06/15/18 19:56 83 18 86 L 06/15/18 19:00 98.1 F 81 18 115/65 98 06/15/18 15:42 99.9 F 92 H 20 123/58 95 06/15/18 14:29 89 18 95 06/15/18 11:51 99.3 F 88 20 95/50 98 06/15/18 10:36 91 H 20 94 L Oxygen-Last 24 hours O2 Percentage 3 Liters = 32% O2 Percentage 3 Liters = 32% O2 Percentage 3 Liters = 32% O2 Percentage 3 Liters = 32% O2 Percentage 3 Liters = 32% O2 Percentage 3 Liters = 32% Pain Assessment - Last Documented Pain Intensity 9 Pain Scale Used 0-10 Pain Scale Intake and Output: Intake & Output 06/13/18 06/14/18 06/15/18 06/16/18 11:59 11:59 11:59 11:59 Intake Total 1942 3102 Output Total 302 1650 Balance 1640 1452 Weight 132.1 kg Lab Results: Accuchecks Date 06/15/18 Date 06/15/18 Date 06/15/18 Date 06/15/18 Date 06/15/18 Date 06/15/18 Time 16:45 Time 12:00 Accucheck Value: 514 Accucheck Value: 544 Accucheck Value: 460 Accucheck Value: 530 Accucheck Value: 372 Accucheck Value: 388 Lab Results-Last 24 Hours 06/15/18 06/16/18 06/16/18 Range/Units 22:15 05:30 05:45 WBC 18.1 H (4.0-10.5) K/mm3 RBC 3.66 L (4.1-5.4) M/mm3 Hgb 8.7 L (12.0-16.0) gm/dl Hct 28.3 L (35-47) % MCV 77.3 L (78-100) fl MCH 23.7 L (26-32) pg MCHC 30.7 L (32-36) g/dl RDW 15.2 H (11.5-14.0) % Plt Count 284 (150-450) K/mm3 MPV 11.7 H (6-9.5) fl Gran % 91.0 H (36.0-66.0) % Eos # (Auto) 0 (0-0.5) Absolute Lymphs (auto) 0.73 L (1.0-4.6) Absolute Monos (auto) 0.89 (0.0-1.3) Lymphocytes % 4.0 L (24.0-44.0) % Monocytes % 4.9 (0.0-12.0) % Eosinophils % 0.0 (0.00-5.0) % Basophils % 0.1 (0.0-0.4) % Absolute Granulocytes 16.45 H (1.4-6.9) Basophils # 0.02 (0-0.4) Sodium 124 L (137-145) mmol/L Potassium 5.0 (3.5-5.1) mmol/L Chloride 91 L (98-107) mmol/L Carbon Dioxide 21 L (22-30) mmol/L Anion Gap 16.6 H (5-15) MEQ/L BUN 45 H (7-17) mg/dL Creatinine 2.89 H (0.52-1.04) mg/dL Estimated GFR 19.0 ML/MIN Glucose 504 H* 591 H* (74-106) mg/dL Calcium 8.5 (8.4-10.2) mg/dL Total Bilirubin 0.10 L (0.2-1.3) mg/dL AST 25 (14-36) U/L ALT 24 (0-35) U/L Alkaline Phosphatase 183 H (38-126) U/L Serum Total Protein 6.9 (6.3-8.2) g/dL Albumin 3.5 (3.5-5.0) g/dL Radiology Exams: Radiology Procedures Category Date Time Status ARTERIAL BILAT LOWER EXTREMITY [US] Routine Exams 06/15/18 13:37 Completed CHEST 1 VIEW (PORTABLE) Stat Exams 06/14/18 16:33 Completed FOOT (MINIMUM 3 VIEWS) Routine Exams 06/15/18 09:01 Completed KUB Stat Exams 06/14/18 15:17 Completed Assessment/Plan (1) Osteomyelitis Current Visit: Yes Status: Acute Onset Date: ~06/15/18 Qualifiers: Osteomyelitis type: other acute Osteomyelitis location: foot Laterality: right Qualified Code(s): M86.171 - Other acute osteomyelitis, right ankle and foot Assessment & Plan: On clindamycin day #3 and ertapenem day #2. Surgery has consulted, thank you. Code(s): M86.9 - OSTEOMYELITIS, UNSPECIFIED (2) Peripheral vascular disease Current Visit: Yes Status: Chronic Assessment & Plan: Abnormal arterial ultrasound - if renal function improves, needs angiography. Code(s): I73.9 - PERIPHERAL VASCULAR DISEASE, UNSPECIFIED (3) Wound, open, foot Current Visit: No Status: Chronic Onset Date: ~06/14/18 Qualifiers: Encounter type: subsequent encounter Laterality: unspecified laterality Qualified Code(s): S91.309D - Unspecified open wound, unspecified foot, subsequent encounter Code(s): S91.309A - UNSPECIFIED OPEN WOUND, UNSPECIFIED FOOT, INITIAL ENCOUNTER (4) Acute renal injury Current Visit: Yes Status: Acute Assessment & Plan: nephrology consulted, thank you. She is getting 1,000 cc NS now (250/h for 4h) ; may repeat later if well tolerated. Code(s): N17.9 - ACUTE KIDNEY FAILURE, UNSPECIFIED (5) Paresthesia and pain of left extremity Current Visit: Yes Status: Acute Assessment & Plan: New problem in the past 5d. May be related to her diabetic peripheral neuropathy but as this is a new issue will workup with lumbar spine XR followed by MRI if tolerated. Code(s): M79.609 - PAIN IN UNSPECIFIED LIMB; R20.2 - PARESTHESIA OF SKIN (6) COPD (chronic obstructive pulmonary disease) Current Visit: No Status: Chronic Qualifiers: COPD type: chronic bronchitis Chronic bronchitis type: unspecified Qualified Code(s): J42 - Unspecified chronic bronchitis (7) Hyponatremia Current Visit: Yes Status: Acute Code(s): E87.1 - HYPO-OSMOLALITY AND HYPONATREMIA (8) Chronic renal insufficiency Current Visit: No Status: Chronic Qualifiers: Chronic kidney disease stage: stage 3 (moderate) Qualified Code(s): N18.3 - Chronic kidney disease, stage 3 (moderate) Code(s): N18.9 - CHRONIC KIDNEY DISEASE, UNSPECIFIED (9) Diabetes type 2, uncontrolled Current Visit: No Status: Chronic Qualifiers: Diabetes mellitus correction insulin use: with manager intermediate use Diabetes mellitus complication status: with neurologic complications Diabetes mellitus complication detail: with polyneuropathy Qualified Code(s): E11.42 - Type 2 diabetes mellitus with diabetic polyneuropathy; E11.65 - Type 2 diabetes mellitus with hyperglycemia; E11.65 - Type 2 diabetes mellitus with hyperglycemia; E11.65 - Type 2 diabetes mellitus with hyperglycemia; E11.65 - Type 2 diabetes mellitus with hyperglycemia; Z79.4 - terminal system operator (current) use of insulin; Z79.4 - jail (current) use of insulin; Z79.4 - terminal system operator (current ) use of insulin; Z79.4 - jail (current) use of insulin Assessment & Plan: Stopping prednisone, will likely help the blood sugars. At home she is on basaglar 30 units in a.m. and 50 units in p.m., with 18 units of regular insulin at meals. Code(s): E11.65 - TYPE 2 DIABETES MELLITUS WITH HYPERGLYCEMIA (10) Peripheral neuropathy Current Visit: No Status: Chronic Qualifiers: Peripheral neuropathy type: polyneuropathy, unspecified Qualified Code(s): G62.9 - Polyneuropathy, unspecified Code(s): G62.9 - POLYNEUROPATHY, UNSPECIFIED
[2018-06-16] MEDS: NovoLOG Insulin SQ SCH ×3 (08:37→17:05)
--- NOTE | 2018-06-16 08:53 | CONS ---
CONSULT DATE: 06/15/2018 The patient is seen for Dr. Alfredo who is refrigeration person for our group today. HISTORY: A 42 year-old overweight, diabetic, poorly compliant female with past history of edwards to her feet from bath tub she said. She was admitted with cellulitis of her foot. She has been treated for edwards to her foot for several months. She has a foot doctor in [place], Dr. aGy. He apparently took a bone out of her left great toe in the past as well as some ulcers in her right. She had a fever previously. Her temperature is better now. White blood cell count 16. She is only on Clindamycin here. Lactic acid is normal. White blood cell count was greater than 17 yesterday. PAST MEDICAL HISTORY: Diabetes, renal insufficiency. She has some chronic lung problems, probably some sleep apnea, chronic obstructive pulmonary disease. She said she had pneumonia, degenerative disc disease, reflux, history of pancreatitis, anxiety, depression, diabetic neuropathy, peripheral vascular disease and foot problems in the past per nursing report. PAST SURGICAL HISTORY: Tubal, D&C in the past. She had a bone removed in big toe by Dr. Gay, her sporting goods salesperson, apparently that she has not seen for a few months but she has been following PT regarding edwards on her feet. ALLERGIES: NKDA. FAMILY HISTORY: Former smoker. No alcohol abuse. REVIEW OF SYSTEMS: Twelve systems reviewed per admission assessment. No chest pain or palpitations other systems negative or noncontributory as above and per preadmission questionnaire. LAB DATA AND TESTS: She had some arterial Doppler's that are pending so apparently no significant stenosis at the common femoral area. She has decreased ankle-brachial. Question whether some decrease in flow recommended considering CT-A versus arteriogram. Otherwise she had some x-rays that showed some dislocation, osteomyelitis fourth and fifth toes on the right side. PHYSICAL EXAMINATION: GENERAL: A chronically ill female. HEENT: Sclera nonicteric. NECK: No JVD. CHEST: Equal excursion, nonlabored breathing. ABDOMEN: Nondistended. EXTREMITIES: Some old edwards to bilateral feet. She does have some seepage of fourth toe at the base of the fourth plantar aspect. Does have some capillary refill. They do not feel like it is a dry gangrene at the moment. Again showed osteomyelitis of both fourth and fifth toe on x-rays. Otherwise she has had palpable pedal pulses. On my exam, she has palpable pedal pulses. NEURO: She has neuropathic pain but has decreased sensation consistent with chronic neuropathy of the feet. Alert, moving extremities grossly symmetrically. IMPRESSION: Diabetic foot infection in a poorly compliant diabetic being followed by a foot doctor in [place], in the past had some cellulitis with drainage of the foot. On x-ray appears to have osteomyelitis. She is hemodynamically stable. I do not feel she needs emergent surgery. She is not NPO anyway. She was discussed options. Her renal function is not all that great. Radiology has mentioned CT-A with runoff versus consideration of arteriogram at some point to see if she would benefit from cardiovascular intervention regarding any more proximal narrowing to the foot. Otherwise she is to continue IV antibiotics. She is only on Clindamycin now and would add some gram-negative coverage given her diabetic state. As she is allergic to penicillin, codeine, Benadryl, morphine, Darvocet, sulfa, I feel she would benefit from adding Carbapenem probably, will check with the pharmacy to see what they prefer some broader coverage regarding her osteomyelitis. She understands if it fails to improve she might need consideration of amputation of at least the fourth toe and possibly the fifth toe if she has osteomyelitis in it. With amputation failure to heal might require further procedures or amputation more proximally. She understands that. She also understands the option of getting another opinion from her sporting goods salesperson whether they would offer antibiotic beads or any other intervention. She understands but at this time she is to continue IV antibiotics. I will see if Dr. Brooks will decide the risk of any CT-A versus coupon collection clerk to get opinion on risk of dye with formal arteriogram to see if there is any way to improve the blood flow to extremities. Otherwise if she fails to improve will need to consider amputation of the fourth and/or fifth toe. In the meantime continue antibiotics and Dr. Brooks will decide CT-A versus arteriogram, consider if there is any coupon collection clerk correctable more proximal stenosis that may benefit from this. This patient was seen for Dr. Guevara Alfredo who was refrigeration person for our group today. As I was by doing some outpatient procedures he asked that I check on the patient for him. Should she need surgery later in the week that likely it would be him proceeding with it.
--- NOTE | 2018-06-16 09:18 | XRAY ---
Indication: Low back pain and left thigh numbness. Comparison: January 28, 2018. 3 views of the lumbar spine unchanged again demonstrating normal alignment, mild bilateral L4-S1 degenerative facet arthropathy, minimal L5-S1 disc space narrowing, lower lumbar endplate spurring, old left L1 transverse process fracture, minimal aortic calcifications, and chronic pancreatitis calcifications. No new/acute findings.
[2018-06-16] MEDS: LYRICA 100MG PO SCH ×3 (09:26→22:47)
[2018-06-16] MEDS: Flonase NASAL NS SCH (09:26)
[2018-06-16] MEDS: NORVASC 5 MG PO SCH (09:27)
[2018-06-16] MEDS: COREG 12.5 MG PO SCH ×2 (09:27→22:47)
[2018-06-16] MEDS: BUSPAR 5 MG PO SCH ×2 (09:27→22:47)
[2018-06-16] MEDS: Zocor 10MG PO SCH (09:27)
[2018-06-16] MEDS: Protonix 40MG Tablet PO SCH ×2 (09:27→22:46)
[2018-06-16] MEDS: Zestril 20 MG PO SCH (09:27)
[2018-06-16] MEDS: BUMEX 1 MG PO SCH ×2 (09:27→16:34)
[2018-06-16] MEDS: Lantus Insulin SQ SCH (09:28)
[2018-06-16] MEDS ORDERED: ENOXAPARIN SODIUM SQ SCH (10:00)
[2018-06-16] MEDS ORDERED: DELTASONE 20 MG PO SCH (10:00)
[2018-06-16] MEDS: Zofran 4 MG/2 ML VIAL IV PRN (10:26)
[2018-06-16] MEDS: Invanz 1 GM*** 1 G in Sodium Chloride 100ML MINI-BAG PLUS 100 ML IV SCH (10:30)
[2018-06-16] MEDS: NovoLOG Insulin SQ PRN ×2 (12:27→13:37)
[2018-06-16] MEDS ORDERED: NOVOLIN R INSULIN (FOR DRIPS)** 100 UNITS in Sodium Chloride 0.9% 100 ML IVPB 100 ML IV PRN (14:31)
[2018-06-16] MEDS: Sodium Chloride 0.9% 1000 ML 1,000 ML IV SCH (14:55)
[2018-06-16] MEDS: Colace 100 MG PO PRN (17:14)
[2018-06-16 19:47] LABS: ANION GAP 17.3 MEQ/L (5-15); Calcium 8.7 mg/dL (8.4-10.2); Creatinine 1 2.52 mg/dL (0.52-1.04); Potassium 4.3 mmol/L (3.5-5.1)
[2018-06-16] MEDS ORDERED: Lantus Insulin SQ SCH (22:00)
[2018-06-16] MEDS ORDERED: Lantus Insulin SQ ONE (22:30)
[2018-06-16] MEDS: DESYREL 50 MG PO SCH (22:47)
[2018-06-16] MEDS: Cyclobenzaprine 10 MG PO SCH (22:47)
[2018-06-16] MEDS: Singulair 10 MG PO SCH (22:48)
[2018-06-17] MEDS: CLINDAMYCIN-D5W 900 MG/50 ML*** 900 MG/50 ML BAG IV SCH (01:37)
[2018-06-17] MEDS: NovoLOG Insulin SQ PRN ×7 (01:50→21:27)
[2018-06-17 02:36] LABS: A-aADO2 195; ABG HEMOGLOBIN 9.3; ARTERIAL BLD GAS O2 SATURATION 87.5 % (95-100); ARTERIAL BLOOD GAS BASE EXCESS -0.7 (-2.0-2.0); ARTERIAL BLOOD GAS FIO2 40 %; ARTERIAL BLOOD GAS PCO2 34 mmHg (35-45); ARTERIAL BLOOD GAS pH 7.44 (7.35-7.45); CARBOXYHEMOGLOBIN 1.3 % THgb (0.0-6.9); HCO3- 23.1 (22-28); HGB O2 SAT 85.9 g/dF (94-100); Methhemoglobin 0.6 % (1.4-1.5)
[2018-06-17 02:37] LABS: ABG SITE RIGHT RADIAL; ALLEN TEST OK? yes; ARTERIAL BLOOD GAS PO2 48 mmHg (75-100)
[2018-06-17] MEDS: PROVENTIL 2.5 MG/3 ML NEB IH SCH ×6 (02:55→23:17)
[2018-06-17] MEDS: NORCO 7.5/325 MG TAB PO PRN ×3 (03:12→13:22)
[2018-06-17 06:24] LABS: BASOPHIL % 0.3 % (0.0-0.4); Basophil (Absolute #) 0.04 (0-0.4); Eosinophil % 1.4 % (0.00-5.0); Eosinophil (Absolute #) 0.21 (0-0.5); Granulocyte Absolute (ANC) 12.08 (1.4-6.9); Granulocytes % 82.2 % (36.0-66.0); Hematocrit 27.4 % (35-47); Hemoglobin 8.6 gm/dl (12.0-16.0); Lymphocyte (Absolute #) 1.53 (1.0-4.6); Lymphocytes % 10.4 % (24.0-44.0); Mean Cell Volume 75.9 fl (78-100); Mean Corpuscular Hemoglobin 23.8 pg (26-32); Mean Corpuscular Hgb Concent. 31.4 g/dl (32-36); Monocyte (Absolute #) 0.83 (0.0-1.3); Monocytes % 5.7 % (0.0-12.0); Platelet Count 297 K/mm3 (150-450); Red Blood Count 3.61 M/mm3 (4.1-5.4); Red Cell Distribution Width 15.2 % (11.5-14.0); White Blood Count 14.7 K/mm3 (4.0-10.5)
[2018-06-17 06:50] LABS: Iron 20 ug/dL (37-170)
[2018-06-17 06:53] LABS: ALBUMIN 3.5 g/dL (3.5-5.0); BILIRUBIN,TOTAL 0.1 mg/dL (0.2-1.3); Calcium 8.7 mg/dL (8.4-10.2); Creatinine 1 3.1 mg/dL (0.52-1.04); Potassium 4.8 mmol/L (3.5-5.1)
[2018-06-17 07:00] LABS: A-aADO2 179; ABG HEMOGLOBIN 13.4; ABG POTASSIUM 4.8 (3.5-5.1); ABG SITE RIGHT RADIAL; ALLEN TEST OK? YES; ARTERIAL BLD GAS O2 SATURATION 92.6 % (95-100); ARTERIAL BLOOD GAS BASE EXCESS -2.9 (-2.0-2.0); ARTERIAL BLOOD GAS FIO2 40 %; ARTERIAL BLOOD GAS PCO2 38 mmHg (35-45); ARTERIAL BLOOD GAS PO2 59 mmHg (75-100); ARTERIAL BLOOD GAS VENT MODE CPAP; ARTERIAL BLOOD GAS pH 7.37 (7.35-7.45); CARBOXYHEMOGLOBIN 1.2 % THgb (0.0-6.9); Methhemoglobin 0.4 % (1.4-1.5); paO2 pAO1 0.25
[2018-06-17 07:01] LABS: Iron Saturation 8 % (20-39); TIBC 239 ug/dL (265-462)
--- NOTE | 2018-06-17 08:31 | XRAY ---
Indication: Hypoxia. Comparison: June 14, 2018. Portable chest unchanged again with minimal right base infiltrate/atelectasis. Remaining heart, lungs, and bony thorax normal.
[2018-06-17] MEDS ORDERED: PHARMACY DOSING REQUEST MC ONE (08:33)
--- NOTE | 2018-06-17 08:36 | PCM.NOTE ---
Date and Time: 06/17/18827 Subjective Assessment: Overnight her O2 sats dropped into the 80s so she was started on CPAP. ABG with PaO2 in the 40s. With increased CPAP to 12 the Pa O2 improved into the 50s. This morning she tells me that she did have some CP and SOB last night but is feeling well now. Slept well overnight with CPAP on. Surgery saw pt again last night, thank you, does want to go ahead and remove the infected toes. - Review of Systems Constitutional: Fever (Tmax 100.4) Respiratory: Short Of Breath Cardiac: Chest Pain Objective Exam General Appearance: no apparent distress, alert, other (on CPAP) Neurologic Exam: oriented x 3, cooperative Skin Exam: normal color, warm, dry Ears, Nose, Throat Exam: dry mucous membranes Neck Exam: normal inspection Respiratory Exam: diminished breath sounds, No crackles/rales, No rhonchi, No wheezing Cardiovascular Exam: regular rate/rhythm, normal heart sounds, No murmur Gastrointestinal/Abdomen Exam: soft, No tenderness, No distention Extremity Exam: other (wrapped feet bilat) OBJECTIVE DATA Vital Signs: Vital Signs - 24 hr Temp Pulse Resp BP Pulse Ox 06/17/18 06:42 93 H 25 H 92 L 06/17/18 05:17 100.2 F 102 H 26 H 92 L 06/17/18 04:00 104 H 06/17/18 02:58 100.2 F 106 H 30 H 116/87 97 06/17/18 02:56 108 H 19 93 L 06/17/18 00:31 95 06/17/18 00:00 108 H 06/16/18 23:45 100.4 F 109 H 24 125/85 89 L 06/16/18 23:00 110 H 22 85 L 06/16/18 21:00 97.9 F 101 H 22 120/90 93 L 06/16/18 20:00 87 06/16/18 18:52 84 21 90 L 06/16/18 17:41 92 H 22 122/97 95 06/16/18 16:30 88 25 H 130/85 95 06/16/18 15:38 87 06/16/18 15:36 98.2 F 87 20 132/74 95 06/16/18 15:00 87 18 98 06/16/18 11:00 98.1 F 84 18 123/71 94 L 06/16/18 10:52 71 20 91 L Oxygen-Last 24 hours O2 Percentage 5 Liters = 40% O2 Percentage 5 Liters = 40% O2 Percentage 4 Liters = 36% O2 Percentage 3 Liters = 32% O2 Percentage 3 Liters = 32% O2 Percentage 3 Liters = 32% O2 Percentage 2 Liters = 28% Oxygen Flowrate (L/min)-RT 3 Pain Assessment - Last Documented Pain Intensity 5 Pain Scale Used 0-10 Pain Scale Intake and Output: Intake & Output 06/14/18 06/15/18 06/16/18 06/17/18 11:59 11:59 11:59 11:59 Intake Total 1942 3102 1431 Output Total 302 1650 800 Balance 1640 1452 631 Weight 132.1 kg Lab Results: Accuchecks Date 06/17/18 Date 06/17/18 Date 06/17/1806/16/1806/16/1806/16/1806/16/1806/16/1806/16/1806/16/1806/16/18 Time 06:37 Time 04:22 Time 01:49 Time 23:44 Time 21:00 Time 20:00 Time 18:54 Time 17:55 Time 17:00 Time 16:00 Time 13:21 Accucheck Value: 155 Accucheck Value: 197 Accucheck Value: 177 Accucheck Value: 148 Accucheck Value: 143 Accucheck Value: 230 Accucheck Value: 325 Accucheck Value: 383 Accucheck Value: 379 Accucheck Value: 456 Accucheck Value: 568 Accucheck Value: 563 Lab Results-Last 24 Hours 06/16/18 06/16/18 06/17/18 Range/Units 12:10 19:15 02:35 WBC (4.0-10.5) K/mm3 RBC (4.1-5.4) M/mm3 Hgb (12.0-16.0) gm/dl Hct (35-47) % MCV (78-100) fl MCH (26-32) pg MCHC (32-36) g/dl RDW (11.5-14.0) % Plt Count (150-450) K/mm3 MPV (6-9.5) fl Gran % (36.0-66.0) % Eos # (Auto) (0-0.5) Absolute Lymphs (auto) (1.0-4.6) Absolute Monos (auto) (0.0-1.3) Lymphocytes % (24.0-44.0) % Monocytes % (0.0-12.0) % Eosinophils % (0.00-5.0) % Basophils % (0.0-0.4) % Absolute Granulocytes (1.4-6.9) Basophils # (0-0.4) Puncture Site RIGHT RADIAL pCO2 34 L (35-45) mmHg pO2 48 L* (75-100) mmHg Base Excess -0.7 (-2.0-2.0) O2 Saturation 85.9 L (94-100) g/dF ABG pH 7.44 (7.35-7.45) ABG HCO3 23.1 (22-28) ABG O2 Sat (Measured) 87.5 L (95-100) % Raj Test yes A-a Gradient 195 a/A Ratio 0.20 Hemoglobin 9.3 Carboxyhemoglobin 1.3 (0.0-6.9) % THgb Methemoglobin 0.6 L (1.4-1.5) % Temperature 37.0 C POC O2 Flow Rate 40 % Vent Mode Sodium 131 L (137-145) mmol/L Potassium 4.3 5.0 (3.5-5.1) mmol/L Chloride 94 L (98-107) mmol/L Carbon Dioxide 23 (22-30) mmol/L Anion Gap 17.3 H (5-15) MEQ/L BUN 43 H (7-17) mg/dL Creatinine 2.52 H (0.52-1.04) mg/dL Estimated GFR 22.2 ML/MIN Glucose 579 H* 312 H (74-106) mg/dL Calcium 8.7 (8.4-10.2) mg/dL Magnesium (1.6-2.3) mg/dL Iron (37-170) ug/dL TIBC (265-462) ug/dL Iron Saturation (20-39) % Ferritin (6.24-137) ng/mL Total Bilirubin (0.2-1.3) mg/dL AST (14-36) U/L ALT (0-35) U/L Alkaline Phosphatase (38-126) U/L Serum Total Protein (6.3-8.2) g/dL Albumin (3.5-5.0) g/dL Vitamin B12 (239-931) pg/mL Folic Acid 06/17/18 06/17/18 06/17/18 Range/Units 04:00 06:00 06:00 WBC 14.7 H (4.0-10.5) K/mm3 RBC 3.61 L (4.1-5.4) M/mm3 Hgb 8.6 L (12.0-16.0) gm/dl Hct 27.4 L (35-47) % MCV 75.9 L (78-100) fl MCH 23.8 L (26-32) pg MCHC 31.4 L (32-36) g/dl RDW 15.2 H (11.5-14.0) % Plt Count 297 (150-450) K/mm3 MPV 11.0 H (6-9.5) fl Gran % 82.2 H (36.0-66.0) % Eos # (Auto) 0.21 (0-0.5) Absolute Lymphs (auto) 1.53 (1.0-4.6) Absolute Monos (auto) 0.83 (0.0-1.3) Lymphocytes % 10.4 L (24.0-44.0) % Monocytes % 5.7 (0.0-12.0) % Eosinophils % 1.4 (0.00-5.0) % Basophils % 0.3 (0.0-0.4) % Absolute Granulocytes 12.08 H (1.4-6.9) Basophils # 0.04 (0-0.4) Puncture Site pCO2 (35-45) mmHg pO2 (75-100) mmHg Base Excess (-2.0-2.0) O2 Saturation (94-100) g/dF ABG pH (7.35-7.45) ABG HCO3 (22-28) ABG O2 Sat (Measured) (95-100) % Raj Test A-a Gradient a/A Ratio Hemoglobin Carboxyhemoglobin (0.0-6.9) % THgb Methemoglobin (1.4-1.5) % Temperature C POC O2 Flow Rate % Vent Mode Sodium 129 L (137-145) mmol/L Potassium 4.8 (3.5-5.1) mmol/L Chloride 96 L (98-107) mmol/L Carbon Dioxide 23 (22-30) mmol/L Anion Gap 15.0 (5-15) MEQ/L BUN 47 H (7-17) mg/dL Creatinine 3.10 H (0.52-1.04) mg/dL Estimated GFR 17.5 ML/MIN Glucose 172 H (74-106) mg/dL Calcium 8.7 (8.4-10.2) mg/dL Magnesium 1.7 (1.6-2.3) mg/dL Iron 20 L (37-170) ug/dL TIBC 239 L (265-462) ug/dL Iron Saturation 8 L (20-39) % Ferritin 191 H (6.24-137) ng/mL Total Bilirubin 0.10 L (0.2-1.3) mg/dL AST 19 (14-36) U/L ALT 23 (0-35) U/L Alkaline Phosphatase 147 H (38-126) U/L Serum Total Protein 7.0 (6.3-8.2) g/dL Albumin 3.5 (3.5-5.0) g/dL Vitamin B12 471 (239-931) pg/mL Folic Acid Pending 06/17/18 Range/Units 06:54 WBC (4.0-10.5) K/mm3 RBC (4.1-5.4) M/mm3 Hgb (12.0-16.0) gm/dl Hct (35-47) % MCV (78-100) fl MCH (26-32) pg MCHC (32-36) g/dl RDW (11.5-14.0) % Plt Count (150-450) K/mm3 MPV (6-9.5) fl Gran % (36.0-66.0) % Eos # (Auto) (0-0.5) Absolute Lymphs (auto) (1.0-4.6) Absolute Monos (auto) (0.0-1.3) Lymphocytes % (24.0-44.0) % Monocytes % (0.0-12.0) % Eosinophils % (0.00-5.0) % Basophils % (0.0-0.4) % Absolute Granulocytes (1.4-6.9) Basophils # (0-0.4) Puncture Site RIGHT RADIAL pCO2 38 (35-45) mmHg pO2 59 L (75-100) mmHg Base Excess -2.9 L (-2.0-2.0) O2 Saturation 91.0 L (94-100) g/dF ABG pH 7.37 (7.35-7.45) ABG HCO3 22.0 (22-28) ABG O2 Sat (Measured) 92.6 L (95-100) % Raj Test YES A-a Gradient 179 a/A Ratio 0.25 Hemoglobin 13.4 Carboxyhemoglobin 1.2 (0.0-6.9) % THgb Methemoglobin 0.4 L (1.4-1.5) % Temperature 37.0 C POC O2 Flow Rate 40 % Vent Mode CPAP Sodium (137-145) mmol/L Potassium 4.8 (3.5-5.1) mmol/L Chloride (98-107) mmol/L Carbon Dioxide (22-30) mmol/L Anion Gap (5-15) MEQ/L BUN (7-17) mg/dL Creatinine (0.52-1.04) mg/dL Estimated GFR ML/MIN Glucose (74-106) mg/dL Calcium (8.4-10.2) mg/dL Magnesium (1.6-2.3) mg/dL Iron (37-170) ug/dL TIBC (265-462) ug/dL Iron Saturation (20-39) % Ferritin (6.24-137) ng/mL Total Bilirubin (0.2-1.3) mg/dL AST (14-36) U/L ALT (0-35) U/L Alkaline Phosphatase (38-126) U/L Serum Total Protein (6.3-8.2) g/dL Albumin (3.5-5.0) g/dL Vitamin B12 (239-931) pg/mL Folic Acid Radiology Exams: Radiology Procedures Category Date Time Status ARTERIAL BILAT LOWER EXTREMITY [US] Routine Exams 06/15/18 13:37 Completed CHEST 1 VIEW (PORTABLE) Stat Exams 06/17/18 08:02 Taken FOOT (MINIMUM 3 VIEWS) Routine Exams 06/15/18 09:01 Completed LUMBAR LIMITED (2 OR 3 VIEWS) Routine Exams 06/16/18 09:02 Completed Ultrasound Kidney [KIDNEY] [US] Routine Exams 06/17/18 10:00 Taken Multi-Disciplinary Progress Notes: Multi-Disciplinary Progress Notes 06/16/18 17:36 Physical Therapy Note by Geneva Schwarz CONTINUE SCISSORS AND FORCEP DEBRIDEMENT OF 4TH AND 5TH TOES RIGHT FOOT; REAPPLIED BETADINE SOAK DRESSING FOR ANTISEPTIC EFFECT. PATIENT'S KIDNEY FUNCTION HINDERING ARTERIOGRAM BEING SCHEDULED. WILL CONTINUE TO MONITOR AND MANAGE WOUND. Initialized on 06/16/18 17:36 - END OF NOTE 06/16/18 15:50 Case Management Note by Augusta Angel PATIENT HAS SIGNED UP FOR MEDS TO BEDS WITH [facility] Initialized on 06/16/18 15:50 - END OF NOTE 06/16/18 14:30 (created 06/16/18 15:43) Case Management Note by Augusta Angel PATIENT FILLED OUT [facility] PREFERENCE FORM AND SELECTED [facility]. REFERRAL AND INFO WAS SENT TO [facility]. I ALSO SPOKE WITH THEM AND NOTIFIED THEM THAT PATIENT HAS REQUESTED THEM BUT LIVES IN [place]. THEY CURRENTLY DO NOT BELIEVE THEY COULD SEE THE PATIENT D/T CURRENT CASE LOAD AND [place] RESIDENCE. THEY WILL GO AHEAD AND TAKE THE INFORMATION AND WAIT FOR AN ACTUAL DATE AND REASSESS AT THAT TIME. PATIENT NOTIFIED OF THIS. SHE IS AWARE THAT CURRENTLY NO [facility] SERVICE HAS OFFICIALLY BEEN SET UP BUT IF PATIENT DISCHARGES HOME FROM [facility] ONE WILL BE SET UP FOR HER PRIOR TO DC USING EITHER [facility] IF AVAILABLE OR ANOTHER COMPANY. SHE IS AWARE THAT IF SHE TRANSFERS TO ANOTHER FACILITY SHE NEEDS TO LET THEM KNOW OF THE NEED FOR THOSE SERVICES. SHE VERIFIED UNDERSTANDING. Initialized on 06/16/18 15:43 - END OF NOTE Assessment/Plan (1) Hypoxemia Current Visit: Yes Status: Acute Assessment & Plan: Unsure etiology, whether related to her probable NENITA vs PNA/COPD exacerbation vs PE vs DC. Stat EKG and troponin now. CXR pending. Increasing lovenox to treatment dose (to dx PE would have to do VQ scan which is not available until tomorrow). On CPAP currently. Currently asymptomatic. Will go ahead and consult pulmonology; if not readily available and no improvement may have to transfer to outside hospital. Code(s): R09.02 - HYPOXEMIA (2) Osteomyelitis Current Visit: Yes Status: Acute Onset Date: ~06/15/18 Qualifiers: Osteomyelitis type: other acute Osteomyelitis location: foot Laterality: right Qualified Code(s): M86.171 - Other acute osteomyelitis, right ankle and foot Assessment & Plan: Strep agalactiae from culture resistant to clindamycin. Currently on ertapenem , which I agree with from the surgeons, and adding vancomycin. She is scheduled for amputation of the toes tomorrow. She has systemic illness from the osteomyelitis and was febrile again last night. It is affecting her blood sugar and renal function. Code(s): M86.9 - OSTEOMYELITIS, UNSPECIFIED (3) Peripheral vascular disease Current Visit: Yes Status: Chronic Assessment & Plan: I spoke with Dr. Evans again last night and she is OK holding off on the CTA. There is definitely PVD but unsure the extent. At any rate needs amputation as above. Code(s): I73.9 - PERIPHERAL VASCULAR DISEASE, UNSPECIFIED (4) Wound, open, foot Current Visit: No Status: Chronic Onset Date: ~06/14/18 Qualifiers: Encounter type: subsequent encounter Laterality: unspecified laterality Qualified Code(s): S91.309D - Unspecified open wound, unspecified foot, subsequent encounter Assessment & Plan: PT is dressing the wound; will consult post amputation. Code(s): S91.309A - UNSPECIFIED OPEN WOUND, UNSPECIFIED FOOT, INITIAL ENCOUNTER (5) Acute renal injury Current Visit: Yes Status: Acute Assessment & Plan: Renal function decreased again today. Nephrology consulting. If no improvement I anticipate will need dialysis. Code(s): N17.9 - ACUTE KIDNEY FAILURE, UNSPECIFIED (6) Paresthesia and pain of left extremity Current Visit: Yes Status: Acute Assessment & Plan: Needs MRI lumbar spine HOWEVER could not do last night due to being on insulin drip; cannot do this morning due to being on CPAP. Code(s): M79.609 - PAIN IN UNSPECIFIED LIMB; R20.2 - PARESTHESIA OF SKIN (7) COPD (chronic obstructive pulmonary disease) Current Visit: No Status: Chronic Qualifiers: COPD type: chronic bronchitis Chronic bronchitis type: unspecified Qualified Code(s): J42 - Unspecified chronic bronchitis (8) Hyponatremia Current Visit: Yes Status: Acute Assessment & Plan: Worse again this morning. Code(s): E87.1 - HYPO-OSMOLALITY AND HYPONATREMIA (9) Chronic renal insufficiency Current Visit: No Status: Chronic Qualifiers: Chronic kidney disease stage: stage 3 (moderate) Qualified Code(s): N18.3 - Chronic kidney disease, stage 3 (moderate) Assessment & Plan: eGFR usually in the 40s. Code(s): N18.9 - CHRONIC KIDNEY DISEASE, UNSPECIFIED (10) Diabetes type 2, uncontrolled Current Visit: No Status: Chronic Qualifiers: Diabetes mellitus group home insulin use: with group home use Diabetes mellitus complication status: with neurologic complications Diabetes mellitus complication detail: with polyneuropathy Qualified Code(s): E11.42 - Type 2 diabetes mellitus with diabetic polyneuropathy; E11.65 - Type 2 diabetes mellitus with hyperglycemia; E11.65 - Type 2 diabetes mellitus with hyperglycemia; E11.65 - Type 2 diabetes mellitus with hyperglycemia; E11.65 - Type 2 diabetes mellitus with hyperglycemia; Z79.4 - manager intermediate (current) use of insulin; Z79.4 - manager intermediate (current) use of insulin; Z79.4 - longterm (current ) use of insulin; Z79.4 - manager intermediate (current) use of insulin Assessment & Plan: very poorly controlled. I have tried to get her in to endocrinology multiple times but her resources are poor and she can't follow up. Code(s): E11.65 - TYPE 2 DIABETES MELLITUS WITH HYPERGLYCEMIA (11) Peripheral neuropathy Current Visit: No Status: Chronic Qualifiers: Peripheral neuropathy type: polyneuropathy, unspecified Qualified Code(s): G62.9 - Polyneuropathy, unspecified Assessment & Plan: severe; walks with walker. Multiple foot wounds in the past with no sensation and multiple falls. Code(s): G62.9 - POLYNEUROPATHY, UNSPECIFIED (12) Chronic hypoxemic respiratory failure Current Visit: Yes Status: Acute Assessment & Plan: On O2 per NC at home. (13) Anemia Current Visit: Yes Status: Acute Assessment & Plan: may be related to renal failure and partially dilutional. observe. iron studies done by neprhology. Code(s): D64.9 - ANEMIA, UNSPECIFIED
[2018-06-17] MEDS ORDERED: PHARMACY DOSING REQUIRED: VANCOMYCIN IV ONE (08:44)
--- NOTE | 2018-06-17 08:57 | XRAY ---
Indication: Renal disease. Two-dimensional renal sonogram performed. Comparison: None Both kidneys normal in reniform shape with normal color perfusion. Right kidney measures 10.7 x 5.7 x 4.7 cm and the left measures 11.9 x 5.5 x 5.5 cm. No suspicious solid/cystic renal mass or hydronephrosis. Cortical medullary differentiation preserved without cortical thinning. Images of the nominally distended urinary bladder unremarkable. Ureteral jets not seen within the allotted exam time. Impression: Negative renal sonogram.
[2018-06-17] MEDS ORDERED: Lasix 40 MG/4 ML IV ONE (09:30)
[2018-06-17] MEDS: Zocor 10MG PO SCH (09:30)
[2018-06-17] MEDS: NORVASC 5 MG PO SCH (09:30)
[2018-06-17] MEDS: BUSPAR 5 MG PO SCH ×2 (09:30→21:26)
[2018-06-17] MEDS: COREG 12.5 MG PO SCH ×2 (09:30→21:26)
[2018-06-17] MEDS: Protonix 40MG Tablet PO SCH ×2 (09:30→21:26)
[2018-06-17] MEDS: NovoLOG Insulin SQ SCH ×3 (09:32→18:30)
[2018-06-17] MEDS: Lantus Insulin SQ SCH ×2 (09:34→21:26)
[2018-06-17] MEDS: LYRICA 100MG PO SCH ×3 (09:45→21:26)
[2018-06-17] MEDS: Flonase NASAL NS SCH (09:47)
[2018-06-17] MEDS: ENOXAPARIN SODIUM SQ SCH (09:51)
[2018-06-17 09:52] LABS: TROPONIN < 0.012 ng/mL (0.000-0.034)
[2018-06-17] MEDS: Invanz 1 GM*** 1 G in Sodium Chloride 100ML MINI-BAG PLUS 100 ML IV SCH (10:05)
[2018-06-17] MEDS: VANCOCIN 1 GM VIAL*** 1.25 GM in Sodium Chloride 0.9% 250 ML 250 ML IV SCH (11:22)
--- NOTE | 2018-06-17 11:47 | CONS ---
CONSULT DATE: 06/16/2018 REASON FOR CONSULT: Acute on chronic kidney disease. HISTORY: The patient is a 42 year-old lady who had multiple medical problems including chronic kidney disease stage IV who follows up with Dr. Jimenez in the office. She does not remember her baseline renal function. She saw him about four or five months ago. The patient apparently has multiple medical problems including chronic kidney disease. She apparently has been having right foot osteomyelitis and infection for the last several weeks that has been progressively getting worse over the last few days. She was brought in by the ambulance when she complained of cough and fever for three to four days. She has had recurrent pneumonia from time to time. She thought she had it again. She had a fever of 104F. She had some vomiting at the time of presentation. She was admitted with creatinine of 1.7 and the creatinine continued to get worse. Today the creatinine is 2.8 and hence nephrology was consulted. Her blood sugars over the last 24 hours have been more than 400 or 500. She denies any active vomiting or diarrhea. She has received some IV fluids. She denies any problems with eating or drinking. She denies any vomiting or diarrhea actively. She has been moved to ICU for insulin drip. REVIEW OF SYSTEMS: She complains of some pain, redness and swelling in the right foot. Denied any active vomiting, diarrhea or any fever. Complains of generalized weakness. Denies any chest pain. Denies any problems with urinary difficulty or hematuria. All of the systems were reviewed and negative except as listed above. PAST MEDICAL HISTORY: Diabetes mellitus type 2, hypertension, hyperlipidemia, neuropathy, chronic kidney disease stage IV, chronic obstructive pulmonary disease, chronic pain, congestive heart failure with unknown ejection fraction, history of pneumonia, peripheral vascular disease, chronic obstructive pulmonary disease, degenerative disc disease, diverticulitis, gastroesophageal reflux disease, pancreatitis, anxiety and depression. Chronic hypoxic respiratory failure. Childbirth x2. PAST SURGICAL HISTORY: Includes tubal ligation, D&C. Surgery in the left big toe. MEDICATIONS: Home medications and medicines in the hospital were reviewed and per the medication reconciliation sheet. Home medicines included Furosemide, metolazone, lisinopril. ALLERGIES: CODEINE, DIPHENHYDRAMINE, MORPHINE, DOXYCYCLINE, ACETAMINIOPHEN, PENICILLIN, PROPOXYPHENE, SULFA. SOCIAL HISTORY: She has history of tobacco abuse. Denies any substance abuse. FAMILY HISTORY: She denies any kidney disease in the family. PHYSICAL EXAMINATION: The patient is awake, alert, oriented, not in any acute distress. Vital signs reviewed. HEENT: Head normocephalic. Eyes nonicteric, positive pallor. ENT mucosa moist. NECK: No JVD. Trachea midline. CHEST: Clear to auscultation. Occasional rhonchi, occasional rales. No respiratory distress. CVS: Appears regular. EXTREMITIES: Trace peripheral edema bilateral. No cyanosis. Skin right foot has edema, redness, swelling which was not examined as it was bandaged. ABDOMEN: Soft, nontender, positive bowel sounds. No palpable organomegaly. NEUROLOGIC: Awake, alert, oriented x3. Following commands and answering all questions appropriately. PSYCHIATRIC: Appropriate mood and affect. SKIN: Warm and dry. LAB DATA AND TESTS: Glucose 579. Blood culture pending. Glucose 591, BUN 45, creatinine 2.89, sodium 124. Corrected sodium was 132 to 136. CO2 21. Hemoglobin 8.7, white blood cell count 18.1. Yesterday hemoglobin was 11.6, creatinine 2.49. Admission creatinine was 1.7. ASSESSMENT AND PLAN: A 42 year-old lady with medical problems of: 1) ACUTE KIDNEY DISEASE ON CHRONIC KIDNEY DISEASE STAGE IV: Acute kidney disease likely secondary to ATN from sepsis and from osmotic white blood cells with increased blood sugars. I recommend holding diuretics and holding lisinopril. Avoid nephrotoxins. Recommend renal dosing of all medication. With infection and/or with antibiotics renal function may get worse, osmotic white blood cell also making things worse. Will decrease IV fluids and hold diuretics and monitor fluid electrolytes and renal function status closely. I will check ultrasound to rule out obstructive process. Will monitor input and output, fluid and electrolyte status closely. 2) ANEMIA, UNSPECIFIED: Will check iron, B12 and folate level to monitor for cause of anemia and follow closely. 3) HYPERTENSION: Will hold lisinopril and diuretic. Will use alterative agents as needed for the blood pressure. 4) OSTEOMYELITIS, FOOT INFECTION, SEPSIS: Management per primary care. 5) HYPERLIPIDEMIA: Continue with atorvastatin. 6) DIABETES MELLITUS TYPE 2, UNCONTROLLED. Decrease fluids. Sugars are getting somewhat better. She is eating and drinking okay. 7) NEUROPATHY, CHRONIC OBSTRUCTIVE PULMONARY DISEASE AND OTHER MEDICAL ISSUES: Management per primary care. Thank you for this consultation. Please do not hesitate to contact me for any questions.
[2018-06-17] MEDS: Sodium Chloride 0.9% 1000 ML 1,000 ML IV SCH ×2 (12:42→15:38)
[2018-06-17 13:11] LABS: Folate (Folic Acid) 13.1 ng/mL (2.76 - >20)
[2018-06-17] MEDS: PHENERGAN 25 MG PO PRN (13:26)
--- NOTE | 2018-06-17 15:28 | CONS ---
CONSULT DATE: 06/17/2018 HISTORY: Miss Collazo is a 42 year-old obese woman with multiple health problems who has been admitted with hypocalcemia and lower extremity toe cellulitis. The patient has been scheduled for amputation of two toes of right lower extremity tomorrow. In the mean time she is noted to have persistent hyperglycemia requiring insulin therapy via drip and was moved to ICU. The patient was noted to have drop in oxygen saturation during sleep and was placed on CPAP with which she showed improvement in oxygenation. She reportedly had sleep study done a few years ago at [facility]. The patient reports that she never received a CPAP. She also has been on home oxygen therapy for the past two to three years. The patient had prolonged respiratory failure and was on life support for about 13 days at [facility]. Subsequent to that she quit smoking. The patient has significantly reduced effort tolerance and found not to just have pulmonary problems but also with peripheral neuropathy and vasculopathy. PAST MEDICAL HISTORY: Positive for history of coronary artery disease. 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 She has chronic obstructive pulmonary disease, chronic pain, hypoxemia, diabetes mellitus, hypertension, peripheral neuropathy, gastroesophageal reflux. PAST SURGICAL HISTORY: No recent surgery. PERSONAL AND SOCIAL HISTORY: She is a former smoker, quit smoking two years ago. MEDICATIONS: Home and current medications are reviewed. ALLERGIES: ALLERGIES NOTED. PHYSICAL EXAMINATION: A middle aged woman who appears comfortable with marginal saturations of 88 to 90% on 5 liters. The patient improved immediately on "waking up". HEENT: Normocephalic. Oral exam is normal. NECK: Supple. CVS: First and second heart sounds are normal, regular, rhythmic. RESPIRATORY: Shows diminished breath sounds. ABDOMEN: Obese. EXTREMITIES: Lower extremities show edema and cellulitis of right lower extremity. LABORATORY DATA AND TESTS: The pH 7.37, pO2 38, pO2 59 on CPAP at 40% oxygen. Troponin I is negative. Sodium 129, potassium 4.8, chloride 96, bicarb 23, glucose 122, BUN 47, creatinine 3.1. Cultures are showing Streptococcus sensitive to levofloxacin, linezoid, clindamycin, tetracycline, Vancomycin. White blood cell count 14.7, hemoglobin 8.6, hematocrit 27, PLT 297,000. Chest x-ray shows minimal right basilar atelectasis. ASSESSMENT: This is a 42 year old woman admitted with multiple health problems noted to have: 1) Nocturnal desaturations and obstructive sleep apnea. 2) Underlying chronic obstructive pulmonary disease from previous smoking. 3) Coronary artery disease status post myocardial infarction. 4) Diabetes mellitus poorly controlled. 5) Chronic kidney disease stage IV. 6) Lower extremity cellulitis/osteomyelitis. RECOMMENDATIONS: Continue supplemental oxygen at rest. Deep venous thrombosis prophylaxis. CPAP during sleep night or day. She will benefit from polysomnography and PFT upon discharge. Deep venous thrombosis prophylaxis in view of surgical treatment. I will continue to follow as needed. Thank you for allowing me to participate in the care of this patient.
[2018-06-17] MEDS ORDERED: Dextrose 5% -0.45 NaCl 1000 ML 1,000 ML IV SCH (15:30)
[2018-06-17] MEDS: Cyclobenzaprine 10 MG PO SCH (21:25)
[2018-06-17] MEDS: DESYREL 50 MG PO SCH (21:26)
[2018-06-17] MEDS: Singulair 10 MG PO SCH (21:26)
[2018-06-18] MEDS: NovoLOG Insulin SQ PRN ×6 (01:34→23:50)
[2018-06-18] MEDS: PROVENTIL 2.5 MG/3 ML NEB IH SCH ×6 (02:55→22:52)
[2018-06-18] MEDS: NORCO 7.5/325 MG TAB PO PRN ×4 (04:45→19:59)
[2018-06-18 06:24] LABS: ALBUMIN 3.5 g/dL (3.5-5.0); ANION GAP 20.6 MEQ/L (5-15); BILIRUBIN,TOTAL 0.2 mg/dL (0.2-1.3); Calcium 8.8 mg/dL (8.4-10.2); Creatinine 1 3.67 mg/dL (0.52-1.04); Total Protein 6.9 g/dL (6.3-8.2)
[2018-06-18 06:34] LABS: Hematocrit 26.9 % (35-47); Hemoglobin 8.5 gm/dl (12.0-16.0); Mean Cell Volume 76.6 fl (78-100); Mean Corpuscular Hemoglobin 24.2 pg (26-32); Mean Corpuscular Hgb Concent. 31.6 g/dl (32-36); Mean Platelet Volume 11.6 fl (6-9.5); Platelet Count 309 K/mm3 (150-450); Red Blood Count 3.51 M/mm3 (4.1-5.4); Red Cell Distribution Width 15.5 % (11.5-14.0); White Blood Count 13.7 K/mm3 (4.0-10.5)
--- NOTE | 2018-06-18 06:59 | PCM.NOTE ---
Date and Time: 06/18/18 0646 Subjective Assessment: Pt slept well overnight on CPAP. She only had 25cc of urine out at the beginning of the shift, but at the end of the shift had 300cc out. She is NPO for surgery later today. Tmax overnight 99.1. BS upper 100s up to 244. She was given 1/2 her long acting insulin dose last night. - Review of Systems Constitutional: No Fever Abdominal/Gastrointestinal: No Vomiting Skin: Cellulitis Objective Exam General Appearance: no apparent distress, obese Neurologic Exam: alert, cooperative Skin Exam: warm, dry, No rash Respiratory Exam: lungs clear, diminished breath sounds, No crackles/rales, No rhonchi, No wheezing Cardiovascular Exam: regular rate/rhythm, normal heart sounds, No murmur Extremity Exam: other (feet wrapped bilaterally) Back Exam: normal inspection, No rash OBJECTIVE DATA Vital Signs: Vital Signs - 24 hr Temp Pulse Resp BP Pulse Ox 06/18/18 04:00 99.1 F 93 H 18 142/96 95 06/18/18 02:56 96 H 20 93 L 06/18/18 00:00 98.5 F 88 17 121/79 93 L 06/17/18 23:20 88 16 93 L 06/17/18 20:00 97.5 F 95 H 22 113/98 94 L 06/17/18 18:00 96 H 20 92 L 06/17/18 16:00 98.3 F 102 H 16 141/99 92 L 06/17/18 14:46 87 20 92 L 06/17/18 12:00 98.6 F 91 H 19 111/63 94 L 06/17/18 10:37 90 20 93 L 06/17/18 08:00 98.7 F 91 H 17 107/73 95 Oxygen-Last 24 hours O2 Percentage 5 Liters = 40% O2 Percentage 5 Liters = 40% O2 Percentage 5 Liters = 40% O2 Percentage 5 Liters = 40% O2 Percentage 5 Liters = 40% O2 Percentage 40% Pain Assessment - Last Documented Pain Intensity 3 Pain Scale Used 0-10 Pain Scale Intake and Output: Intake & Output 06/15/18 06/16/18 06/17/18 06/18/18 11:59 11:59 11:59 11:59 Intake Total 1942 3102 1431 1760 Output Total 302 5443 934 2042 Balance 1640 1452 631 250 Weight 132.1 kg 132.1 kg Lab Results: Accuchecks Date 06/18/18 Date 06/18/18 Date 06/17/18 Date 06/17/18 Date 06/17/18 Time 04:55 Time 01:34 Time 21:00 Time 11:05 Time 08:50 Accucheck Value: 210 Accucheck Value: 198 Accucheck Value: 203 Accucheck Value: 187 Accucheck Value: 244 Accucheck Value: 221 Accucheck Value: 178 Lab Results-Last 24 Hours 06/17/18 06/17/18 06/17/18 Range/Units 04:00 05:50 06:00 WBC (4.0-10.5) K/mm3 RBC (4.1-5.4) M/mm3 Hgb (12.0-16.0) gm/dl Hct (35-47) % MCV (78-100) fl MCH (26-32) pg MCHC (32-36) g/dl RDW (11.5-14.0) % Plt Count (150-450) K/mm3 MPV (6-9.5) fl Puncture Site pCO2 (35-45) mmHg pO2 (75-100) mmHg Base Excess (-2.0-2.0) O2 Saturation (94-100) g/dF ABG pH (7.35-7.45) ABG HCO3 (22-28) ABG O2 Sat (Measured) (95-100) % Raj Test A-a Gradient a/A Ratio Hemoglobin Carboxyhemoglobin (0.0-6.9) % THgb Methemoglobin (1.4-1.5) % Temperature C POC O2 Flow Rate % Vent Mode Sodium 129 L (137-145) mmol/L Potassium 4.8 (3.5-5.1) mmol/L Chloride 96 L (98-107) mmol/L Carbon Dioxide 23 (22-30) mmol/L Anion Gap 15.0 (5-15) MEQ/L BUN 47 H (7-17) mg/dL Creatinine 3.10 H (0.52-1.04) mg/dL Estimated GFR 17.5 ML/MIN Glucose 172 H (74-106) mg/dL Calcium 8.7 (8.4-10.2) mg/dL Magnesium 1.7 (1.6-2.3) mg/dL Iron 20 L (37-170) ug/dL TIBC 239 L (265-462) ug/dL Iron Saturation 8 L (20-39) % Ferritin 191 H (6.24-137) ng/mL Total Bilirubin 0.10 L (0.2-1.3) mg/dL AST 19 (14-36) U/L ALT 23 (0-35) U/L Alkaline Phosphatase 147 H (38-126) U/L Troponin I < 0.012 (0.000-0.034) ng/mL Serum Total Protein 7.0 (6.3-8.2) g/dL Albumin 3.5 (3.5-5.0) g/dL Vitamin B12 471 (239-931) pg/mL Folic Acid Cancelled 13.1 06/17/18 06/18/18 Range/Units 06:54 05:52 WBC 13.7 H (4.0-10.5) K/mm3 RBC 3.51 L (4.1-5.4) M/mm3 Hgb 8.5 L (12.0-16.0) gm/dl Hct 26.9 L (35-47) % MCV 76.6 L (78-100) fl MCH 24.2 L (26-32) pg MCHC 31.6 L (32-36) g/dl RDW 15.5 H (11.5-14.0) % Plt Count 309 (150-450) K/mm3 MPV 11.6 H (6-9.5) fl Puncture Site RIGHT RADIAL pCO2 38 (35-45) mmHg pO2 59 L (75-100) mmHg Base Excess -2.9 L (-2.0-2.0) O2 Saturation 91.0 L (94-100) g/dF ABG pH 7.37 (7.35-7.45) ABG HCO3 22.0 (22-28) ABG O2 Sat (Measured) 92.6 L (95-100) % Raj Test YES A-a Gradient 179 a/A Ratio 0.25 Hemoglobin 13.4 Carboxyhemoglobin 1.2 (0.0-6.9) % THgb Methemoglobin 0.4 L (1.4-1.5) % Temperature 37.0 C POC O2 Flow Rate 40 % Vent Mode CPAP Sodium (137-145) mmol/L Potassium 4.8 (3.5-5.1) mmol/L Chloride (98-107) mmol/L Carbon Dioxide (22-30) mmol/L Anion Gap (5-15) MEQ/L BUN (7-17) mg/dL Creatinine (0.52-1.04) mg/dL Estimated GFR ML/MIN Glucose (74-106) mg/dL Calcium (8.4-10.2) mg/dL Magnesium (1.6-2.3) mg/dL Iron (37-170) ug/dL TIBC (265-462) ug/dL Iron Saturation (20-39) % Ferritin (6.24-137) ng/mL Total Bilirubin (0.2-1.3) mg/dL AST (14-36) U/L ALT (0-35) U/L Alkaline Phosphatase (38-126) U/L Troponin I (0.000-0.034) ng/mL Serum Total Protein (6.3-8.2) g/dL Albumin (3.5-5.0) g/dL Vitamin B12 (239-931) pg/mL Folic Acid Radiology Exams: Radiology Procedures Category Date Time Status CHEST 1 VIEW (PORTABLE) Stat Exams 06/17/18 08:02 Completed LUMBAR LIMITED (2 OR 3 VIEWS) Routine Exams 06/16/18 09:02 Completed Ultrasound Kidney [KIDNEY] [US] Routine Exams 06/17/18 10:00 Completed Multi-Disciplinary Progress Notes: Multi-Disciplinary Progress Notes 06/17/18 14:30 (created 06/17/18 17:23) Case Management Note by Augusta Angel SPOKE WITH PATIENT TODAY, PATIENT SCHEDULED FOR SURGERY TOMORROW. WILL CONTINUE TO FOLLOW. PATIENT STILL PLANS TO RETURN HOME WITH [facility]ON DC. Initialized on 06/17/18 17:23 - END OF NOTE Assessment/Plan (1) Hypoxemia Current Visit: Yes Status: Acute Onset Date: ~06/15/18 Assessment & Plan: much improved on CPAP; I did consult Dr. Stack, pulmonology, yesterday - thank you. He agreed with current management and ordered a sleep study outpatient. Code(s): R09.02 - HYPOXEMIA (2) Osteomyelitis Current Visit: Yes Status: Acute Onset Date: ~07/23/18 Qualifiers: Osteomyelitis type: other acute Osteomyelitis location: foot Laterality: right Qualified Code(s): M86.171 - Other acute osteomyelitis, right ankle and foot Assessment & Plan: on IV vancomycin and ertapenem. Her culture was resistant to clindamycin. She is having 2 toes amputated earlier today. Code(s): M86.9 - OSTEOMYELITIS, UNSPECIFIED (3) Peripheral vascular disease Current Visit: Yes Status: Chronic Code(s): I73.9 - PERIPHERAL VASCULAR DISEASE, UNSPECIFIED (4) Wound, open, foot Current Visit: No Status: Chronic Onset Date: ~06/14/18 Qualifiers: Encounter type: subsequent encounter Laterality: unspecified laterality Qualified Code(s): S91.309D - Unspecified open wound, unspecified foot, subsequent encounter Code(s): S91.309A - UNSPECIFIED OPEN WOUND, UNSPECIFIED FOOT, INITIAL ENCOUNTER (5) Acute renal injury Current Visit: Yes Status: Acute Onset Date: ~06/15/18 Assessment & Plan: Dr. Vides following, thank you. Code(s): N17.9 - ACUTE KIDNEY FAILURE, UNSPECIFIED (6) Paresthesia and pain of left extremity Current Visit: Yes Status: Acute Onset Date: ~06/15/18 Assessment & Plan: Would like for her to have an MRI of the lumbar spine but her acute issues have kept her from it so far. Code(s): M79.609 - PAIN IN UNSPECIFIED LIMB; R20.2 - PARESTHESIA OF SKIN (7) COPD (chronic obstructive pulmonary disease) Current Visit: No Status: Chronic Qualifiers: COPD type: chronic bronchitis Chronic bronchitis type: unspecified Qualified Code(s): J42 - Unspecified chronic bronchitis Assessment & Plan: Stable. (8) Hyponatremia Current Visit: Yes Status: Acute Onset Date: ~06/15/18 Code(s): E87.1 - HYPO-OSMOLALITY AND HYPONATREMIA (9) Chronic renal insufficiency Current Visit: No Status: Chronic Qualifiers: Chronic kidney disease stage: stage 3 (moderate) Qualified Code(s): N18.3 - Chronic kidney disease, stage 3 (moderate) Code(s): N18.9 - CHRONIC KIDNEY DISEASE, UNSPECIFIED (10) Diabetes type 2, uncontrolled Current Visit: No Status: Chronic Qualifiers: Diabetes mellitus roasterman insulin use: with roasterman use Diabetes mellitus complication status: with neurologic complications Diabetes mellitus complication detail: with polyneuropathy Qualified Code(s): E11.42 - Type 2 diabetes mellitus with diabetic polyneuropathy; E11.65 - Type 2 diabetes mellitus with hyperglycemia; E11.65 - Type 2 diabetes mellitus with hyperglycemia; E11.65 - Type 2 diabetes mellitus with hyperglycemia; E11.65 - Type 2 diabetes mellitus with hyperglycemia; Z79.4 - terminal makeup operator (current) use of insulin; Z79.4 - skilled nursing (current) use of insulin; Z79.4 - skilled nursing (current ) use of insulin; Z79.4 - terminal makeup operator (current) use of insulin Assessment & Plan: Now on 1/2 dose on her long acting insulin since she is NPO today. Code(s): E11.65 - TYPE 2 DIABETES MELLITUS WITH HYPERGLYCEMIA (11) Peripheral neuropathy Current Visit: No Status: Chronic Qualifiers: Peripheral neuropathy type: polyneuropathy, unspecified Qualified Code(s): G62.9 - Polyneuropathy, unspecified Code(s): G62.9 - POLYNEUROPATHY, UNSPECIFIED (12) Chronic hypoxemic respiratory failure Current Visit: Yes Status: Chronic Onset Date: ~06/15/18 (13) Anemia Current Visit: Yes Status: Chronic Onset Date: ~06/17/18 Code(s): D64.9 - ANEMIA, UNSPECIFIED
[2018-06-18] MEDS ORDERED: Lactated Ringers 1,000 ML IV ONE (07:06)
[2018-06-18] MEDS: Venofer 100 MG/5 ML*** 200 MG in Sodium Chloride 0.9% 100 ML IVPB 100 ML IV SCH (07:41)
[2018-06-18] MEDS: NovoLOG Insulin SQ SCH ×3 (09:53→17:58)
[2018-06-18] MEDS: Lantus Insulin SQ SCH ×2 (09:54→21:36)
[2018-06-18] MEDS: BUSPAR 5 MG PO SCH ×2 (09:54→21:35)
[2018-06-18] MEDS: Protonix 40MG Tablet PO SCH ×2 (09:55→21:35)
[2018-06-18] MEDS: LYRICA 100MG PO SCH ×3 (09:55→21:35)
[2018-06-18] MEDS: Zocor 10MG PO SCH (09:55)
[2018-06-18] MEDS: NORVASC 5 MG PO SCH (09:55)
[2018-06-18] MEDS: COREG 12.5 MG PO SCH ×2 (09:58→21:35)
[2018-06-18] MEDS: Invanz 1 GM*** 1 G in Sodium Chloride 100ML MINI-BAG PLUS 100 ML IV SCH (09:58)
[2018-06-18] MEDS: Flonase NASAL NS SCH (09:59)
[2018-06-18] MEDS ORDERED: Xylocaine-Mpf 2% 5 Ml Vial IJ ONE (10:03)
[2018-06-18] MEDS ORDERED: Marcaine Spinal Ampul IJ ONE (10:03)
[2018-06-18] MEDS: PHENERGAN 25 MG PO PRN ×2 (10:10→20:04)
[2018-06-18] MEDS: VANCOCIN 1 GM VIAL*** 1.25 GM in Sodium Chloride 0.9% 250 ML 250 ML IV SCH (10:49)
[2018-06-18 11:29] LABS: INR 1.13 (0.8-3.0)
[2018-06-18 11:33] LABS: PTT 39.2 SECONDS (25.3-37.0)
[2018-06-18] MEDS: ENOXAPARIN SODIUM SQ SCH (12:09)
[2018-06-18] MEDS ORDERED: Sodium Chloride 0.9% 1000 ML 1,000 ML IV SCH (15:00)
[2018-06-18] MEDS ORDERED: Sodium Chloride 0.9% 1000 ML 1,000 ML ONE (15:46)
[2018-06-18 19:03] LABS: Appearance HAZY (CLEAR); Bilirubin NEGATIVE (NEGATIVE); Glucose NEGATIVE (NEGATIVE); Ketones NEGATIVE (NEGATIVE); Leukocyte Esterase NEGATIVE (NEGATIVE); Nitrite NEGATIVE (NEGATIVE); Protein,Urine Dip 30 (Negative); Urobilinogen NORMAL mg/dL (0-1)
[2018-06-18 19:04] LABS: Blood TRACE NON-HEM Ery/ul (0-5); Epithelial Cells RARE /HPF (FEW); RBC 0-2 /HPF (0-2)
[2018-06-18] MEDS: Cyclobenzaprine 10 MG PO SCH (21:34)
[2018-06-18] MEDS: Singulair 10 MG PO SCH (21:35)
[2018-06-18] MEDS: DESYREL 50 MG PO SCH (21:35)
[2018-06-19] MEDS: PROVENTIL 2.5 MG/3 ML NEB IH SCH ×5 (02:54→19:09)
[2018-06-19] MEDS: PHENERGAN 25 MG PO PRN ×2 (04:33→16:28)
[2018-06-19] MEDS: NORCO 7.5/325 MG TAB PO PRN ×4 (04:34→21:17)
[2018-06-19] MEDS: NovoLOG Insulin SQ PRN ×4 (04:35→16:56)
[2018-06-19 05:50] LABS: Hematocrit 25.7 % (35-47); Hemoglobin 7.9 gm/dl (12.0-16.0); Mean Cell Volume 77.2 fl (78-100); Mean Corpuscular Hemoglobin 23.7 pg (26-32); Mean Corpuscular Hgb Concent. 30.7 g/dl (32-36); Mean Platelet Volume 11.1 fl (6-9.5); Platelet Count 312 K/mm3 (150-450); Red Blood Count 3.33 M/mm3 (4.1-5.4); Red Cell Distribution Width 15.6 % (11.5-14.0); White Blood Count 12.7 K/mm3 (4.0-10.5)
[2018-06-19 05:54] LABS: ALBUMIN 3.2 g/dL (3.5-5.0); ANION GAP 15.3 MEQ/L (5-15); BILIRUBIN,TOTAL 0.2 mg/dL (0.2-1.3); Calcium 8.8 mg/dL (8.4-10.2); Creatinine 1 2.57 mg/dL (0.52-1.04); Potassium 5.4 mmol/L (3.5-5.1); Total Protein 6.7 g/dL (6.3-8.2)
[2018-06-19] MEDS: Venofer 100 MG/5 ML*** 200 MG in Sodium Chloride 0.9% 100 ML IVPB 100 ML IV SCH (07:40)
--- NOTE | 2018-06-19 07:43 | OP ---
SURGERY DATE/TIME: 06/18/2018 1606 PREOPERATIVE DIAGNOSIS: Necrotic right fourth and fifth toes with open areas of purulent tendons. POSTOPERATIVE DIAGNOSIS: Necrotic right fourth and fifth toes with open areas of purulent tendons. PROCEDURE: Amputation right fourth and fifth toes. SURGEON: Guevara Alfredo M.D. ANESTHESIA: Spinal by Alex Lujan CRNA. COMPLICATIONS: None. CONDITION: Stable. INDICATION: A patient requiring amputation of fourth and fifth toes. DESCRIPTION OF PROCEDURE: Taken to surgery. Spinal anesthetic performed. Routine prep and drape. Time out performed. These toes have ulcers and necrotic tendons. They were both amputated at the joint, rongeured lightly. Sufficient amount of flaps preserved as best as possible and after generous irrigation and debridement were loosely closed over with 3-0 Prolene. Sterile Xeroform and dressing applied. The patient tolerated the procedure satisfactorily.
[2018-06-19] MEDS: Lantus Insulin SQ SCH ×2 (08:11→23:23)
[2018-06-19] MEDS: NovoLOG Insulin SQ SCH ×3 (08:11→16:56)
[2018-06-19] MEDS: ENOXAPARIN SODIUM SQ SCH (08:49)
[2018-06-19] MEDS: Zocor 10MG PO SCH (08:50)
[2018-06-19] MEDS: Colace 100 MG PO PRN (08:50)
[2018-06-19] MEDS: Protonix 40MG Tablet PO SCH ×2 (08:50→23:12)
[2018-06-19] MEDS: BUSPAR 5 MG PO SCH ×2 (08:50→23:12)
[2018-06-19] MEDS: LYRICA 100MG PO SCH ×3 (08:51→23:12)
[2018-06-19] MEDS: Flonase NASAL NS SCH (08:52)
--- NOTE | 2018-06-19 08:52 | PCM.NOTE ---
Date and Time: 06/19/18 0845 Subjective Assessment: She is feeling good this morning. Breathing is OK. Amputation of toes went well yesterday. Up to bathroom with 1 assist but doing fairly well on her own. Deshawn po. On 5L NC now; was on CPAP overnight. - Review of Systems Constitutional: Fever (Tmax 100.2 yesterday at 7:49 a.m.) Abdominal/Gastrointestinal: No Vomiting Objective Exam General Appearance: no apparent distress, obese Neurologic Exam: alert, oriented x 3, cooperative Skin Exam: normal color, warm, dry, No rash Respiratory Exam: normal breath sounds, lungs clear, No crackles/rales, No rhonchi, No wheezing Cardiovascular Exam: regular rate/rhythm, normal heart sounds, No murmur Extremity Exam: other (feet wrapped bilat) OBJECTIVE DATA Vital Signs: Vital Signs - 24 hr Temp Pulse Resp BP Pulse Ox 06/19/18 07:33 87 16 102/55 97 06/19/18 07:00 54 L 18 96 06/19/18 04:30 99.9 F 98 H 16 121/65 94 L 06/19/18 02:54 99 H 18 99 06/18/18 23:56 93 H 19 96/78 97 06/18/18 22:53 95 H 15 98 06/18/18 21:00 99.5 F 98 H 22 123/71 95 06/18/18 20:00 98 H 06/18/18 18:44 97 H 16 96 06/18/18 17:57 99.0 F 102 H 19 143/90 95 06/18/18 15:44 99.5 F 100 H 18 145/92 96 06/18/18 14:40 101 H 18 96 06/18/18 12:00 102 H 06/18/18 11:52 98.9 F 100 H 18 145/92 95 06/18/18 10:26 102 H 20 93 L Oxygen-Last 24 hours O2 Percentage 5 Liters = 40% O2 Percentage 5 Liters = 40% O2 Percentage 40% O2 Percentage 5 Liters = 40% O2 Percentage 5 Liters = 40% O2 Percentage 5 Liters = 40% Pain Assessment - Last Documented Pain Intensity 8 Pain Scale Used 0-10 Pain Scale Intake and Output: Intake & Output 06/16/18 06/17/18 06/18/18 06/19/18 11:59 11:59 11:59 11:59 Intake Total 3102 1431 1760 1619 Output Total 0643 964 3517 1525 Balance 1452 631 -120 94 Weight 132.1 kg 132.1 kg Lab Results: Accuchecks Date 06/19/18 Date 06/19/18 Date 06/18/18 Date 06/18/18 Date 06/18/18 Date 06/18/18 Time 07:50 Time 04:30 Time 23:52 Time 20:00 Time 14:45 Time 10:41 Accucheck Value: 283 Accucheck Value: 273 Accucheck Value: 269 Accucheck Value: 262 Accucheck Value: 225 Lab Results-Last 24 Hours 06/18/18 06/18/18 06/19/18 Range/Units 05:52 17:10 05:20 WBC 12.7 H (4.0-10.5) K/mm3 RBC 3.33 L (4.1-5.4) M/mm3 Hgb 7.9 L (12.0-16.0) gm/dl Hct 25.7 L (35-47) % MCV 77.2 L (78-100) fl MCH 23.7 L (26-32) pg MCHC 30.7 L (32-36) g/dl RDW 15.6 H (11.5-14.0) % Plt Count 312 (150-450) K/mm3 MPV 11.1 H (6-9.5) fl PT 13.2 H (9.95-12.35) SECONDS INR 1.13 (0.8-3.0) APTT 39.2 H (25.3-37.0) SECONDS Sodium (137-145) mmol/L Potassium (3.5-5.1) mmol/L Chloride (98-107) mmol/L Carbon Dioxide (22-30) mmol/L Anion Gap (5-15) MEQ/L BUN (7-17) mg/dL Creatinine (0.52-1.04) mg/dL Estimated GFR ML/MIN Glucose (74-106) mg/dL Calcium (8.4-10.2) mg/dL Total Bilirubin (0.2-1.3) mg/dL AST (14-36) U/L ALT (0-35) U/L Alkaline Phosphatase (38-126) U/L Serum Total Protein (6.3-8.2) g/dL Albumin (3.5-5.0) g/dL Ur Collection Type CATH Urine Color YELLOW (YELLOW) Urine Appearance HAZY (CLEAR) Urine pH 5.0 (5-6) Ur Specific [place] 1.020 (1.005-1.025) Urine Protein 30 (Negative) Urine Ketones NEGATIVE (NEGATIVE) Urine Blood TRACE NON-HEM (0-5) Jaren/ul Urine Nitrite NEGATIVE (NEGATIVE) Urine Bilirubin NEGATIVE (NEGATIVE) Urine Urobilinogen NORMAL (0-1) mg/dL Ur Leukocyte Esterase NEGATIVE (NEGATIVE) Urine Microscopic RBC 0-2 (0-2) /HPF Ur Epithelial Cells RARE (FEW) /HPF Urine Glucose NEGATIVE (NEGATIVE) mg/dL Specimen Received 06/18 1600 06/19/18 Range/Units 05:20 WBC (4.0-10.5) K/mm3 RBC (4.1-5.4) M/mm3 Hgb (12.0-16.0) gm/dl Hct (35-47) % MCV (78-100) fl MCH (26-32) pg MCHC (32-36) g/dl RDW (11.5-14.0) % Plt Count (150-450) K/mm3 MPV (6-9.5) fl PT (9.95-12.35) SECONDS INR (0.8-3.0) APTT (25.3-37.0) SECONDS Sodium 129 L (137-145) mmol/L Potassium 5.4 H (3.5-5.1) mmol/L Chloride 97 L (98-107) mmol/L Carbon Dioxide 22 (22-30) mmol/L Anion Gap 15.3 H (5-15) MEQ/L BUN 58 H (7-17) mg/dL Creatinine 2.57 H (0.52-1.04) mg/dL Estimated GFR 21.7 ML/MIN Glucose 282 H (74-106) mg/dL Calcium 8.8 (8.4-10.2) mg/dL Total Bilirubin 0.20 (0.2-1.3) mg/dL AST 19 (14-36) U/L ALT 17 (0-35) U/L Alkaline Phosphatase 170 H (38-126) U/L Serum Total Protein 6.7 (6.3-8.2) g/dL Albumin 3.2 L (3.5-5.0) g/dL Ur Collection Type Urine Color (YELLOW) Urine Appearance (CLEAR) Urine pH (5-6) Ur Specific [place] (1.005-1.025) Urine Protein (Negative) Urine Ketones (NEGATIVE) Urine Blood (0-5) Jaren/ul Urine Nitrite (NEGATIVE) Urine Bilirubin (NEGATIVE) Urine Urobilinogen (0-1) mg/dL Ur Leukocyte Esterase (NEGATIVE) Urine Microscopic RBC (0-2) /HPF Ur Epithelial Cells (FEW) /HPF Urine Glucose (NEGATIVE) mg/dL Specimen Received Radiology Exams: Radiology Procedures Category Date Time Status CHEST 1 VIEW (PORTABLE) Stat Exams 06/17/18 08:02 Completed Ultrasound Kidney [KIDNEY] [US] Routine Exams 06/17/18 10:00 Completed Multi-Disciplinary Progress Notes: Multi-Disciplinary Progress Notes 06/18/18 13:30 (created 06/18/18 16:07) Case Management Note by Augusta Angel PATIENT SCHEDULED FOR SURGERY THIS EVENING. WILL CONTINUE TO FOLLOW PATIENT AND PROVIDE SUPPORT AT TIME OF DISCHARGE. SPOKE WITH PATIENT NO CHANGE IN DC PLANS AT THIS TIME. Initialized on 06/18/18 16:07 - END OF NOTE Assessment/Plan (1) Hypoxemia Current Visit: Yes Status: Resolved Onset Date: ~06/15/18 Code(s): R09.02 - HYPOXEMIA (2) Osteomyelitis Current Visit: Yes Status: Acute Onset Date: ~06/15/18 Qualifiers: Osteomyelitis type: other acute Osteomyelitis location: foot Laterality: right Qualified Code(s): M86.171 - Other acute osteomyelitis, right ankle and foot Assessment & Plan: s/p amputation. Will continue antibiotics for now. Await PT recommendations. Code(s): M86.9 - OSTEOMYELITIS, UNSPECIFIED (3) Peripheral vascular disease Current Visit: Yes Status: Chronic Assessment & Plan: Will have her f/u with Dr. Evans after discharge. Code(s): I73.9 - PERIPHERAL VASCULAR DISEASE, UNSPECIFIED (4) Acute renal injury Current Visit: Yes Status: Acute Onset Date: ~06/15/18 Assessment & Plan: Improved Cr this morning. Appreciate nephrology consult. Code(s): N17.9 - ACUTE KIDNEY FAILURE, UNSPECIFIED (5) Paresthesia and pain of left extremity Current Visit: Yes Status: Acute Onset Date: ~06/15/18 Code(s): M79.609 - PAIN IN UNSPECIFIED LIMB; R20.2 - PARESTHESIA OF SKIN (6) COPD (chronic obstructive pulmonary disease) Current Visit: No Status: Chronic Qualifiers: COPD type: chronic bronchitis Chronic bronchitis type: unspecified Qualified Code(s): J42 - Unspecified chronic bronchitis Assessment & Plan: stable, O2 good wiht CPAP at night. Appreciate pulmonology consult. (7) Hyponatremia Current Visit: Yes Status: Acute Onset Date: ~06/15/18 Assessment & Plan: persistent. Code(s): E87.1 - HYPO-OSMOLALITY AND HYPONATREMIA (8) Chronic renal insufficiency Current Visit: No Status: Chronic Qualifiers: Chronic kidney disease stage: stage 3 (moderate) Qualified Code(s): N18.3 - Chronic kidney disease, stage 3 (moderate) Code(s): N18.9 - CHRONIC KIDNEY DISEASE, UNSPECIFIED (9) Diabetes type 2, uncontrolled Current Visit: No Status: Chronic Qualifiers: Diabetes mellitus buttermaker continuous churn insulin use: with mcc use Diabetes mellitus complication status: with neurologic complications Diabetes mellitus complication detail: with polyneuropathy Qualified Code(s): E11.42 - Type 2 diabetes mellitus with diabetic polyneuropathy; E11.65 - Type 2 diabetes mellitus with hyperglycemia; E11.65 - Type 2 diabetes mellitus with hyperglycemia; E11.65 - Type 2 diabetes mellitus with hyperglycemia; E11.65 - Type 2 diabetes mellitus with hyperglycemia; Z79.4 - penitentiary (current) use of insulin; Z79.4 - long term care social worker (current) use of insulin; Z79.4 - long term care social worker (current ) use of insulin; Z79.4 - penitentiary (current) use of insulin Code(s): E11.65 - TYPE 2 DIABETES MELLITUS WITH HYPERGLYCEMIA (10) Peripheral neuropathy Current Visit: No Status: Chronic Qualifiers: Peripheral neuropathy type: polyneuropathy, unspecified Qualified Code(s): G62.9 - Polyneuropathy, unspecified Code(s): G62.9 - POLYNEUROPATHY, UNSPECIFIED (11) Chronic hypoxemic respiratory failure Current Visit: Yes Status: Chronic Onset Date: ~06/15/18 (12) Anemia Current Visit: Yes Status: Chronic Onset Date: ~06/17/18 Assessment & Plan: Hgb 7.9 this morning. Pt currently receiving iron. Recheck this p.m. and in a.m. Code(s): D64.9 - ANEMIA, UNSPECIFIED
[2018-06-19] MEDS: COREG 12.5 MG PO SCH ×2 (09:04→23:12)
[2018-06-19] MEDS: NORVASC 5 MG PO SCH (09:04)
[2018-06-19] MEDS ORDERED: TROUGH DRUG LEVELS IJ ONE (10:30)
[2018-06-19] MEDS: Invanz 1 GM*** 1 G in Sodium Chloride 100ML MINI-BAG PLUS 100 ML IV SCH (10:48)
[2018-06-19] MEDS: VANCOCIN 1 GM VIAL*** 1.25 GM in Sodium Chloride 0.9% 250 ML 250 ML IV SCH (12:04)
[2018-06-19 13:42] LABS: Hematocrit 26.7 % (35-47); Hemoglobin 8.1 gm/dl (12.0-16.0); Mean Cell Volume 77.8 fl (78-100); Mean Corpuscular Hemoglobin 23.6 pg (26-32); Mean Corpuscular Hgb Concent. 30.3 g/dl (32-36); Mean Platelet Volume 10.6 fl (6-9.5); Platelet Count 333 K/mm3 (150-450); Red Blood Count 3.43 M/mm3 (4.1-5.4); Red Cell Distribution Width 15.9 % (11.5-14.0)
[2018-06-19] MEDS: DESYREL 50 MG PO SCH (23:11)
[2018-06-19] MEDS: Singulair 10 MG PO SCH (23:12)
[2018-06-19] MEDS: Cyclobenzaprine 10 MG PO SCH (23:12)
[2018-06-20] MEDS: PROVENTIL 2.5 MG/3 ML NEB IH SCH ×6 (03:21→23:46)
[2018-06-20] MEDS: NORCO 7.5/325 MG TAB PO PRN ×3 (03:24→11:35)
[2018-06-20 06:12] LABS: Hematocrit 31.4 % (35-47); Hemoglobin 9.4 gm/dl (12.0-16.0); Mean Cell Volume 77.9 fl (78-100); Mean Corpuscular Hemoglobin 23.3 pg (26-32); Mean Corpuscular Hgb Concent. 29.9 g/dl (32-36); Mean Platelet Volume 11.1 fl (6-9.5); Platelet Count 419 K/mm3 (150-450); Red Blood Count 4.03 M/mm3 (4.1-5.4); Red Cell Distribution Width 16.2 % (11.5-14.0)
[2018-06-20 06:31] LABS: ALBUMIN 3.8 g/dL (3.5-5.0); ANION GAP 19.2 MEQ/L (5-15); BILIRUBIN,TOTAL 0.2 mg/dL (0.2-1.3); Calcium 9.6 mg/dL (8.4-10.2); Creatinine 1 3.05 mg/dL (0.52-1.04); Potassium 5.7 mmol/L (3.5-5.1); Total Protein 7.8 g/dL (6.3-8.2)
[2018-06-20] MEDS: Venofer 100 MG/5 ML*** 200 MG in Sodium Chloride 0.9% 100 ML IVPB 100 ML IV SCH (07:37)
[2018-06-20] MEDS: NovoLOG Insulin SQ PRN ×4 (09:09→22:44)
[2018-06-20] MEDS: NovoLOG Insulin SQ SCH ×3 (09:09→17:32)
[2018-06-20] MEDS: Invanz 1 GM*** 1 G in Sodium Chloride 100ML MINI-BAG PLUS 100 ML IV SCH (09:19)
[2018-06-20] MEDS: ENOXAPARIN SODIUM SQ SCH (09:21)
[2018-06-20] MEDS: BUSPAR 5 MG PO SCH ×2 (09:22→22:43)
[2018-06-20] MEDS: Protonix 40MG Tablet PO SCH ×2 (09:22→22:44)
[2018-06-20] MEDS: LYRICA 100MG PO SCH ×3 (09:22→22:44)
[2018-06-20] MEDS: COREG 12.5 MG PO SCH ×2 (09:22→22:43)
[2018-06-20] MEDS: Zocor 10MG PO SCH (09:22)
[2018-06-20] MEDS: Lantus Insulin SQ SCH ×2 (09:22→22:44)
[2018-06-20] MEDS: Flonase NASAL NS SCH (09:23)
[2018-06-20] MEDS: NORVASC 5 MG PO SCH (09:24)
[2018-06-20] MEDS: VANCOCIN 1 GM VIAL*** 1.25 GM in Sodium Chloride 0.9% 250 ML 250 ML IV SCH (10:01)
[2018-06-20 20:51] LABS: CK-MB 0 % (0-4); CK-MM 100 % (96-100); Macro Type 1 0 % (0-0)
[2018-06-20] MEDS: Cyclobenzaprine 10 MG PO SCH (22:43)
[2018-06-20] MEDS: DESYREL 50 MG PO SCH (22:44)
[2018-06-20] MEDS: Singulair 10 MG PO SCH (22:44)
[2018-06-20] MEDS: TYLENOL 325 MG PO PRN (23:36)
[2018-06-21 00:45] LABS: CK-BB 0 % (0-0); Creatine Kinase,Total 47 U/L (20-180); Macro Type 2 0 % (0-0)
[2018-06-21] MEDS: NORCO 7.5/325 MG TAB PO PRN ×2 (01:54→21:04)
[2018-06-21] MEDS: PROVENTIL 2.5 MG/3 ML NEB IH SCH ×6 (03:30→23:30)
[2018-06-21 06:20] LABS: Hematocrit 24.9 % (35-47); Hemoglobin 7.5 gm/dl (12.0-16.0); Mean Cell Volume 78.3 fl (78-100); Mean Corpuscular Hgb Concent. 30.1 g/dl (32-36); Mean Platelet Volume 11.1 fl (6-9.5); Platelet Count 373 K/mm3 (150-450); Red Blood Count 3.18 M/mm3 (4.1-5.4); White Blood Count 17.3 K/mm3 (4.0-10.5)
[2018-06-21 06:28] LABS: ALBUMIN 3.3 g/dL (3.5-5.0); BILIRUBIN,TOTAL 0.2 mg/dL (0.2-1.3); Creatinine 1 3.41 mg/dL (0.52-1.04); Potassium 5.8 mmol/L (3.5-5.1); Total Protein 6.8 g/dL (6.3-8.2)
[2018-06-21 06:36] LABS: Mean Corpuscular Hemoglobin 23.5 pg (26-32)
[2018-06-21] MEDS: Venofer 100 MG/5 ML*** 200 MG in Sodium Chloride 0.9% 100 ML IVPB 100 ML IV SCH (08:05)
[2018-06-21] MEDS: NovoLOG Insulin SQ SCH ×3 (08:30→17:09)
[2018-06-21] MEDS: NovoLOG Insulin SQ PRN ×2 (08:30→12:02)
[2018-06-21] MEDS: Invanz 1 GM*** 1 G in Sodium Chloride 100ML MINI-BAG PLUS 100 ML IV SCH (09:06)
[2018-06-21] MEDS: NORVASC 5 MG PO SCH (09:46)
[2018-06-21] MEDS: ENOXAPARIN SODIUM SQ SCH (09:46)
[2018-06-21] MEDS: COREG 12.5 MG PO SCH ×2 (09:47→21:01)
[2018-06-21] MEDS: Protonix 40MG Tablet PO SCH ×2 (09:47→21:02)
[2018-06-21] MEDS: Lantus Insulin SQ SCH ×2 (09:47→23:00)
[2018-06-21] MEDS: Zocor 10MG PO SCH (09:47)
[2018-06-21] MEDS: Flonase NASAL NS SCH (09:53)
[2018-06-21] MEDS: BUSPAR 5 MG PO SCH ×2 (09:53→21:01)
[2018-06-21] MEDS: LYRICA 100MG PO SCH ×3 (09:53→23:00)
[2018-06-21] MEDS: VANCOCIN 1 GM VIAL*** 1.25 GM in Sodium Chloride 0.9% 250 ML 250 ML IV SCH (11:01)
[2018-06-21] MEDS: TYLENOL 325 MG PO PRN (16:28)
[2018-06-21] MEDS: Singulair 10 MG PO SCH (21:02)
[2018-06-21] MEDS: DESYREL 50 MG PO SCH (22:55)
[2018-06-21] MEDS: Cyclobenzaprine 10 MG PO SCH (22:55)
[2018-06-22] MEDS: Colace 100 MG PO PRN (01:53)
[2018-06-22] MEDS: NORCO 7.5/325 MG TAB PO PRN ×5 (02:51→22:41)
[2018-06-22] MEDS: PROVENTIL 2.5 MG/3 ML NEB IH SCH ×6 (03:28→22:43)
[2018-06-22 05:52] LABS: ALBUMIN 3.3 g/dL (3.5-5.0); ANION GAP 15.2 MEQ/L (5-15); BILIRUBIN,TOTAL 0.1 mg/dL (0.2-1.3); Calcium 9.3 mg/dL (8.4-10.2); Creatinine 1 2.84 mg/dL (0.52-1.04); Hemoglobin 7.9 gm/dl (12.0-16.0); Mean Cell Volume 77.6 fl (78-100); Mean Corpuscular Hgb Concent. 30.4 g/dl (32-36); Mean Platelet Volume 11.1 fl (6-9.5); Platelet Count 375 K/mm3 (150-450); Potassium 5.8 mmol/L (3.5-5.1); Red Blood Count 3.35 M/mm3 (4.1-5.4); Red Cell Distribution Width 16.3 % (11.5-14.0); Total Protein 6.9 g/dL (6.3-8.2); White Blood Count 16.5 K/mm3 (4.0-10.5)
[2018-06-22 05:55] LABS: Mean Corpuscular Hemoglobin 23.5 pg (26-32)
[2018-06-22] MEDS: Venofer 100 MG/5 ML*** 200 MG in Sodium Chloride 0.9% 100 ML IVPB 100 ML IV SCH (07:50)
[2018-06-22] MEDS: NovoLOG Insulin SQ PRN ×3 (08:02→18:14)
[2018-06-22] MEDS: NovoLOG Insulin SQ SCH ×3 (08:03→17:14)
--- NOTE | 2018-06-22 08:39 | PCM.NOTE ---
Date and Time: 06/22/18833 Subjective Assessment: Pt c/o toe pain at site of amputation and radiating through foot. Also c/o low back pain. no longer having leg numbness on the L. estela po well. BS over the weekend into the 100s at times, otherwise 200s. - Review of Systems Constitutional: No Fever Abdominal/Gastrointestinal: No Vomiting Musculoskeletal: Back Pain, Other (toe/foot pain) Objective Exam General Appearance: no apparent distress, obese Neurologic Exam: alert, oriented x 3, cooperative Skin Exam: normal color, warm, dry, No rash Ears, Nose, Throat Exam: moist mucous membranes Neck Exam: normal inspection Respiratory Exam: lungs clear, diminished breath sounds, No crackles/rales, No rhonchi, No wheezing Cardiovascular Exam: regular rate/rhythm, normal heart sounds, No murmur Gastrointestinal/Abdomen Exam: soft, normal bowel sounds, No tenderness, No distention, No mass, No guarding, No rebound Extremity Exam: other (feet wrapped bilat) Back Exam: normal inspection, No rash OBJECTIVE DATA Vital Signs: Vital Signs - 24 hr Temp Pulse Resp BP Pulse Ox 06/22/18 07:00 84 16 94 L 06/22/18 06:43 98.4 F 87 18 122/69 94 L 06/22/18 04:09 98.9 F 83 17 129/70 95 06/22/18 03:28 83 17 98 06/22/18 00:00 97.6 F 71 14 103/70 94 L 06/21/18 23:30 65 18 98 06/21/18 20:20 97.0 F 78 18 118/72 89 L 06/21/18 19:47 89 20 90 L 06/21/18 16:00 97.5 F 75 21 101/68 94 L 06/21/18 14:58 81 22 92 L 06/21/18 12:00 97.7 F 76 22 97/53 94 L 06/21/18 11:15 80 22 92 L Oxygen-Last 24 hours O2 Percentage 4 Liters = 36% O2 Percentage 40% O2 Percentage 5 Liters = 40% O2 Percentage 4 Liters = 36% O2 Percentage 5 Liters = 40% O2 Percentage 5 Liters = 40% Pain Assessment - Last Documented Pain Intensity 7 Pain Scale Used 0-10 Pain Scale Intake and Output: Intake & Output 07/06/20/18 06/21/18 06/22/18 11:59 11:59 11:59 11:59 Intake Total 1859 1500 1120 600 Output Total 1825 250 850 Balance 34 1250 1120 -250 Weight 132.1 kg Lab Results: Accuchecks Date 06/21/18 Date 06/21/18 Time 16:45 Time 12:00 Accucheck Value: 151 Accucheck Value: 93 Accucheck Value: 204 Lab Results-Last 24 Hours 06/22/18 06/22/18 Range/Units 05:03 05:03 WBC 16.5 H (4.0-10.5) K/mm3 RBC 3.35 L (4.1-5.4) M/mm3 Hgb 7.9 L (12.0-16.0) gm/dl Hct 26.0 L (35-47) % MCV 77.6 L (78-100) fl MCH 23.5 L (26-32) pg MCHC 30.4 L (32-36) g/dl RDW 16.3 H (11.5-14.0) % Plt Count 375 (150-450) K/mm3 MPV 11.1 H (6-9.5) fl Sodium 132 L (137-145) mmol/L Potassium 5.8 H (3.5-5.1) mmol/L Chloride 99 (98-107) mmol/L Carbon Dioxide 24 (22-30) mmol/L Anion Gap 15.2 H (5-15) MEQ/L BUN 71 H (7-17) mg/dL Creatinine 2.84 H (0.52-1.04) mg/dL Estimated GFR 19.4 ML/MIN Glucose 178 H (74-106) mg/dL Calcium 9.3 (8.4-10.2) mg/dL Total Bilirubin 0.10 L (0.2-1.3) mg/dL AST 28 (14-36) U/L ALT 21 (0-35) U/L Alkaline Phosphatase 191 H (38-126) U/L Serum Total Protein 6.9 (6.3-8.2) g/dL Albumin 3.3 L (3.5-5.0) g/dL Assessment/Plan (1) Amputated toe Current Visit: Yes Status: Acute Assessment & Plan: x2, for osteomyelitis. I will speak with Dr. Gay today about the length of time he recommends for antibiotic therapy. D/c planning to speak with pt today about possibility of care at [facility] for rehab. She does note she is moving about quite well. Code(s): Z89.429 - ACQUIRED ABSENCE OF OTHER TOE(S), UNSPECIFIED SIDE (2) Peripheral vascular disease Current Visit: Yes Status: Chronic Assessment & Plan: Will have pt f/u outpatient with Dr. Evans. Code(s): I73.9 - PERIPHERAL VASCULAR DISEASE, UNSPECIFIED (3) Acute renal injury Current Visit: Yes Status: Acute Onset Date: ~06/15/18 Assessment & Plan: acute on chronic. Her Cr was higher over the weekend, but today is down to 2.84. I would like to speak to nephrology today. Code(s): N17.9 - ACUTE KIDNEY FAILURE, UNSPECIFIED (4) Paresthesia and pain of left extremity Current Visit: Yes Status: Resolved Onset Date: ~06/15/18 Code(s): M79.609 - PAIN IN UNSPECIFIED LIMB; R20.2 - PARESTHESIA OF SKIN (5) COPD (chronic obstructive pulmonary disease) Current Visit: No Status: Chronic Qualifiers: COPD type: chronic bronchitis Chronic bronchitis type: unspecified Qualified Code(s): J42 - Unspecified chronic bronchitis Assessment & Plan: breathing is at baseline. (6) Hyponatremia Current Visit: Yes Status: Chronic Onset Date: ~06/15/18 Code(s): E87.1 - HYPO-OSMOLALITY AND HYPONATREMIA (7) Chronic renal insufficiency Current Visit: No Status: Chronic Qualifiers: Chronic kidney disease stage: stage 3 (moderate) Qualified Code(s): N18.3 - Chronic kidney disease, stage 3 (moderate) Code(s): N18.9 - CHRONIC KIDNEY DISEASE, UNSPECIFIED (8) Diabetes type 2, uncontrolled Current Visit: No Status: Chronic Qualifiers: Diabetes mellitus pantograph engraver insulin use: with pantograph engraver use Diabetes mellitus complication status: with neurologic complications Diabetes mellitus complication detail: with polyneuropathy Qualified Code(s): E11.42 - Type 2 diabetes mellitus with diabetic polyneuropathy; E11.65 - Type 2 diabetes mellitus with hyperglycemia; E11.65 - Type 2 diabetes mellitus with hyperglycemia; E11.65 - Type 2 diabetes mellitus with hyperglycemia; E11.65 - Type 2 diabetes mellitus with hyperglycemia; Z79.4 - care home (current) use of insulin; Z79.4 - siphoner (current) use of insulin; Z79.4 - care home (current ) use of insulin; Z79.4 - care home (current) use of insulin Code(s): E11.65 - TYPE 2 DIABETES MELLITUS WITH HYPERGLYCEMIA (9) Peripheral neuropathy Current Visit: No Status: Chronic Qualifiers: Peripheral neuropathy type: polyneuropathy, unspecified Qualified Code(s): G62.9 - Polyneuropathy, unspecified Code(s): G62.9 - POLYNEUROPATHY, UNSPECIFIED (10) Chronic hypoxemic respiratory failure Current Visit: Yes Status: Chronic Onset Date: ~06/15/18 (11) Anemia Current Visit: Yes Status: Chronic Onset Date: ~06/17/18 Assessment & Plan: Hgb 7.9 this morning. Will keep observing. She did receive iron. Code(s): D64.9 - ANEMIA, UNSPECIFIED (12) Hyperkalemia Current Visit: Yes Status: Acute Assessment & Plan: K+ up to 5.8 today - will d/w nephrology. Code(s): E87.5 - HYPERKALEMIA
[2018-06-22] MEDS: BUSPAR 5 MG PO SCH ×2 (10:04→21:16)
[2018-06-22] MEDS: ENOXAPARIN SODIUM SQ SCH (10:05)
[2018-06-22] MEDS: COREG 12.5 MG PO SCH ×2 (10:05→21:16)
[2018-06-22] MEDS: Flonase NASAL NS SCH (10:06)
[2018-06-22] MEDS: Protonix 40MG Tablet PO SCH ×2 (10:07→21:16)
[2018-06-22] MEDS: Zocor 10MG PO SCH (10:07)
[2018-06-22] MEDS: NORVASC 5 MG PO SCH (10:07)
[2018-06-22] MEDS: LYRICA 100MG PO SCH ×3 (10:13→21:23)
[2018-06-22] MEDS: Invanz 1 GM*** 1 G in Sodium Chloride 100ML MINI-BAG PLUS 100 ML IV SCH (10:16)
[2018-06-22] MEDS: Lantus Insulin SQ SCH ×2 (10:17→21:23)
[2018-06-22] MEDS: VANCOCIN 1 GM VIAL*** 1.25 GM in Sodium Chloride 0.9% 250 ML 250 ML IV SCH (11:11)
[2018-06-22] MEDS: Singulair 10 MG PO SCH (21:17)
[2018-06-22] MEDS: Cyclobenzaprine 10 MG PO SCH (21:22)
[2018-06-22] MEDS: DESYREL 50 MG PO SCH (21:22)
[2018-06-23] MEDS: PROVENTIL 2.5 MG/3 ML NEB IH SCH ×6 (02:42→23:30)
[2018-06-23 05:40] LABS: Hematocrit 25.6 % (35-47); Hemoglobin 7.6 gm/dl (12.0-16.0); Mean Cell Volume 78.8 fl (78-100); Mean Corpuscular Hgb Concent. 29.7 g/dl (32-36); Mean Platelet Volume 10.8 fl (6-9.5); Platelet Count 369 K/mm3 (150-450); Red Blood Count 3.25 M/mm3 (4.1-5.4); Red Cell Distribution Width 16.5 % (11.5-14.0); White Blood Count 16.1 K/mm3 (4.0-10.5)
[2018-06-23 05:46] LABS: Mean Corpuscular Hemoglobin 23.3 pg (26-32)
[2018-06-23 06:14] LABS: ALBUMIN 3.1 g/dL (3.5-5.0); ALKALINE PHOSPHATASE 202 U/L (38-126); ANION GAP 14.4 MEQ/L (5-15); BILIRUBIN,TOTAL < 0.10 mg/dL (0.2-1.3); BLOOD UREA NITROGEN 63 mg/dL (7-17); CHLORIDE 100 mmol/L (98-107); Carbon Dioxide 25 mmol/L (22-30); Creatinine 1 2.32 mg/dL (0.52-1.04); Glucose 120 mg/dL (74-106); Potassium 5.4 mmol/L (3.5-5.1); SGOT/AST 21 U/L (14-36); SGPT/ALT 19 U/L (0-35); SODIUM 133 mmol/L (137-145); Total Protein 6.6 g/dL (6.3-8.2)
[2018-06-23] MEDS: Flonase NASAL NS SCH (07:48)
[2018-06-23 07:50] LABS: BAND 9 % (0.0-2.0); Eosinophil 1 % (0.00-3.0); Lymphocytes 10 % (24-44); Monocyte 8 % (0.0-12.0); Neutrophils 72 % (36.0-66.0); Total Cells Counted 100
[2018-06-23 07:54] LABS: Platelet Estimate NORMAL (NORMAL)
[2018-06-23] MEDS: NovoLOG Insulin SQ SCH ×3 (07:55→17:04)
--- NOTE | 2018-06-23 08:56 | PCM.NOTE ---
Date and Time: 06/23/18 0850 Subjective Assessment: Pt is estela po well. Doing well with transfers. PT is worried about some possible undermining from the site of amputation to 2 areas of callus vs vesicles. - Review of Systems Constitutional: No Fever Abdominal/Gastrointestinal: No Vomiting Objective Exam General Appearance: no apparent distress, alert, obese Neurologic Exam: oriented x 3, cooperative Skin Exam: normal color, warm, dry, No rash Respiratory Exam: lungs clear, diminished breath sounds, No crackles/rales, No rhonchi, No wheezing Cardiovascular Exam: regular rate/rhythm, normal heart sounds, No murmur Extremity Exam: other (feet wrapped bilat; on pictures, the plantar surface of the foot with 2 callused vs lg vesicular areas with possible undermining from the wound.) OBJECTIVE DATA Vital Signs: Vital Signs - 24 hr Temp Pulse Resp BP Pulse Ox 06/23/18 07:29 99.0 F 80 18 117/65 98 06/23/18 07:00 78 18 96 06/23/18 04:00 98.5 F 84 24 120/73 93 L 06/23/18 02:44 81 18 91 L 06/22/18 23:42 98.1 F 86 24 118/69 98 06/22/18 23:10 98.9 F 06/22/18 22:43 90 18 91 L 06/22/18 20:00 100.2 F 97 H 24 162/72 97 06/22/18 19:32 92 H 20 95 06/22/18 16:17 75 18 92 L 06/22/18 16:00 98.2 F 98 H 18 105/56 93 L 06/22/18 11:23 98.4 F 92 H 18 140/83 94 L 06/22/18 10:35 91 H 14 94 L Oxygen-Last 24 hours O2 Percentage 5 Liters = 40% O2 Percentage 4 Liters = 36% O2 Percentage 5 Liters = 40% O2 Percentage 4 Liters = 36% O2 Percentage 4 Liters = 36% Pain Assessment - Last Documented Pain Intensity 2 Pain Scale Used 0-10 Pain Scale Intake and Output: Intake & Output 06/20/18 06/21/18 06/22/18 06/23/18 11:59 11:59 11:59 11:59 Intake Total 1500 0965 744 1186 Output Total 250 850 400 Balance 1250 1120 -250 900 Lab Results: Accuchecks Date 06/23/18 Date 06/22/18 Date 06/22/18 Time 22:00 Time 12:00 Accucheck Value: 181 Accucheck Value: 88 Accucheck Value: 170 Accucheck Value: 243 Lab Results-Last 24 Hours 06/23/18 06/23/18 Range/Units 05:04 05:04 WBC 16.1 H (4.0-10.5) K/mm3 RBC 3.25 L (4.1-5.4) M/mm3 Hgb 7.6 L (12.0-16.0) gm/dl Hct 25.6 L (35-47) % MCV 78.8 (78-100) fl MCH 23.3 L (26-32) pg MCHC 29.7 L (32-36) g/dl RDW 16.5 H (11.5-14.0) % Plt Count 369 (150-450) K/mm3 MPV 10.8 H (6-9.5) fl Absolute Granulocytes 12.50 H (1.4-6.9) Segmented Neutrophils 72 H (36.0-66.0) % Band Neutrophils 9 H (0.0-2.0) % Lymphocytes (Manual) 10 L (24-44) % Monocytes (Manual) 8 (0.0-12.0) % Eosinophils (Manual) 1 (0.00-3.0) % Platelet Estimate NORMAL (NORMAL) RBC Morphology NORMAL Sodium 133 L (137-145) mmol/L Potassium 5.4 H (3.5-5.1) mmol/L Chloride 100 (98-107) mmol/L Carbon Dioxide 25 (22-30) mmol/L Anion Gap 14.4 (5-15) MEQ/L BUN 63 H (7-17) mg/dL Creatinine 2.32 H (0.52-1.04) mg/dL Estimated GFR 24.5 ML/MIN Glucose 120 H (74-106) mg/dL Calcium 9.0 (8.4-10.2) mg/dL Total Bilirubin < 0.10 L (0.2-1.3) mg/dL AST 21 (14-36) U/L ALT 19 (0-35) U/L Alkaline Phosphatase 202 H (38-126) U/L Serum Total Protein 6.6 (6.3-8.2) g/dL Albumin 3.1 L (3.5-5.0) g/dL Multi-Disciplinary Progress Notes: Multi-Disciplinary Progress Notes 06/22/18 10:17 Nutrition Note by Mallika Santiago F/u Note: Note pt now s/p 2 digit toe amputations. Receiving an 1800 ADA diet with 100% po intake. no recent weight. Labs 06/22= Na 132, BUN 71, Cr 2.84, glu 178, alb 3.3, hgb 7.9, hct 26.0, mcv 77.6. Sending prostat 64 - 30 mls tid with each meal to aid in wound healing. goal #1 met #2 not met - goals ongoing. Adding goal #3) consume 100% of [id number]. Will con't to monitor and f/u prn. SONJA Loya Initialized on 06/22/18 10:17 - END OF NOTE Assessment/Plan (1) Amputated toe Current Visit: Yes Status: Acute Qualifiers: Laterality: right Qualified Code(s): Z89.421 - Acquired absence of other right toe(s) Assessment & Plan: on IV vancomycin and Invanz. I spoke wiht Dr. Gay yesterday, and pt will need to be on 2 weeks of IV antibiotics IF all the osteomyelitis was removed. There is some concern for advancing infection from PT so will get foot XR and likely MRI today to determine the extent, if any, of infection. Code(s): Z89.429 - ACQUIRED ABSENCE OF OTHER TOE(S), UNSPECIFIED SIDE (2) Peripheral vascular disease Current Visit: Yes Status: Chronic Code(s): I73.9 - PERIPHERAL VASCULAR DISEASE, UNSPECIFIED (3) Acute renal injury Current Visit: Yes Status: Acute Onset Date: ~06/15/18 Assessment & Plan: some improvement today. I spoke wiht nephrology yesterday; pt is to f/u outpatient. likely ATN due to infection. Code(s): N17.9 - ACUTE KIDNEY FAILURE, UNSPECIFIED (4) COPD (chronic obstructive pulmonary disease) Current Visit: No Status: Chronic Qualifiers: COPD type: chronic bronchitis Chronic bronchitis type: unspecified Qualified Code(s): J42 - Unspecified chronic bronchitis Assessment & Plan: stable. (5) Hyponatremia Current Visit: Yes Status: Chronic Onset Date: ~06/15/18 Code(s): E87.1 - HYPO-OSMOLALITY AND HYPONATREMIA (6) Chronic renal insufficiency Current Visit: No Status: Chronic Qualifiers: Chronic kidney disease stage: stage 3 (moderate) Qualified Code(s): N18.3 - Chronic kidney disease, stage 3 (moderate) Code(s): N18.9 - CHRONIC KIDNEY DISEASE, UNSPECIFIED (7) Diabetes type 2, uncontrolled Current Visit: No Status: Chronic Qualifiers: Diabetes mellitus long term care pharmacist insulin use: with assisted use Diabetes mellitus complication status: with neurologic complications Diabetes mellitus complication detail: with polyneuropathy Qualified Code(s): E11.42 - Type 2 diabetes mellitus with diabetic polyneuropathy; E11.65 - Type 2 diabetes mellitus with hyperglycemia; E11.65 - Type 2 diabetes mellitus with hyperglycemia; E11.65 - Type 2 diabetes mellitus with hyperglycemia; E11.65 - Type 2 diabetes mellitus with hyperglycemia; Z79.4 - shelter (current) use of insulin; Z79.4 - tank terminal gauger (current) use of insulin; Z79.4 - shelter (current ) use of insulin; Z79.4 - shelter (current) use of insulin Code(s): E11.65 - TYPE 2 DIABETES MELLITUS WITH HYPERGLYCEMIA (8) Peripheral neuropathy Current Visit: No Status: Chronic Qualifiers: Peripheral neuropathy type: polyneuropathy, unspecified Qualified Code(s): G62.9 - Polyneuropathy, unspecified Code(s): G62.9 - POLYNEUROPATHY, UNSPECIFIED (9) Chronic hypoxemic respiratory failure Current Visit: Yes Status: Chronic Onset Date: ~06/15/18 (10) Anemia Current Visit: Yes Status: Chronic Onset Date: ~06/17/18 Assessment & Plan: stable. Code(s): D64.9 - ANEMIA, UNSPECIFIED (11) Hyperkalemia Current Visit: Yes Status: Acute Assessment & Plan: improved today. Code(s): E87.5 - HYPERKALEMIA
[2018-06-23] MEDS: NORCO 7.5/325 MG TAB PO PRN ×4 (09:20→21:31)
--- NOTE | 2018-06-23 09:37 | XRAY ---
Indication: Follow-up cellulitis. Status post 4th/5th toe amputation. Comparison: June 15, 2018. 3 nonweightbearing views of the right foot demonstrates interval 4th/5th phalanx partial amputation with soft tissue swelling. Remnant proximal phalanges including the 3rd/4th/5th metatarsal heads now demonstrates cortical erosions concerning for osteomyelitis. Stable mid plantar tiny metallic wire.
[2018-06-23] MEDS: ENOXAPARIN SODIUM SQ SCH (10:16)
[2018-06-23] MEDS: BUSPAR 5 MG PO SCH ×2 (10:18→21:31)
[2018-06-23] MEDS: Protonix 40MG Tablet PO SCH ×2 (10:19→21:31)
[2018-06-23] MEDS: NORVASC 5 MG PO SCH (10:19)
[2018-06-23] MEDS: LYRICA 100MG PO SCH ×3 (10:19→21:38)
[2018-06-23] MEDS: Zocor 10MG PO SCH (10:19)
[2018-06-23] MEDS: Lantus Insulin SQ SCH ×2 (10:23→21:37)
[2018-06-23] MEDS: COREG 12.5 MG PO SCH ×2 (10:25→21:32)
[2018-06-23] MEDS: VANCOCIN 1 GM VIAL*** 1.25 GM in Sodium Chloride 0.9% 250 ML 250 ML IV SCH (10:51)
[2018-06-23] MEDS: Invanz 1 GM*** 1 G in Sodium Chloride 100ML MINI-BAG PLUS 100 ML IV SCH (11:46)
[2018-06-23] MEDS: Zofran 4 MG/2 ML VIAL IV PRN (19:50)
[2018-06-23] MEDS: Singulair 10 MG PO SCH (21:31)
[2018-06-23] MEDS: Cyclobenzaprine 10 MG PO SCH (21:36)
[2018-06-23] MEDS: DESYREL 50 MG PO SCH (21:37)
[2018-06-24] MEDS: PROVENTIL 2.5 MG/3 ML NEB IH SCH ×2 (03:14→07:43)
[2018-06-24 05:59] LABS: Hematocrit 25.9 % (35-47); Hemoglobin 7.7 gm/dl (12.0-16.0); Mean Cell Volume 79.4 fl (78-100); Mean Corpuscular Hemoglobin 23.6 pg (26-32); Mean Corpuscular Hgb Concent. 29.7 g/dl (32-36); Mean Platelet Volume 10.6 fl (6-9.5); Platelet Count 372 K/mm3 (150-450); Red Blood Count 3.26 M/mm3 (4.1-5.4); Red Cell Distribution Width 16.8 % (11.5-14.0); White Blood Count 14.8 K/mm3 (4.0-10.5)
[2018-06-24 06:02] LABS: ALKALINE PHOSPHATASE 202 U/L (38-126); ANION GAP 14.4 MEQ/L (5-15); BILIRUBIN,TOTAL < 0.10 mg/dL (0.2-1.3); BLOOD UREA NITROGEN 54 mg/dL (7-17); CHLORIDE 100 mmol/L (98-107); Calcium 8.6 mg/dL (8.4-10.2); Carbon Dioxide 26 mmol/L (22-30); Creatinine 1 1.63 mg/dL (0.52-1.04); Glucose 191 mg/dL (74-106); Potassium 5.5 mmol/L (3.5-5.1); SGOT/AST 22 U/L (14-36); SGPT/ALT 18 U/L (0-35); SODIUM 135 mmol/L (137-145); Total Protein 6.6 g/dL (6.3-8.2)
[2018-06-24] MEDS: NovoLOG Insulin SQ SCH ×2 (07:56→12:03)
[2018-06-24] MEDS: NovoLOG Insulin SQ PRN ×2 (07:56→12:03)
--- NOTE | 2018-06-24 08:53 | PCM.DS ---
Discharge Summary Date of Admission: 06/15/18 08:00 Admitting Physician: VILMA BROOKS Consults: Consults on Case 06/16/18 08:05 Consult Nephrology ROUTINE 06/16/18 08:35 Consult Surgery ROUTINE 06/17/18 08:43 Consult Pulmonology ROUTINE Primary Care Provider: VILMA BROOKS Allergies Allergies codeine [Codeine] Allergy (Severe, Verified 06/14/18 14:13) swelling throat diphenhydramine HCl [From Benadryl] Allergy (Severe, Verified 06/14/18 14:13) swelling to eyes and throat morphine Allergy (Severe, Verified 06/14/18 14:13) swelling throat doxycycline calcium [From Vibramycin] Allergy (Mild, Verified 06/14/18 14:13) Rash doxycycline hyclate [From Vibramycin] Allergy (Mild, Verified 06/14/18 14:13) Rash doxycycline monohydrate [From Vibramycin] Allergy (Mild, Verified 06/14/18 14:13 ) Rash acetaminophen [From Darvocet-N] Allergy (Verified 06/14/18 14:13) Penicillins Allergy (Verified 06/14/18 14:13) propoxyphene napsylate [From Darvocet-N] Allergy (Verified 06/14/18 14:13) Sulfa (Sulfonamide Antibiotics) Allergy (Verified 06/14/18 14:13) Rash Hospital Summary - Hospital Course Hospital Course: Pt is a 42 yo female with uncontrolled DM with peripheral neuropathy, COPD, CRF , and CHF who was admitted for diabetic wound infection. She was found to have osteomyelitis and acute renal failure. She was placed on IV vancomycin and Invanz. Surgery removed her 4th and 5th digits from the R foot. Nephrology was consulted and managed the renal failure. Arterial doppler revealed mod- severe ischemia on the R and mild ischemia on the L; arteriogram was suggested but renal function precluded this. I spoke with Dr. Evans about the pt's results and she will see the pt in outpatient follow up. The pt continued to have Cr of 2.5-3 throughout most of her stay; on the day of discharge it is 1.63 which is the lowest it has been for some time. She will f/u with Dr. Jimenez outpatient in the next 1-2 weeks. Her K+ was elevated, up to 5.8 at one point then it decreased to 5.4 and 5.5 at the time of discharge so no specific treatment was started. She has good urine output. Her bumex has been held but is being restarted today at 1mg po BID instead of 2mg po BID. Her O2 sats were decreased at night and she was started on CPAP which has stabilized her O2 sats at night. Otherwise her breathing has been good throughout her stay. Her BP have been controlled and her lisinopril was held so I discontinued it upon discharge (20mg po BID). Her Zaroxolyn was held during her stay so I discontinued it upon discharge - she will f/u with nephrology regarding this. Her insulin was initially 50 units in a.m. and 30 units in p.m.; at the time of discharge it is 15 units in a.m. and 20 units in p.m. (however pm dose held for 3d prior to discharge d/t low blood sugars). On discharge she will get 6 weeks of IV vancomycin and invanz, with a PICC line being placed today. She will restart her bumex. She will d/c her lisinopril and zaroxolyn. She will f/u with Dr. Jimenez, Dr. Brooks, Dr. Gay, Dr. Knight, Dr. Stack, and Dr. Evans. She will get a BMP in 2 days. 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 - Vitals & Intake/Output Vital Signs: Vital Signs Temperature 98.7 F 06/24/18 07:07 Pulse Rate 96 H 06/24/18 07:07 Respiratory Rate 20 06/24/18 07:07 Blood Pressure 107/61 06/24/18 07:07 O2 Sat by Pulse Oximetry 97 06/24/18 07:07 Oxygen-Last Documented O2 Percentage 4 Liters = 36% Intake & Output: Intake & Output 06/21/18 06/22/18 06/23/18 06/24/18 11:59 11:59 11:59 11:59 Intake Total 0431 824 8140 1590 Output Total 850 400 Balance 1120 -698 362 7420 - Lab Result Diagrams: 06/24/18 05:39 06/24/18 05:39 Lab Results-Last 24 Hrs: Accuchecks Date 06/24/18 Date 06/23/18 Date 06/23/18 Date 06/23/18 Time 07:30 Time 21:39 Time 16:14 Time 11:30 Accucheck Value: 277 Accucheck Value: 96 Accucheck Value: 118 Accucheck Value: 140 Lab Results-Last 24 Hours 06/24/18 06/24/18 Range/Units 05:39 05:39 WBC 14.8 H (4.0-10.5) K/mm3 RBC 3.26 L (4.1-5.4) M/mm3 Hgb 7.7 L (12.0-16.0) gm/dl Hct 25.9 L (35-47) % MCV 79.4 (78-100) fl MCH 23.6 L (26-32) pg MCHC 29.7 L (32-36) g/dl RDW 16.8 H (11.5-14.0) % Plt Count 372 (150-450) K/mm3 MPV 10.6 H (6-9.5) fl Sodium 135 L (137-145) mmol/L Potassium 5.5 H (3.5-5.1) mmol/L Chloride 100 (98-107) mmol/L Carbon Dioxide 26 (22-30) mmol/L Anion Gap 14.4 (5-15) MEQ/L BUN 54 H (7-17) mg/dL Creatinine 1.63 H (0.52-1.04) mg/dL Estimated GFR 36.8 ML/MIN Glucose 191 H (74-106) mg/dL Calcium 8.6 (8.4-10.2) mg/dL Total Bilirubin < 0.10 L (0.2-1.3) mg/dL AST 22 (14-36) U/L ALT 18 (0-35) U/L Alkaline Phosphatase 202 H (38-126) U/L Serum Total Protein 6.6 (6.3-8.2) g/dL Albumin 3.0 L (3.5-5.0) g/dL Micro Results-Entire Visit: Microbiology 06/18/18 17:10 Wound Culture - Final Foot - Right Top Streptococcus Agalactiae 06/18/18 17:10 Urine Culture - Final Catherized NO GROWTH 06/14/18 15:30 Blood Culture Gram Stain - Final Blood Not Reportable Blood Culture - Final NO GROWTH 06/14/18 15:35 Blood Culture Gram Stain - Final Blood Not Reportable Blood Culture - Final NO GROWTH 06/15/18 11:17 Wound Culture - Final Foot - Left Bottom Streptococcus Agalactiae 06/14/18 17:34 Urine Culture - Final Urine, Void <10K NORMAL SKIN KAYLENE PROBABLE SKIN CONTAMINANT Accuchecks Date 06/24/18 Date 06/23/18 Date 06/23/18 Date 06/23/18 Time 07:30 Time 21:39 Time 16:14 Time 11:30 Accucheck Value: 277 Accucheck Value: 96 Accucheck Value: 118 Accucheck Value: 140 - Radiology Exams Ordered Rad Exams-Entire Visit: Radiology Procedures Category Date Time Status FOOT (MINIMUM 3 VIEWS) Urgent Exams 06/23/18 09:10 Completed - Procedures and Test Procedures and Tests throughout Hospitalization: Therapy Orders & Screens 06/14/18 18:54 Oxygen NASAL CANNULA 2 lpm Comment: Diagnosis: cellulitis Respiratory Therapy Consult ROUTINE Comment: Reason For Exam: Diagnosis: cellulitis 06/14/18 19:00 Respiratory Nebulizer Q4H Comment: ALBUTEROL Q4 HOURS Diagnosis: cellulitis 06/14/18 20:47 OT Screen per Nursing Assess Comment: Protocol Order Physician Instructions: Greater than 3 points order OT Admission Screening Reason For Exam: Triggered on Admission Diagnosis: cellulitis Open Wound/Cellutlitis/Pressure Ulcers: Yes Acute Fx/ORIF/Change in wt bearing status: No Severe MUSCULOSKELETAL pain: No ADL Dysfunction: No Acute CVA w/Hemiparesis/Hemiplegia: No Decreased Functional Mobility/Strength: Yes Sprain/Strain: No Acute Post-op Mobility Dysfunction: No Total Points: 6 PT Screen per Nursing Assess Comment: Protocol Order Physician Instructions: Greater than 3 points order PT Admission Screenin Reason For Exam: Triggered on Admission Diagnosis: cellulitis Open Wound/Cellutlitis/Pressure Ulcers: Yes Acute Fx/ORIF/Change in wt bearing status: No Severe MUSCULOSKELETAL pain: No ADL Dysfunction: No Acute CVA w/Hemiparesis/Hemiplegia: No Decreased Functional Mobility/Strength: Yes Sprain/Strain: No Acute Post-op Mobility Dysfunction: No Total Points: 6 RT Screen per Nursing Assess ONCE Comment: Protocol Order Physician Instructions: Greater than 3 points order RT Admission Screen Reason For Exam: Triggered on Admission Diagnosis: cellulitis Diagnosis: cellulitis Pneumonia: No Home O2: Yes Asthma: No CHF: Yes Home CPAP/BIPAP: No Home Nebs/MDI: Yes Total Points: 13 06/15/18 07:15 Respiratory MDI PRN Comment: ALBUTEROL QIDPRN Diagnosis: cellulitis 06/15/18 08:43 PT Eval & Treat (MD Order) ROUTINE Reason for Eval:: wound R foot Diagnosis: cellulitis 06/17/18 02:56 BiPap/CPAP ROUTINE Comment: cpap Diagnosis: CELLULITIS, OSTEOMYELITIS, FAILED OUTPATIENT, FEVER 06/17/18 08:26 EKG STAT Comment: Diagnosis: Hypoxemia 06/17/18 15:48 Sleep Study With 4 or More Par ONCE Comment: Reason For Exam: RT to schedule Diagnosis: Hypoxemia 06/23/18 14:05 Respiratory Therapy Assessment DAILY Comment: Diagnosis: Hypoxemia Discharge Exam General Appearance: no apparent distress, alert, obese Neurologic Exam: oriented x 3, cooperative Skin Exam: normal color, warm, dry, No rash Eye Exam: other (mild edema eyelids bilat; no erythema) Neck Exam: normal inspection Respiratory Exam: lungs clear, diminished breath sounds, No crackles/rales, No rhonchi, No wheezing Cardiovascular Exam: regular rate/rhythm, normal heart sounds, No murmur Extremity Exam: other (feet wrapped bilat) Final Diagnosis/Problem List - Final Discharge Diagnosis/Problem (1) Osteomyelitis Current Visit: Yes Status: Acute Onset Date: ~06/15/18 Assessment & Plan: Continue IV vancomycin and invanz x 6 weeks. Pt to f/u with Dr. Gay in the next 1-2 weeks. The xray results were faxed to his office yesterday. (2) Amputated toe Current Visit: Yes Status: Acute Assessment & Plan: With new osteomyelitis; continue IV antibiotics as noted. (3) Peripheral vascular disease Current Visit: Yes Status: Chronic Assessment & Plan: f/u with Dr. Evans. (4) Acute renal injury Current Visit: Yes Status: Acute Onset Date: ~06/15/18 Assessment & Plan: improved; f/u with Dr. Jimenez. recheck BMP in2 d. (5) COPD (chronic obstructive pulmonary disease) Current Visit: No Status: Chronic Assessment & Plan: stable. (6) Hyponatremia Current Visit: Yes Status: Chronic Onset Date: ~07/23/18 (7) Chronic renal insufficiency Current Visit: No Status: Chronic (8) Diabetes type 2, uncontrolled Current Visit: No Status: Chronic Assessment & Plan: BS from 88 to 200s in the same day. She is supposed to see endocrinology but has historically had trouble with compliance due to low resources. (9) Peripheral neuropathy Current Visit: No Status: Chronic (10) Chronic hypoxemic respiratory failure Current Visit: Yes Status: Chronic Onset Date: ~06/15/18 (11) Anemia Current Visit: Yes Status: Chronic Onset Date: ~06/17/18 Assessment & Plan: currently her Hgb is 7.7. Nephrology had ordered iron last week. The hgb is stable at this level for the past 4d. recheck in 2d. (12) Hyperkalemia Current Visit: Yes Status: Acute Assessment & Plan: K+ is 5.5 today. Restarting the bumex and rechecking in 2d. She did not need the kayexelate as her potassium decreased from 5.8 to 5.4, now to 5.5. (13) NENITA (obstructive sleep apnea) Current Visit: Yes Status: Acute Assessment & Plan: This patient certainly has NENITA, had desaturations without the CPAP, but needs a sleep study. Will f/u with Dr. Stack outpatient. - Discharge Disposition: Home, Self-Care Condition: Stable Prescriptions: New Bumetanide 1 mg [Bumex 1 mg] 1 mg PO BID DIURETIC #0 tablet Ertapenem Sodium 1 gm [Invanz 1 GM] 1 g IV DAILY vial Continue Pregabalin [Lyrica 100Mg] 100 mg PO TID Ergocalciferol (Vitamin D2) [Vitamin D] 1.25 mg PO .TUES/THURS Amlodipine Besylate 10 mg [Norvasc 10 MG] 10 mg PO DAILY Promethazine HCl 25 mg [Phenergan 25 mg] 12.5 mg PO Q6H PRN PRN #30 tablet PRN Reason: Nausea Loratadine 10 mg [Claritin 10 mg] 10 mg PO DAILY AMITRIPTYLINE HCL 50 mg Tab [AMITRIPTYLINE HCL 50 mg Tablet] 50 mg PO QID Albuterol Sulfate [Proventil Hfa] 6.7 gm IH QID PRN Albuterol 2.5 mg/3 ml Neb [Proventil 2.5 mg/3 ml Neb] 2.5 mg NEB Q4HPRN PRN PRN Reason: Shortness Of Breath Montelukast Sodium 10 mg [Singulair 10 MG] 10 mg PO HS Hydrocodone Bit/Acetaminophen [[place] 7.5-325 Tablet] 1 each PO Q6H PRN PRN PRN Reason: Pain Carvedilol 12.5 mg [Coreg 12.5 mg] 12.5 mg PO BID Omeprazole 20 MG [Prilosec 20 mg] 20 mg PO BID Furosemide 40 mg [Lasix 40 MG] 40 mg PO DAILY PRN PRN PRN Reason: swelling Insulin Glulisine [Apidra Solostar] 18 unit SQ TIDWMEALS Buspirone HCl 1 tablet PO BID Hydrocortisone 1% Cream [Cortisone 1% Cream] 1 gm TP BID Cyclobenzaprine HCl 5 mg PO HS Fluticasone Propionate [Allergy Relief] 1 spray IH DAILY Atorvastatin Calcium 10 mg PO DAILY Changed Insulin Glargine,Hum.rec.anlog [Basaglar Kwikpen U-100] 20 unit SQ BID 30 Days insuln.pen Trazodone HCl 50 mg [Desyrel 50 mg] 50 mg PO HS #30 tablet Discontinued Metolazone 2.5 mg [Zaroxolyn 2.5 MG] 2.5 mg PO MOWEFR Lisinopril 20 mg PO BID Bumetanide 1 mg [Bumex 1 mg] 2 mg PO BID 30 Days #120 tablet Prednisone 20 mg [Deltasone 20 mg] 20 mg PO DAILY #9 tablet Cefdinir 300 mg [Omnicef 300 mg] 300 mg PO BID #20 capsule Follow up with: DYLAN STACK [ACTIVE STAFF] - 1 Week (follow up with me 2 weeks after d/c) YANIRA JIMENEZ [CONSULTING PHYSICIAN] - 1 Week NAKUL KNIGHT [ACTIVE STAFF] - 1 Week VILMA BROOKS [Primary Care Provider] - 1 Week
[2018-06-24] MEDS ORDERED: BUMEX 1 MG PO SCH (10:00)
[2018-06-24] MEDS: Protonix 40MG Tablet PO SCH (10:27)
[2018-06-24] MEDS: BUSPAR 5 MG PO SCH (10:27)
[2018-06-24] MEDS: Flonase NASAL NS SCH (10:27)
[2018-06-24] MEDS: COREG 12.5 MG PO SCH (10:27)
[2018-06-24] MEDS: NORVASC 5 MG PO SCH (10:27)
[2018-06-24] MEDS: LYRICA 100MG PO SCH (10:27)
[2018-06-24] MEDS: Invanz 1 GM*** 1 G in Sodium Chloride 100ML MINI-BAG PLUS 100 ML IV SCH (10:27)
[2018-06-24] MEDS: Zocor 10MG PO SCH (10:27)
[2018-06-24] MEDS: ENOXAPARIN SODIUM SQ SCH (10:28)
[2018-06-24] MEDS: Lantus Insulin SQ SCH (10:28)
[2018-06-24] MEDS: NORCO 7.5/325 MG TAB PO PRN (10:32)
--- NOTE | 2018-06-24 10:43 | XRAY ---
Exam: AP upright portable chest film from 06/24/2018. Comparison: AP upright portable chest film from 06/17/2018. Indication: PICC line placement in left arm. Findings: The transverse heart size appears within normal limits. Bilateral transversely oriented discoid atelectasis is seen at both lung bases. This is more prominent than that seen on 06/17/2018. In addition, there is also a new tiny linear strand of scarring or subsegmental atelectasis within the peripheral right upper lobe. Lung inflation is not deep. The remainder of the lung ortega appears clear. Left-sided PICC line is seen with the tip in the distal SVC near the caval-atrial junction. No pneumothorax or pleural fluid is seen. No acute osseous abnormalities are seen. Impression: 1. Left-sided PICC line is seen pointing inferiorly near the caval-atrial junction in satisfactory position. No left-sided pneumothorax is seen. 2. Lung volumes remain mildly decreased. Increasing bibasilar discoid atelectasis is seen. Underlying pneumonia is not excluded with certainty. Correlate clinically. 3. There is also a thin strand of scarring or subsegmental atelectasis within the peripheral right upper lobe. This latter finding is new.
[2018-06-24] MEDS: VANCOCIN 1 GM VIAL*** 1.25 GM in Sodium Chloride 0.9% 250 ML 250 ML IV SCH (11:32)
[2018-06-24 11:53] VITALS: BP 129/97; PULSE 92; O2SAT 96
== END 2018-06-24 13:30 | disposition home or self-care (01) | DRG 503 ==
LOC: ED 14:06 → MED SURG 18:48 → OBSVTOIN 06-15 08:00 → ICU 06-16 14:44 → MED SURG 06-19 15:44
PROVIDERS: ADMIT Family Medicine; ATTEND Family Medicine
PROC: 0Y6V0Z0 Detachment at Right 4th Toe, Complete, Open Approach (ICD-10-PCS; principal; 2018-06-18)
PROC: 0Y6X0Z0 Detachment at Right 5th Toe, Complete, Open Approach (ICD-10-PCS; 2018-06-18)
DX: M86.9 Osteomyelitis, unspecified (principal); A41.9 Sepsis, unspecified organism; N17.9 Acute kidney failure, unspecified; E87.1 Hypo-osmolality and hyponatremia; J96.11 Chronic respiratory failure with hypoxia; N18.4 Chronic kidney disease, stage 4 (severe); M31.9 Necrotizing vasculopathy, unspecified; Z89.421 Acquired absence of other right toe(s); I73.9 Peripheral vascular disease, unspecified; E11.65 Type 2 diabetes mellitus with hyperglycemia; E11.42 Type 2 diabetes mellitus with diabetic polyneuropathy; G62.9 Polyneuropathy, unspecified; Z79.4 Long term (current) use of insulin; D64.9 Anemia, unspecified; E87.5 Hyperkalemia; G47.33 Obstructive sleep apnea (adult) (pediatric); J44.9 Chronic obstructive pulmonary disease, unspecified; L03.031 Cellulitis of right toe; I50.9 Heart failure, unspecified; I10 Essential (primary) hypertension; J45.909 Unspecified asthma, uncomplicated; K21.9 Gastro-esophageal reflux disease without esophagitis; F41.8 Other specified anxiety disorders; R50.9 Fever, unspecified; S91.309A Unspecified open wound, unspecified foot, initial encounter; J42 Unspecified chronic bronchitis; R20.2 Paresthesia of skin; M79.609 Pain in unspecified limb; E66.01 Morbid (severe) obesity due to excess calories; I12.9 Hypertensive chronic kidney disease with stage 1 through stage 4 chronic kidney disease, or unspecified chronic kidney disease; E78.5 Hyperlipidemia, unspecified; E83.51 Hypocalcemia; I25.10 Atherosclerotic heart disease of native coronary artery without angina pectoris; I25.2 Old myocardial infarction; Z87.891 Personal history of nicotine dependence
CPT/HCPCS: 36000; 36415; 36600; 71045; 72100; 73630; 74018; 76770; 80048; 80053; 80202; 81000; 82375; 82550; 82552; 82607; 82728; 82746; 82803; 82947; 83540; 83550; 83605; 83690; 83735; 84134; 84484; 85025; 85027; 85610; 85730; 87040; 87070; 87077; 87086; 87186; 87651; 88305; 88311; 93005; 93268; 93925; 94003; 94150; 94640; 94660; 94760; 94770; 95806; 95810; 96360; 96374; 99285; J1335; J1650; J1756; J1815; J1940; J2405; J3370; J7609; A9270-GY; G0378; G0398

== ENCOUNTER 2018-07-16 20:37 | Emergency (ER) | payer OTHER ==
[2018-07-16] MEDS ORDERED: Sodium Chloride 0.9% 1000 ML 1,000 ML IV STA ×2 (20:52→23:09)
[2018-07-16] MEDS ORDERED: TYLENOL EXTRA STRENGTH 500 MG PO STA (20:58)
--- NOTE | 2018-07-16 20:58 | ERPHSYRPT ---
- History of Present Illness Time Seen by Provider: 07/16/18 20:45 Source: patient Exam Limitations: no limitations Patient Subjective Stated Complaint: hyperglycemia of over 800 Triage Nursing Assessment: Pt brought in by EMS with a blood glucose of 597, had 2 toes amputated 2 weeks ago, PICC line present in left upper extremity for Vancomycin, BP 170/91, neuropathy in bilateral feet, headache, feet hurt, took 18 units of Novolog at 1930 Physician History: 42 y/o female wit history of KS, pneumonia and brittle DM brought in by ambulance for elevated glucose of over 800. Pt arrives with a FS of 597. Pt did take 14 units of novolog prior to coming to the ER. Pt admits to having a dry mouth, bilateral feet pain and headache. Pt did take a lortab for the headache with minimal relief. Pt states that she has been compliant on her meds. Of note patient has been off her IV vancomycin s/p right toe amputation and osteomyelitis. Timing/Duration: today Severity: moderate Associated Symptoms: headaches, No nausea Allergies/Adverse Reactions: codeine [Codeine] Allergy (Severe, Verified 07/16/18 20:54) swelling throat diphenhydramine HCl [From Benadryl] Allergy (Severe, Verified 07/16/18 20:54) swelling to eyes and throat morphine Allergy (Severe, Verified 07/16/18 20:54) swelling throat doxycycline calcium [From Vibramycin] Allergy (Mild, Verified 07/16/18 20:54) Rash doxycycline hyclate [From Vibramycin] Allergy (Mild, Verified 07/16/18 20:54) Rash doxycycline monohydrate [From Vibramycin] Allergy (Mild, Verified 07/16/18 20:54 ) Rash acetaminophen [From Darvocet-N] Allergy (Verified 07/16/18 20:54) Penicillins Allergy (Verified 07/16/18 20:54) propoxyphene napsylate [From Darvocet-N] Allergy (Verified 07/16/18 20:54) Sulfa (Sulfonamide Antibiotics) Allergy (Verified 07/16/18 20:54) Rash Home Medications: Pregabalin [Lyrica 100Mg] 100 mg PO TID 10/19/13 [History] Amlodipine Besylate 10 mg [Norvasc 10 MG] 10 mg PO DAILY 01/05/16 [History] Ergocalciferol (Vitamin D2) [Vitamin D] 1.25 mg PO .TUES/THURS 01/05/16 [History ] AMITRIPTYLINE HCL 50 mg Tab [AMITRIPTYLINE HCL 50 mg Tablet] 50 mg PO QID [History] Albuterol 2.5 mg/3 ml Neb [Proventil 2.5 mg/3 ml Neb] 2.5 mg NEB Q4HPRN PRN 11/08/16 [History] Albuterol Sulfate [Proventil Hfa] 6.7 gm IH QID PRN 11/08/16 [History] Loratadine 10 mg [Claritin 10 mg] 10 mg PO DAILY 11/08/16 [History] Hydrocodone Bit/Acetaminophen [[place] 7.5-325 Tablet] 1 each PO Q6H PRN PRN 07/04 [History] Montelukast Sodium 10 mg [Singulair 10 MG] 10 mg PO HS 07/04/17 [History] Carvedilol 12.5 mg [Coreg 12.5 mg] 12.5 mg PO BID 07/05/17 [History] Furosemide 40 mg [Lasix 40 MG] 40 mg PO DAILY PRN PRN 09/26/17 [History] Omeprazole 20 MG [Prilosec 20 mg] 20 mg PO BID 09/26/17 [History] Insulin Glulisine [Apidra Solostar] 18 unit SQ TIDWMEALS 01/28/18 [History] Atorvastatin Calcium 10 mg PO DAILY 05/20/18 [History] Buspirone HCl 1 tablet PO BID 05/20/18 [History] Cyclobenzaprine HCl 5 mg PO HS 05/20/18 [History] Fluticasone Propionate [Allergy Relief] 1 spray IH DAILY 05/20/18 [History] Hydrocortisone 1% Cream [Cortisone 1% Cream] 1 gm TP BID 05/20/18 [History ] Hx Tetanus, Diphtheria Vaccination/Date Given: Yes Hx Influenza Vaccination/Date Given: No Hx Pneumococcal Vaccination/Date Given: Yes - Review of Systems Constitutional: Weakness, No Fever, No Chills Eyes: No Symptoms Ears, Nose, & Throat: No Symptoms Respiratory: No Cough, No Dyspnea Cardiac: No Chest Pain, No Edema, No Syncope Abdominal/Gastrointestinal: No Abdominal Pain, No Nausea, No Vomiting, No Diarrhea Genitourinary Symptoms: No Dysuria Musculoskeletal: Arthralgias, No Back Pain, No Neck Pain Skin: No Rash Neurological: Headache, No Dizziness, No Focal Weakness, No Sensory Changes Psychological: No Symptoms Endocrine: No Symptoms All Other Systems: Reviewed and Negative - Past Medical History Pertinent Past Medical History: Yes Neurological History: Peripheral Neuropathy ENT History: No Pertinent History Cardiac History: Congestive Heart Failure, Hypertension, Peripheral Vascular Disease, Other Respiratory History: Asthma, CHF, COPD, Pneumonia Endocrine Medical History: Diabetes Type II Musculoskeletal History: Degenerative Disk Disease GI Medical History: Diverticulitis, GERD, Pancreatitis History: Renal Disease, Other Psycho-Social History: Anxiety, Depression Female Reproductive Disorders: No Pertinent History Other Medical History: LONG STANDING DM WITH MULTIPLE SECONDARY COMPLICATIONS;. HX OF FOOT WOUNDS AND OM. Heart murmer, ARDS (hardening of lungs), Chronic Renal Failure, Chronic hypoxemic respiratory failure - Past Surgical History Past Surgical History: Yes Neuro Surgical History: No Pertinent History Cardiac: No Pertinent History Respiratory: No Pertinent History Gastrointestinal: No Pertinent History Genitourinary: No Pertinent History Musculoskeletal: Other Female Surgical History: Tubal Ligation, Other Other Surgical History: D&C,childbirth x two; bone removed in left big toe, amputation of last 2 toes on right foot - Social History Smoking Status: Former smoker How long have you smoked: 27 years Exposure to second hand smoke: Yes Drug Use: none Patient Lives Alone: No - Female History Hx Now: No - Nursing Vital Signs Nursing Vital Signs: Initial Vital Signs Temperature 98.4 F 07/16/18 20:39 Pulse Rate 98 H 07/16/18 20:39 Blood Pressure 170/91 07/16/18 20:39 O2 Sat by Pulse Oximetry 95 07/16/18 20:39 Pain Scale Pain Intensity 2 - Physical Exam General Appearance: mild distress, alert, obese Eye Exam: PERRL/EOMI, eyes nml inspection Ears, Nose, Throat Exam: normal ENT inspection, TMs normal, pharynx normal, dry mucous membranes Neck Exam: normal inspection, non-tender, supple, full range of motion Respiratory Exam: normal breath sounds, lungs clear, No respiratory distress Cardiovascular Exam: regular rate/rhythm, normal heart sounds, normal peripheral pulses Gastrointestinal/Abdomen Exam: soft, normal bowel sounds, No tenderness, No mass Back Exam: normal inspection, normal range of motion, No CVA tenderness, No vertebral tenderness Extremity Exam: normal inspection, normal range of motion, pelvis stable Neurologic Exam: alert, oriented x 3, cooperative, normal mood/affect, nml cerebellar function, nml station & gait, sensation nml, No motor deficits Skin Exam: normal color, warm, dry, No rash Lymphatic Exam: No adenopathy SpO2: 95 Oxygen Delivery: Room Air - Course Nursing assessment & vital signs reviewed: Yes EKG Interpreted by Me: RATE (HR 93), Left Bundle Branch Block Ordered Tests: Active Orders 24 hr Category Date Time Status Slaughterer Religious Ritual STAT Care 07/16/18 20:53 Active EKG-ER Only STAT Care 07/16/18 20:52 Active IV Insertion STAT Care 07/16/18 20:52 Active CHEST 1 VIEW (PORTABLE) Stat Exams 07/16/18 20:52 Taken CBC W DIFF Stat Lab 07/16/18 20:52 Completed CMP Stat Lab 07/16/18 21:50 Completed CULTURE,URINE Stat Lab 07/16/18 22:00 Received MAGNESIUM Stat Lab 07/16/18 21:50 Completed TROPONIN Q3H Lab 07/16/18 21:50 Completed UA W/ MICROSCOPIC Stat Lab 07/16/18 22:00 Completed VENOUS BLOOD GAS Urgent Lab 07/16/18 21:15 Completed Medication Summary Discontinued Medications Generic Name Dose Route Start Last Admin Trade Name Robq PRN Reason Stop Dose Admin Acetaminophen 1,000 mg 07/16/18 20:58 07/16/18 22:09 Tylenol Extra Strength 500 Mg PO 07/16/18 20:59 1,000 mg STAT STA Administration Acetaminophen Confirm 07/16/18 22:02 Tylenol Extra Strength 500 Mg Administered 07/16/18 22:03 Dose 1,000 mg .ROUTE .STK-MED ONE Sodium Chloride 1,000 mls @ 999 mls/hr 07/16/18 20:52 07/16/18 23:20 Sodium Chloride 0.9% 1000 Ml IV 07/16/18 21:52 Infused .Q1H1M STA Infusion Sodium Chloride Confirm 07/16/18 22:02 Sodium Chloride 0.9% 1000 Ml Administered 07/16/18 22:03 Dose 1,000 mls @ ud .ROUTE .STK-MED ONE Sodium Chloride 1,000 mls @ 999 mls/hr 07/16/18 23:09 07/17/18 00:18 Sodium Chloride 0.9% 1000 Ml IV 07/17/18 00:09 Infused .Q1H1M STA Infusion Sodium Chloride Confirm 07/16/18 23:10 Sodium Chloride 0.9% 1000 Ml Administered 07/16/18 23:11 Dose 1,000 mls @ ud .ROUTE .STK-MED ONE Sodium Chloride 1,000 mls @ 999 mls/hr 07/17/18 00:19 07/17/18 01:31 Sodium Chloride 0.9% 1000 Ml IV 07/17/18 01:19 Infused .Q1H1M STA Infusion Sodium Chloride Confirm 07/17/18 00:20 Sodium Chloride 0.9% 1000 Ml Administered 07/17/18 00:21 Dose 1,000 mls @ ud .ROUTE .STK-MED ONE Insulin Human Regular 10 unit 07/16/18 23:13 07/16/18 23:18 Novolin R IV 07/16/18 23:14 10 unit STAT ONE Administration Insulin Human Regular Confirm 07/16/18 23:17 Novolin R Administered 07/16/18 23:18 Dose 10 unit .ROUTE .STK-MED ONE Insulin Human Regular 10 unit 07/17/18 00:19 07/17/18 00:21 Novolin R IV 07/17/18 00:20 10 unit STAT ONE Administration Insulin Human Regular Confirm 07/17/18 00:19 Novolin R Administered 07/17/18 00:20 Dose 10 unit .ROUTE .STK-MED ONE Insulin Human Regular Confirm 07/17/18 00:29 Novolin R Administered 07/17/18 00:30 Dose 10 unit .ROUTE .STK-MED ONE Morphine Sulfate 4 mg 07/16/18 23:09 07/16/18 23:17 Morphine Sulfate 4 Mg Inj IV 07/16/18 23:10 4 mg STAT ONE Administration Morphine Sulfate Confirm 07/16/18 23:10 Morphine Sulfate 4 Mg Inj Administered 07/16/18 23:11 Dose 4 mg .ROUTE .STK-MED ONE Lab/Rad Data: Laboratory Result Diagrams 07/16/18 20:52 07/16/18 21:50 Laboratory Results 07/16/18 07/16/18 07/16/18 Range/Units 22:00 21:50 21:50 WBC (4.0-10.5) K/mm3 RBC (4.1-5.4) M/mm3 Hgb (12.0-16.0) gm/dl Hct (35-47) % MCV (78-100) fl MCH (26-32) pg MCHC (32-36) g/dl RDW (11.5-14.0) % Plt Count (150-450) K/mm3 MPV (6-9.5) fl Gran % (36.0-66.0) % Eos # (Auto) (0-0.5) Absolute Lymphs (auto) (1.0-4.6) Absolute Monos (auto) (0.0-1.3) Lymphocytes % (24.0-44.0) % Monocytes % (0.0-12.0) % Eosinophils % (0.00-5.0) % Basophils % (0.0-0.4) % Absolute Granulocytes (1.4-6.9) Basophils # (0-0.4) pO2/FiO2 Ratio % VBG pH (7.32-7.42) VBG pCO2 at Pat Temp (42-55) mm/Hg VBG pO2 at Pat Temp (25-40) mm/Hg VBG HCO3 (22-28) meq/L VBG O2 Sat (Adriane) (95-100) VBG Base Excess (-2.0-2.0) VBG Hemoglobin VBG Carboxyhemoglobin (0.0-6.9) % T HGB POC Potassium (3.5-5.1) Sodium 129 L (137-145) mmol/L Potassium 4.5 (3.5-5.1) mmol/L Chloride 93 L (98-107) mmol/L Carbon Dioxide 24 (22-30) mmol/L Anion Gap 15.9 H (5-15) MEQ/L BUN 48 H (7-17) mg/dL Creatinine 2.06 H (0.52-1.04) mg/dL Estimated GFR 28.1 ML/MIN Glucose 575 H* (74-106) mg/dL Calcium 8.7 (8.4-10.2) mg/dL Magnesium 1.9 (1.6-2.3) mg/dL Total Bilirubin 0.50 (0.2-1.3) mg/dL AST 20 (14-36) U/L ALT 13 (0-35) U/L Alkaline Phosphatase 304 H (38-126) U/L Troponin I < 0.012 (0.000-0.034) ng/mL Serum Total Protein 7.6 (6.3-8.2) g/dL Albumin 3.8 (3.5-5.0) g/dL Ur Collection Type VOID Urine Color LT.YELLOW (YELLOW) Urine Appearance CLEAR (CLEAR) Urine pH 5.0 (5-6) Ur Specific [place] 1.005 (1.005-1.025) Urine Protein 100 (Negative) Urine Ketones NEGATIVE (NEGATIVE) Urine Blood 5-10 (0-5) Jaren/ul Urine Nitrite NEGATIVE (NEGATIVE) Urine Bilirubin NEGATIVE (NEGATIVE) Urine Urobilinogen NORMAL (0-1) mg/dL Ur Leukocyte Esterase NEGATIVE (NEGATIVE) Urine Microscopic RBC 0-2 (0-2) /HPF Ur Epithelial Cells FEW (FEW) /HPF Urine Bacteria RARE (NEGATIVE) /HPF Urine Culture Reflexed YES (NO) Urine Glucose 1000 (NEGATIVE) mg/dL Specimen Received 07/16 2200 07/16/18 07/16/18 Range/Units 21:15 20:52 WBC 8.7 (4.0-10.5) K/mm3 RBC 4.54 (4.1-5.4) M/mm3 Hgb 10.9 L (12.0-16.0) gm/dl Hct 34.4 L (35-47) % MCV 75.8 L (78-100) fl MCH 24.0 L (26-32) pg MCHC 31.7 L (32-36) g/dl RDW 16.3 H (11.5-14.0) % Plt Count 325 (150-450) K/mm3 MPV 10.9 H (6-9.5) fl Gran % 65.8 (36.0-66.0) % Eos # (Auto) 0.31 (0-0.5) Absolute Lymphs (auto) 1.77 (1.0-4.6) Absolute Monos (auto) 0.77 (0.0-1.3) Lymphocytes % 20.4 L (24.0-44.0) % Monocytes % 8.9 (0.0-12.0) % Eosinophils % 3.6 (0.00-5.0) % Basophils % 1.3 (0.0-0.4) % Absolute Granulocytes 5.73 (1.4-6.9) Basophils # 0.11 (0-0.4) pO2/FiO2 Ratio 21.0 % VBG pH 7.37 (7.32-7.42) VBG pCO2 at Pat Temp 50 (42-55) mm/Hg VBG pO2 at Pat Temp 73 H (25-40) mm/Hg VBG HCO3 28.9 H (22-28) meq/L VBG O2 Sat (Adriane) 95.7 (95-100) VBG Base Excess 2.8 H (-2.0-2.0) VBG Hemoglobin 11.4 VBG Carboxyhemoglobin 5.5 (0.0-6.9) % T HGB POC Potassium 4.5 (3.5-5.1) Sodium (137-145) mmol/L Potassium (3.5-5.1) mmol/L Chloride (98-107) mmol/L Carbon Dioxide (22-30) mmol/L Anion Gap (5-15) MEQ/L BUN (7-17) mg/dL Creatinine (0.52-1.04) mg/dL Estimated GFR ML/MIN Glucose (74-106) mg/dL Calcium (8.4-10.2) mg/dL Magnesium (1.6-2.3) mg/dL Total Bilirubin (0.2-1.3) mg/dL AST (14-36) U/L ALT (0-35) U/L Alkaline Phosphatase (38-126) U/L Troponin I (0.000-0.034) ng/mL Serum Total Protein (6.3-8.2) g/dL Albumin (3.5-5.0) g/dL Ur Collection Type Urine Color (YELLOW) Urine Appearance (CLEAR) Urine pH (5-6) Ur Specific [place] (1.005-1.025) Urine Protein (Negative) Urine Ketones (NEGATIVE) Urine Blood (0-5) Jaren/ul Urine Nitrite (NEGATIVE) Urine Bilirubin (NEGATIVE) Urine Urobilinogen (0-1) mg/dL Ur Leukocyte Esterase (NEGATIVE) Urine Microscopic RBC (0-2) /HPF Ur Epithelial Cells (FEW) /HPF Urine Bacteria (NEGATIVE) /HPF Urine Culture Reflexed (NO) Urine Glucose (NEGATIVE) mg/dL Specimen Received - Progress Progress: improved Progress Note: 07/17/18 01:35 Last FS was in the 400's after the patient has received 3 liters of NS and a total of 20 units of regular insulin. Pt states that she usually has FS's in the 300-400's. Pt has no anion gap and normal pH, so no DKA. I spoke to Dr Brooks about this patient and she will F/U with the vancomycin level and her diabetes management. Pt is asymptomatic and has agreed to resume her insulin dose and contact Dr Brooks later this morning. - Departure Time of Disposition: 01:38 Departure Disposition: Home Clinical Impression: Diabetes type 2, uncontrolled Qualifiers: Glycemic state: with hyperglycemia Qualified Code(s): E11.65 - Type 2 diabetes mellitus with hyperglycemia Condition: Stable Critical Care Time: Yes Critical Care Time(excluding separately billable procedures): 30-74 minutes Referrals: VILMA BROOKS [Primary Care Provider] - Instructions: Hyperglycemia, Adult (DC) Additional Instructions: Continue on your usual insulin regimen and call Dr Brooks's office this morning.
[2018-07-16] MEDS ORDERED: Sodium Chloride 0.9% 1000 ML 1,000 ML ONE ×2 (22:02→23:10)
[2018-07-16] MEDS ORDERED: TYLENOL EXTRA STRENGTH 500 MG ONE (22:02)
[2018-07-16 22:07] LABS: BASOPHIL % 1.3 % (0.0-0.4); Basophil (Absolute #) 0.11 (0-0.4); Eosinophil % 3.6 % (0.00-5.0); Eosinophil (Absolute #) 0.31 (0-0.5); Granulocyte Absolute (ANC) 5.73 (1.4-6.9); Granulocytes % 65.8 % (36.0-66.0); Hematocrit 34.4 % (35-47); Hemoglobin 10.9 gm/dl (12.0-16.0); Lymphocyte (Absolute #) 1.77 (1.0-4.6); Lymphocytes % 20.4 % (24.0-44.0); Mean Cell Volume 75.8 fl (78-100); Mean Corpuscular Hgb Concent. 31.7 g/dl (32-36); Mean Platelet Volume 10.9 fl (6-9.5); Monocyte (Absolute #) 0.77 (0.0-1.3); Monocytes % 8.9 % (0.0-12.0); Platelet Count 325 K/mm3 (150-450); Red Blood Count 4.54 M/mm3 (4.1-5.4); Red Cell Distribution Width 16.3 % (11.5-14.0); White Blood Count 8.7 K/mm3 (4.0-10.5)
[2018-07-16 22:11] LABS: VBG pH 7.37 (7.32-7.42)
[2018-07-16 22:12] LABS: VBG BASE EXCESS 2.8 (-2.0-2.0); VBG HCO3- 28.9 meq/L (22-28); VBG O2 SATURATION 95.7 (95-100)
[2018-07-16 22:13] LABS: VBG POTASSIUM 4.5 (3.5-5.1)
[2018-07-16 22:14] LABS: VBG CARBOXYHEMOGLOBIN 5.5 % T HGB (0.0-6.9); VBG HEMOGLOBIN 11.4
[2018-07-16 22:21] LABS: ALBUMIN 3.8 g/dL (3.5-5.0); ANION GAP 15.9 MEQ/L (5-15); BILIRUBIN,TOTAL 0.5 mg/dL (0.2-1.3); Calcium 8.7 mg/dL (8.4-10.2); Creatinine 1 2.06 mg/dL (0.52-1.04); Potassium 4.5 mmol/L (3.5-5.1); Total Protein 7.6 g/dL (6.3-8.2)
[2018-07-16 22:46] LABS: Appearance CLEAR (CLEAR); Bilirubin NEGATIVE (NEGATIVE); Glucose 1000 mg/dL (NEGATIVE); Ketones NEGATIVE (NEGATIVE); Leukocyte Esterase NEGATIVE (NEGATIVE); Nitrite NEGATIVE (NEGATIVE); Protein,Urine Dip 100 (Negative); Specific Gravity 1.005 (1.005-1.025); Urobilinogen NORMAL mg/dL (0-1)
[2018-07-16 22:51] LABS: Bacteria RARE /HPF (NEGATIVE); Epithelial Cells FEW /HPF (FEW); RBC 0-2 /HPF (0-2)
[2018-07-16] MEDS ORDERED: MORPHINE SULFATE 4 MG INJ IV ONE (23:09)
[2018-07-16] MEDS ORDERED: MORPHINE SULFATE 4 MG INJ ONE (23:10)
[2018-07-16] MEDS ORDERED: NovoLIN R IV ONE (23:13)
[2018-07-16] MEDS ORDERED: NovoLIN R ONE (23:17)
[2018-07-17] MEDS ORDERED: Sodium Chloride 0.9% 1000 ML 1,000 ML IV STA (00:19)
[2018-07-17] MEDS ORDERED: NovoLIN R ONE ×2 (00:19→00:29)
[2018-07-17] MEDS ORDERED: NovoLIN R IV ONE (00:19)
[2018-07-17] MEDS ORDERED: Sodium Chloride 0.9% 1000 ML 1,000 ML ONE (00:20)
[2018-07-17 01:31] VITALS: BP 146/98; PULSE 86
[2018-07-17 01:39] VITALS: O2SAT 95
--- NOTE | 2018-07-17 09:18 | XRAY ---
Indication: High blood sugar. Comparison: June 24, 2018. Portable apical lordotic chest is now clear. Heart is not enlarged for AP portable technique. No new/acute findings.
== END 2018-07-17 01:44 | disposition home or self-care (01) ==
LOC: ED 20:37
DX: E11.65 Type 2 diabetes mellitus with hyperglycemia (principal); Z89.421 Acquired absence of other right toe(s); R51 Headache; Z79.899 Other long term (current) drug therapy; Z79.4 Long term (current) use of insulin
CPT/HCPCS: 36415; 71045; 80053; 81000; 82805; 82962; 83735; 84484; 85025; 87086; 93005; 93041; 96360; 96361; 96374; 96375; 96376; 99285; J2270; A9270-GY

== ENCOUNTER 2018-09-10 10:06 | Observation (INO) | payer OTHER ==
[2018-09-10] MEDS: Sodium Chloride 0.9% 1000 ML 1,000 ML IV SCH (13:18)
[2018-09-10 13:24] LABS: BASOPHIL % 0.9 % (0.0-0.4); Basophil (Absolute #) 0.09 (0-0.4); Eosinophil % 2.7 % (0.00-5.0); Eosinophil (Absolute #) 0.27 (0-0.5); Granulocyte Absolute (ANC) 7.42 (1.4-6.9); Granulocytes % 74.4 % (36.0-66.0); Hemoglobin 11.1 gm/dl (12.0-16.0); Lymphocyte (Absolute #) 1.57 (1.0-4.6); Lymphocytes % 15.7 % (24.0-44.0); Mean Cell Volume 76.3 fl (78-100); Mean Corpuscular Hgb Concent. 31.7 g/dl (32-36); Mean Platelet Volume 11.2 fl (6-9.5); Monocyte (Absolute #) 0.63 (0.0-1.3); Monocytes % 6.3 % (0.0-12.0); Platelet Count 289 K/mm3 (150-450); Red Blood Count 4.59 M/mm3 (4.1-5.4); Red Cell Distribution Width 15.2 % (11.5-14.0)
[2018-09-10 13:30] LABS: Mean Corpuscular Hemoglobin 24.1 pg (26-32)
[2018-09-10 13:48] LABS: ANION GAP 20.9 MEQ/L (5-15); Calcium 9.2 mg/dL (8.4-10.2); Creatinine 1 2.42 mg/dL (0.52-1.04); Potassium 5.3 mmol/L (3.5-5.1)
[2018-09-10] MEDS ORDERED: PROVENTIL 2.5 MG/3 ML NEB IH PRN (15:14)
[2018-09-10] MEDS ORDERED: NovoLOG Insulin SQ ONE (15:22)
[2018-09-10] MEDS: VANCOCIN 1 GM VIAL*** 1.25 GM in Sodium Chloride 0.9% 250 ML 250 ML IV SCH (15:29)
[2018-09-10 16:25] LABS: Appearance CLEAR (CLEAR); Bilirubin NEGATIVE (NEGATIVE); Blood SMALL Ery/ul (0-5); Glucose >=500 mg/dL (NEGATIVE); Ketones NEGATIVE (NEGATIVE); Leukocyte Esterase NEGATIVE (NEGATIVE); Nitrite NEGATIVE (NEGATIVE); Protein,Urine Dip 100 (Negative); Specific Gravity 1.015 (1.005-1.025); Urobilinogen NEGATIVE mg/dL (0-1)
[2018-09-10] MEDS: PHENERGAN 25 MG PO PRN ×2 (16:38→22:38)
[2018-09-10] MEDS: NORCO 7.5/325 MG TAB PO PRN ×2 (16:38→22:38)
[2018-09-10] MEDS: NovoLOG Insulin SQ SCH (16:39)
[2018-09-10] MEDS ORDERED: INSULIN GLULISINE SQ SCH (17:00)
[2018-09-10] MEDS: LYRICA 100MG PO SCH ×2 (17:17→21:22)
[2018-09-10] MEDS: NovoLOG Insulin SQ PRN ×2 (17:43→21:23)
[2018-09-10] MEDS: Cyclobenzaprine 10 MG PO SCH (21:21)
[2018-09-10] MEDS: Protonix 40MG Tablet PO SCH (21:22)
[2018-09-10] MEDS: BUSPAR 5 MG PO SCH (21:22)
[2018-09-10] MEDS: Singulair 10 MG PO SCH (21:22)
[2018-09-10] MEDS: DESYREL 50 MG PO SCH (21:22)
[2018-09-10] MEDS: COREG 12.5 MG PO SCH (21:22)
[2018-09-10] MEDS: Lantus Insulin SQ SCH (21:23)
[2018-09-10] MEDS ORDERED: NON-FORMULARY ITEM (Omeprazole 20 Mg [Prilosec 20 Mg] 20 MG) PO SCH (22:00)
[2018-09-10] MEDS ORDERED: INSULIN GLARGINE HUM REC ANLOG 50 UNIT SQ SCH (22:00)
[2018-09-10] MEDS ORDERED: NON-FORMULARY ITEM (Cyclobenzaprine Hcl [Cyclobenzaprine Hcl] 5 MG) PO SCH (22:00)
[2018-09-11] MEDS: Sodium Chloride 0.9% 1000 ML 1,000 ML IV SCH ×2 (01:51→15:34)
[2018-09-11] MEDS: NORCO 7.5/325 MG TAB PO PRN ×3 (04:50→19:51)
[2018-09-11] MEDS: PHENERGAN 25 MG PO PRN ×2 (04:50→11:22)
[2018-09-11 05:50] LABS: ANION GAP 15.2 MEQ/L (5-15); Calcium 8.9 mg/dL (8.4-10.2); Creatinine 1 2.33 mg/dL (0.52-1.04); Potassium 4.3 mmol/L (3.5-5.1)
[2018-09-11] MEDS: NovoLOG Insulin SQ SCH ×3 (07:54→17:07)
[2018-09-11] MEDS: NovoLOG Insulin SQ PRN ×4 (07:54→22:07)
--- NOTE | 2018-09-11 08:52 | PCM.HP ---
History of Present Illness - Chief Complaint Chief Complaint: Renal insufficiency, osteomyelitis, DM uncontrolled, COPD History of Present Illness: is a 42 year old female pt of mine from [facility] with uncontrolled DM on insulin, CHF, COPD, chronic renal failure and current osteomyelitis who was admitted for worsening renal failure. She has been on IV vancomycin for approx [address] Gay in [place] (therapy directed by Dr. Gay, vancomycin actually ordered by me). She has had several small amputations and surgeries of the R foot over the past few months. Recently got her sutures out and appears to be healing well. She has not been urinating much volume at home. She gets regular BUN/Cr due to the vancomycin. The BUn and Cr have been steadily increasing; she does see Dr. Jimenez and results have been sent to his office at regular intervals. However she is sometimes noncompliant wiht visits; I informed her during her last office visit that if she does not see nephrology in office I cannot continue to prescribe the vancomycin. Pt non compliant wiht diabetes. BS frequently over 500. She is supposed to be seeing Dr. Campos but "they didn't make me another appointment." - Review of Systems Constitutional: Fatigue, No Fever Respiratory: Cough, Short Of Breath Musculoskeletal: Back Pain Endocrine: Other (decreased urination) All Other Systems: Reviewed and Negative Medications & Allergies Home Medications: Home Medication List Pregabalin [Lyrica 100Mg] 100 mg PO TID 10/19/13 [History Confirmed 09/10/18] Amlodipine Besylate 10 mg [Norvasc 10 MG] 10 mg PO DAILY 01/05/16 [History Confirmed 09/10/18] Ergocalciferol (Vitamin D2) [Vitamin D] 1.25 mg PO ./01/05/16 [ History Confirmed 09/10/18] Promethazine HCl 25 mg [Phenergan 25 mg] 12.5 mg PO Q6H PRN PRN #30 tablet 03/21/16 [Rx Confirmed 09/10/18] AMITRIPTYLINE HCL 50 mg Tab [AMITRIPTYLINE HCL 50 mg Tablet] 50 mg PO QID [History Confirmed 09/10/18] Albuterol 2.5 mg/3 ml Neb [Proventil 2.5 mg/3 ml Neb] 2.5 mg NEB Q4HPRN PRN 11/08/16 [History Confirmed 09/10/18] Albuterol Sulfate [Proventil Hfa] 6.7 gm IH QID PRN 11/08/16 [History Confirmed 09/10/18] Loratadine 10 mg [Claritin 10 mg] 10 mg PO DAILY 11/08/16 [History Confirmed 09/10/18] Hydrocodone Bit/Acetaminophen [[place] 7.5-325 Tablet] 1 each PO Q6H PRN PRN 07/04 [History Confirmed 09/10/18] Montelukast Sodium 10 mg [Singulair 10 MG] 10 mg PO HS 07/04/17 [History Confirmed 09/10/18] Carvedilol 12.5 mg [Coreg 12.5 mg] 12.5 mg PO BID 07/05/17 [History Confirmed 09/10/18] Omeprazole 20 MG [Prilosec 20 mg] 20 mg PO BID 09/26/17 [History Confirmed 09/10] Insulin Glulisine [Apidra Solostar] 18 unit SQ TIDWMEALS 01/28/18 [History Confirmed 09/10/18] Atorvastatin Calcium 10 mg PO DAILY 05/20/18 [History Confirmed 09/10/18] Buspirone HCl 1 tablet PO BID 05/20/18 [History Confirmed 09/10/18] Cyclobenzaprine HCl 5 mg PO HS 05/20/18 [History Confirmed 09/10/18] Fluticasone Propionate [Allergy Relief] 1 spray IH DAILY 05/20/18 [History Confirmed 09/10/18] Bumetanide 1 mg [Bumex 1 mg] 1 mg PO BID DIURETIC #0 tablet 06/24/18 [Rx Confirmed 09/10/18] Trazodone HCl 50 mg [Desyrel 50 mg] 50 mg PO HS #30 tablet 06/24/18 [Rx Confirmed 09/10/18] Vancomycin/0.9 % Sod Chloride [Vanco 1.25 gm/250 ml-0.9% NaCl] 1.25 gm IV DAILY 42 Days #42 plast..bag 06/24/18 [Rx Confirmed 09/10/18] Insulin Glargine,Hum.rec.anlog [Basaglar Kwikpen U-100] 45 unit SQ DAILY [History Confirmed 09/10/18] Insulin Glargine,Hum.rec.anlog [Basaglar Kwikpen U-100] 50 unit SQ HS 09/10/18 [ History Confirmed 09/10/18] Allergies/Adverse Reactions: Allergies Allergy/AdvReac Type Severity Reaction Status Date / Time codeine [Codeine] Allergy Severe swelling Verified 07/16/18 20:54 throat diphenhydramine HCl Allergy Severe swelling Verified 07/16/18 20:54 [From Benadryl] to eyes and throat morphine Allergy Severe swelling Verified 07/16/18 20:54 throat doxycycline calcium Allergy Mild Rash Verified 07/16/18 20:54 [From Vibramycin] doxycycline hyclate Allergy Mild Rash Verified 07/16/18 20:54 [From Vibramycin] doxycycline monohydrate Allergy Mild Rash Verified 07/16/18 20:54 [From Vibramycin] acetaminophen Allergy Verified 07/16/18 20:54 [From Darvocet-N] Penicillins Allergy Verified 07/16/18 20:54 propoxyphene napsylate Allergy Verified 07/16/18 20:54 [From Darvocet-N] Sulfa (Sulfonamide Allergy Rash Verified 07/16/18 20:54 Antibiotics) - Past Medical History Past Medical History: Yes Neurological History: Peripheral Neuropathy ENT History: No Pertinent History Cardiac History: Congestive Heart Failure, Hypertension, Peripheral Vascular Disease, Other Respiratory History: Asthma, CHF, COPD, Pneumonia Endocrine Medical History: Diabetes Type II Musculoskelatal History: Degenerative Disk Disease GI Medical History: Diverticulitis, GERD, Pancreatitis History: Renal Disease, Other Pyscho-Social History: Anxiety, Depression Reproductive Disorders: No Pertinent History Comment: LONG STANDING DM WITH MULTIPLE SECONDARY COMPLICATIONS;. HX OF FOOT WOUNDS AND OM. Heart murmer, ARDS (hardening of lungs), Chronic Renal Failure, Chronic hypoxemic respiratory failure - Female History Are you now?: No - Past Surgical History Past Surgical History: Yes Neuro Surgical History: No Pertinent History Cardiac History: No Pertinent History Respiratory Surgery: No Pertinent History GI Surgical History: No Pertinent History Genitourinary Surgical Hx: No Pertinent History Musculskeletal Surgical Hx: Other Female Surgical History: Tubal Ligation, Other Other Surgical History: D&C,childbirth x two; bone removed in left big toe, amputation of last 2 toes on right foot, bone removal on r foot - Social History Smoking Status: Former smoker How long have you smoked: 27 years Exposure to second hand smoke: Yes Alcohol: None Drug Use: none - Physical Exam Vital Signs: Vital Signs - 24 hr Temp Pulse Resp BP Pulse Ox 09/11/18 08:00 22 09/11/18 07:31 98.4 F 84 22 95/51 97 09/11/18 04:00 20 09/11/18 03:59 97.6 F 78 20 108/55 99 09/11/18 00:00 18 09/10/18 23:33 98.0 F 88 18 107/57 97 09/10/18 20:00 20 09/10/18 19:40 96 H 20 96 09/10/18 19:33 98.1 F 100 H 20 118/78 98 09/10/18 16:40 97.9 F 97 H 20 120/59 97 09/10/18 16:00 18 09/10/18 13:30 98 F 95 H 20 125/58 96 09/10/18 13:07 98 F 95 H 20 125/58 96 Oxygen-Last 24 hours O2 Percentage 4 Liters = 36% O2 Percentage 4 Liters = 36% General Appearance: no apparent distress, alert, obese Neurologic Exam: oriented x 3, cooperative Eye Exam: eyes nml inspection Ears, Nose, Throat Exam: moist mucous membranes Respiratory Exam: lungs clear, diminished breath sounds (good air exchange), prolonged expirations, No crackles/rales, No rhonchi, No wheezing Cardiovascular Exam: regular rate/rhythm, normal heart sounds, No murmur Gastrointestinal/Abdomen Exam: soft, normal bowel sounds, No tenderness, No distention, No mass, No guarding, No rebound Extremity Exam: other (R foot wrapped), No swelling Results - Labs Lab/Micro Results: Accuchecks Date 09/11/18 Date 09/10/18 Date 09/10/18 Time 07:30 Time 22:00 Time 04:30 Accucheck Value: 414 Accucheck Value: 347 Accucheck Value: 587 Lab Results-Last 24 Hours 1009/10/18 09/10/18 Range/Units 13:15 13:15 16:30 WBC 10.0 (4.0-10.5) K/mm3 RBC 4.59 (4.1-5.4) M/mm3 Hgb 11.1 L (12.0-16.0) gm/dl Hct 35.0 (35-47) % MCV 76.3 L (78-100) fl MCH 24.1 L (26-32) pg MCHC 31.7 L (32-36) g/dl RDW 15.2 H (11.5-14.0) % Plt Count 289 (150-450) K/mm3 MPV 11.2 H (6-9.5) fl Gran % 74.4 H (36.0-66.0) % Eos # (Auto) 0.27 (0-0.5) Absolute Lymphs (auto) 1.57 (1.0-4.6) Absolute Monos (auto) 0.63 (0.0-1.3) Lymphocytes % 15.7 L (24.0-44.0) % Monocytes % 6.3 (0.0-12.0) % Eosinophils % 2.7 (0.00-5.0) % Basophils % 0.9 (0.0-0.4) % Absolute Granulocytes 7.42 H (1.4-6.9) Basophils # 0.09 (0-0.4) Sodium 127 L (137-145) mmol/L Potassium 5.3 H (3.5-5.1) mmol/L Chloride 86 L (98-107) mmol/L Carbon Dioxide 25 (22-30) mmol/L Anion Gap 20.9 H (5-15) MEQ/L BUN 67 H (7-17) mg/dL Creatinine 2.42 H (0.52-1.04) mg/dL Estimated GFR 23.3 ML/MIN Glucose 694 H* (74-106) mg/dL Calcium 9.2 (8.4-10.2) mg/dL Urine Color STRAW (YELLOW) Urine Appearance CLEAR (CLEAR) Urine pH 5.0 (5-6) Ur Specific [place] 1.015 (1.005-1.025) Urine Protein 100 (Negative) Urine Ketones NEGATIVE (NEGATIVE) Urine Blood SMALL (0-5) Jaren/ul Urine Nitrite NEGATIVE (NEGATIVE) Urine Bilirubin NEGATIVE (NEGATIVE) Urine Urobilinogen NEGATIVE (0-1) mg/dL Ur Leukocyte Esterase NEGATIVE (NEGATIVE) Urine WBC (Auto) 0-2 (0-5) /HPF Urine RBC (Auto) NONE (0-2) /HPF U Hyaline Cast (Auto) 0-2 (0-2) /LPF U Epithel Cells (Auto) RARE (FEW) /HPF Urine Mucus (Auto) SLIGHT (NEGATIVE) /HPF Urine Culture Reflexed NO (NO) Urine Glucose >=500 (NEGATIVE) mg/dL 09/10/18 09/11/18 Range/Units 16:35 04:40 WBC (4.0-10.5) K/mm3 RBC (4.1-5.4) M/mm3 Hgb (12.0-16.0) gm/dl Hct (35-47) % MCV (78-100) fl MCH (26-32) pg MCHC (32-36) g/dl RDW (11.5-14.0) % Plt Count (150-450) K/mm3 MPV (6-9.5) fl Gran % (36.0-66.0) % Eos # (Auto) (0-0.5) Absolute Lymphs (auto) (1.0-4.6) Absolute Monos (auto) (0.0-1.3) Lymphocytes % (24.0-44.0) % Monocytes % (0.0-12.0) % Eosinophils % (0.00-5.0) % Basophils % (0.0-0.4) % Absolute Granulocytes (1.4-6.9) Basophils # (0-0.4) Sodium 128 L (137-145) mmol/L Potassium 4.3 (3.5-5.1) mmol/L Chloride 90 L (98-107) mmol/L Carbon Dioxide 27 (22-30) mmol/L Anion Gap 15.2 H (5-15) MEQ/L BUN 65 H (7-17) mg/dL Creatinine 2.33 H (0.52-1.04) mg/dL Estimated GFR 24.3 ML/MIN Glucose 622 H* 385 H (74-106) mg/dL Calcium 8.9 (8.4-10.2) mg/dL Urine Color (YELLOW) Urine Appearance (CLEAR) Urine pH (5-6) Ur Specific [place] (1.005-1.025) Urine Protein (Negative) Urine Ketones (NEGATIVE) Urine Blood (0-5) Jaren/ul Urine Nitrite (NEGATIVE) Urine Bilirubin (NEGATIVE) Urine Urobilinogen (0-1) mg/dL Ur Leukocyte Esterase (NEGATIVE) Urine WBC (Auto) (0-5) /HPF Urine RBC (Auto) (0-2) /HPF U Hyaline Cast (Auto) (0-2) /LPF U Epithel Cells (Auto) (FEW) /HPF Urine Mucus (Auto) (NEGATIVE) /HPF Urine Culture Reflexed (NO) Urine Glucose (NEGATIVE) mg/dL Accuchecks Date 09/11/18 Date 09/10/18 Date 09/10/18 Time 07:30 Time 22:00 Time 04:30 Accucheck Value: 414 Accucheck Value: 347 Accucheck Value: 587 - Other Procedures and Tests Respiratory Therapy 09/10/18 19:35 Respiratory Therapy Assessment DAILY 09/10/18 21:48 Oxygen NASAL CANNULA 3 lpm Assessment/Plan (1) Acute on chronic renal failure Current Visit: Yes Status: Acute Assessment & Plan: renal is consulted, thank you. Code(s): N17.9 - ACUTE KIDNEY FAILURE, UNSPECIFIED; N18.9 - CHRONIC KIDNEY DISEASE, UNSPECIFIED (2) Hyperkalemia Current Visit: No Status: Resolved Code(s): E87.5 - HYPERKALEMIA (3) Diabetes type 2, uncontrolled Current Visit: No Status: Chronic Qualifiers: Glycemic state: with hyperglycemia Qualified Code(s): E11.65 - Type 2 diabetes mellitus with hyperglycemia Assessment & Plan: I have ordered a regular diet in hopes that we could figure out a better basaglar dosing regimen instead of her BS always over 350. Code(s): E11.65 - TYPE 2 DIABETES MELLITUS WITH HYPERGLYCEMIA (4) Hyponatremia Current Visit: No Status: Chronic Onset Date: ~06/15/18 Code(s): E87.1 - HYPO-OSMOLALITY AND HYPONATREMIA (5) Osteomyelitis Current Visit: No Status: Acute Onset Date: ~06/15/18 Qualifiers: Osteomyelitis type: other acute Osteomyelitis location: foot Laterality: right Qualified Code(s): M86.171 - Other acute osteomyelitis, right ankle and foot Assessment & Plan: She is still on IV vancomycin at home, so I have continued this here. She thinks she is supposed to be on this about another week; may need to contact Dr. Gay to confirm (there is a home health order detailing the stop date). Uses a walker typically but currently in a wheelchair. Code(s): M86.9 - OSTEOMYELITIS, UNSPECIFIED (6) CHF (congestive heart failure) Current Visit: No Status: Chronic Onset Date: ~05/29/18 Qualifiers: Heart failure type: unspecified Heart failure chronicity: unspecified Qualified Code(s): I50.9 - Heart failure, unspecified Assessment & Plan: at baseline currently. Code(s): I50.9 - HEART FAILURE, UNSPECIFIED (7) COPD (chronic obstructive pulmonary disease) Current Visit: No Status: Chronic Qualifiers: COPD type: chronic bronchitis Chronic bronchitis type: unspecified Qualified Code(s): J42 - Unspecified chronic bronchitis Assessment & Plan: doing well currently. (8) Chronic hypoxemic respiratory failure Current Visit: No Status: Chronic Onset Date: ~06/15/18 Assessment & Plan: On O2 at home.
[2018-09-11] MEDS: Flonase NASAL NS SCH (09:09)
[2018-09-11] MEDS: Protonix 40MG Tablet PO SCH ×2 (09:09→22:05)
[2018-09-11] MEDS: ENOXAPARIN SODIUM SQ SCH (09:09)
[2018-09-11] MEDS: NORVASC 5 MG PO SCH (09:10)
[2018-09-11] MEDS: BUSPAR 5 MG PO SCH ×2 (09:10→22:03)
[2018-09-11] MEDS: COREG 12.5 MG PO SCH ×2 (09:10→22:03)
[2018-09-11] MEDS: CLARITIN 10 MG PO SCH (09:10)
[2018-09-11] MEDS: LYRICA 100MG PO SCH ×3 (09:10→22:05)
[2018-09-11] MEDS: Lantus Insulin SQ SCH ×2 (09:10→22:05)
[2018-09-11] MEDS: Lidoderm Patch 5% TOP SCH (09:36)
[2018-09-11] MEDS ORDERED: INSULIN GLARGINE HUM REC ANLOG 45 UNIT SQ SCH (10:00)
[2018-09-11] MEDS ORDERED: [UNRECOGNIZED DRUG - OTHER] IV SCH (10:00)
[2018-09-11] MEDS ORDERED: NON-FORMULARY ITEM (Atorvastatin Calcium [Atorvastatin Calcium] 10 MG) PO SCH (10:00)
[2018-09-11] MEDS ORDERED: NON-FORMULARY ITEM (Amlodipine Besylate 10 Mg [Norvasc 10 Mg] 10 MG) PO SCH (10:00)
[2018-09-11] MEDS ORDERED: SOD CHLORIDE IV SCH (10:00)
[2018-09-11] MEDS ORDERED: [UNRECOGNIZED DRUG - REMARK] IH SCH (10:00)
[2018-09-11] MEDS ORDERED: VANCOMYCIN IV SCH (10:00)
[2018-09-11] MEDS ORDERED: PHARMACY DOSING REQUIRED: VANCOMYCIN IV ONE (15:18)
[2018-09-11 15:26] LABS: Iron 65 ug/dL (37-170); Iron Saturation 25 % (20-39); TIBC 256 ug/dL (265-462)
[2018-09-11] MEDS: VANCOCIN 1 GM VIAL*** 1.25 GM in Sodium Chloride 0.9% 250 ML 250 ML IV SCH (15:50)
[2018-09-11 17:51] LABS: CREATININE,URINE RANDOM 60.7 MG/DL; Chloride, Urine < 15 mmol/L (18-209); PROTEIN,URINE RANDOM 87 mg/dL (0-12); Sodium, Urine 10 mmol/L (30-90)
[2018-09-11] MEDS: Cyclobenzaprine 10 MG PO SCH (22:03)
[2018-09-11] MEDS: DESYREL 50 MG PO SCH (22:04)
[2018-09-11] MEDS: Singulair 10 MG PO SCH (22:06)
[2018-09-11] MEDS: Zocor 10MG PO SCH (22:07)
[2018-09-12] MEDS: Sodium Chloride 0.9% 1000 ML 1,000 ML IV SCH ×3 (00:52→18:49)
[2018-09-12 05:53] LABS: Granulocyte Absolute (ANC) 4.41 (1.4-6.9); Hematocrit 31.2 % (35-47); Hemoglobin 9.8 gm/dl (12.0-16.0); Mean Cell Volume 76.7 fl (78-100); Mean Corpuscular Hgb Concent. 31.4 g/dl (32-36); Mean Platelet Volume 10.6 fl (6-9.5); Platelet Count 230 K/mm3 (150-450); Red Blood Count 4.07 M/mm3 (4.1-5.4); Red Cell Distribution Width 15.5 % (11.5-14.0); White Blood Count 7.2 K/mm3 (4.0-10.5)
[2018-09-12 06:11] LABS: ANION GAP 13.6 MEQ/L (5-15); Calcium 8.5 mg/dL (8.4-10.2); Creatinine 1 2.04 mg/dL (0.52-1.04); Potassium 4.4 mmol/L (3.5-5.1)
[2018-09-12] MEDS: NovoLOG Insulin SQ PRN ×2 (08:06→22:16)
[2018-09-12] MEDS: NovoLOG Insulin SQ SCH ×3 (08:06→17:00)
[2018-09-12] MEDS: PHENERGAN 25 MG PO PRN ×3 (08:35→22:13)
[2018-09-12 08:36] LABS: Eosinophil 3 % (0.00-3.0); Lymphocytes 20 % (24-44); Monocyte 1 % (0.0-12.0); Neutrophils 76 % (36.0-66.0); Total Cells Counted 100
[2018-09-12] MEDS: NORCO 7.5/325 MG TAB PO PRN ×3 (08:36→22:13)
[2018-09-12 08:37] LABS: ANISOCYTOSIS 1+; Platelet Estimate NORMAL (NORMAL)
[2018-09-12] MEDS: NORVASC 5 MG PO SCH (09:24)
[2018-09-12] MEDS: BUSPAR 5 MG PO SCH ×2 (09:24→22:13)
[2018-09-12] MEDS: Lidoderm Patch 5% TOP SCH (09:24)
[2018-09-12] MEDS: Protonix 40MG Tablet PO SCH ×2 (09:25→22:12)
[2018-09-12] MEDS: COREG 12.5 MG PO SCH ×2 (09:25→22:13)
[2018-09-12] MEDS: CLARITIN 10 MG PO SCH (09:25)
[2018-09-12] MEDS: Flonase NASAL NS SCH (09:25)
[2018-09-12] MEDS: ENOXAPARIN SODIUM SQ SCH (09:25)
[2018-09-12] MEDS: LYRICA 100MG PO SCH ×3 (09:25→22:13)
[2018-09-12] MEDS: Lantus Insulin SQ SCH ×2 (09:26→22:15)
[2018-09-12] MEDS ORDERED: NovoLOG Insulin SQ PRN (10:35)
--- NOTE | 2018-09-12 12:25 | PCM.NOTE ---
Date and Time: 09/12/18 1220 Subjective Assessment: Patient reports her insurance will not pay for her short acting insulin Apidra but Dioni, case planner, talked to her pharmacy and it is because she has ran out too soon but they think they can get it approved. She is still to be on the Vancomycin per her outpatient pharmacy and patient reports she is going to be seeing her planning advisor this coming she believes. Patient reports she is making more urine. She continues to have right foot pain like someone is standing on her foot and also back pain from osteoarthritis/degeneration she reports. She reports talking to the all source analyst although I believe the all source analyst' s note said she declined the consult. Pt reports she plans to do outpatient class. Dr. Rosales saw the patient yesterday and I appreciate his input. - Review of Systems Constitutional: No Symptoms Eyes: No Symptoms Ears, Nose, & Throat: No Symptoms Respiratory: No Symptoms Cardiac: No Symptoms Abdominal/Gastrointestinal: No Symptoms Genitourinary Symptoms: No Symptoms Musculoskeletal: Back Pain, Other (foot pain) Skin: Other (Patient reports her bandage is due to be changed today.) Objective Exam General Appearance: no apparent distress, obese, other (sitting up, pleasant, talkative) Neurologic Exam: alert, cooperative, normal mood/affect Skin Exam: normal color, warm, dry, other (right foot wrapped and dressed) Cardiovascular Exam: regular rate/rhythm, normal heart sounds, No murmur, No friction rub, No gallop Gastrointestinal/Abdomen Exam: soft, normal bowel sounds, No tenderness, No distention, No mass Extremity Exam: other (no c/c/e) OBJECTIVE DATA Vital Signs: Vital Signs - 24 hr Temp Pulse Resp BP Pulse Ox 09/12/18 09:05 86 18 95 09/12/18 08:00 97.6 F 84 19 96/43 94 L 09/12/18 04:00 97.7 F 89 18 117/58 95 09/11/18 23:54 97.9 F 88 18 98/56 98 09/11/18 21:51 91 H 20 98 09/11/18 19:49 97.7 F 88 18 115/66 97 09/11/18 17:29 85 18 95 09/11/18 16:00 98.4 F 84 22 105/67 97 Oxygen-Last 24 hours O2 Percentage 3 Liters = 32% O2 Percentage 3 Liters = 32% O2 Percentage 2 Liters = 28% Pain Assessment - Last Documented Pain Intensity 5 Pain Scale Used 0-10 Pain Scale Intake and Output: Intake & Output 09/10/18 09/11/18 09/12/18 09/13/18 06:59 06:59 06:59 06:59 Intake Total 3939 5320 360 Output Total 2250 2900 1000 Balance 1689 2420 -640 Weight 128 kg Lab Results: Accuchecks Date 09/11/18 Time 16:30 Accucheck Value: 330 Accucheck Value: 261 Accucheck Value: 313 Accucheck Value: 348 Lab Results-Last 24 Hours 09/11/18 09/11/18 09/12/18 Range/Units 04:30 16:50 05:44 WBC 7.2 (4.0-10.5) K/mm3 RBC 4.07 L (4.1-5.4) M/mm3 Hgb 9.8 L (12.0-16.0) gm/dl Hct 31.2 L (35-47) % MCV 76.7 L (78-100) fl MCH 24.0 L (26-32) pg MCHC 31.4 L (32-36) g/dl RDW 15.5 H (11.5-14.0) % Plt Count 230 (150-450) K/mm3 MPV 10.6 H (6-9.5) fl Absolute Granulocytes 4.41 (1.4-6.9) Segmented Neutrophils 76 H (36.0-66.0) % Lymphocytes (Manual) 20 L (24-44) % Monocytes (Manual) 1 (0.0-12.0) % Eosinophils (Manual) 3 (0.00-3.0) % Platelet Estimate NORMAL (NORMAL) RBC Morphology ABNORMAL Anisocytosis 1+ Sodium (137-145) mmol/L Potassium (3.5-5.1) mmol/L Chloride (98-107) mmol/L Carbon Dioxide (22-30) mmol/L Anion Gap (5-15) MEQ/L BUN (7-17) mg/dL Creatinine (0.52-1.04) mg/dL Estimated GFR ML/MIN Glucose (74-106) mg/dL Calcium (8.4-10.2) mg/dL Iron 65 (37-170) ug/dL TIBC 256 L (265-462) ug/dL Iron Saturation 25 (20-39) % Ur Random Creatinine 60.7 MG/DL U Random Total Protein 87 H (0-12) mg/dL Urine Sodium 10 L (30-90) mmol/L Urine Potassium 24.5 H (0.1-0.7) mmol/L Urine Chloride < 15 L (18-209) mmol/L 09/12/18 Range/Units 05:44 WBC (4.0-10.5) K/mm3 RBC (4.1-5.4) M/mm3 Hgb (12.0-16.0) gm/dl Hct (35-47) % MCV (78-100) fl MCH (26-32) pg MCHC (32-36) g/dl RDW (11.5-14.0) % Plt Count (150-450) K/mm3 MPV (6-9.5) fl Absolute Granulocytes (1.4-6.9) Segmented Neutrophils (36.0-66.0) % Lymphocytes (Manual) (24-44) % Monocytes (Manual) (0.0-12.0) % Eosinophils (Manual) (0.00-3.0) % Platelet Estimate (NORMAL) RBC Morphology Anisocytosis Sodium 133 L (137-145) mmol/L Potassium 4.4 (3.5-5.1) mmol/L Chloride 98 (98-107) mmol/L Carbon Dioxide 26 (22-30) mmol/L Anion Gap 13.6 (5-15) MEQ/L BUN 54 H (7-17) mg/dL Creatinine 2.04 H (0.52-1.04) mg/dL Estimated GFR 28.4 ML/MIN Glucose 261 H (74-106) mg/dL Calcium 8.5 (8.4-10.2) mg/dL Iron (37-170) ug/dL TIBC (265-462) ug/dL Iron Saturation (20-39) % Ur Random Creatinine MG/DL U Random Total Protein (0-12) mg/dL Urine Sodium (30-90) mmol/L Urine Potassium (0.1-0.7) mmol/L Urine Chloride (18-209) mmol/L Assessment/Plan (1) Acute on chronic renal failure Current Visit: Yes Status: Acute Assessment & Plan: Improving with IV fluids; pharmacy is dosing vancomycin. Nephrology consult obtained. Code(s): N17.9 - ACUTE KIDNEY FAILURE, UNSPECIFIED; N18.9 - CHRONIC KIDNEY DISEASE, UNSPECIFIED (2) Osteomyelitis Current Visit: No Status: Acute Onset Date: ~06/15/18 Qualifiers: Osteomyelitis type: other acute Osteomyelitis location: foot Laterality: right Qualified Code(s): M86.171 - Other acute osteomyelitis, right ankle and foot Assessment & Plan: Continue IV vancomycin and she is due for a trough level tomorrow. Code(s): M86.9 - OSTEOMYELITIS, UNSPECIFIED (3) Anemia Current Visit: No Status: Chronic Onset Date: ~06/17/18 Qualifiers: Anemia type: due to chronic kidney disease Assessment & Plan: Stable at this time. Code(s): D64.9 - ANEMIA, UNSPECIFIED (4) Diabetes type 2, uncontrolled Current Visit: No Status: Chronic Qualifiers: Glycemic state: with hyperglycemia Qualified Code(s): E11.65 - Type 2 diabetes mellitus with hyperglycemia Assessment & Plan: She received a total of 177 units of insulin yesterday. I am changing her short acting insulin from 18 units with meals to 28 units with meals. Continuing the 50 units long acting in the PM and 45 units in the AM. Changed to low dose sliding scale for lunch but will change back to high dose for supper. Code(s): E11.65 - TYPE 2 DIABETES MELLITUS WITH HYPERGLYCEMIA (5) Hyponatremia Current Visit: No Status: Chronic Onset Date: ~06/15/18 Assessment & Plan: Improving with IV fluids and better glycemic control. Code(s): E87.1 - HYPO-OSMOLALITY AND HYPONATREMIA
[2018-09-12] MEDS: VANCOCIN 1 GM VIAL*** 1.25 GM in Sodium Chloride 0.9% 250 ML 250 ML IV SCH (14:42)
[2018-09-12] MEDS: DESYREL 50 MG PO SCH (22:13)
[2018-09-12] MEDS: Singulair 10 MG PO SCH (22:13)
[2018-09-12] MEDS: Zocor 10MG PO SCH (22:13)
[2018-09-12] MEDS: Cyclobenzaprine 10 MG PO SCH (22:15)
[2018-09-13] MEDS: Sodium Chloride 0.9% 1000 ML 1,000 ML IV SCH ×2 (03:06→11:11)
[2018-09-13] MEDS: NORCO 7.5/325 MG TAB PO PRN ×2 (03:55→10:19)
[2018-09-13] MEDS: PHENERGAN 25 MG PO PRN ×2 (03:55→10:19)
[2018-09-13] MEDS: BUSPAR 5 MG PO SCH (08:30)
[2018-09-13] MEDS: NovoLOG Insulin SQ SCH ×3 (08:30→12:21)
[2018-09-13] MEDS: Lantus Insulin SQ SCH (08:30)
[2018-09-13] MEDS: NovoLOG Insulin SQ PRN ×2 (08:30→12:20)
[2018-09-13] MEDS: Protonix 40MG Tablet PO SCH (08:30)
[2018-09-13] MEDS: COREG 12.5 MG PO SCH (08:31)
[2018-09-13] MEDS: Lidoderm Patch 5% TOP SCH (08:31)
[2018-09-13] MEDS: NORVASC 5 MG PO SCH (08:31)
[2018-09-13] MEDS: LYRICA 100MG PO SCH ×2 (08:31→14:10)
[2018-09-13] MEDS: ENOXAPARIN SODIUM SQ SCH (08:31)
[2018-09-13] MEDS: CLARITIN 10 MG PO SCH (08:31)
[2018-09-13] MEDS: Flonase NASAL NS SCH (08:32)
[2018-09-13 08:52] LABS: ANION GAP 13.2 MEQ/L (5-15); Calcium 8.6 mg/dL (8.4-10.2); Creatinine 1 1.8 mg/dL (0.52-1.04); Potassium 4.8 mmol/L (3.5-5.1)
[2018-09-13] MEDS ORDERED: NovoLOG Insulin SQ SCH (09:41)
[2018-09-13] MEDS ORDERED: Lantus Insulin SQ SCH ×2 (09:41)
[2018-09-13] MEDS ORDERED: Lantus Insulin SQ ONE (10:15)
[2018-09-13] MEDS: VANCOCIN 1 GM VIAL*** 1.25 GM in Sodium Chloride 0.9% 250 ML 250 ML IV SCH (14:03)
[2018-09-13] MEDS ORDERED: TROUGH DRUG LEVELS IJ ONE (14:30)
[2018-09-13 16:27] VITALS: BP 136/80; PULSE 98; O2SAT 99
--- NOTE | 2018-09-16 11:28 | DS ---
DISCHARGE DIAGNOSES: 1) ACUTE ON CHRONIC RENAL FAILURE. 2) OSTEOMYELITIS OF RIGHT FOOT. 3) ANEMIA DUE TO CHRONIC KIDNEY DISEASE. 4) DIABETES MELLITUS TYPE 2, UNCONTROLLED. 5) HYPONATREMIA. DISCHARGE PHYSICAL EXAMINATION: VITALS: Temperature current 98.1F, temperature max 98.1F, heart rate 98, respiratory rate 18, blood pressure 136/80. Oxygen saturation 99% on 3 liters. GENERAL: The patient is a pleasant talkative lady sitting up in no acute distress. CVS: She has a regular rate and rhythm. No murmurs, gallops or rubs are appreciated. CHEST: Clear to auscultation bilaterally. No crackles or wheezes. ABDOMEN: Soft, nontender, nondistended with normal bowel sounds. EXTREMITIES: Her right foot had been redressed by the nursing staff. No clubbing, cyanosis or edema of either lower extremity. HOSPITAL COURSE: 1) ACUTE ON CHRONIC RENAL FAILURE: Dr. Perdomo, [facility], saw her during her hospitalization and increased fluids. Her creatinine increased from 2.42 on admission to 1.8 on the date of discharge. She was making urine well and stated she was feeling well. 2) OSTEOMYELITIS RIGHT FOOT: Her trough level was checked before she was discharged and pharmacist, Arnulfo Dominguez, recommended that as an outpatient she continue with vancomycin 1 gm IV daily. She is being followed by [facility] for this and that order was called to them who recommended checking another trough in four days. Dr. Brooks, her primary care doctor, will follow up on the results of this. 3) ANEMIA OF CHRONIC DISEASE: This was stable during her hospitalization. The day before discharge her hemoglobin was 9.8. 4) DIABETES MELLITUS TYPE 2: Her hemoglobin A1C on 09/11/2018 was greater than 14. Her insulin was adjusted while she was in the hospital. She was discharged on Lantus 50 units subcutaneously every morning and 55 units subcutaneously every evening and Apidra which is a short-acting insulin 38 units subcutaneously three times a day with her meals. The patient had been offered diabetic teaching during her hospitalization but according to the welder setter electron beam machine's note had declined this. The patient reported that she planned to do this as an outpatient. 5) HYPONATREMIA: Most likely secondary to hyperglycemia. At the time of discharge her sodium was 135. DISCHARGE MEDICATIONS: Please see the discharge order. FOLLOW UP: She is to follow up with Dr. Brooks (her primary care doctor), Dr. Jimenez and her drawer in hand, Dr. Gay. DISPOSITION: The patient was discharged to home in fair condition to continue with home health care.
== END 2018-09-13 16:30 | disposition home health service (06) ==
LOC: MED SURG 12:53
PROVIDERS: ADMIT Family Medicine; ATTEND Family Medicine
DX: N17.9 Acute kidney failure, unspecified (principal); M86.9 Osteomyelitis, unspecified; E11.65 Type 2 diabetes mellitus with hyperglycemia; E87.1 Hypo-osmolality and hyponatremia; Z79.899 Other long term (current) drug therapy; I12.9 Hypertensive chronic kidney disease with stage 1 through stage 4 chronic kidney disease, or unspecified chronic kidney disease; N18.9 Chronic kidney disease, unspecified; I73.9 Peripheral vascular disease, unspecified; J45.909 Unspecified asthma, uncomplicated; K21.9 Gastro-esophageal reflux disease without esophagitis; F41.9 Anxiety disorder, unspecified; F32.9 Major depressive disorder, single episode, unspecified; J96.11 Chronic respiratory failure with hypoxia; E87.5 Hyperkalemia
CPT/HCPCS: 36415; 80048; 80202; 81001; 82436; 82570; 82947; 82962; 83036; 83540; 83550; 84133; 84156; 84300; 85025; 94760; G0378; J1650; J3370; A9270-GY

== ENCOUNTER 2018-12-18 14:56 | Observation (INO) | payer OTHER ==
[2018-12-18] MEDS ORDERED: NITRO-BID 2% UD PACKETS TOP ONE (15:38)
[2018-12-18] MEDS ORDERED: LOPRESSOR 5 MG/5 ML INJECTION IV ONE ×2 (15:38→15:45)
[2018-12-18] MEDS ORDERED: BABY ASPIRIN 81 MG CHEW PO ONE (15:38)
[2018-12-18] MEDS ORDERED: Nitrostat 0.4 MG (ED) SL ONE ×3 (15:38→16:46)
[2018-12-18] MEDS ORDERED: NITRO-BID 2% UD PACKETS ONE (15:45)
[2018-12-18] MEDS ORDERED: BABY ASPIRIN 81 MG CHEW ONE (15:45)
[2018-12-18] MEDS ORDERED: Sodium Chloride 0.9% 1000 ML 1,000 ML IV SCH (15:45)
--- NOTE | 2018-12-18 15:48 | ERPHSYRPT ---
- History of Present Illness Time Seen by Provider: 12/18/18 15:30 Historian: patient Exam Limitations: clinical condition Patient Subjective Stated Complaint: Pt states "I woke up not feeling well around 11 am and then my left arm started to hurt, my back, my chest all started to hurt. I called my doctor and they told me to get here." Triage Nursing Assessment: Pt alert and oriented X 3, skin pwd. PT ambulates with an upright steady gait, able to speak in clear full sentences. PT in no apparent respiratory distress. PT slight swelling in hands and feet. Physician History: PATIENT WITH A HISTORY OF CORONARY ARTERY DISEASE, MYOCARDIAL INFARCTION 2016, SLEEP APNEA, COPD, ASTHMA, CONGESTIVE HEART FAILURE, TYPE 2 DIABETES, COMPLAINS OF ACUTE ONSET OF ANTERIOR CHEST PAIN WHICH SHE DESCRIBES INDIGESTION, LEFT ARM HEAVINESS WITH EXERTIONAL DYSPNEA SINCE 11AM TODAY. DESCRIBES HER PAIN SCALE 9/10. DENIES FEVER, COUGH, CHILLS, DIAPHORESIS OR PALPITATIONS. Timing/Duration: today Activities at Onset: none Quality: burning (INDIGESTION) Location: substernal Chest Pain Radiation: arm Severity of Pain-Max: moderate Severity of Pain-Current: moderate Modifying Factors: Improves With: other (EXERTION) Associated Symptoms: heartburn Prior Chest Pain/Cardiac Workup: cardiac cath, heart attack Nitro Today/Relief: no nitro taken today, 0.4 mg x 1, provided by ED Aspirin Treatment Today: 81 mg x 4, provided by ED Allergies/Adverse Reactions: codeine [Codeine] Allergy (Severe, Verified 07/16/18 20:54) swelling throat diphenhydramine HCl [From Benadryl] Allergy (Severe, Verified 07/16/18 20:54) swelling to eyes and throat morphine Allergy (Severe, Verified 07/16/18 20:54) swelling throat doxycycline calcium [From Vibramycin] Allergy (Mild, Verified 07/16/18 20:54) Rash doxycycline hyclate [From Vibramycin] Allergy (Mild, Verified 07/16/18 20:54) Rash doxycycline monohydrate [From Vibramycin] Allergy (Mild, Verified 07/16/18 20:54 ) Rash acetaminophen [From Darvocet-N] Allergy (Verified 07/16/18 20:54) Penicillins Allergy (Verified 07/16/18 20:54) propoxyphene napsylate [From Darvocet-N] Allergy (Verified 07/16/18 20:54) Sulfa (Sulfonamide Antibiotics) Allergy (Verified 07/16/18 20:54) Rash Home Medications: Pregabalin [Lyrica 100Mg] 100 mg PO TID 10/19/13 [History] Amlodipine Besylate 10 mg [Norvasc 10 MG] 10 mg PO TID 01/05/16 [History] Ergocalciferol (Vitamin D2) [Vitamin D] 1.25 mg PO .TUES/THURS 01/05/16 [History ] AMITRIPTYLINE HCL 50 mg Tab [AMITRIPTYLINE HCL 50 mg Tablet] 50 mg PO QID [History] Albuterol 2.5 mg/3 ml Neb [Proventil 2.5 mg/3 ml Neb] 2.5 mg NEB Q4HPRN PRN 11/08/16 [History] Albuterol Sulfate [Proventil Hfa] 6.7 gm IH QID PRN 11/08/16 [History] Loratadine 10 mg [Claritin 10 mg] 10 mg PO DAILY 11/08/16 [History] Hydrocodone Bit/Acetaminophen [[place] 7.5-325 Tablet] 1 each PO Q6H PRN PRN 07/04 [History] Montelukast Sodium 10 mg [Singulair 10 MG] 10 mg PO HS 07/04/17 [History] Carvedilol 12.5 mg [Coreg 12.5 mg] 12.5 mg PO BID 07/05/17 [History] Omeprazole 20 MG [Prilosec 20 mg] 20 mg PO BID 09/26/17 [History] Atorvastatin Calcium 10 mg PO DAILY 05/20/18 [History] Buspirone HCl 1 tablet PO BID 05/20/18 [History] Cyclobenzaprine HCl 5 mg PO HS 05/20/18 [History] Fluticasone Propionate [Allergy Relief] 1 spray IH DAILY 05/20/18 [History] Lidocaine 1 each TP BID 12/18/18 [History] Hx Tetanus, Diphtheria Vaccination/Date Given: Yes Hx Influenza Vaccination/Date Given: No Hx Pneumococcal Vaccination/Date Given: No Immunizations Up to Date: Yes - Review of Systems Constitutional: No Fever, No Chills Eyes: No Symptoms Ears, Nose, & Throat: No Symptoms Respiratory: Dyspnea on Exertion (HANLEY), No Cough, No Dyspnea Cardiac: No Chest Pain, No Edema, No Syncope Abdominal/Gastrointestinal: No Symptoms, No Abdominal Pain, No Nausea, No Vomiting, No Diarrhea Genitourinary Symptoms: No Symptoms, No Dysuria Musculoskeletal: No Symptoms, No Back Pain, No Neck Pain Skin: No Symptoms, No Rash Neurological: No Symptoms, No Dizziness, No Focal Weakness, No Sensory Changes Psychological: No Symptoms Endocrine: No Symptoms All Other Systems: Reviewed and Negative - Past Medical History Pertinent Past Medical History: Yes Neurological History: Peripheral Neuropathy ENT History: No Pertinent History Cardiac History: Congestive Heart Failure, Hypertension, Peripheral Vascular Disease, Other Respiratory History: Asthma, CHF, COPD, Pneumonia Endocrine Medical History: Diabetes Type II Musculoskeletal History: Degenerative Disk Disease GI Medical History: Diverticulitis, GERD, Pancreatitis History: Renal Disease, Other Psycho-Social History: Anxiety, Depression Female Reproductive Disorders: No Pertinent History Other Medical History: LONG STANDING DM WITH MULTIPLE SECONDARY COMPLICATIONS;. HX OF FOOT WOUNDS AND OM. Heart murmer, ARDS (hardening of lungs), Chronic Renal Failure, Chronic hypoxemic respiratory failure - Past Surgical History Past Surgical History: Yes Neuro Surgical History: No Pertinent History Cardiac: No Pertinent History Respiratory: No Pertinent History Gastrointestinal: No Pertinent History Genitourinary: No Pertinent History Musculoskeletal: Other Female Surgical History: Tubal Ligation, Other Other Surgical History: D&C,childbirth x two; bone removed in left big toe, amputation of last 2 toes on right foot, bone removal on r foot - Social History Smoking Status: Former smoker How long have you smoked: 27 years Exposure to second hand smoke: Yes Drug Use: none Patient Lives Alone: No - Female History Hx Last Menstrual Period: 12/04/2018 Hx Now: No - Nursing Vital Signs Nursing Vital Signs: Initial Vital Signs Temperature 98.3 F 12/18/18 15:01 Pulse Rate 96 H 12/18/18 15:01 Respiratory Rate 20 12/18/18 15:01 Blood Pressure 180/95 12/18/18 15:01 O2 Sat by Pulse Oximetry 95 12/18/18 15:01 Pain Scale Pain Intensity 4 - Physical Exam General Appearance: no apparent distress, alert Eye Exam: PERRL/EOMI, eyes nml inspection Ears, Nose, Throat Exam: normal ENT inspection, moist mucous membranes Neck Exam: normal inspection, non-tender, supple, full range of motion Respiratory Exam: normal breath sounds, lungs clear, No respiratory distress Cardiovascular Exam: regular rate/rhythm, normal heart sounds Gastrointestinal/Abdomen Exam: soft, normal bowel sounds, No tenderness, No mass Back Exam: normal inspection, No CVA tenderness, No vertebral tenderness Extremity Exam: normal inspection, normal range of motion, pedal edema (2+ PITTING) Neurologic Exam: alert, oriented x 3, cooperative, normal mood/affect, sensation nml, No motor deficits Skin Exam: normal color, warm, dry SpO2 Interpretation: normal SpO2: 95 - Course EKG Interpreted by Me: RATE, Sinus Rhythm, NORMAL AXIS, Left Bundle Branch Block (RATE 95) - Radiology Exams Chest X-ray Interpretation: Reviewed by me, Negative Ordered Tests: Active Orders 24 hr Category Date Time Status Bedrest with BRP/BSC TOLERATED Activity 12/18/18 18:25 Active Up Ad Sonja TOLERATED Activity 12/18/18 18:24 Active Accucheck Q1H Care 12/18/18 18:24 Active Refinisher CONTINUOUS Care 12/18/18 18:25 Active Refinisher STAT Care 12/18/18 15:39 Active Code Status Order ROUTINE Care 12/18/18 18:24 Active EKG-ER Only STAT Care 12/18/18 15:38 Active IV Insertion STAT Care 12/18/18 15:38 Active IV Insertion STAT Care 12/18/18 18:31 Active Implement Chest Pain Pathway ROUTINE Care 12/18/18 18:25 Active Oxygen-ED Only Nasal Cannula 2 lpm Care 12/18/18 15:[address] in Observation ROUTINE Care 12/18/18 18:24 Active Vital Signs .[id number],q3omx2,q1hx2,[id number] Care 12/18/18 18:24 Active Weight,Daily 0600 Care 12/18/18 18:25 Active Weight,Daily 0600 Care 12/18/18 18:31 Active 1800 Calorie ADA Diet 12/19/18 Breakfast Active CHEST 1 VIEW (PORTABLE) Stat Exams 12/18/18 15:38 Taken BMP Stat Lab 12/18/18 18:08 Completed CBC AM.LAB Lab 12/19/18 04:00 Ordered CBC W DIFF Stat Lab 12/18/18 15:50 Completed CMP Stat Lab 12/18/18 15:50 Completed MAGNESIUM Stat Lab 12/18/18 18:08 Completed NT PRO BNP Stat Lab 12/18/18 15:50 Completed PHOSPHOROUS Stat Lab 12/18/18 15:54 Completed PROTIME WITH INR Stat Lab 12/18/18 15:50 Completed TROPONIN Q3H Lab 12/18/18 15:50 Completed TROPONIN Q3H Lab 12/18/18 18:08 Received TROPONIN Q3H Lab 12/18/18 21:45 Ordered TROPONIN Q3H Lab 12/19/18 00:45 Ordered TROPONIN Q3H Lab 12/19/18 03:45 Ordered UA W/RFX UR CULTURE Stat Lab 12/18/18 18:35 Completed VENOUS BLOOD GAS Stat Lab 12/18/18 18:26 Completed EKG Q8HX2,QAMX3,PRN RT 12/18/18 18:25 Active Oxygen Nasal Cannula 2 lpm RT 12/18/18 18:24 Active Transfer Order Routine Transfer 12/18/18 Ordered Medication Summary Generic Name Dose Route Start Last Admin Trade Name Freq PRN Reason Stop Dose Admin Acetaminophen 325 - 650 mg 12/18/18 18:31 Tylenol 325 Mg PO 01/17/19 18:30 Q4H PRN PRN FOR TEMP > 101 OR MILD PAIN Hydrocodone Bitart/Acetaminophen 1 tab 12/18/18 18:42 [place] 7.5/325 Mg Tab PO 12/23/18 18:41 Q6H PRN PRN PAIN Albuterol/Ipratropium 3 ml 12/18/18 18:38 Duoneb 0.5-3 Mg/3 Ml Neb IH 01/17/19 18:37 Q4HPRN PRN SHORTNESS OF BREATH/WHEEZING Amitriptyline HCl 50 mg 12/18/18 22:00 Amitriptyline Hcl 50 Mg Tablet PO 01/17/19 21:59 QID KINDRA Aspirin 325 mg 12/19/18 10:00 Ecotrin 325 Mg PO 01/18/19 09:59 DAILY KINDRA Bumetanide 1 mg 12/19/18 10:00 Bumex 1 Mg PO 01/18/19 09:59 BID DIURETIC KINDRA Carvedilol 12.5 mg 12/18/18 22:00 Coreg 12.5 Mg PO 01/17/19 21:59 BID KINDRA Sodium Chloride 1,000 mls @ 10 mls/hr 12/18/18 15:45 12/18/18 15:48 Sodium Chloride 0.9% 1000 Ml IV 01/17/19 15:44 10 mls/hr .Q24H KINDRA Administration Sodium Chloride 1,000 mls @ 50 mls/hr 12/18/18 16:30 Sodium Chloride 0.9% 1000 Ml IV 01/17/19 16:29 .Q20H [facility] Insulin Human Regular 100 101 mls @ 6.06 mls/hr 12/18/18 18:00 units/ Sodium Chloride IV 01/17/19 17:59 .[id number] KINDRA 6 UNITS/HR Montelukast Sodium 10 mg 12/18/18 22:00 Singulair 10 Mg PO 01/17/19 21:59 QHS [facility] Nitroglycerin 0.4 mg 12/18/18 18:24 Nitrostat 0.4 Mg Tablet SL 01/17/19 18:23 .Q5MIN PRN CHEST PAIN Nitroglycerin 1 gm 12/18/18 22:00 Nitro-Bid 2% Ud Packets TOP 01/17/19 21:59 Q8HT [facility] Ondansetron HCl 4 mg 12/18/18 18:24 Zofran 4 Mg/2 Ml Vial IV 01/17/19 18:23 Q4H PRN PRN NAUSEA/VOMITING Pregabalin 100 mg 12/18/18 22:00 Lyrica 100mg PO 01/17/19 21:59 TID [facility] Promethazine HCl 12.5 mg 12/18/18 18:43 Phenergan 25 Mg PO 01/17/19 18:42 Q6HPRN PRN NAUSEA Trazodone HCl 50 mg 12/18/18 22:00 Desyrel 50 Mg PO 01/17/19 21:59 QHS [facility] Discontinued Medications Generic Name Dose Route Start Last Admin Trade Name Freq PRN Reason Stop Dose Admin Aspirin 324 mg 12/18/18 15:38 12/18/18 15:47 Baby Aspirin 81 Mg Chew PO 12/18/18 15:39 324 mg STAT ONE Administration Aspirin Confirm 12/18/18 15:45 Baby Aspirin 81 Mg Chew Administered 12/18/18 15:46 Dose 324 mg .ROUTE .STK-MED ONE Fentanyl Citrate 100 mcg 12/18/18 16:43 12/18/18 16:47 Sublimaze 100 Mcg/2 Ml IV 12/18/18 16:44 100 mcg STAT ONE Administration Fentanyl Citrate Confirm 12/18/18 16:46 Sublimaze 100 Mcg/2 Ml Administered 12/18/18 16:47 Dose 100 mcg .ROUTE .STK-MED ONE Insulin Human Regular 8 unit 12/18/18 16:27 12/18/18 16:33 Novolin R IV 12/18/18 16:28 8 unit STAT ONE Administration Insulin Human Regular Confirm 12/18/18 16:32 Novolin R Administered 12/18/18 16:33 Dose 8 unit .ROUTE .STK-MED ONE Metoprolol Tartrate 5 mg 12/18/18 15:38 12/18/18 15:47 Lopressor 5 Mg/5 Ml Injection IV 12/18/18 15:39 5 mg STAT ONE Administration Metoprolol Tartrate Confirm 12/18/18 15:45 Lopressor 5 Mg/5 Ml Injection Administered 12/18/18 15:46 Dose 5 mg IV .STK-MED ONE Nitroglycerin 0.4 mg 12/18/18 15:38 12/18/18 15:49 Nitrostat 0.4 Mg (Ed) SL 12/18/18 15:39 0.4 mg STAT ONE Administration Nitroglycerin 1 gm 12/18/18 15:38 12/18/18 15:48 Nitro-Bid 2% Ud Packets TOP 12/18/18 15:39 1 gm STAT ONE Administration Nitroglycerin Confirm 12/18/18 15:45 Nitro-Bid 2% Ud Packets Administered 12/18/18 15:46 Dose 1 gm .ROUTE .STK-MED ONE Nitroglycerin 0.4 mg 12/18/18 16:42 12/18/18 16:47 Nitrostat 0.4 Mg (Ed) SL 12/18/18 16:43 0.4 mg STAT ONE Administration Nitroglycerin Confirm 12/18/18 16:46 Nitrostat 0.4 Mg (Ed) Administered 12/18/18 16:47 Dose 0.4 mg SL .STK-MED ONE Ondansetron HCl 4 mg 12/18/18 16:42 12/18/18 16:47 Zofran 4 Mg/2 Ml Vial IV 12/18/18 16:43 4 mg STAT ONE Administration Ondansetron HCl Confirm 12/18/18 16:45 Zofran 4 Mg/2 Ml Vial Administered 12/18/18 16:46 Dose 4 mg .ROUTE .STK-MED ONE Lab/Rad Data: Laboratory Result Diagrams 12/18/18 15:50 12/18/18 18:08 Laboratory Results 12/18/18 12/18/18 12/18/18 Range/Units 18:35 18:26 18:08 WBC (4.0-10.5) K/mm3 RBC (4.1-5.4) M/mm3 Hgb (12.0-16.0) gm/dl Hct (35-47) % MCV (78-100) fl MCH (26-32) pg MCHC (32-36) g/dl RDW (11.5-14.0) % Plt Count (150-450) K/mm3 MPV (6-9.5) fl Gran % (36.0-66.0) % Eos # (Auto) (0-0.5) Absolute Lymphs (auto) (1.0-4.6) Absolute Monos (auto) (0.0-1.3) Lymphocytes % (24.0-44.0) % Monocytes % (0.0-12.0) % Eosinophils % (0.00-5.0) % Basophils % (0.0-0.4) % Absolute Granulocytes (1.4-6.9) Basophils # (0-0.4) PT (9.95-12.35) SECONDS INR (0.8-3.0) pO2/FiO2 Ratio 21.0 % VBG pH 7.37 (7.32-7.42) VBG pCO2 at Pat Temp 43 (42-55) mm/Hg VBG pO2 at Pat Temp 65 H (25-40) mm/Hg VBG HCO3 24.9 (22-28) meq/L VBG O2 Sat (Adriane) 96.5 (95-100) VBG Base Excess -0.5 (-2.0-2.0) VBG Hemoglobin 10.1 VBG Carboxyhemoglobin 4.1 (0.0-6.9) % T HGB POC Potassium 4.7 (3.5-5.1) Sodium 130 L (137-145) mmol/L Potassium 4.8 (3.5-5.1) mmol/L Chloride 93 L (98-107) mmol/L Carbon Dioxide 24 (22-30) mmol/L Anion Gap 17.3 H (5-15) MEQ/L BUN 50 H (7-17) mg/dL Creatinine 2.03 H (0.52-1.04) mg/dL Estimated GFR 28.4 ML/MIN Glucose 645 H* (74-106) mg/dL Calcium 8.7 (8.4-10.2) mg/dL Phosphorus (2.5-4.5) mg/dL Magnesium 1.9 (1.6-2.3) mg/dL Total Bilirubin (0.2-1.3) mg/dL AST (14-36) U/L ALT (0-35) U/L Alkaline Phosphatase (38-126) U/L Troponin I (0.000-0.034) ng/mL NT-Pro-B Natriuret Pep (0-450) pg/mL Serum Total Protein (6.3-8.2) g/dL Albumin (3.5-5.0) g/dL Urine Color STRAW (YELLOW) Urine Appearance CLEAR (CLEAR) Urine pH 5.0 (5-6) Ur Specific [place] 1.016 (1.005-1.025) Urine Protein 100 (Negative) Urine Ketones NEGATIVE (NEGATIVE) Urine Blood SMALL (0-5) Jaren/ul Urine Nitrite NEGATIVE (NEGATIVE) Urine Bilirubin NEGATIVE (NEGATIVE) Urine Urobilinogen NEGATIVE (0-1) mg/dL Ur Leukocyte Esterase NEGATIVE (NEGATIVE) Urine WBC (Auto) NONE (0-5) /HPF Urine RBC (Auto) 0-2 (0-2) /HPF U Epithel Cells (Auto) NONE (FEW) /HPF Urine Bacteria (Auto) NONE SEEN (NEGATIVE) /HPF Urine Mucus (Auto) SLIGHT (NEGATIVE) /HPF Urine Culture Reflexed NO (NO) Urine Glucose >=500 (NEGATIVE) mg/dL 12/18/18 12/18/18 12/18/18 Range/Units 15:54 15:50 15:50 WBC (4.0-10.5) K/mm3 RBC (4.1-5.4) M/mm3 Hgb (12.0-16.0) gm/dl Hct (35-47) % MCV (78-100) fl MCH (26-32) pg MCHC (32-36) g/dl RDW (11.5-14.0) % Plt Count (150-450) K/mm3 MPV (6-9.5) fl Gran % (36.0-66.0) % Eos # (Auto) (0-0.5) Absolute Lymphs (auto) (1.0-4.6) Absolute Monos (auto) (0.0-1.3) Lymphocytes % (24.0-44.0) % Monocytes % (0.0-12.0) % Eosinophils % (0.00-5.0) % Basophils % (0.0-0.4) % Absolute Granulocytes (1.4-6.9) Basophils # (0-0.4) PT 10.9 (9.95-12.35) SECONDS INR 0.94 (0.8-3.0) pO2/FiO2 Ratio % VBG pH (7.32-7.42) VBG pCO2 at Pat Temp (42-55) mm/Hg VBG pO2 at Pat Temp (25-40) mm/Hg VBG HCO3 (22-28) meq/L VBG O2 Sat (Adriane) (95-100) VBG Base Excess (-2.0-2.0) VBG Hemoglobin VBG Carboxyhemoglobin (0.0-6.9) % T HGB POC Potassium (3.5-5.1) Sodium (137-145) mmol/L Potassium (3.5-5.1) mmol/L Chloride (98-107) mmol/L Carbon Dioxide (22-30) mmol/L Anion Gap (5-15) MEQ/L BUN (7-17) mg/dL Creatinine (0.52-1.04) mg/dL Estimated GFR ML/MIN Glucose (74-106) mg/dL Calcium (8.4-10.2) mg/dL Phosphorus 4.7 H (2.5-4.5) mg/dL Magnesium (1.6-2.3) mg/dL Total Bilirubin (0.2-1.3) mg/dL AST (14-36) U/L ALT (0-35) U/L Alkaline Phosphatase (38-126) U/L Troponin I < 0.012 (0.000-0.034) ng/mL NT-Pro-B Natriuret Pep (0-450) pg/mL Serum Total Protein (6.3-8.2) g/dL Albumin (3.5-5.0) g/dL Urine Color (YELLOW) Urine Appearance (CLEAR) Urine pH (5-6) Ur Specific [place] (1.005-1.025) Urine Protein (Negative) Urine Ketones (NEGATIVE) Urine Blood (0-5) Jaren/ul Urine Nitrite (NEGATIVE) Urine Bilirubin (NEGATIVE) Urine Urobilinogen (0-1) mg/dL Ur Leukocyte Esterase (NEGATIVE) Urine WBC (Auto) (0-5) /HPF Urine RBC (Auto) (0-2) /HPF U Epithel Cells (Auto) (FEW) /HPF Urine Bacteria (Auto) (NEGATIVE) /HPF Urine Mucus (Auto) (NEGATIVE) /HPF Urine Culture Reflexed (NO) Urine Glucose (NEGATIVE) mg/dL 12/18/18 12/18/18 Range/Units 15:50 15:50 WBC 11.0 H (4.0-10.5) K/mm3 RBC 4.40 (4.1-5.4) M/mm3 Hgb 11.0 L (12.0-16.0) gm/dl Hct 35.7 (35-47) % MCV 81.1 (78-100) fl MCH 25.0 L (26-32) pg MCHC 30.8 L (32-36) g/dl RDW 14.9 H (11.5-14.0) % Plt Count 243 (150-450) K/mm3 MPV 11.3 H (6-9.5) fl Gran % 78.0 H (36.0-66.0) % Eos # (Auto) 0.23 (0-0.5) Absolute Lymphs (auto) 1.39 (1.0-4.6) Absolute Monos (auto) 0.72 (0.0-1.3) Lymphocytes % 12.7 L (24.0-44.0) % Monocytes % 6.6 (0.0-12.0) % Eosinophils % 2.1 (0.00-5.0) % Basophils % 0.6 (0.0-0.4) % Absolute Granulocytes 8.54 H (1.4-6.9) Basophils # 0.07 (0-0.4) PT (9.95-12.35) SECONDS INR (0.8-3.0) pO2/FiO2 Ratio % VBG pH (7.32-7.42) VBG pCO2 at Pat Temp (42-55) mm/Hg VBG pO2 at Pat Temp (25-40) mm/Hg VBG HCO3 (22-28) meq/L VBG O2 Sat (Adriane) (95-100) VBG Base Excess (-2.0-2.0) VBG Hemoglobin VBG Carboxyhemoglobin (0.0-6.9) % T HGB POC Potassium (3.5-5.1) Sodium 129 L (137-145) mmol/L Potassium 5.1 (3.5-5.1) mmol/L Chloride 91 L (98-107) mmol/L Carbon Dioxide 24 (22-30) mmol/L Anion Gap 19.6 H (5-15) MEQ/L BUN 49 H (7-17) mg/dL Creatinine 2.12 H (0.52-1.04) mg/dL Estimated GFR 27.0 ML/MIN Glucose 698 H* (74-106) mg/dL Calcium 8.6 (8.4-10.2) mg/dL Phosphorus (2.5-4.5) mg/dL Magnesium (1.6-2.3) mg/dL Total Bilirubin 0.50 (0.2-1.3) mg/dL AST 19 (14-36) U/L ALT 22 (0-35) U/L Alkaline Phosphatase 244 H (38-126) U/L Troponin I (0.000-0.034) ng/mL NT-Pro-B Natriuret Pep 245 (0-450) pg/mL Serum Total Protein 7.6 (6.3-8.2) g/dL Albumin 4.1 (3.5-5.0) g/dL Urine Color (YELLOW) Urine Appearance (CLEAR) Urine pH (5-6) Ur Specific [place] (1.005-1.025) Urine Protein (Negative) Urine Ketones (NEGATIVE) Urine Blood (0-5) Jaren/ul Urine Nitrite (NEGATIVE) Urine Bilirubin (NEGATIVE) Urine Urobilinogen (0-1) mg/dL Ur Leukocyte Esterase (NEGATIVE) Urine WBC (Auto) (0-5) /HPF Urine RBC (Auto) (0-2) /HPF U Epithel Cells (Auto) (FEW) /HPF Urine Bacteria (Auto) (NEGATIVE) /HPF Urine Mucus (Auto) (NEGATIVE) /HPF Urine Culture Reflexed (NO) Urine Glucose (NEGATIVE) mg/dL - Progress Progress Note: 12/18/18 15:49 ADMINISTERED ASPIRIN 324MG ORALLY, NTG 0.4MG AND NITROPASTE 1"ANTERIOR CHEST WALL, ZOFRAN 4MG, FENTANYL 0.1MG IV 12/18/18 18:10, PAIN SCALE 5/10 PATIENT APPEARS IN NO DISTRESS, ON CELL PHONE TALKING, GIVEN INSULIN HUMULIN REGULAR 8 UNITS IVP FOR GLUCOSE-698, AND PLACED ONTO INSULIN INFUSION NOVOLIN REGULAR 8 UNITS/HR 12/18/18 18:[address] Mart (DISCUSSED WITH DR MART AT 1810 FOR OBSERVATION) - Departure Time of Disposition: 19:00 Departure Disposition: Observation Clinical Impression: ACUTE CHEST PAIN, Hyperglycemia without ketosis Condition: Stable Critical Care Time: No Referrals: VILMA KEEN [Primary Care Provider] -
[2018-12-18 16:04] LABS: INR 0.94 (0.8-3.0); PROTIME 10.9 SECONDS (9.95-12.35)
[2018-12-18 16:05] LABS: BASOPHIL % 0.6 % (0.0-0.4); Basophil (Absolute #) 0.07 (0-0.4); Eosinophil % 2.1 % (0.00-5.0); Eosinophil (Absolute #) 0.23 (0-0.5); Granulocyte Absolute (ANC) 8.54 (1.4-6.9); Hematocrit 35.7 % (35-47); Lymphocyte (Absolute #) 1.39 (1.0-4.6); Lymphocytes % 12.7 % (24.0-44.0); Mean Cell Volume 81.1 fl (78-100); Mean Corpuscular Hgb Concent. 30.8 g/dl (32-36); Mean Platelet Volume 11.3 fl (6-9.5); Monocyte (Absolute #) 0.72 (0.0-1.3); Monocytes % 6.6 % (0.0-12.0); Platelet Count 243 K/mm3 (150-450); Red Cell Distribution Width 14.9 % (11.5-14.0)
[2018-12-18 16:18] LABS: ALBUMIN 4.1 g/dL (3.5-5.0); ANION GAP 19.6 MEQ/L (5-15); BILIRUBIN,TOTAL 0.5 mg/dL (0.2-1.3); Calcium 8.6 mg/dL (8.4-10.2); Creatinine 1 2.12 mg/dL (0.52-1.04); Potassium 5.1 mmol/L (3.5-5.1); Total Protein 7.6 g/dL (6.3-8.2)
[2018-12-18] MEDS ORDERED: NovoLIN R IV ONE (16:27)
[2018-12-18] MEDS ORDERED: NovoLIN R ONE ×2 (16:32→18:56)
[2018-12-18] MEDS ORDERED: Zofran 4 MG/2 ML VIAL IV ONE (16:42)
[2018-12-18] MEDS ORDERED: SUBLIMAZE 100 MCG/2 ML IV ONE (16:43)
[2018-12-18] MEDS ORDERED: Zofran 4 MG/2 ML VIAL ONE (16:45)
[2018-12-18] MEDS ORDERED: SUBLIMAZE 100 MCG/2 ML ONE (16:46)
[2018-12-18] MEDS ORDERED: NOVOLIN R INSULIN (FOR DRIPS)** 100 UNITS in Sodium Chloride 0.9% 100 ML IVPB 100 ML IV SCH ×2 (18:00→19:59)
[2018-12-18 18:24] LABS: ANION GAP 17.3 MEQ/L (5-15); Calcium 8.7 mg/dL (8.4-10.2); Creatinine 1 2.03 mg/dL (0.52-1.04); MAGNESIUM 1.9 mg/dL (1.6-2.3); Potassium 4.8 mmol/L (3.5-5.1)
[2018-12-18] MEDS ORDERED: Zofran 4 MG/2 ML VIAL IV PRN (18:24)
[2018-12-18] MEDS ORDERED: Nitrostat 0.4 MG Tablet SL PRN (18:24)
[2018-12-18 18:30] LABS: VBG BASE EXCESS -0.5 (-2.0-2.0); VBG CARBOXYHEMOGLOBIN 4.1 % T HGB (0.0-6.9); VBG HCO3- 24.9 meq/L (22-28); VBG HEMOGLOBIN 10.1; VBG O2 SATURATION 96.5 (95-100); VBG POTASSIUM 4.7 (3.5-5.1); VBG pH 7.37 (7.32-7.42)
[2018-12-18] MEDS ORDERED: TYLENOL 325 MG PO PRN (18:31)
[2018-12-18] MEDS ORDERED: DUONEB 0.5-3 MG/3 ml Neb IH PRN (18:38)
[2018-12-18 18:41] LABS: Appearance CLEAR (CLEAR); Bilirubin NEGATIVE (NEGATIVE); Blood SMALL Ery/ul (0-5); Glucose >=500 mg/dL (NEGATIVE); Ketones NEGATIVE (NEGATIVE); Leukocyte Esterase NEGATIVE (NEGATIVE); Mucus SLIGHT /HPF (NEGATIVE); Nitrite NEGATIVE (NEGATIVE); Protein,Urine Dip 100 (Negative); RBC 0-2 /HPF (0-2); Specific Gravity 1.016 (1.005-1.025); Urobilinogen NEGATIVE mg/dL (0-1)
[2018-12-18] MEDS ORDERED: PHENERGAN 25 MG PO PRN (18:43)
[2018-12-18 18:45] LABS: Bacteria NONE SEEN /HPF (NEGATIVE)
[2018-12-18] MEDS ORDERED: Sodium Chloride 0.9% 100 ML IVPB 100 ML IV ONE (18:56)
[2018-12-18 20:40] LABS: ANION GAP 15.3 MEQ/L (5-15); Calcium 8.7 mg/dL (8.4-10.2); Creatinine 1 2.13 mg/dL (0.52-1.04); Potassium 4.4 mmol/L (3.5-5.1)
[2018-12-18] MEDS: Sodium Chloride 0.9% 1000 ML 1,000 ML IV SCH (21:30)
[2018-12-18] MEDS ORDERED: DESYREL 50 MG PO SCH (22:00)
[2018-12-18] MEDS ORDERED: Singulair 10 MG PO SCH (22:00)
[2018-12-18] MEDS: LYRICA 100MG PO SCH (22:51)
[2018-12-18] MEDS: COREG 12.5 MG PO SCH (22:51)
[2018-12-18] MEDS ORDERED: PROVENTIL 2.5 MG/3 ML NEB IH ONE (22:51)
[2018-12-18] MEDS: NITRO-BID 2% UD PACKETS TOP SCH (22:51)
[2018-12-18] MEDS: NORCO 7.5/325 MG TAB PO PRN (22:51)
[2018-12-18] MEDS ORDERED: PROVENTIL 2.5 MG/3 ML NEB IH PRN (22:54)
--- NOTE | 2018-12-18 23:07 | XRAY ---
Indication: Short of breath. History COPD, CHF, and diabetes. Comparison: August 21, 2018. Portable chest is clear. Heart and mediastinal structures within normal limits. Bony thorax intact. Impression: Nonacute chest.
[2018-12-19 01:12] LABS: ANION GAP 13.2 MEQ/L (5-15); Calcium 8.7 mg/dL (8.4-10.2); Creatinine 1 1.95 mg/dL (0.52-1.04)
[2018-12-19] MEDS: NovoLOG Insulin SQ PRN ×2 (03:47→08:12)
[2018-12-19] MEDS: NITRO-BID 2% UD PACKETS TOP SCH (05:09)
[2018-12-19 05:17] LABS: Hematocrit 31.8 % (35-47); Hemoglobin 9.8 gm/dl (12.0-16.0); Mean Cell Volume 80.5 fl (78-100); Mean Corpuscular Hemoglobin 24.8 pg (26-32); Mean Corpuscular Hgb Concent. 30.8 g/dl (32-36); Mean Platelet Volume 10.9 fl (6-9.5); Platelet Count 223 K/mm3 (150-450); Red Blood Count 3.95 M/mm3 (4.1-5.4); Red Cell Distribution Width 14.8 % (11.5-14.0); White Blood Count 8.1 K/mm3 (4.0-10.5)
[2018-12-19 05:31] LABS: ANION GAP 13.6 MEQ/L (5-15); Calcium 8.5 mg/dL (8.4-10.2); Creatinine 1 1.89 mg/dL (0.52-1.04); Potassium 4.1 mmol/L (3.5-5.1)
[2018-12-19 07:33] VITALS: BP 150/90; O2SAT 94
[2018-12-19] MEDS: NORCO 7.5/325 MG TAB PO PRN (08:12)
[2018-12-19 08:37] VITALS: PULSE 84
[2018-12-19 08:53] LABS: ANION GAP 14.9 MEQ/L (5-15); Calcium 8.7 mg/dL (8.4-10.2); Creatinine 1 1.87 mg/dL (0.52-1.04); Potassium 4.8 mmol/L (3.5-5.1)
[2018-12-19] MEDS: LYRICA 100MG PO SCH (09:09)
[2018-12-19] MEDS: Sodium Chloride 0.9% 1000 ML 1,000 ML IV SCH (09:09)
[2018-12-19] MEDS: COREG 12.5 MG PO SCH (09:09)
[2018-12-19] MEDS ORDERED: Ecotrin 325 MG PO SCH (10:00)
[2018-12-19] MEDS ORDERED: BUMEX 1 MG PO SCH (10:00)
--- NOTE | 2018-12-22 10:21 | SSS ---
DISCHARGE DIAGNOSES: 1) ANGINA PECTORIS. 2) HYPEROSMOLAR DIABETIC STATE. 3) RENAL INSUFFICIECY. HISTORY: The patient is a 43 year-old white female who reports she woke up in the morning not feeling well and began having some discomfort in the upper left side of her chest that went straight through to her back. The patient was instructed to come to the emergency room for evaluation and management. The patient is a frequent flyer at our facility with multiple medical problems. She apparently has coronary artery disease and diabetes mellitus type 2 on insulin. She has hyperlipidemia, gastroesophageal reflux disease, anxiety, depression. She most recently had a pancreatic attack. She was seen in the [facility]. She has had trouble controlling her sugars since that time. She uses a fast acting Humalog-type insulin as well as Basaglar at fairly high numbers to keep her sugar under control but when she came into the emergency room she was found to have a sugar over 600 but was not acidotic. PHYSICAL EXAMINATION: The patient's vital signs on admission showed temperature 98.3F, pulse 96, respiratory rate 20, blood pressure 180/95. O2 saturations 95% on room air. HEENT: Normocephalic, atraumatic. Pupils equal round reactive to light. Extraocular movements intact. Oropharynx is pink and moist. NECK: Supple without lymphadenopathy, thyromegaly or JVD. CHEST: Clear to auscultation. HEART: Regular rate and rhythm. ABDOMEN: Protuberant. No masses were felt. EXTREMITIES: Without clubbing, cyanosis or significant edema. NEUROLOGIC: The patient is alert and oriented x3. She is currently having 0 pain. HOSPITAL COURSE: The patient apparently had received two sublingual nitroglycerin and then Nitro paste after which she had no further chest pain. The patient was admitted to the ICU on an insulin drip to control her sugars. The patient has done well over the previous several hours continuing to be pain free. Her sugars were down to 200 by the morning of 12/19/2018. Her laboratory studies have shown her troponins to all be less than 0.012. Her international normalized ratio was 0.94. Her sugar initially was 698 with BUN 49, creatinine 2.12. Her sodium was low at 129. Alkaline phosphatase is somewhat elevated at 244 but liver enzymes otherwise were normal. White blood cell count 11,000, hemoglobin 11.0, PLT 243,000. UA specific gravity 1.016 with greater than 100 glucose, small blood otherwise appeared to be negative. Phosphorus slightly elevated at 4.7. Venous blood gas showed a pH of 7.37. Her EKG showed a left bundle branch block-type pattern but she was in sinus rhythm and she has remained so on telemetry. The patient currently has Nitro paste applied and as mentioned above had taken a good breakfast and is in good spirits and feeling quite well presently. We will ambulate her and be sure that she continues to do okay and will allow her to be discharged home today. We have instructed her to increase her sliding scale coverage on her insulin to be at 5 units for 150 and 5 units for additional increasing sugars up to 400. The patient already takes fairly large amounts of regularly scheduled Humalog and Basaglar. She is on no oral agents otherwise. The patient will continue her usual home medications otherwise which include Lyrica 100 mg t.i.d., amlodipine 10 mg apparently she takes that three times a day as well, Amitriptyline 50 mg four times a day, Albuterol PRN, loratadine 10 mg daily, [place] 7.5/325 mg every six hours PRN, Singulair 10 mg a day, Carvedilol 12.5 mg b.i.d., omeprazole 20 mg b.i.d., atorvastatin 10 mg a day, Buspar 1 tablet b.i.d., cyclobenzaprine 5 mg at night, fluticasone nasal spray, lidocaine patch. The patient had reported multiple medical allergies to codeine, Benadryl, morphine, doxycycline, Darvocet, penicillin, sulfa. Again the patient is now discharged home with instructions to follow with Dr. Brooks this coming week, to see her assembler installer structures soon. She reports she has an appointment to see him late next month but we have instructed her to see him sooner as well as Dr. Campos who I believe is her live games dealer in [place].
== END 2018-12-19 11:15 | disposition home or self-care (01) ==
LOC: ED 14:56 → ICU 19:11
PROVIDERS: ADMIT Family Medicine; ATTEND Family Medicine
DX: I20.9 Angina pectoris, unspecified (principal); E11.00 Type 2 diabetes mellitus with hyperosmolarity without nonketotic hyperglycemic-hyperosmolar coma (NKHHC); I44.7 Left bundle-branch block, unspecified; N28.9 Disorder of kidney and ureter, unspecified; Z79.4 Long term (current) use of insulin; Z79.899 Other long term (current) drug therapy
CPT/HCPCS: 36000; 36415; 71045; 80048; 80053; 81001; 82805; 82962; 83036; 83735; 83880; 84100; 84484; 85025; 85027; 85610; 93005; 93041; 93268; 94150; 94640; 96360; 96361; 96374; 96375; 96376; 99285; G0378; 96365; 96366; J1815; J2405; J3010; J7609; A9270-GY

== ENCOUNTER 2019-04-29 21:08 | Emergency (ER) | payer OTHER ==
[2019-04-29 21:26] VITALS: O2SAT 98
[2019-04-29] MEDS ORDERED: Sodium Chloride 0.9% 1000 ML 1,000 ML IV SCH (23:00)
--- NOTE | 2019-04-29 23:00 | ERPHSYRPT ---
- History of Present Illness Source: patient Exam Limitations: no limitations Patient Subjective Stated Complaint: patient presented to ER by ambulance from [facility] states she has not had dialysis in 2 weeks states she is having aches all over nad doesnt feel well, trouble breathing , shooting pains up her body. Triage Nursing Assessment: pt keishan venessa [id number], patient has bilateral upper and lower edema pitting , lung sounds crackels and some wheezes patietn states shortness of breath on movement, fistula noted on left arm , pulses equal bilateral radius Timing/Duration: other (patient states no dialysis for 2 weeks) Severity: moderate Modifying Factors: Improves With: nothing Associated Symptoms: shortness of breath, malaise, other (aching all over, shooting pains in hands and feet), No nausea, No vomiting, No abdominal pain, No heartburn, No diaphoresis, No cough, No chills, No chest pain, No fever, No headaches, No loss of appetite, No rash, No syncope, No seizure, No weakness Hx Tetanus, Diphtheria Vaccination/Date Given: Yes Hx Influenza Vaccination/Date Given: No Hx Pneumococcal Vaccination/Date Given: No Immunizations Up to Date: Yes <MARÍA MALIN - Last Filed: 04/29/19 23:36> <BERONICA DOVE - Last Filed: 04/30/19 02:18> - History of Present Illness Time Seen by Provider: 04/29/19 22:56 Physician History: This is a morbidly obese white female with history of renal failure with history of peripheral neuropathy, asthma, congestive heart failure, COPD, pneumonia who is on renal dialysis. She states that she is aching all over she feels short of breath she states she is having shooting pains in her hands and feet. She states she has not had dialysis for 2 weeks she states that she is having problems with transportation. Past medical history includes peripheral neuropathy, diabetes type 2, asthma, congestive heart failure, COPD, pneumonia, high blood pressure, peripheral vascular disease, diverticulitis, GERD, pancreatitis, renal disease, degenerative disc disease, anxiety, depression (MARÍA MALIN) Allergies/Adverse Reactions: codeine [Codeine] Allergy (Severe, Verified 12/18/18 21:04) swelling throat diphenhydramine HCl [From Benadryl] Allergy (Severe, Verified 12/18/18 21:04) swelling to eyes and throat morphine Allergy (Severe, Verified 12/18/18 21:04) swelling throat doxycycline calcium [From Vibramycin] Allergy (Mild, Verified 12/18/18 21:04) Rash doxycycline hyclate [From Vibramycin] Allergy (Mild, Verified 12/18/18 21:04) Rash doxycycline monohydrate [From Vibramycin] Allergy (Mild, Verified 12/18/18 21:04 ) Rash acetaminophen [From Darvocet-N] Allergy (Verified 12/18/18 21:04) Penicillins Allergy (Verified 12/18/18 21:04) propoxyphene napsylate [From Darvocet-N] Allergy (Verified 12/18/18 21:04) Sulfa (Sulfonamide Antibiotics) Allergy (Verified 12/18/18 21:04) Rash Home Medications: Pregabalin [Lyrica 100Mg] 100 mg PO TID 10/19/13 [History] Amlodipine Besylate 10 mg [Norvasc 10 MG] 10 mg PO TID 01/05/16 [History] Ergocalciferol (Vitamin D2) [Vitamin D] 1.25 mg PO .TUES/THURS 01/05/16 [History ] AMITRIPTYLINE HCL 50 mg Tab [AMITRIPTYLINE HCL 50 mg Tablet] 50 mg PO QID [History] Albuterol 2.5 mg/3 ml Neb [Proventil 2.5 mg/3 ml Neb] 2.5 mg NEB Q4HPRN PRN 11/08/16 [History] Albuterol Sulfate [Proventil Hfa] 6.7 gm IH QID PRN 11/08/16 [History] Loratadine 10 mg [Claritin 10 mg] 10 mg PO DAILY 11/08/16 [History] Hydrocodone Bit/Acetaminophen [[place] 7.5-325 Tablet] 1 each PO Q6H PRN PRN 07/04 [History] Montelukast Sodium 10 mg [Singulair 10 MG] 10 mg PO HS 07/04/17 [History] Carvedilol 12.5 mg [Coreg 12.5 mg] 12.5 mg PO BID 07/05/17 [History] Omeprazole 20 MG [Prilosec 20 mg] 20 mg PO BID 09/26/17 [History] Atorvastatin Calcium 10 mg PO DAILY 05/20/18 [History] Buspirone HCl 1 tablet PO BID 05/20/18 [History] Cyclobenzaprine HCl 5 mg PO HS 05/20/18 [History] Fluticasone Propionate [Allergy Relief] 1 spray IH DAILY 05/20/18 [History] Lidocaine 1 each TP BID 12/18/18 [History] - Review of Systems Constitutional: No Fever, No Chills Eyes: No Symptoms Ears, Nose, & Throat: No Symptoms Respiratory: Dyspnea Cardiac: No Chest Pain, No Edema, No Syncope Abdominal/Gastrointestinal: Nausea, No Abdominal Pain, No Vomiting, No Diarrhea Genitourinary Symptoms: No Dysuria Musculoskeletal: Myalgias, No Back Pain, No Neck Pain Skin: No Rash Neurological: Other (shooting pains hands and feet), No Dizziness, No Focal Weakness, No Gait Changes, No Headache, No Irritability, No Lethargy, No Paralysis, No Parasthesia, No Seizure, No Speech Changes, No Tics, No Tremors, No Vertigo Psychological: No Symptoms Endocrine: No Symptoms All Other Systems: Reviewed and Negative <MARÍA MALIN - Last Filed: 04/29/19 23:36> - Past Medical History Pertinent Past Medical History: Yes Neurological History: Peripheral Neuropathy ENT History: No Pertinent History Cardiac History: Congestive Heart Failure, Hypertension, Peripheral Vascular Disease, Other Respiratory History: Asthma, CHF, COPD, Pneumonia Endocrine Medical History: Diabetes Type II Musculoskeletal History: Degenerative Disk Disease GI Medical History: Diverticulitis, GERD, Pancreatitis History: Renal Disease, Other Psycho-Social History: Anxiety, Depression Female Reproductive Disorders: No Pertinent History Other Medical History: LONG STANDING DM WITH MULTIPLE SECONDARY COMPLICATIONS;. HX OF FOOT WOUNDS AND OM. Heart murmer, ARDS (hardening of lungs), Chronic Renal Failure, Chronic hypoxemic respiratory failure - Past Surgical History Past Surgical History: Yes Neuro Surgical History: No Pertinent History Cardiac: No Pertinent History Respiratory: No Pertinent History Gastrointestinal: No Pertinent History Genitourinary: No Pertinent History Musculoskeletal: Orthopedic Surgery, Other Female Surgical History: Tubal Ligation, Other Other Surgical History: D&C,childbirth x two; bone removed in left big toe, amputation of last 2 toes on right foot, bone removal on r foot - Social History Smoking Status: Former smoker How long have you smoked: 27 years Exposure to second hand smoke: Yes Drug Use: none Patient Lives Alone: No - Female History Hx Now: No <DEAMARÍA RENETTA - Last Filed: 04/29/19 23:36> - Physical Exam General Appearance: mild distress, alert, obese Eye Exam: PERRL/EOMI, eyes nml inspection Ears, Nose, Throat Exam: normal ENT inspection, TMs normal, pharynx normal, moist mucous membranes Neck Exam: normal inspection, non-tender, supple, full range of motion Respiratory Exam: normal breath sounds, lungs clear, No respiratory distress Cardiovascular Exam: regular rate/rhythm, normal heart sounds, normal peripheral pulses, capillary refill <2 sec Gastrointestinal/Abdomen Exam: soft, normal bowel sounds, No tenderness, No mass Back Exam: normal inspection, normal range of motion, No CVA tenderness, No vertebral tenderness Extremity Exam: normal inspection, normal range of motion, pelvis stable Neurologic Exam: alert, oriented x 3, cooperative, phlebotomy manager II-XII nml as tested, normal mood/affect, nml cerebellar function, nml station & gait, sensation nml, No motor deficits Skin Exam: normal color, warm, dry, No rash Lymphatic Exam: No adenopathy SpO2 Interpretation: normal (98%), borderline oxygenation SpO2: 98 <DEAMARÍA RENETTA - Last Filed: 04/29/19 23:36> - Nursing Vital Signs Nursing Vital Signs: Initial Vital Signs Temperature 100.3 F 04/29/19 21:09 Pulse Rate 94 H 04/29/19 21:09 Respiratory Rate 14 04/29/19 21:09 Blood Pressure 153/78 04/29/19 21:09 O2 Sat by Pulse Oximetry 98 04/29/19 21:09 Pain Scale Pain Intensity [Anterior/ 7 Posterior] Pain Intensity 8 - Course Nursing assessment & vital signs reviewed: Yes EKG Interpreted by Me: RATE (87), Sinus Rhythm, NORMAL AXIS, NORMAL INTERVALS, Other (no changes from comparison ekg dated 12/19/18; chronic prolonged qrs) <BERONICA DOVE - Last Filed: 04/30/19 02:18> Ordered Tests: Active Orders 24 hr Category Date Time Status EKG-ER Only STAT Care 04/29/19 22:53 Active IV Insertion STAT Care 04/29/19 22:53 Active CHEST 1 VIEW (PORTABLE) Stat Exams 04/29/19 22:53 Taken AMYLASE Stat Lab 04/29/19 23:05 Completed BLOOD CULTURE Stat Lab 04/29/19 23:15 Received CBC W DIFF Stat Lab 04/29/19 23:05 Completed CMP Stat Lab 04/29/19 23:05 Completed LIPASE Stat Lab 04/29/19 23:05 Completed Medication Summary Generic Name Dose Route Start Last Admin Trade Name Freq PRN Reason Stop Dose Admin Sodium Chloride 1,000 mls @ 50 mls/hr 04/29/19 23:00 04/29/19 23:58 Sodium Chloride 0.9% 1000 Ml IV 05/29/19 22:59 50 mls/hr .Q20H KINDRA Administration Discontinued Medications Generic Name Dose Route Start Last Admin Trade Name Freq PRN Reason Stop Dose Admin Hydrocodone Bitart/Acetaminophen 1 tab 04/30/19 00:59 04/30/19 01:28 [place] 7.5/325 Mg Tab PO 04/30/19 01:00 1 tab STAT ONE Administration Promethazine HCl 12.5 mg 04/30/19 00:59 04/30/19 01:28 Phenergan 25 Mg PO 04/30/19 01:00 12.5 mg STAT ONE Administration Promethazine HCl Confirm 04/30/19 01:21 Phenergan 25 Mg Administered 04/30/19 01:22 Dose 25 mg .ROUTE .STK-MED ONE Lab/Rad Data: Laboratory Result Diagrams 04/29/19 23:05 04/29/19 23:05 Laboratory Results 04/29/19 04/29/19 04/29/19 Range/Units 23:05 23:05 00:45 WBC 3.2 L (4.0-10.5) K/mm3 RBC 3.88 L (4.1-5.4) M/mm3 Hgb 9.5 L (12.0-16.0) gm/dl Hct 30.6 L (35-47) % MCV 78.9 (78-100) fl MCH 24.4 L (26-32) pg MCHC 31.0 L (32-36) g/dl RDW 16.5 H (11.5-14.0) % Plt Count 199 (150-450) K/mm3 MPV 11.8 H (6-9.5) fl Gran % 72.5 H (36.0-66.0) % Eos # (Auto) 0.02 (0-0.5) Absolute Lymphs (auto) 0.55 L (1.0-4.6) Absolute Monos (auto) 0.29 (0.0-1.3) Lymphocytes % 17.0 L (24.0-44.0) % Monocytes % 9.0 (0.0-12.0) % Eosinophils % 0.6 (0.00-5.0) % Basophils % 0.9 (0.0-0.4) % Absolute Granulocytes 2.34 (1.4-6.9) Basophils # 0.03 (0-0.4) Sodium 130 L (137-145) mmol/L Potassium 3.4 L (3.5-5.1) mmol/L Chloride 86 L (98-107) mmol/L Carbon Dioxide 29 (22-30) mmol/L Anion Gap 18.9 H (5-15) MEQ/L BUN 89 H (7-17) mg/dL Creatinine 2.87 H (0.52-1.04) mg/dL Estimated GFR 19.1 ML/MIN Glucose 447 H (74-106) mg/dL Calcium 7.9 L (8.4-10.2) mg/dL Total Bilirubin 0.50 (0.2-1.3) mg/dL AST 23 (14-36) U/L ALT 17 (0-35) U/L Alkaline Phosphatase 156 H (38-126) U/L Serum Total Protein 7.1 (6.3-8.2) g/dL Albumin 3.7 (3.5-5.0) g/dL Amylase 72 (30-110) U/L Lipase 494 H (23-300) U/L Urine Color YELLOW (YELLOW) Urine Appearance SLIGHTLY CLOUDY (CLEAR) Urine pH 5.0 (5-6) Ur Specific [place] 1.011 (1.005-1.025) Urine Protein >=500 (Negative) Urine Ketones NEGATIVE (NEGATIVE) Urine Blood LARGE (0-5) Jaren/ul Urine Nitrite NEGATIVE (NEGATIVE) Urine Bilirubin NEGATIVE (NEGATIVE) Urine Urobilinogen NEGATIVE (0-1) mg/dL Ur Leukocyte Esterase NEGATIVE (NEGATIVE) Urine WBC (Auto) 3-5 (0-5) /HPF Urine RBC (Auto) 51-100 (0-2) /HPF U Epithel Cells (Auto) RARE (FEW) /HPF Urine Bacteria (Auto) NONE (NEGATIVE) /HPF Urine Mucus (Auto) SLIGHT (NEGATIVE) /HPF Urine Culture Reflexed YES (NO) Urine Glucose >=500 (NEGATIVE) mg/dL - Progress Progress: improved <MARÍA MALIN - Last Filed: 04/29/19 23:36> - Progress Counseled pt/family regarding: lab results, diagnosis, need for follow-up, rad results <BERONICA DOVE - Last Filed: 04/30/19 02:18> - Progress Progress Note: 04/29/19 23:35 The patient's case has been discussed with Dr. Dove. He will assume care of this patient secondary to shift change. (MARÍA MALIN) 04/30/19 00:23 cxr-no acute process; cardiomegaly; ?increased bronchovascular markings. 04/30/19 02:[id number] galindo at [facility] ED. we discussed pts hx, clinical condition, lab and xray results. we both agree pt does not fill criteria for emergent dialysis. however, if the pt wanted transfer to there, he would accept pt in transfer as long as she is aware she may be discharged to home directly from ED without admission. i d/w pt our discussion. pt states she understands and because of lack of later transportation, she wants transfer to [facility] ED. she will then plead her case relative to lack of transportation. (BERONICA DOVE) <MARÍA MALIN - Last Filed: 04/29/19 23:36> - Departure Departure Disposition: Transfer Critical Care Time: No <BERONICA DOVE - Last Filed: 04/30/19 02:18> - Departure Clinical Impression: Renal failure, Generalized pain Condition: Stable Referrals: VILMA KEEN [Primary Care Provider] -
[2019-04-29 23:22] LABS: BASOPHIL % 0.9 % (0.0-0.4); Basophil (Absolute #) 0.03 (0-0.4); Eosinophil % 0.6 % (0.00-5.0); Eosinophil (Absolute #) 0.02 (0-0.5); Granulocyte Absolute (ANC) 2.34 (1.4-6.9); Granulocytes % 72.5 % (36.0-66.0); Hematocrit 30.6 % (35-47); Hemoglobin 9.5 gm/dl (12.0-16.0); Lymphocyte (Absolute #) 0.55 (1.0-4.6); Mean Cell Volume 78.9 fl (78-100); Mean Platelet Volume 11.8 fl (6-9.5); Monocyte (Absolute #) 0.29 (0.0-1.3); Platelet Count 199 K/mm3 (150-450); Red Blood Count 3.88 M/mm3 (4.1-5.4); Red Cell Distribution Width 16.5 % (11.5-14.0); White Blood Count 3.2 K/mm3 (4.0-10.5)
[2019-04-29 23:30] LABS: Mean Corpuscular Hemoglobin 24.4 pg (26-32)
[2019-04-29 23:34] LABS: ALBUMIN 3.7 g/dL (3.5-5.0); ANION GAP 18.9 MEQ/L (5-15); BILIRUBIN,TOTAL 0.5 mg/dL (0.2-1.3); Calcium 7.9 mg/dL (8.4-10.2); Creatinine 1 2.87 mg/dL (0.52-1.04); Potassium 3.4 mmol/L (3.5-5.1); Total Protein 7.1 g/dL (6.3-8.2)
[2019-04-30] MEDS ORDERED: NORCO 7.5/325 MG TAB PO ONE (00:59)
[2019-04-30] MEDS ORDERED: PHENERGAN 25 MG PO ONE (00:59)
[2019-04-30] MEDS ORDERED: PHENERGAN 25 MG ONE (01:21)
[2019-04-30 01:26] LABS: Appearance SLIGHTLY CLOUDY (CLEAR); Bilirubin NEGATIVE (NEGATIVE); Blood LARGE Ery/ul (0-5); Epithelial Cells RARE /HPF (FEW); Glucose >=500 mg/dL (NEGATIVE); Ketones NEGATIVE (NEGATIVE); Leukocyte Esterase NEGATIVE (NEGATIVE); Mucus SLIGHT /HPF (NEGATIVE); Nitrite NEGATIVE (NEGATIVE); Protein,Urine Dip >=500 (Negative); RBC 51-100 /HPF (0-2); Specific Gravity 1.011 (1.005-1.025); Urobilinogen NEGATIVE mg/dL (0-1)
[2019-04-30 01:45] VITALS: BP 143/85; PULSE 101
[2019-04-30 03:47] LABS: Slide Review 1 YES
[2019-04-30] MEDS ORDERED: Nitrostat 0.4 MG (ED) SL ONE (06:34)
--- NOTE | 2019-04-30 09:42 | XRAY ---
Indication: Renal failure. Comparison: December 18, 2018. Portable chest demonstrates new left internal jugular large-bore dialysis catheter with tip projecting over the atriocaval junction. Lungs inflated and clear. Heart is not enlarged for AP portable technique. Bony thorax intact. Impression: New left sided dialysis catheter without complications. Nonacute chest.
== END 2019-04-30 03:37 | disposition short-term general hospital (02) ==
LOC: ED 21:08
DX: N19 Unspecified kidney failure (principal); R52 Pain, unspecified; J44.9 Chronic obstructive pulmonary disease, unspecified; E11.9 Type 2 diabetes mellitus without complications; I10 Essential (primary) hypertension; I51.7 Cardiomegaly; Z79.899 Other long term (current) drug therapy
CPT/HCPCS: 36000; 36415; 71045; 80053; 81001; 82150; 83690; 85025; 87040; 87086; 93005; 96360; 96361; 99285; A9270-GY

== ENCOUNTER 2019-06-04 13:40 | Emergency (ER) | payer OTHER ==
--- NOTE | 2019-06-04 13:43 | ERPHSYRPT ---
- History of Present Illness Time Seen by Provider: 06/04/19 13:46 Source: patient, EMS Exam Limitations: no limitations Physician History: 43 y/o diabetic white female in renal failure on dialysis, presents via ems from dialysis center for concerned because she became hypotensive during one hour of dialysis she received and found to have an elevated blood glucose over 450. pts blood glucose has been running in the 600 to 700 range. pt arrives via ems awake alert and vss. because of family issues during the week, the most recent dialysis session she completed was last friday. Timing/Duration: today Severity: mild (on arrival ) Associated Symptoms: denies symptoms, No nausea, No vomiting, No abdominal pain , No weakness Allergies/Adverse Reactions: codeine [Codeine] Allergy (Severe, Verified 06/04/19 14:15) swelling throat diphenhydramine HCl [From Benadryl] Allergy (Severe, Verified 06/04/19 14:15) swelling to eyes and throat morphine Allergy (Severe, Verified 06/04/19 14:15) swelling throat doxycycline calcium [From Vibramycin] Allergy (Mild, Verified 06/04/19 14:15) Rash doxycycline hyclate [From Vibramycin] Allergy (Mild, Verified 06/04/19 14:15) Rash doxycycline monohydrate [From Vibramycin] Allergy (Mild, Verified 06/04/19 14:15 ) Rash acetaminophen [From Darvocet-N] Allergy (Verified 06/04/19 14:15) Penicillins Allergy (Verified 06/04/19 14:15) propoxyphene napsylate [From Darvocet-N] Allergy (Verified 06/04/19 14:15) Sulfa (Sulfonamide Antibiotics) Allergy (Verified 06/04/19 14:15) Rash Home Medications: Pregabalin [Lyrica 100Mg] 100 mg PO TID 10/19/13 [History] Amlodipine Besylate 10 mg [Norvasc 10 MG] 10 mg PO TID 01/05/16 [History] Ergocalciferol (Vitamin D2) [Vitamin D] 1.25 mg PO .TU/TH01/05/16 [History ] AMITRIPTYLINE HCL 50 mg Tab [AMITRIPTYLINE HCL 50 mg Tablet] 50 mg PO QID [History] Albuterol 2.5 mg/3 ml Neb [Proventil 2.5 mg/3 ml Neb] 2.5 mg NEB Q4HPRN PRN 11/08/16 [History] Albuterol Sulfate [Proventil Hfa] 6.7 gm IH QID PRN 11/08/16 [History] Loratadine 10 mg [Claritin 10 mg] 10 mg PO DAILY 11/08/16 [History] Hydrocodone Bit/Acetaminophen [[place] 7.5-325 Tablet] 1 each PO Q6H PRN PRN 07/04 [History] Montelukast Sodium 10 mg [Singulair 10 MG] 10 mg PO HS 07/04/17 [History] Carvedilol 12.5 mg [Coreg 12.5 mg] 12.5 mg PO BID 07/05/17 [History] Omeprazole 20 MG [Prilosec 20 mg] 20 mg PO BID 09/26/17 [History] Atorvastatin Calcium 10 mg PO DAILY 05/20/18 [History] Buspirone HCl 1 tablet PO BID 05/20/18 [History] Cyclobenzaprine HCl 5 mg PO HS 05/20/18 [History] Fluticasone Propionate [Allergy Relief] 1 spray IH DAILY 05/20/18 [History] Lidocaine 1 each TP BID 12/18/18 [History] Hx Tetanus, Diphtheria Vaccination/Date Given: Yes Hx Influenza Vaccination/Date Given: No Hx Pneumococcal Vaccination/Date Given: No - Review of Systems Constitutional: No Symptoms Eyes: No Symptoms Ears, Nose, & Throat: No Symptoms Respiratory: No Symptoms Cardiac: No Symptoms Abdominal/Gastrointestinal: No Symptoms Genitourinary Symptoms: No Symptoms Musculoskeletal: Joint Pain, Joint Swelling (left elbow. pt already had evaluated by xray at [facility]. no fx or dislocation) Neurological: No Symptoms Psychological: No Symptoms Endocrine: No Symptoms Hematologic/Lymphatic: No Symptoms Immunological/Allergic: No Symptoms All Other Systems: Reviewed and Negative - Past Medical History Pertinent Past Medical History: Yes Neurological History: Peripheral Neuropathy ENT History: No Pertinent History Cardiac History: Congestive Heart Failure, Hypertension, Peripheral Vascular Disease, Other Respiratory History: Asthma, CHF, COPD, Pneumonia Endocrine Medical History: Diabetes Type II Musculoskeletal History: Degenerative Disk Disease GI Medical History: Diverticulitis, GERD, Pancreatitis History: Renal Disease, Other Psycho-Social History: Anxiety, Depression Female Reproductive Disorders: No Pertinent History Other Medical History: LONG STANDING DM WITH MULTIPLE SECONDARY COMPLICATIONS;. HX OF FOOT WOUNDS AND OM. Heart murmer, ARDS (hardening of lungs), Chronic Renal Failure, Chronic hypoxemic respiratory failure - Past Surgical History Past Surgical History: Yes Neuro Surgical History: No Pertinent History Cardiac: No Pertinent History Respiratory: No Pertinent History Gastrointestinal: No Pertinent History Genitourinary: No Pertinent History Musculoskeletal: Orthopedic Surgery, Other Female Surgical History: Tubal Ligation, Other Other Surgical History: D&C,childbirth x two; bone removed in left big toe, amputation of last 2 toes on right foot, bone removal on r foot - Social History Smoking Status: Former smoker How long have you smoked: 27 years Exposure to second hand smoke: Yes Drug Use: none Patient Lives Alone: No - Nursing Vital Signs Nursing Vital Signs: Initial Vital Signs Temperature 98.2 F 06/04/19 14:01 Pulse Rate 92 H 06/04/19 14:01 Respiratory Rate 20 06/04/19 14:01 Blood Pressure 134/51 06/04/19 14:01 O2 Sat by Pulse Oximetry 99 06/04/19 14:01 Pain Scale Pain Intensity 2 - Physical Exam General Appearance: no apparent distress Eye Exam: PERRL/EOMI, eyes nml inspection Ears, Nose, Throat Exam: normal ENT inspection, moist mucous membranes Neck Exam: normal inspection, non-tender, supple, full range of motion Respiratory Exam: normal breath sounds, lungs clear, airway intact, No chest tenderness, No respiratory distress Cardiovascular Exam: regular rate/rhythm, normal heart sounds, normal peripheral pulses Gastrointestinal/Abdomen Exam: soft, normal bowel sounds, No tenderness Pelvic Exam: not done Rectal Exam: not done Back Exam: normal inspection, normal range of motion, No CVA tenderness, No vertebral tenderness Extremity Exam: contusions (left elbow with ecchymosis and swelling. fullrom) Neurologic Exam: alert, oriented x 3, cooperative, employment training specialist II-XII nml as tested Skin Exam: normal color (elbow), ecchymosis Lymphatic Exam: No adenopathy SpO2 Interpretation: normal O2 Delivery: Room Air - Course Nursing assessment & vital signs reviewed: Yes Ordered Tests: Active Orders 24 hr Category Date Time Status 1999 Calorie ADA Diet 06/04/19 Dinner Active BMP Stat Lab 06/04/19 14:00 Completed CBC W DIFF Stat Lab 06/04/19 14:00 Completed Glucose Stat Lab 06/04/19 19:34 Completed Medication Summary Discontinued Medications Generic Name Dose Route Start Last Admin Trade Name Samir PRN Reason Stop Dose Admin Insulin Human Regular 15 unit 06/04/19 14:57 06/04/19 15:03 Novolin R IV 06/04/19 14:58 15 unit STAT ONE Administration Insulin Human Regular Confirm 06/04/19 15:01 Novolin R Administered 06/04/19 15:02 Dose 15 unit .ROUTE .STK-MED ONE Insulin Human Regular 15 unit 06/04/19 16:44 06/04/19 17:42 Novolin R IV 06/04/19 16:45 15 unit STAT ONE Administration Insulin Human Regular Confirm 06/04/19 17:41 Novolin R Administered 06/04/19 17:42 Dose 15 unit .ROUTE .STK-MED ONE Insulin Human Regular 20 unit 06/04/19 19:25 06/04/19 19:34 Novolin R IV 06/04/19 19:26 20 unit STAT ONE Administration Insulin Human Regular Confirm 06/04/19 19:29 Novolin R Administered 06/04/19 19:30 Dose 20 unit .ROUTE .STK-MED ONE Lab/Rad Data: Laboratory Result Diagrams 06/04/19 14:00 06/04/19 14:00 Laboratory Results 06/04/19 06/04/19 06/04/19 Range/Units 19:34 14:00 14:00 WBC 10.7 H (4.0-10.5) K/mm3 RBC 5.27 (4.1-5.4) M/mm3 Hgb 12.9 (12.0-16.0) gm/dl Hct 40.2 (35-47) % MCV 76.3 L (78-100) fl MCH 24.5 L (26-32) pg MCHC 32.1 (32-36) g/dl RDW 15.3 H (11.5-14.0) % Plt Count 254 (150-450) K/mm3 MPV 12.0 H (6-9.5) fl Gran % 82.2 H (36.0-66.0) % Eos # (Auto) 0.20 (0-0.5) Absolute Lymphs (auto) 0.98 L (1.0-4.6) Absolute Monos (auto) 0.66 (0.0-1.3) Lymphocytes % 9.1 L (24.0-44.0) % Monocytes % 6.2 (0.0-12.0) % Eosinophils % 1.9 (0.00-5.0) % Basophils % 0.6 (0.0-0.4) % Absolute Granulocytes 8.83 H (1.4-6.9) Basophils # 0.06 (0-0.4) Sodium 129 L (137-145) mmol/L Potassium 3.7 (3.5-5.1) mmol/L Chloride 88 L (98-107) mmol/L Carbon Dioxide 29 (22-30) mmol/L Anion Gap 16.8 H (5-15) MEQ/L BUN 55 H (7-17) mg/dL Creatinine 2.12 H (0.52-1.04) mg/dL Estimated GFR 27.0 ML/MIN Glucose 624 H* 522 H* (74-106) mg/dL Calcium 8.7 (8.4-10.2) mg/dL - Progress Progress: re-examined Progress Note: 06/04/19 20:32 i had long discussion with pt. she states she is feeling well. she states her blood glucose level is rarely lower than 400 and is most commonly in the 500 to 650 range. pt states if it is high, then blood glucose is in the 651 to 750 range. she lives with blood glucose in the 500 to 600 range. she states her lithoduplicator operator, Dr. Herrera made changes to her insulin and despite the changes her levels have increased back to the 500 to 600 range. she desires to go home, take her insulin and monitor her blood glucose as prescribed and call dr. herrera on Friday06/07/19 to arrange an earlier appt. 06/04/19 21:10 pts accucheck is [id number] Counseled pt/family regarding: lab results, diagnosis, need for follow-up - Departure Departure Disposition: Home Clinical Impression: Hyperglycemia Condition: Stable Critical Care Time: Yes Critical Care Time(excluding separately billable procedures): 30-74 minutes Referrals: VILMA KEEN [Primary Care Provider] - Additional Instructions: take your insulin as prescribed. diabetic diet as prescribed. monitor your blood glucose levels as prescribed. return to ED if symptoms of lethargy, vomiting, diarrhea abdominal cramping.
[2019-06-04 14:30] LABS: BASOPHIL % 0.6 % (0.0-0.4); Basophil (Absolute #) 0.06 (0-0.4); Eosinophil % 1.9 % (0.00-5.0); Granulocyte Absolute (ANC) 8.83 (1.4-6.9); Granulocytes % 82.2 % (36.0-66.0); Hematocrit 40.2 % (35-47); Hemoglobin 12.9 gm/dl (12.0-16.0); Lymphocyte (Absolute #) 0.98 (1.0-4.6); Lymphocytes % 9.1 % (24.0-44.0); Mean Cell Volume 76.3 fl (78-100); Mean Corpuscular Hemoglobin 24.5 pg (26-32); Mean Corpuscular Hgb Concent. 32.1 g/dl (32-36); Monocyte (Absolute #) 0.66 (0.0-1.3); Monocytes % 6.2 % (0.0-12.0); Platelet Count 254 K/mm3 (150-450); Red Blood Count 5.27 M/mm3 (4.1-5.4); Red Cell Distribution Width 15.3 % (11.5-14.0); White Blood Count 10.7 K/mm3 (4.0-10.5)
[2019-06-04 14:52] LABS: ANION GAP 16.8 MEQ/L (5-15); Calcium 8.7 mg/dL (8.4-10.2); Creatinine 1 2.12 mg/dL (0.52-1.04); Potassium 3.7 mmol/L (3.5-5.1)
[2019-06-04] MEDS ORDERED: NovoLIN R IV ONE ×3 (14:57→19:25)
[2019-06-04] MEDS ORDERED: NovoLIN R ONE ×3 (15:01→19:29)
[2019-06-04 21:05] VITALS: BP 128/74; PULSE 89; O2SAT 98
== END 2019-06-04 21:37 | disposition home or self-care (01) ==
LOC: ED 13:40
DX: E11.65 Type 2 diabetes mellitus with hyperglycemia (principal); G62.9 Polyneuropathy, unspecified; I50.9 Heart failure, unspecified; I73.9 Peripheral vascular disease, unspecified; J45.909 Unspecified asthma, uncomplicated; J44.9 Chronic obstructive pulmonary disease, unspecified; K21.9 Gastro-esophageal reflux disease without esophagitis; F41.8 Other specified anxiety disorders; I12.9 Hypertensive chronic kidney disease with stage 1 through stage 4 chronic kidney disease, or unspecified chronic kidney disease; N18.9 Chronic kidney disease, unspecified; Z79.899 Other long term (current) drug therapy
CPT/HCPCS: 36415; 80048; 82947; 82962; 85025; 96372; 96374; 96375; 96376; 99284; A9270-GY

== ENCOUNTER 2019-08-19 13:14 | Emergency (ER) | payer OTHER ==
[2019-08-19] MEDS ORDERED: Sodium Chloride 0.9% 1000 ML 1,000 ML IV STA ×3 (13:22→13:45)
[2019-08-19] MEDS ORDERED: Pepcid 20 MG VIAL IV ONE ×2 (13:23→13:32)
[2019-08-19] MEDS ORDERED: Zofran 4 MG/2 ML VIAL IV ONE (13:25)
[2019-08-19] MEDS ORDERED: TRANDATE 100MG/20 ML MDV IV ONE (13:25)
[2019-08-19] MEDS ORDERED: Zofran 4 MG/2 ML VIAL ONE (13:32)
[2019-08-19] MEDS ORDERED: Sodium Chloride 0.9% 1000 ML 1,000 ML ONE ×3 (13:34→16:29)
[2019-08-19] MEDS ORDERED: TRANDATE 100 MG/20 ML MDV FOR DRIP IV ONE (13:34)
--- NOTE | 2019-08-19 13:37 | ERPHSYRPT ---
- History of Present Illness Time Seen by Provider: 08/19/19 13:20 Historian: patient, EMS Patient Subjective Stated Complaint: N/V and abd pain x 3 days. Pt states has been unable to have dialysis for last 7 days pt normally goes 3 times weekly Triage Nursing Assessment: To er c/o n/v and abd pain. pt arrives pale and clammy, resp easy and non labored pt a@ox3. Physician History: Nausea and vomiting with epigastric abdominal pain for 5 days. Patient is ESRD with dialysis on Mon, Wed, Fri and has not had dialysis for 8 days due to having no transportation due to her set-up to transport has not Timing/Duration: day(s) (5) Activities at Onset: none Quality: aching Abdominal Pain Onset Location: epigastric Pain Radiation: no radiation Severity of Pain-Max: moderate Severity of Pain-Current: mild Modifying Factors: Worsens With: vomiting Associated Symptoms: fatigue, nausea, vomiting, No back, No chest pain, No diaphoresis, No diarrhea, No fever/chills, No headache, No heartburn, No neck pain, No rash, No shortness of breath, No syncope, No weakness Previous symptoms: same symptoms as today, no recent treatment Allergies/Adverse Reactions: codeine [Codeine] Allergy (Severe, Verified 06/04/19 14:15) swelling throat diphenhydramine HCl [From Benadryl] Allergy (Severe, Verified 06/04/19 14:15) swelling to eyes and throat morphine Allergy (Severe, Verified 06/04/19 14:15) swelling throat doxycycline calcium [From Vibramycin] Allergy (Mild, Verified 06/04/19 14:15) Rash doxycycline hyclate [From Vibramycin] Allergy (Mild, Verified 06/04/19 14:15) Rash doxycycline monohydrate [From Vibramycin] Allergy (Mild, Verified 06/04/19 14:15 ) Rash acetaminophen [From Darvocet-N] Allergy (Verified 06/04/19 14:15) Penicillins Allergy (Verified 06/04/19 14:15) propoxyphene napsylate [From Darvocet-N] Allergy (Verified 06/04/19 14:15) Sulfa (Sulfonamide Antibiotics) Allergy (Verified 06/04/19 14:15) Rash Home Medications: Pregabalin [Lyrica 100Mg] 100 mg PO TID 10/19/13 [History] Amlodipine Besylate 10 mg [Norvasc 10 MG] 5 mg PO TID 01/05/16 [History] AMITRIPTYLINE HCL 50 mg Tab [AMITRIPTYLINE HCL 50 mg Tablet] 50 mg PO QID [History] Albuterol 2.5 mg/3 ml Neb [Proventil 2.5 mg/3 ml Neb] 2.5 mg NEB Q4HPRN PRN 11/08/16 [History] Albuterol Sulfate [Proventil Hfa] 6.7 gm IH QID PRN 11/08/16 [History] Loratadine 10 mg [Claritin 10 mg] 10 mg PO DAILY 11/08/16 [History] Hydrocodone Bit/Acetaminophen [[place] 7.5-325 Tablet] 1 each PO Q6H PRN PRN 07/04 [History] Carvedilol 12.5 mg [Coreg 12.5 mg] 12.5 mg PO BID 07/05/17 [History] Omeprazole 20 MG [Prilosec 20 mg] 20 mg PO BID 09/26/17 [History] Atorvastatin Calcium 10 mg PO DAILY 05/20/18 [History] Buspirone HCl 1 tablet PO BID 05/20/18 [History] Cyclobenzaprine HCl 5 mg PO HS 05/20/18 [History] Lidocaine 1 each TP BID 12/18/18 [History] Hx Tetanus, Diphtheria Vaccination/Date Given: Yes Hx Influenza Vaccination/Date Given: No Hx Pneumococcal Vaccination/Date Given: No - Review of Systems Constitutional: Fatigue, Malaise, No Fever, No Chills Eyes: No Eye Pain, No Vision Changes Ears, Nose, & Throat: No Symptoms, No Mouth Pain, No Mouth Swelling, No Throat Pain Respiratory: No Cough, No Dyspnea Cardiac: No Chest Pain, No Edema, No Syncope Abdominal/Gastrointestinal: Abdominal Pain, Nausea, Vomiting, No Diarrhea, No Hematemesis, No Hematochezia, No Melena Genitourinary Symptoms: No Dysuria, No Hematuria, No Flank Pain Musculoskeletal: No Back Pain, No Neck Pain Skin: No Rash Neurological: No Dizziness, No Focal Weakness, No Headache, No Parasthesia, No Sensory Changes Psychological: No Emotional Lability, No Hallucinations Endocrine: Polydipsia Hematologic/Lymphatic: No Easy Bleeding, No Easy Bruising All Other Systems: Reviewed and Negative - Past Medical History Pertinent Past Medical History: Yes Neurological History: Peripheral Neuropathy ENT History: No Pertinent History Cardiac History: Congestive Heart Failure, Hypertension, Peripheral Vascular Disease, Other Respiratory History: Asthma, CHF, COPD, Pneumonia Endocrine Medical History: Diabetes Type II Musculoskeletal History: Degenerative Disk Disease GI Medical History: Diverticulitis, GERD, Pancreatitis History: Renal Disease, Other Psycho-Social History: Anxiety, Depression Female Reproductive Disorders: No Pertinent History Other Medical History: LONG STANDING DM WITH MULTIPLE SECONDARY COMPLICATIONS;. HX OF FOOT WOUNDS AND OM. Heart murmer, ARDS (hardening of lungs), Chronic Renal Failure, Chronic hypoxemic respiratory failure - Past Surgical History Past Surgical History: Yes Neuro Surgical History: No Pertinent History Cardiac: No Pertinent History Respiratory: No Pertinent History Gastrointestinal: No Pertinent History Genitourinary: No Pertinent History Musculoskeletal: Orthopedic Surgery, Other Female Surgical History: Tubal Ligation, Other Other Surgical History: D&C,childbirth x two; bone removed in left big toe, amputation of last 2 toes on right foot, bone removal on r foot - Social History Smoking Status: Former smoker How long have you smoked: 27 years Exposure to second hand smoke: Yes Drug Use: none Patient Lives Alone: No - Female History Hx Now: No - Nursing Vital Signs Nursing Vital Signs: Initial Vital Signs Temperature 98.4 F 08/19/19 13:15 Pulse Rate 115 H 08/19/19 13:15 Respiratory Rate 18 08/19/19 13:15 Blood Pressure 206/114 08/19/19 13:15 O2 Sat by Pulse Oximetry 97 08/19/19 13:15 Pain Scale Pain Intensity 4 - Physical Exam General Appearance: no apparent distress, alert Eye Exam: PERRL/EOMI, eyes nml inspection Ears, Nose, Throat Exam: pharynx normal, dry mucous membranes Neck Exam: normal inspection, non-tender, supple, full range of motion Respiratory Exam: normal breath sounds, lungs clear, airway intact, No respiratory distress, No accessory muscle use, No crackles/rales, No rhonchi, No wheezing, No stridor Cardiovascular Exam: regular rate/rhythm, normal heart sounds Gastrointestinal/Abdomen Exam: soft, normal bowel sounds, No tenderness, No distention, No mass, No guarding, No rebound Back Exam: normal inspection, normal range of motion, No CVA tenderness, No vertebral tenderness Extremity Exam: normal inspection, normal range of motion, pelvis stable Neurologic Exam: alert, oriented x 3, cooperative, director experimental medicine II-XII nml as tested, normal mood/affect, nml cerebellar function, sensation nml, No motor deficits Skin Exam: normal color, warm, dry SpO2 Interpretation: normal SpO2: 97 O2 Delivery: Room Air - Course Nursing assessment & vital signs reviewed: Yes EKG Interpreted by Me: RATE (90), Sinus Rhythm, LAFB, NORMAL INTERVALS (MI only) , prolonged QT interval, Right Bundle Branch Block (intraventricular conduction delay), NORMAL ST-T, Other (no change in comparison to EKG from 05/10/2019) - Radiology Exams Chest X-ray Interpretation: Interpreted by me, Reviewed by me, Other (per radiologist palpation: Portable chest again demonstrates normal heart, lungs and bony thorax with left-sided double lumen dialysis catheter.) - CT Exams Abdomen/Pelvis CT Interpretation: Negative, Other (per radiologist interpretation: Lung bases are clear. Heart is large. Small hiatal hernia. Noncontrast his stomach and bowel loops appeared nonobstructed. Normal appendix. Mild scattered colonic diverticulosis without diverticulitis. No free fluid/air. Numerous chronic pancreatitis calcifications. Left mid-renal punctate calcification, probably vascular. Remaining liver, gallbladder, spleen, adrenal glands, kidneys, ureters, bladder, and uterus appear unremarkable for noncontrast exam. Mild scattered aorta iliac calcifications without AAA. Osseous structures intact with minimal degenerative changes throughout the spine. Right lower quadrant abdominal wall subcutaneous induration probably psychogenic in this patient with history of diabetes. Overall impression: Colonic diverticulosis without diverticulitis, chronic pancreatitis calcifications, and small hiatal hernia. No acute intra-abdominal/pelvic abnormalities on this noncontrast exam.) Ordered Tests: Active Orders 24 hr Category Date Time Status Strategy Manager STAT Care 08/19/19 13:23 Active EKG-ER Only STAT Care 08/19/19 13:22 Active IV Insertion STAT Care 08/19/19 13:22 Active IV Insertion-2nd Peripheral STAT Care 08/19/19 13:42 Active NPO (ED) STAT Care 08/19/19 13:23 Active Pulse Oximetry (ED) STAT Care 08/19/19 13:22 Active ABDOMEN AND PELVIS W/0 CONTRAS [CT] Stat Exams 08/19/19 13:24 Completed CHEST 1 VIEW (PORTABLE) Stat Exams 08/19/19 13:23 Completed AMYLASE Stat Lab 08/19/19 14:15 Completed BLOOD CULTURE Stat Lab 08/19/19 14:25 Received BMP Routine Lab 08/19/19 16:10 Completed CBC W DIFF Stat Lab 08/19/19 14:15 Completed CK-Creatinine Phosphokinase Stat Lab 08/19/19 14:15 Completed CMP Stat Lab 08/19/19 14:15 Completed CULTURE,URINE Stat Lab 08/19/19 14:30 Received CULTURE,URINE Stat Lab 08/19/19 14:30 Received HCG,QUALITATIVE URINE Stat Lab 08/19/19 14:30 Completed LIPASE Stat Lab 08/19/19 14:15 Completed Lactic Acid Stat Lab 08/19/19 13:23 Completed Lactic Acid Stat Lab 08/19/19 15:41 Results PROTIME WITH INR Stat Lab 08/19/19 14:15 Completed PTT Stat Lab 08/19/19 14:15 Completed TROPONIN Q3H Lab 08/19/19 14:15 Completed TROPONIN Q3H Lab 08/19/19 16:10 Completed TROPONIN Q3H Lab 08/19/19 19:30 Ordered TROPONIN Q3H Lab 08/19/19 22:30 Ordered TROPONIN Q3H Lab 08/20/19 01:30 Ordered UA W/RFX UR CULTURE Stat Lab 08/19/19 14:30 Completed VENOUS BLOOD GAS Urgent Lab 08/19/19 13:42 Completed Medication Summary Generic Name Dose Route Start Last Admin Trade Name Freq PRN Reason Stop Dose Admin Insulin Human Regular 100 101 mls @ 12.12 mls/hr 08/19/19 13:45 08/19/19 14: 34 units/ Sodium Chloride IV 09/18/19 13:44 12 units/hr .Q8H20M KINDRA 12.12 mls/hr Administration 12 UNITS/HR Potassium Chloride/Sodium Chloride 1,000 mls @ 100 mls/hr 08/19/19 17:30 Sodium Chloride 0.9% W/ 20 Meq Kcl/Liter IV 09/18/19 17:29 .Q10H KINDRA Discontinued Medications Generic Name Dose Route Start Last Admin Trade Name Freq PRN Reason Stop Dose Admin Famotidine 20 mg 08/19/19 13:23 08/19/19 13:39 Pepcid 20 Mg Vial IV 08/19/19 13:24 20 mg STAT ONE Administration Famotidine Confirm 08/19/19 13:32 Pepcid 20 Mg Vial Administered 08/19/19 13:33 Dose 20 mg IV .STK-MED ONE Sodium Chloride 1,000 mls @ 999 mls/hr 08/19/19 13:22 08/19/19 13:36 Sodium Chloride 0.9% 1000 Ml IV 08/19/19 14:22 999 mls/hr .Q1H1M STA Administration Sodium Chloride Confirm 08/19/19 13:34 Sodium Chloride 0.9% 1000 Ml Administered 08/19/19 13:35 Dose 1,000 mls @ ud .ROUTE .STK-MED ONE Sodium Chloride 1,000 mls @ 999 mls/hr 08/19/19 13:42 08/19/19 14:46 Sodium Chloride 0.9% 1000 Ml IV 08/19/19 14:42 999 mls/hr .Q1H1M STA Administration Sodium Chloride 1,000 mls @ 999 mls/hr 08/19/19 13:45 08/19/19 16:33 Sodium Chloride 0.9% 1000 Ml IV 08/19/19 14:45 999 mls/hr .Q1H1M STA Administration Sodium Chloride Confirm 08/19/19 14:06 Sodium Chloride 0.9% 100 Ml Ivpb Administered 08/19/19 14:07 Dose 100 mls @ ud IV .STK-MED ONE Sodium Chloride Confirm 08/19/19 14:45 Sodium Chloride 0.9% 1000 Ml Administered 08/19/19 14:46 Dose 1,000 mls @ ud .ROUTE .STK-MED ONE Sodium Chloride Confirm 08/19/19 16:29 Sodium Chloride 0.9% 1000 Ml Administered 08/19/19 16:30 Dose 1,000 mls @ ud .ROUTE .STK-MED ONE Insulin Human Regular 12 unit 08/19/19 13:42 08/19/19 14:34 Novolin R IV 08/19/19 13:43 12 unit STAT ONE Administration Insulin Human Regular Confirm 08/19/19 14:05 Novolin R Administered 08/19/19 14:06 Dose 12 unit .ROUTE .STK-MED ONE Insulin Human Regular Confirm 08/19/19 14:09 Novolin R Administered 08/19/19 14:10 Dose 100 unit .ROUTE .STK-MED ONE Labetalol HCl 10 mg 08/19/19 13:25 08/19/19 13:40 Trandate 100mg/20 Ml Mdv IV 08/19/19 13:26 10 mg ONCE ONE Administration Labetalol HCl Confirm 08/19/19 13:34 Trandate 100 Mg/20 Ml Mdv For Drip Administered 08/19/19 13:35 Dose 100 mg IV .STK-MED ONE Ondansetron HCl 4 mg 08/19/19 13:25 08/19/19 13:37 Zofran 4 Mg/2 Ml Vial IV 08/19/19 13:26 4 mg STAT ONE Administration Ondansetron HCl Confirm 08/19/19 13:32 Zofran 4 Mg/2 Ml Vial Administered 08/19/19 13:33 Dose 4 mg .ROUTE .STK-MED ONE Lab/Rad Data: Laboratory Result Diagrams 08/19/19 14:15 08/19/19 16:10 Laboratory Results 08/19/19 08/19/19 08/19/19 Range/Units 16:10 15:41 14:30 WBC (4.0-10.5) K/mm3 RBC (4.1-5.4) M/mm3 Hgb (12.0-16.0) gm/dl Hct (35-47) % MCV (78-100) fl MCH (26-32) pg MCHC (32-36) g/dl RDW (11.5-14.0) % Plt Count (150-450) K/mm3 MPV (6-9.5) fl Gran % (36.0-66.0) % Eos # (Auto) (0-0.5) Absolute Lymphs (auto) (1.0-4.6) Absolute Monos (auto) (0.0-1.3) Lymphocytes % (24.0-44.0) % Monocytes % (0.0-12.0) % Eosinophils % (0.00-5.0) % Basophils % (0.0-0.4) % Absolute Granulocytes (1.4-6.9) Basophils # (0-0.4) PT (9.95-12.35) SECONDS INR (0.8-3.0) APTT (25.3-37.0) SECONDS pO2/FiO2 Ratio % VBG pH (7.32-7.42) VBG pCO2 at Pat Temp (42-55) mm/Hg VBG pO2 at Pat Temp (25-40) mm/Hg VBG HCO3 (22-28) meq/L VBG O2 Sat (Adriane) (95-100) VBG Base Excess (-2.0-2.0) VBG Hemoglobin VBG Carboxyhemoglobin (0.0-6.9) % T HGB POC Potassium (3.5-5.1) Sodium 135 L (137-145) mmol/L Potassium 3.4 L (3.5-5.1) mmol/L Chloride 92 L (98-107) mmol/L Carbon Dioxide 27 (22-30) mmol/L Anion Gap 18.9 H (5-15) MEQ/L BUN 43 H (7-17) mg/dL Creatinine 2.39 H (0.52-1.04) mg/dL Estimated GFR 23.5 ML/MIN Glucose 226 H (74-106) mg/dL Lactic Acid 3.7 H (0.4-2.0) Calcium 9.5 (8.4-10.2) mg/dL Total Bilirubin (0.2-1.3) mg/dL AST (14-36) U/L ALT (0-35) U/L Alkaline Phosphatase (38-126) U/L Creatine Kinase (30-135) U/L Troponin I 0.015 (0.000-0.034) ng/mL Serum Total Protein (6.3-8.2) g/dL Albumin (3.5-5.0) g/dL Amylase (30-110) U/L Lipase (23-300) U/L Urine Color (YELLOW) Urine Appearance (CLEAR) Urine pH (5-6) Ur Specific [place] (1.005-1.025) Urine Protein (Negative) Urine Ketones (NEGATIVE) Urine Blood (0-5) Jaren/ul Urine Nitrite (NEGATIVE) Urine Bilirubin (NEGATIVE) Urine Urobilinogen (0-1) mg/dL Ur Leukocyte Esterase (NEGATIVE) Urine WBC (Auto) (0-5) /HPF Urine RBC (Auto) (0-2) /HPF U Hyaline Cast (Auto) (0-2) /LPF U Epithel Cells (Auto) (FEW) /HPF Urine Bacteria (Auto) (NEGATIVE) /HPF Urine Mucus (Auto) (NEGATIVE) /HPF Urine Culture Reflexed (NO) Urine Glucose (NEGATIVE) mg/dL Urine HCG, Qual NEGATIVE (Negative) 08/19/19 08/19/19 08/19/19 Range/Units 14:30 14:15 14:15 WBC (4.0-10.5) K/mm3 RBC (4.1-5.4) M/mm3 Hgb (12.0-16.0) gm/dl Hct (35-47) % MCV (78-100) fl MCH (26-32) pg MCHC (32-36) g/dl RDW (11.5-14.0) % Plt Count (150-450) K/mm3 MPV (6-9.5) fl Gran % (36.0-66.0) % Eos # (Auto) (0-0.5) Absolute Lymphs (auto) (1.0-4.6) Absolute Monos (auto) (0.0-1.3) Lymphocytes % (24.0-44.0) % Monocytes % (0.0-12.0) % Eosinophils % (0.00-5.0) % Basophils % (0.0-0.4) % Absolute Granulocytes (1.4-6.9) Basophils # (0-0.4) PT (9.95-12.35) SECONDS INR (0.8-3.0) APTT (25.3-37.0) SECONDS pO2/FiO2 Ratio % VBG pH (7.32-7.42) VBG pCO2 at Pat Temp (42-55) mm/Hg VBG pO2 at Pat Temp (25-40) mm/Hg VBG HCO3 (22-28) meq/L VBG O2 Sat (Adriane) (95-100) VBG Base Excess (-2.0-2.0) VBG Hemoglobin VBG Carboxyhemoglobin (0.0-6.9) % T HGB POC Potassium (3.5-5.1) Sodium (137-145) mmol/L Potassium (3.5-5.1) mmol/L Chloride (98-107) mmol/L Carbon Dioxide (22-30) mmol/L Anion Gap (5-15) MEQ/L BUN (7-17) mg/dL Creatinine (0.52-1.04) mg/dL Estimated GFR ML/MIN Glucose (74-106) mg/dL Lactic Acid (0.4-2.0) Calcium (8.4-10.2) mg/dL Total Bilirubin (0.2-1.3) mg/dL AST (14-36) U/L ALT (0-35) U/L Alkaline Phosphatase (38-126) U/L Creatine Kinase (30-135) U/L Troponin I 0.014 (0.000-0.034) ng/mL Serum Total Protein (6.3-8.2) g/dL Albumin (3.5-5.0) g/dL Amylase 66 (30-110) U/L Lipase 394 H (23-300) U/L Urine Color YELLOW (YELLOW) Urine Appearance SLIGHTLY CLOUDY (CLEAR) Urine pH 5.0 (5-6) Ur Specific [place] 1.024 (1.005-1.025) Urine Protein >=500 (Negative) Urine Ketones NEGATIVE (NEGATIVE) Urine Blood MODERATE (0-5) Jaren/ul Urine Nitrite NEGATIVE (NEGATIVE) Urine Bilirubin NEGATIVE (NEGATIVE) Urine Urobilinogen NEGATIVE (0-1) mg/dL Ur Leukocyte Esterase NEGATIVE (NEGATIVE) Urine WBC (Auto) 0-2 (0-5) /HPF Urine RBC (Auto) 3-5 (0-2) /HPF U Hyaline Cast (Auto) 3-5 (0-2) /LPF U Epithel Cells (Auto) RARE (FEW) /HPF Urine Bacteria (Auto) FEW (NEGATIVE) /HPF Urine Mucus (Auto) SLIGHT (NEGATIVE) /HPF Urine Culture Reflexed YES (NO) Urine Glucose >=500 (NEGATIVE) mg/dL Urine HCG, Qual (Negative) 08/19/19 08/19/19 08/19/19 Range/Units 14:15 14:15 14:15 WBC 9.4 (4.0-10.5) K/mm3 RBC 5.41 H (4.1-5.4) M/mm3 Hgb 13.2 (12.0-16.0) gm/dl Hct 40.6 (35-47) % MCV 75.0 L (78-100) fl MCH 24.3 L (26-32) pg MCHC 32.5 (32-36) g/dl RDW 15.7 H (11.5-14.0) % Plt Count 353 (150-450) K/mm3 MPV 10.2 H (6-9.5) fl Gran % 76.7 H (36.0-66.0) % Eos # (Auto) 0.14 (0-0.5) Absolute Lymphs (auto) 1.21 (1.0-4.6) Absolute Monos (auto) 0.74 (0.0-1.3) Lymphocytes % 12.9 L (24.0-44.0) % Monocytes % 7.9 (0.0-12.0) % Eosinophils % 1.5 (0.00-5.0) % Basophils % 1.0 (0.0-0.4) % Absolute Granulocytes 7.19 H (1.4-6.9) Basophils # 0.09 (0-0.4) PT 11.9 (9.95-12.35) SECONDS INR 1.05 (0.8-3.0) APTT 37.2 H (25.3-37.0) SECONDS pO2/FiO2 Ratio % VBG pH (7.32-7.42) VBG pCO2 at Pat Temp (42-55) mm/Hg VBG pO2 at Pat Temp (25-40) mm/Hg VBG HCO3 (22-28) meq/L VBG O2 Sat (Adriane) (95-100) VBG Base Excess (-2.0-2.0) VBG Hemoglobin VBG Carboxyhemoglobin (0.0-6.9) % T HGB POC Potassium (3.5-5.1) Sodium 129 L (137-145) mmol/L Potassium 3.9 (3.5-5.1) mmol/L Chloride 86 L (98-107) mmol/L Carbon Dioxide 28 (22-30) mmol/L Anion Gap 19.9 H (5-15) MEQ/L BUN 42 H (7-17) mg/dL Creatinine 2.45 H (0.52-1.04) mg/dL Estimated GFR 22.9 ML/MIN Glucose 602 H* (74-106) mg/dL Lactic Acid (0.4-2.0) Calcium 9.6 (8.4-10.2) mg/dL Total Bilirubin 0.40 (0.2-1.3) mg/dL AST 19 (14-36) U/L ALT 20 (0-35) U/L Alkaline Phosphatase 150 H (38-126) U/L Creatine Kinase 68 (30-135) U/L Troponin I (0.000-0.034) ng/mL Serum Total Protein 8.4 H (6.3-8.2) g/dL Albumin 4.1 (3.5-5.0) g/dL Amylase (30-110) U/L Lipase (23-300) U/L Urine Color (YELLOW) Urine Appearance (CLEAR) Urine pH (5-6) Ur Specific [place] (1.005-1.025) Urine Protein (Negative) Urine Ketones (NEGATIVE) Urine Blood (0-5) Jaren/ul Urine Nitrite (NEGATIVE) Urine Bilirubin (NEGATIVE) Urine Urobilinogen (0-1) mg/dL Ur Leukocyte Esterase (NEGATIVE) Urine WBC (Auto) (0-5) /HPF Urine RBC (Auto) (0-2) /HPF U Hyaline Cast (Auto) (0-2) /LPF U Epithel Cells (Auto) (FEW) /HPF Urine Bacteria (Auto) (NEGATIVE) /HPF Urine Mucus (Auto) (NEGATIVE) /HPF Urine Culture Reflexed (NO) Urine Glucose (NEGATIVE) mg/dL Urine HCG, Qual (Negative) 08/19/19 08/19/19 Range/Units 13:42 13:23 WBC (4.0-10.5) K/mm3 RBC (4.1-5.4) M/mm3 Hgb (12.0-16.0) gm/dl Hct (35-47) % MCV (78-100) fl MCH (26-32) pg MCHC (32-36) g/dl RDW (11.5-14.0) % Plt Count (150-450) K/mm3 MPV (6-9.5) fl Gran % (36.0-66.0) % Eos # (Auto) (0-0.5) Absolute Lymphs (auto) (1.0-4.6) Absolute Monos (auto) (0.0-1.3) Lymphocytes % (24.0-44.0) % Monocytes % (0.0-12.0) % Eosinophils % (0.00-5.0) % Basophils % (0.0-0.4) % Absolute Granulocytes (1.4-6.9) Basophils # (0-0.4) PT (9.95-12.35) SECONDS INR (0.8-3.0) APTT (25.3-37.0) SECONDS pO2/FiO2 Ratio 21.0 % VBG pH 7.45 H (7.32-7.42) VBG pCO2 at Pat Temp 40 L (42-55) mm/Hg VBG pO2 at Pat Temp 42 H (25-40) mm/Hg VBG HCO3 27.8 (22-28) meq/L VBG O2 Sat (Adriane) 83.0 L (95-100) VBG Base Excess 3.5 H (-2.0-2.0) VBG Hemoglobin 14.9 VBG Carboxyhemoglobin 3.7 (0.0-6.9) % T HGB POC Potassium 4.9 (3.5-5.1) Sodium (137-145) mmol/L Potassium (3.5-5.1) mmol/L Chloride (98-107) mmol/L Carbon Dioxide (22-30) mmol/L Anion Gap (5-15) MEQ/L BUN (7-17) mg/dL Creatinine (0.52-1.04) mg/dL Estimated GFR ML/MIN Glucose (74-106) mg/dL Lactic Acid 5.1 H (0.4-2.0) Calcium (8.4-10.2) mg/dL Total Bilirubin (0.2-1.3) mg/dL AST (14-36) U/L ALT (0-35) U/L Alkaline Phosphatase (38-126) U/L Creatine Kinase (30-135) U/L Troponin I (0.000-0.034) ng/mL Serum Total Protein (6.3-8.2) g/dL Albumin (3.5-5.0) g/dL Amylase (30-110) U/L Lipase (23-300) U/L Urine Color (YELLOW) Urine Appearance (CLEAR) Urine pH (5-6) Ur Specific [place] (1.005-1.025) Urine Protein (Negative) Urine Ketones (NEGATIVE) Urine Blood (0-5) Jaren/ul Urine Nitrite (NEGATIVE) Urine Bilirubin (NEGATIVE) Urine Urobilinogen (0-1) mg/dL Ur Leukocyte Esterase (NEGATIVE) Urine WBC (Auto) (0-5) /HPF Urine RBC (Auto) (0-2) /HPF U Hyaline Cast (Auto) (0-2) /LPF U Epithel Cells (Auto) (FEW) /HPF Urine Bacteria (Auto) (NEGATIVE) /HPF Urine Mucus (Auto) (NEGATIVE) /HPF Urine Culture Reflexed (NO) Urine Glucose (NEGATIVE) mg/dL Urine HCG, Qual (Negative) - Progress Progress: improved Progress Note: 08/19/19 16:12 Vitals have improved with IV hydration and IV Labetalol 10mg times one with tachycardia improved. 08/19/19 17:28 Patient feels much better after IV hydration. Glucose has significantly improved with slight decrease in potassium. Insulin drip decreased from 12u/hr to 6units/hr and will give Potassium 20meq in 0.9NS as her glucose has decreased over 150mg/dl after the first BMP check. Patient has maintained sinus rhythm throughout her time in the emergency department 08/19/19 17:34 Discussed the patient with Dr Cardona, Hospitalist at [facility] in [place], [place] accepted the patient for transfer and will place in the ICU at [facility] 08/19/19 17:43 Discussed the patient with Dr Lawson, [employer], with Dr Cardona at [facility] In [place], [place] who knows the patient well and continued recommendation with IV insulin and fluids and will provide consultation and dialysis at [facility] 08/19/19 17:51 Patient is hemodynamically in good condition, no respiratory distress, afebrile and resolution of tachycardia and hypertension Discussed with Dr.: Other (Dr Cardona, Hospitalist at [facility] in [place], [place]) Counseled pt/family regarding: lab results - Departure Departure Disposition: Transfer ([facility] in [place], [place]) , Extended Care Facility Clinical Impression: Hyperglycemia without ketosis, Dehydration, ESRD (end stage renal disease) on dialysis Nausea and vomiting Qualifiers: Vomiting type: unspecified Vomiting Intractability: unspecified Qualified Code( s): R11.2 - Nausea with vomiting, unspecified Hypertension Qualifiers: Hypertension type: essential hypertension Qualified Code(s): I10 - Essential ( primary) hypertension Condition: Fair Critical Care Time: Yes Critical Care Time(excluding separately billable procedures): Critical 30-74 mins Referrals: VILMA KEEN [Primary Care Provider] -
[2019-08-19 13:41] LABS: Lactic Acid 5.1 (0.4-2.0)
[2019-08-19] MEDS ORDERED: NovoLIN R IV ONE (13:42)
[2019-08-19] MEDS ORDERED: NOVOLIN R INSULIN (FOR DRIPS)** 100 UNITS in Sodium Chloride 0.9% 100 ML IVPB 100 ML IV SCH (13:45)
[2019-08-19 13:47] LABS: VBG BASE EXCESS 3.5 (-2.0-2.0); VBG CARBOXYHEMOGLOBIN 3.7 % T HGB (0.0-6.9); VBG HCO3- 27.8 meq/L (22-28); VBG HEMOGLOBIN 14.9; VBG POTASSIUM 4.9 (3.5-5.1); VBG pH 7.45 (7.32-7.42)
[2019-08-19] MEDS ORDERED: NovoLIN R ONE ×2 (14:05→14:09)
[2019-08-19] MEDS ORDERED: Sodium Chloride 0.9% 100 ML IVPB 100 ML IV ONE (14:06)
[2019-08-19 14:24] LABS: Basophil (Absolute #) 0.09 (0-0.4); Eosinophil % 1.5 % (0.00-5.0); Eosinophil (Absolute #) 0.14 (0-0.5); Granulocyte Absolute (ANC) 7.19 (1.4-6.9); Granulocytes % 76.7 % (36.0-66.0); Hematocrit 40.6 % (35-47); Hemoglobin 13.2 gm/dl (12.0-16.0); Lymphocyte (Absolute #) 1.21 (1.0-4.6); Lymphocytes % 12.9 % (24.0-44.0); Mean Corpuscular Hgb Concent. 32.5 g/dl (32-36); Mean Platelet Volume 10.2 fl (6-9.5); Monocyte (Absolute #) 0.74 (0.0-1.3); Monocytes % 7.9 % (0.0-12.0); Platelet Count 353 K/mm3 (150-450); Red Blood Count 5.41 M/mm3 (4.1-5.4); Red Cell Distribution Width 15.7 % (11.5-14.0); White Blood Count 9.4 K/mm3 (4.0-10.5)
[2019-08-19 14:36] LABS: INR 1.05 (0.8-3.0); PROTIME 11.9 SECONDS (9.95-12.35)
[2019-08-19 14:39] LABS: ALBUMIN 4.1 g/dL (3.5-5.0); ANION GAP 19.9 MEQ/L (5-15); BILIRUBIN,TOTAL 0.4 mg/dL (0.2-1.3); Calcium 9.6 mg/dL (8.4-10.2); Creatinine 1 2.45 mg/dL (0.52-1.04); PTT 37.2 SECONDS (25.3-37.0); Potassium 3.9 mmol/L (3.5-5.1); Total Protein 8.4 g/dL (6.3-8.2)
[2019-08-19 14:45] LABS: AMYLASE 66 U/L (30-110); LIPASE 394 U/L (23-300)
[2019-08-19 14:46] LABS: Mean Corpuscular Hemoglobin 24.3 pg (26-32)
[2019-08-19 16:16] LABS: Lactic Acid 3.7 (0.4-2.0)
--- NOTE | 2019-08-19 16:23 | XRAY ---
Indication: Vomiting and malaise. Comparison: April 29, 2019. Portable chest again demonstrates normal heart, lungs, and bony thorax with left-sided double-lumen dialysis catheter.
--- NOTE | 2019-08-19 16:29 | XRAY ---
Indication: Abdomen pain, nausea, and vomiting. History of diabetes. Multiple contiguous axial images obtained through the abdomen and pelvis without contrast as ordered. Comparison: None Lung bases are clear. Heart is not enlarged. Small hiatal hernia. Noncontrasted stomach and bowel loops appear nonobstructed. Normal appendix. Mild scattered colonic diverticulosis without diverticulitis. No free fluid/air. Numerous chronic pancreatitis calcifications. Left mid renal punctate calcification, probably vascular. Remaining liver, gallbladder, spleen, adrenal glands, kidneys, ureters, bladder, and uterus appear unremarkable for noncontrast exam. Mild scattered aortoiliac calcifications without AAA. Osseous structures intact with minimal degenerative changes throughout the spine. Right lower quadrant abdominal wall subcutaneous induration probably iatrogenic in this patient with history of diabetes. Impression: 1. Colonic diverticulosis without diverticulitis, chronic pancreatitis calcifications, and small hiatal hernia. 2. No acute intra-abdominal/pelvic abnormalities on this noncontrast exam. CTDI 34.33
[2019-08-19 16:45] LABS: ANION GAP 18.9 MEQ/L (5-15); Calcium 9.5 mg/dL (8.4-10.2); Creatinine 1 2.39 mg/dL (0.52-1.04); Potassium 3.4 mmol/L (3.5-5.1); TROPONIN 0.015 ng/mL (0.000-0.034)
[2019-08-19 16:53] LABS: Appearance SLIGHTLY CLOUDY (CLEAR); Bilirubin NEGATIVE (NEGATIVE); Blood MODERATE Ery/ul (0-5); Epithelial Cells RARE /HPF (FEW); Glucose >=500 mg/dL (NEGATIVE); Ketones NEGATIVE (NEGATIVE); Leukocyte Esterase NEGATIVE (NEGATIVE); Mucus SLIGHT /HPF (NEGATIVE); Nitrite NEGATIVE (NEGATIVE); Protein,Urine Dip >=500 (Negative); Specific Gravity 1.024 (1.005-1.025); Urobilinogen NEGATIVE mg/dL (0-1)
[2019-08-19 16:57] LABS: Bacteria FEW /HPF (NEGATIVE); WBC 0-2 /HPF (0-5)
[2019-08-19] MEDS ORDERED: Sodium Chloride 0.9% W/ 20 mEq KCl/LITER 1,000 ML IV SCH (17:30)
[2019-08-19] MEDS ORDERED: Sodium Chloride 0.9% W/ 20 mEq KCl/LITER 1,000 ML IV ONE (18:28)
[2019-08-19 18:37] VITALS: BP 150/87; PULSE 90; O2SAT 98
== END 2019-08-19 18:54 ==
LOC: ED 13:14
DX: E11.65 Type 2 diabetes mellitus with hyperglycemia (principal); E86.0 Dehydration; N18.6 End stage renal disease; Z99.2 Dependence on renal dialysis; R11.2 Nausea with vomiting, unspecified; I10 Essential (primary) hypertension; Z79.899 Other long term (current) drug therapy; Z79.891 Long term (current) use of opiate analgesic; R10.13 Epigastric pain; R53.83 Other fatigue
CPT/HCPCS: 36000; 36415; 71045; 74176; 80048; 80053; 81001; 82150; 82550; 82805; 83605; 83690; 84484; 84703; 85025; 85610; 85730; 87040; 87086; 93005; 93041; 94760; 96360; 96361; 96365; 96366; 96374; 96375; 99285; 99291; J1815; J2405; A9270-GY